=== PATIENT | male | born 1960 | race Caucasian/White ===

== ENCOUNTER 2022-05-26 01:09 | Outpatient (CLI) | payer OTHER, SELFPAY ==
--- OUTSIDE RECORDS SUMMARY | 2022-05-26 01:13 | XMS_ITS | Encounter Summary ---
:1960 Author Organization [facility] Address [address] [place] [address] Care Team Providers Name Role Phone Tyrese Juares Primary Care Provider Encounter Details Date Type Department Care Team Description 05/17/2022 Travel Social History Tobacco Use Types Packs/Day Years Used Date Never Smoker Smokeless Tobacco: Never Used Comments: LEONARDO pt not able to give histor y Sex Assigned at Date Recorded Not on file COVID-19 Exposure Response Date Recorded In the last 10 days, have you been in contact with No / Unsu re 05/17/2022 13:02 EDT someone who was confirmed or suspected to have Coronavirus/COVID-19? documented as of this encounter Functional Status Functional Status Response Date of Assessment Are you deaf or do you have serious difficulty hearing? No 05/17/2022 documented as of this encounter Plan of Treatment Not on filedocumented as of this encounter Visit Diagnoses Not on filedocumented in this encounter Care Teams Product Development Relationship Specialty Start Date End Date Tyrese Juares PA PCP - General 03/16/22 [address] [place] [facility] [place] [address] documented as of this encounter
--- OUTSIDE RECORDS SUMMARY | 2022-05-26 01:13 | XMS_ITS | Encounter Summary ---
:1960 Author Organization [facility] Address [address] [place] [address] Care Team Providers Name Role Phone Tyrese Juares Primary Care Provider Encounter Details Date Type Department Care Team Description 04/16/2022 Travel Social History Tobacco Use Types Packs/Day Years Used Date Unknown If Ever Smoked Comments: LEONARDO pt not able to give histor y Sex Assigned at Date Recorded Not on file COVID-19 Exposure Response Date Recorded In the last 10 days, have you been in contact with No / Unsu re 04/16/2022 8:10 EDT someone who was confirmed or suspected to have Coronavirus/COVID-19? documented as of this encounter Plan of Treatment Not on filedocumented as of this encounter Visit Diagnoses Not on filedocumented in this encounter Care Teams Chip Mucker Relationship Specialty Start Date End Date Tyrese Juares PA PCP - General 03/16/22 [address] [facility] [place] [address] documented as of this encounter
--- OUTSIDE RECORDS SUMMARY | 2022-05-26 01:13 | XMS_ITS | Encounter Summary ---
:1960 Author Organization [facility] Address [address] [place] [address] Care Team Providers Name Role Phone Tyrese Juares Primary Care Provider Reason for Visit Reason Comments Urinary Retention pt has had a mclean catheter for 2 weeks. pt is having issues with mclean leaking and would like the mclean removed. [facility] Auth/Cert Specialty Diagnoses / Procedures Referred By Contact Refer red To Contact Diagnoses Urinary retention Referral ID Status Reason Start Date Expiration Date Visits Requ ested Visits Authorized [id number] 1 1 Encounter Details Date Type Department Care Team Description 04/16/2022 Emergency [facility] - Mitchell Da Silva, Ur inary retention [facility] PA-C (Primary Dx) Department [address] [place] [address] [phone] (Wo rk) Social History Tobacco Use Types Packs/Day Years [...] have Coronavirus/COVID-19? documented as of this encounter Last Filed Vital Signs Vital Sign Reading Time Taken Comments Blood Pressure 177/96 04/16/2022 1029 EDT Pulse - - Temperature 36.5 ??C (97.7 ??F) 04/16/2022 0807 EDT Respiratory Rate 16 04/16/2022 1029 EDT Oxygen Saturation 96% 04/16/2022 1029 EDT Inhaled Oxygen Concentration - - Weight 65.2 kg (143 lb 11.2 oz) 04/16/2022 0807 EDT Height 175.3 cm (5' 9) 04/16/2022 0807 EDT Body Mass Index 21.22 04/16/2022 0807 EDT documented in this encounter Discharge Instructions Mitchell Espinal PA-C - 04/16/2022 You were seen in the emergency department with a Mclean catheter in place after your hospitalization. The catheter was removed and you were able to produce urine, if you develop abdominal pain or pressure or inability to produce urine return to the emergency department, take the tamsulosin as prescribed to prevent future episodes of urinary retention. While hospitalized he developed urinary retention which is why the catheter was placed. During your hospitalization you had a diverticulum in your colon which was bleeding, you lost a significant amount of blood which is why you required resuscitation and you were hospitalized, the bleeding stopped on its own and you did not have a colonoscopy. Follow-up with the DC for your colonoscopy as discussed, if you develop future episodes of rectal bleeding you should return to the emergency department, you should also discuss with your primary care provider. documented in this encounter Medications at Time of Discharge Medication Sig Dispensed Refills Start Date End Date folic acid (FOLVITE) 1 mg Take 1 Tablet by 60 Tablet 0 03/08 tablet mouth daily. folic acid (FOLVITE) 1 mg Take 1 Tablet by 30 Tablet 2 07/2022 tablet mouth daily. lisinopriL (PRINIVIL) 5 5 mg. 0 03/01/2022 mg tablet Multivitamins with Take 1 Tablet by 30 Tablet 0 04/01/2022 Minerals tablet tablet mouth daily. senna (SENOKOT) 8.6 mg Take 2 Tablets by 60 Tablet 0 2021 tablet mouth at bedtime as needed for Other (constipation). sertraline (ZOLOFT) 100 100 mg. 0 09/01/2021 mg tablet TAMSulosin (FLOMAX) 0.4 Take 2 Capsules by 60 capsule 0 05/2 04/2022 mg capsule mouth at bedtime. TAMSulosin (FLOMAX) 0.4 Take 2 Capsules by 60 Each 2 06/07/2022 mg capsule mouth daily. traZODone (DESYREL) 50 mg 50 mg. 0 09/01/2021 tablet TAMSulosin (FLOMAX) 0.4 Take 1 capsule by 14 capsule 0 04/1604/30/2022 mg capsule mouth daily for 14 days. documented as of this encounter Ordered Prescriptions Prescription Sig Dispensed Refills Start Date End Date TAMSulosin (FLOMAX) 0.4 Take 1 capsule by 14 capsule 0 04/1604/30/2022 mg capsule mouth daily for 14 days. documented in this encounter Discharge Disposition Disposition Code Departure Means Destination Home or Self Nursing Home documented in this encounter ED Notes Mitchell Da Silva PA-C - 04/16/2022 1043 EDT Emergency Department Visit Assessment and ED Course 61-year-old male who was recently admitted to [facility] for lower GI bleed with anemia presents to the emergency department with a Mclean catheter in place requesting removal. Mclean removed without incident, 1 hour after removal he was able to void 400 mL of urine, denies abdominal pain. Will continue tamsulosin for the next 14 days to prevent urinary retention, he has no history of urinary retention prior to hospitalization. He denies rectal bleeding. See discharge instructions for patient education/return precautions Final diagnoses: Urinary retention Disposition: Discharged Chief complaint: Mclean catheter removal HPI Juan is a 61-year-old male who was recently admitted to [facility] for lower GI bleed with anemia requiring transfusion who had a subsequent hypoxic brain injury and urinary retention, patient was discharged from the hospital with an indwelling Mclean catheter and encouraged to follow-up with urology. He presents to the emergency department today requesting removal of the catheter, states that he cannot get into [facility] for [facility], denies dysuria, denies abdominal pain, states that he is sick of it and wants it removed. History was provided by: Patient Patient's pertinent PMH, FH, SH were reviewed and edited as necessary. ROS A focused review of systems was performed. Pertinent positives and negatives as noted in HPI. Physical Exam BP (!) 177/96 Temp 36.5 ??C (97.7 ??F) Resp 16 Ht 175.3 cm (69) Wt 65.2 kg (143 lb 11.2 oz) SpO2 96% BMI 21.22 kg/m?? A medical screening exam was performed. Physical Exam Vitals and nursing note reviewed. Constitutional: General: He is not in acute distress. Appearance: He is well-developed and well-nourished. HENT: Nose: Nose normal. No nasal discharge. Mouth/Throat: Mouth: Mucous membranes are moist. Pharynx: Oropharynx is clear. Eyes: Extraocular Movements: EOM normal. Conjunctiva/sclera: Conjunctivae normal. Pupils: Pupils are equal, round, and reactive to light. Cardiovascular: Rate and Rhythm: Normal rate and regular rhythm. Heart sounds: Normal heart sounds. Pulmonary: Effort: Pulmonary effort is normal. No respiratory distress. Breath sounds: Normal breath sounds. Abdominal: General: Bowel sounds are normal. Palpations: Abdomen is soft. Tenderness: There is no abdominal tenderness. Musculoskeletal: General: Normal range of motion. Cervical back: Normal range of motion and neck supple. Skin: General: Skin is warm and dry. Neurological: Mental Status: He is alert and oriented to person, place, and time. Cranial Nerves: No cranial nerve deficit. Psychiatric: Mood and Affect: Mood and affect normal. Procedures Procedures Maru Kim RN - 04/16/2022 0903 EDT Mclean cath removed after balloon deflated without problem, and patient was elated. documented in this encounter Plan of Treatment Not on filedocumented as of this encounter Visit Diagnoses Diagnosis Urinary retention - Primary Retention of urine, unspecified documented in this encounter Care Teams System Programmer Relationship Specialty Start Date End Date Tyrese Juares PA PCP - General 03/16/[address] [place] [facility] [place] [address] documented as of this encounter
--- OUTSIDE RECORDS SUMMARY | 2022-05-26 01:13 | XMS_ITS | Encounter Summary ---
:[address] [facility] Address [address] [place] [address] Care Team Providers Name Role Phone Tyrese Juares Primary Care Provider Reason for Visit Reason Comments Toe Injury Pt states he hit his left mi ddle toe against the sink 2 two nights ago now having redness, swelling and pain that is not improving believes it may be broken. Auth/Cert Specialty Diagnoses / Procedures Referred By Contact Refer red To Contact Diagnoses Toe injury, left, initial encounter Referral ID Status Reason Start Date Expiration Date Visits Requ ested Visits Authorized [id number] 1 1 Encounter Details Date Type Department Care Team Description 05/17/2022 Emergency [facility] - Prakash Lockhart To e injury, left, [place] [facility] [place] Emergency MD initial encounter Department [address] (Primary Dx) [address] [place] [address] [phone] Social History Tobacco Use Types Packs/Day Years [...] Sign Reading Time Taken Comments Blood Pressure 128/90 05/17/2022 1400 EDT Pulse 70 05/17/2022 1400 EDT Temperature 36.5 ??C (97.7 ??F) 05/17/2022 1301 EDT Respiratory Rate 18 05/17/2022 1400 EDT Oxygen Saturation 97% 05/17/2022 1400 EDT Inhaled Oxygen Concentration - - Weight - - Height - - Body Mass Index - - documented in this encounter Functional Status Functional Status Response Date of Assessment Are you deaf or do you have serious difficulty hearing? No 05/17/2022 documented as of this encounter Discharge Instructions InstructionsPrakash Lockhart MD - 05/17/2022 [facility] Emergency Department Discharge Instructions Diagnosis: toe injury - as discussed, your toe is bruised and painful and may be broken but the treatment is using a stiff soled shoe and allowing the bones to heal on their own over the next several days. Your symptoms should improve over the next 1-2 weeks For pain you can take: Acetaminophen (known as Tylenol) 650mg every 6 h as needed for pain Follow up: with PCP as needed Return Precautions: If you have significant worsening of your symptoms especially worsening pain, fevers, worsening redness up the foot or other symptoms that are particularly concerning to you please return to the emergency room for reevaluation. documented in this encounter Medications at Time of Discharge Medication Sig Dispensed Refills Start Date End Date folic acid (FOLVITE) 1 mg Take 1 Tablet by 60 Tablet 0 05/2 04/2022 tablet mouth daily. folic acid (FOLVITE) 1 mg Take 1 Tablet by 30 Tablet 2 /07/2022 tablet mouth daily. lisinopriL (PRINIVIL) 5 mg 5 mg. 0 2 tablet Multivitamins with Take 1 Tablet by 30 Tablet 0 04/01/2022 Minerals tablet tablet mouth daily. senna (SENOKOT) 8.6 mg Take 2 Tablets by 60 Tablet 0 2021 tablet mouth at bedtime as needed for Other (constipation). sertraline (ZOLOFT) 100 mg 100 mg. 0 1 tablet TAMSulosin (FLOMAX) 0.4 mg Take 2 Capsules by 60 capsule 0 0 04/01/2022 capsule mouth at bedtime. TAMSulosin (FLOMAX) 0.4 mg Take 2 Capsules by 60 Each 2 0 04/15/2022 capsule mouth daily. traZODone (DESYREL) 50 mg 50 mg. 0 09/01/2021 tablet documented as of this encounter Discharge Disposition Disposition Code Departure Means Destination Home or Self Nursing Home documented in this encounter ED Notes Prakash Lockhart MD - 05/17/2022 1351 EDT Emergency Department Visit Assessment and ED Course 61-year-old male presents for evaluation of traumatic left third toe pain. It is red swollen and tender on exam. 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 No overlying laceration or abrasions. Postop shoe provided. It does not appear infected. Return precautions discussed. Final diagnoses: Toe injury, left, initial encounter Disposition: Discharged Chief complaint: toe injury HPI Antoine Saez is a 61 y.o. male presents for evaluation of toe pain. History was provided by: patient Stubbed his left 3rd toe at night 2 days ago Increased redness, pain since then. No other injuries. Patient's pertinent PMH, FH, SH were reviewed and edited as necessary. ROS A focused review of systems was performed. Pertinent positives and negatives as noted in HPI. Physical Exam BP 128/90 Pulse 70 Temp 36.5 ??C (97.7 ??F) (Tympanic) Resp 18 SpO2 97% A medical screening exam was performed. Physical Exam Constitutional: Appearance: He is well-developed and well-nourished. HENT: Nose: No nasal discharge. Cardiovascular: Rate and Rhythm: Normal rate. Pulmonary: Effort: No respiratory distress. Abdominal: General: There is no distension. Musculoskeletal: General: Normal range of motion. Cervical back: Normal range of motion. Comments: Redness of the dorsum of the left 3rd toe. No abrasion or laceration. Pain with range of motion but able to plantarflex and extend. 2+ dp pulse. Skin: General: Skin is warm and dry. Neurological: Mental Status: He is alert and oriented to person, place, and time. Psychiatric: Mood and Affect: Mood and affect normal. Procedures Procedures documented in this encounter Plan of Treatment Not on filedocumented as of this encounter Visit Diagnoses Diagnosis Toe injury, left, initial encounter - Pr imary documented in this encounter Administered Medications Inactive Administered Medications - up to 3 most recent administrations Medication Order MAR Action Action Date Dose Rate Site acetaminophen (TYLENOL) tablet 650 Given 05/17/2022 14:09 EDT 65 0 mg mg 650 mg, oral, NOW X1, 1 dose, On Tue05/17/22 at 1430, Routine documented in this encounter Active and Recently Administered Medications Times are shown in EDT. Scheduled Medication Order 05/15/2022 05/16/2022 05/17/2022 acetaminophen (TYLENOL) tablet 650 mg (COMPLETED) 1409 (Given - Provider: Kennedy Ortiz RN) 650 mg, oral, NOW X1, 1 dose, On Tue05/17/22 at 1430, Routine documented in this encounter Orders Medications Ordered That Might Not Have Count Last Ord ered Date First Ordered Date Been Administered acetaminophen (TYLENOL) tablet 650 mg 1 05/17/2022 documented in this encounter Care Teams Powder Coater Relationship Specialty Start Date End Date Tyrese Juares PA PCP - General 03/16/22 [address] [facility] [place] [place] [address] documented as of this encounter
--- OUTSIDE RECORDS SUMMARY | 2022-05-26 01:13 | XMS_ITS | Clinical Summary ---
:1960 Author Organization [facility] Address [address] [place] [address] Care Team Providers Name Role Phone Tyrese Juares Primary Care Provider Allergies Active Allergy Reactions Severity Noted Date Comments Aspirin Shortness Of Breath 03/20/2022 Bee Venom Protein (Honey Anaphylaxis High 03/20/2022 Bee) Shrimp Other (See Comments) 03/20/2022 Unknown reaction Medications Medication Sig Dispensed Refills Start Date End Date Status traZODone (DESYREL) 50 mg. 0 09/01/2021 Active 50 mg tablet sertraline (ZOLOFT) 100 mg. 0 09/01/2021 Active 100 mg tablet lisinopriL (PRINIVIL) 5 mg. 0 03/01/2022 Active 5 mg tablet folic acid (FOLVITE) Take 1 Tablet 60 Tablet 0 04/01/2022 Active 1 mg tablet by mouth daily. Multivitamins with Take 1 Tablet 30 Tablet 0 04/01/2022 Active Minerals tablet by mouth daily. tablet senna (SENOKOT) 8.6 Take 2 Tablets 60 Tablet 0 04/01/2022 Active mg tablet by mouth at bedtime as needed for Other (constipation). TAMSulosin (FLOMAX) Take 2 Capsules 60 capsule 0 04/01/2022 Active 0.4 mg capsule by mouth at bedtime. folic acid (FOLVITE) Take 1 Tablet 30 Tablet 2 04/15/2022 Active 1 mg tablet by mouth daily. TAMSulosin (FLOMAX) Take 2 Capsules 60 Each 2 04/15/2022 Active 0.4 mg capsule by mouth daily. TAMSulosin (FLOMAX) Take 1 capsule 14 capsule 0 04/16/2022 0.4 mg capsule by mouth daily for 14 days. Active Problems Problem Noted Date Hypoxic brain injury ([facility]) 04/01/2022 Urinary retention 04/01/2022 Bradycardia 04/01/2022 Lactic acidosis 04/01/2022 Cardiac arrest 03/16/2022 Resolved Problems Problem Noted Date Resolved Date Facial trauma 03/17/2022 04/01/2022 Syncope 03/17/2022 04/01/2022 Hemorrhagic shock ([facility]) 03/17/2022 04/01/2022 Hypocalcemia 03/17/2022 04/01/2022 GIB (gastrointestinal bleeding) 03/16/2022 04/01/20 22 Encounters Date Type Specialty Care Team Description 05/17/2022 Emergency Emergency Medicine Prakash Lockhart left, B, MD initial encount er (Primary Dx) 05/17/2022 Travel 04/16/2022 Emergency Emergency Medicine Mitchell Da Silva Urinary retention C., PA-C (Primary Dx) 04/16/2022 Travel 03/16/2022 - Hospital Allergy [facility], Acute urinary r etention (Primary Dx); 04/01/2022 Encounter Shanika Terry MD Cardiac arrest ([facility]); Dany Gastrointestina l hemorrhage, unspecified gastrointestinal hemorrhage type; MD Aylin Hemorrhagic shock ([facility]) ([facility]); Salo, Metabolic encep halopathy; Nolan Jorge MD Syncope, unspecified syncope type; Nancy, Lower GI bleed; Sean Santiago MD Facial injury, initial encounter Anita Castellon MD Kaminski, Peter A, MD 03/16/2022 Emergency Emergency Medicine [place], Urinary r etention (Primary Dx); Ruby B, Rectal bleeding ; PA-C Hemorrhagic shock ([facility]) ([facility]); Satinder Foote Syncope, unsp ecified syncope type MD Richy Dorsey Samuel B, MD 03/16/2022 Travel 03/16/2022 Orders Only Gastroenterology Jose Alejandro Griffith, Rectal blee marito ARREGAA (Primary Dx) from Last 3 Months Medical History Medical History Date Comments Urinary retention Encounter for removal of urinary catheter Hypoxic brain injury ([facility]) ([facility]) Lactic acidosis Cardiac arrest ([facility]) Bradycardia Social History Tobacco Use Types Packs/Day Years Used Date Never Smoker Smokeless Tobacco: Never Used Tobacco Cessation: Counseling Given: No Comments: LEONARDO pt not able to give histor y Sex Assigned at Date Recorded Not on file COVID-19 Exposure Response Date Recorded In the last 10 days, have you been in contact with No / Unsu re 05/17/2022 13:02 EDT someone who was confirmed or suspected to have Coronavirus/COVID-19? Last Filed Vital Signs Vital Sign Reading [...] Body Mass Index 21.22 04/16/2022 0807 EDT Plan of Treatment Health Maintenance Due Date Last Done Comments Hepatitis C Screen 1960 COVID-19 Vaccine (#1) 03/07/1961 Procedures Procedure Name Priority Date/Time Associated Comments Diagnosis ECG REPORT - SCANNED 04/06/2022 12:53 EDT ECG REPORT - SCANNED 04/06/2022 12:53 EDT COMPLETE BLOOD COUNT Routine 04/01/2022 8:04 Resu lts for this EDT procedure are i n the results section. MAGNESIUM Routine 03/30/2022 6:38 Results for this EDT procedure are i n the results section. BASIC METABOLIC PANEL Routine 03/30/2022 6:38 Res ults for this (BMP) EDT procedure are i n the results section. POCT GLUCOSE, INTERFACED Routine 03/29/2022 11:21 Results for this EDT procedure are i n the results section. COMPLETE BLOOD COUNT Routine 03/29/2022 9:57 Resu lts for this EDT procedure are i n the results section. PHOSPHORUS Routine 03/28/2022 8:57 Results for this EDT procedure are i n the results section. MAGNESIUM Routine 03/28/2022 8:57 Results for this EDT procedure are i n the results section. BASIC METABOLIC PANEL Routine 03/28/2022 8:57 Res ults for this (BMP) EDT procedure are i n the results section. PHOSPHORUS Routine 03/27/2022 5:46 Results for this EDT procedure are i n the results section. MAGNESIUM Routine 03/27/2022 5:46 Results for this EDT procedure are i n the results section. COMPLETE BLOOD COUNT Routine 03/27/2022 5:46 Resu lts for this EDT procedure are i n the results section. BASIC METABOLIC PANEL Routine 03/27/2022 5:46 Res ults for this (BMP) EDT procedure are i n the results section. PHOSPHORUS Routine 03/26/2022 6:28 Results for this EDT procedure are i n the results section. MAGNESIUM Routine 03/26/2022 6:28 Results for this EDT procedure are i n the results section. BASIC METABOLIC PANEL Routine 03/26/2022 6:28 Res ults for this (BMP) EDT procedure are i n the results section. POCT GLUCOSE, INTERFACED Routine 03/25/2022 13:32 Results for this EDT procedure are i n the results section. PHOSPHORUS Routine 03/25/2022 10:12 Results for this EDT procedure are i n the results section. MAGNESIUM Routine 03/25/2022 10:12 Results for this EDT procedure are i n the results section. BASIC METABOLIC PANEL Routine 03/25/2022 10:12 Re sults for this (BMP) EDT procedure are i n the results section. COMPLETE BLOOD COUNT Routine 03/25/2022 10:11 Res ults for this EDT procedure are i n the results section. POCT GLUCOSE, INTERFACED Routine 03/25/2022 6:32 Results for this EDT procedure are i n the results section. POCT GLUCOSE, INTERFACED Routine 03/24/2022 23:53 Results for this EDT procedure are i n the results section. POCT GLUCOSE, INTERFACED Routine 03/24/2022 20:11 Results for this EDT procedure are i n the results section. POCT GLUCOSE, INTERFACED Routine 03/24/2022 11:59 Results for this EDT procedure are i n the results section. PHOSPHORUS Routine 03/24/2022 9:16 Results for this EDT procedure are i n the results section. MAGNESIUM Routine 03/24/2022 9:16 Results for this EDT procedure are i n the results section. BASIC METABOLIC PANEL Routine 03/24/2022 9:16 Res ults for this (BMP) EDT procedure are i n the results section. POCT GLUCOSE, INTERFACED Routine 03/24/2022 6:04 Results for this EDT procedure are i n the results section. POCT GLUCOSE, INTERFACED Routine 03/23/2022 23:56 Results for this EDT procedure are i n the results section. POCT GLUCOSE, INTERFACED Routine 03/23/2022 18:04 Results for this EDT procedure are i n the results section. POCT GLUCOSE, INTERFACED Routine 03/23/2022 11:54 Results for this EDT procedure are i n the results section. POCT GLUCOSE, INTERFACED Routine 03/23/2022 7:48 Results for this EDT procedure are i n the results section. PHOSPHORUS Routine 03/23/2022 6:34 Results for this EDT procedure are i n the results section. MAGNESIUM Routine 03/23/2022 6:34 Results for this EDT procedure are i n the results section. COMPLETE BLOOD COUNT Routine 03/23/2022 6:34 Resu lts for this EDT procedure are i n the results section. BASIC METABOLIC PANEL Routine 03/23/2022 6:34 Res ults for this (BMP) EDT procedure are i n the results section. POCT GLUCOSE, INTERFACED Routine 03/22/2022 21:33 Results for this EDT procedure are i n the results section. MR HEAD W WO CONTRAST Routine 03/22/2022 19:03 Re sults for this EDT procedure are i n the results section. XR FEEDING TUBE Routine 03/22/2022 14:39 Results for this PLACEMENT EDT procedure are i n the results section. POCT GLUCOSE, INTERFACED Routine 03/22/2022 6:09 Results for this EDT procedure are i n the results section. POCT GLUCOSE, INTERFACED Routine 03/22/2022 0:24 Results for this EDT procedure are i n the results section. POCT GLUCOSE, INTERFACED Routine 03/21/2022 17:28 Results for this EDT procedure are i n the results section. COMPLETE BLOOD COUNT Routine 03/21/2022 8:55 Resu lts for this EDT procedure are i n the results section. POCT GLUCOSE, INTERFACED Routine 03/21/2022 6:27 Results for this EDT procedure are i n the results section. VITAMIN B12 Add-On 03/21/2022 6:17 Results for this EDT procedure are i n the results section. BASIC METABOLIC PANEL Routine 03/21/2022 6:17 Res ults for this (BMP) EDT procedure are i n the results section. POCT GLUCOSE, INTERFACED Routine 03/21/2022 0:06 Results for this EDT procedure are i n the results section. XR FOOT RIGHT 1-2 VIEWS Routine 03/20/2022 18:49 Results for this EDT procedure are i n the results section. XR FOOT LEFT 1-2 VIEWS Routine 03/20/2022 18:49 R esults for this EDT procedure are i n the results section. XR TIBIA FIBULA LEFT 2 Routine 03/20/2022 18:49 R esults for this VIEWS EDT procedure are i n the results section. XR TIBIA FIBULA RIGHT 2 Routine 03/20/2022 18:49 Results for this VIEWS EDT procedure are i n the results section. XR FEMUR RIGHT 2 OR MORE Routine 03/20/2022 18:49 Results for this VIEWS EDT procedure are i n the results section. XR FEMUR LEFT 2 OR MORE Routine 03/20/2022 18:49 Results for this VIEWS EDT procedure are i n the results section. XR HAND LEFT 1-2 VIEWS Routine 03/20/2022 18:49 R esults for this EDT procedure are i n the results section. XR HAND RIGHT 1-2 VIEWS Routine 03/20/2022 18:49 Results for this EDT procedure are i n the results section. XR FOREARM LEFT 2 VIEWS Routine 03/20/2022 18:49 Results for this EDT procedure are i n the results section. XR FOREARM RIGHT 2 VIEWS Routine 03/20/2022 18:49 Results for this EDT procedure are i n the results section. XR HUMERUS RIGHT Routine 03/20/2022 18:49 Results for this EDT procedure are i n the results section. XR HUMERUS LEFT Routine 03/20/2022 18:49 Results for this EDT procedure are i n the results section. POCT GLUCOSE, INTERFACED Routine 03/20/2022 17:51 Results for this EDT procedure are i n the results section. POCT GLUCOSE, INTERFACED Routine 03/20/2022 12:48 Results for this EDT procedure are i n the results section. COMPLETE BLOOD COUNT Routine 03/20/2022 6:32 Resu lts for this EDT procedure are i n the results section. MAGNESIUM Routine 03/20/2022 6:32 Results for this EDT procedure are i n the results section. BASIC METABOLIC PANEL Routine 03/20/2022 6:32 Res ults for this (BMP) EDT procedure are i n the results section. POCT GLUCOSE, INTERFACED Routine 03/20/2022 5:44 Results for this EDT procedure are i n the results section. POCT GLUCOSE, INTERFACED Routine 03/19/2022 13:23 Results for this EDT procedure are i n the results section. COMPLETE BLOOD COUNT Routine 03/19/2022 6:03 Resu lts for this EDT procedure are i n the results section. MAGNESIUM Routine 03/19/2022 6:03 Results for this EDT procedure are i n the results section. BASIC METABOLIC PANEL Routine 03/19/2022 6:03 Res ults for this (BMP) EDT procedure are i n the results section. POCT GLUCOSE, INTERFACED Routine 03/19/2022 5:35 Results for this EDT procedure are i n the results section. POCT GLUCOSE, INTERFACED Routine 03/18/2022 23:18 Results for this EDT procedure are i n the results section. POCT GLUCOSE, INTERFACED Routine 03/18/2022 17:24 Results for this EDT procedure are i n the results section. ELECTROLYTES Routine 03/18/2022 14:59 Results for this EDT procedure are i n the results section. COMPLETE BLOOD COUNT Routine 03/18/2022 12:28 Res ults for this EDT procedure are i n the results section. POCT GLUCOSE, INTERFACED Routine 03/18/2022 11:58 Results for this EDT procedure are i n the results section. TRANSTHORACIC ECHO (TTE) Routine 03/18/2022 11:48 Results for this COMPLETE EDT procedure are i n the results section. ECG REPORT - SCANNED 03/18/2022 6:29 EDT POCT GLUCOSE, INTERFACED Routine 03/18/2022 6:27 Results for this EDT procedure are i n the results section. PHOSPHORUS Add-On 03/18/2022 4:40 Results for this EDT procedure are i n the results section. MAGNESIUM Add-On 03/18/2022 4:40 Results for this EDT procedure are i n the results section. HEPATIC FUNCTION PANEL Add-On 03/18/2022 4:40 Re sults for this (ALB,ALK EDT procedure are i n PHOS,ALT,AST,DBIL,TOT the re sults ZACH,TOT PROT) section. PROCALCITONIN Routine 03/18/2022 4:40 Results for this EDT procedure are i n the results section. BASIC METABOLIC PANEL Routine 03/18/2022 4:40 Res ults for this (BMP) EDT procedure are i n the results section. COMPLETE BLOOD COUNT Routine 03/18/2022 4:40 Resu lts for this EDT procedure are i n the results section. COMPLETE BLOOD COUNT Routine 03/18/2022 0:41 Resu lts for this EDT procedure are i n the results section. POCT GLUCOSE, INTERFACED Routine 03/18/2022 0:06 Results for this EDT procedure are i n the results section. EEG WITH PROLONGED Routine 03/17/2022 23:58 Resul ts for this BEDSIDE VIDEO MONITORING EDT pro cedure are in the results section. PROTIME Routine 03/17/2022 20:32 Results for this EDT procedure are i n the results section. CALCIUM, IONIZED Routine 03/17/2022 18:58 Results for this EDT procedure are i n the results section. COMPLETE BLOOD COUNT Routine 03/17/2022 18:58 Res ults for this EDT procedure are i n the results section. OSMOLALITY, URINE Routine 03/17/2022 18:50 Result s for this EDT procedure are i n the results section. URINE CHEMICAL (DIP) & Routine 03/17/2022 18:50 R esults for this SEDIMENT (MICRO) WITH EDT proced ure are in REFLEX TO CULTURE the result s section. BACTERIAL CULTURE, URINE Today 03/17/2022 18:50 Results for this EDT procedure are i n the results section. EXTUBATION Routine 03/17/2022 18:21 EDT POCT GLUCOSE, INTERFACED Routine 03/17/2022 17:33 Results for this EDT procedure are i n the results section. PHOSPHORUS Routine 03/17/2022 17:32 Results for this EDT procedure are i n the results section. MAGNESIUM Routine 03/17/2022 17:32 Results for this EDT procedure are i n the results section. ELECTROLYTES Routine 03/17/2022 17:32 Results for this EDT procedure are i n the results section. CT CERVICAL SPINE WO STAT 03/17/2022 15:36 Res ults for this CONTRAST EDT procedure are i n the results section. SLIDE REQUEST Today 03/17/2022 12:58 Results fo r this EDT procedure are i n the results section. LACTIC ACID Routine 03/17/2022 12:58 Results for this EDT procedure are i n the results section. COMPLETE BLOOD COUNT Routine 03/17/2022 12:58 Res ults for this EDT procedure are i n the results section. TROPONIN I Routine 03/17/2022 12:58 Results for this EDT procedure are i n the results section. POCT GLUCOSE, INTERFACED Routine 03/17/2022 12:46 Results for this EDT procedure are i n the results section. UPPER ENDOSCOPY Routine 03/17/2022 12:27 Results for this PROCEDURE EDT procedure are i n the results section. ECG REPORT - SCANNED 03/17/2022 9:42 EDT POCT GLUCOSE, INTERFACED Routine 03/17/2022 8:38 Results for this EDT procedure are i n the results section. BACTERIAL CULTURE, BLOOD Routine 03/17/2022 5:46 Results for this EDT procedure are i n the results section. BACTERIAL CULTURE, BLOOD Routine 03/17/2022 5:45 Results for this EDT procedure are i n the results section. SLIDE REQUEST Today 03/17/2022 5:26 Results for this EDT procedure are i n the results section. FIBRINOGEN Routine 03/17/2022 5:26 Results for this EDT procedure are i n the results section. CALCIUM, IONIZED Routine 03/17/2022 5:26 Results for this EDT procedure are i n the results section. PROTIME Routine 03/17/2022 5:26 Results for this EDT procedure are i n the results section. COMPLETE BLOOD COUNT Routine 03/17/2022 5:26 Resu lts for this EDT procedure are i n the results section. CK Add-On 03/17/2022 5:25 Results for this EDT procedure are i n the results section. COMPREHENSIVE METABOLIC Routine 03/17/2022 5:25 R esults for this PANEL (CMP) EDT procedure are i n the results section. LACTIC ACID Routine 03/17/2022 5:25 Results for this EDT procedure are i n the results section. PHOSPHORUS Routine 03/17/2022 5:25 Results for this EDT procedure are i n the results section. TROPONIN I Routine 03/17/2022 5:25 Results for this EDT procedure are i n the results section. POCT GLUCOSE, INTERFACED Routine 03/17/2022 4:05 Results for this EDT procedure are i n the results section. EKG 12-LEAD STAT 03/17/2022 0:55 Results for this EDT procedure are i n the results section. TSH Add-On 03/17/2022 0:51 Results for this EDT procedure are i n the results section. URINE CHEMICAL (DIP) & Routine 03/17/2022 0:51 Re sults for this SEDIMENT (MICRO) WITH EDT proced ure are in REFLEX TO CULTURE the result s section. LACTIC ACID Routine 03/17/2022 0:51 Results for this EDT procedure are i n the results section. BACTERIAL CULTURE, URINE Today 03/17/2022 0:51 Results for this EDT procedure are i n the results section. MRSA PCR Routine 03/16/2022 23:08 Results for this EDT procedure are i n the results section. RESPIRATORY CARE Routine 03/16/2022 22:57 EVALUATION ONLY EDT COMPLETE BLOOD COUNT AND Routine 03/16/2022 22:47 Results for this DIFFERENTIAL EDT procedure are i n the results section. TRANSFUSE RED BLOOD Routine 03/16/2022 22:38 CELLS EDT PREPARE CRYOPRECIPITATE Routine 03/16/2022 22:00 Results for this EDT procedure are i n the results section. XR CHEST PORTABLE LINE STAT 03/16/2022 22:00 R esults for this PLACEMENT EDT procedure are i n the results section. POCT BLOOD GAS, EG6 Routine 03/16/2022 21:43 Resu lts for this I-STAT EDT procedure are i n the results section. PATIENT RE-TYPE STAT 03/16/2022 21:40 Results for this EDT procedure are i n the results section. TYPE AND SCREEN STAT 03/16/2022 21:32 Results for this EDT procedure are i n the results section. POCT GLUCOSE, INTERFACED Routine 03/16/2022 21:32 Results for this EDT procedure are i n the results section. RETICULOCYTE COUNT Routine 03/16/2022 21:30 Resul ts for this EDT procedure are i n the results section. PTT Routine 03/16/2022 21:30 Results for this EDT procedure are i n the results section. FIBRINOGEN Routine 03/16/2022 21:30 Results for this EDT procedure are i n the results section. LACTIC ACID Routine 03/16/2022 21:30 Results for this EDT procedure are i n the results section. PROTIME Routine 03/16/2022 21:30 Results for this EDT procedure are i n the results section. COMPREHENSIVE METABOLIC Routine 03/16/2022 21:30 Results for this PANEL (CMP) EDT procedure are i n the results section. PHOSPHORUS Routine 03/16/2022 21:30 Results for this EDT procedure are i n the results section. MAGNESIUM Routine 03/16/2022 21:30 Results for this EDT procedure are i n the results section. TROPONIN I Routine 03/16/2022 21:30 Results for this EDT procedure are i n the results section. NT PRO BNP Routine 03/16/2022 21:30 Results for this EDT procedure are i n the results section. PREPARE RED BLOOD CELLS Routine 03/16/2022 21:18 Results for this EDT procedure are i n the results section. PREPARE RED BLOOD CELLS Routine 03/16/2022 21:18 Results for this EDT procedure are i n the results section. PREPARE RED BLOOD CELLS Routine 03/16/2022 21:18 Results for this EDT procedure are i n the results section. PREPARE RED BLOOD CELLS Routine 03/16/2022 21:18 Results for this EDT procedure are i n the results section. ED INSERT CENTRAL LINE Routine 03/16/2022 20:59 R esults for this EDT procedure are i n the results section. ED INSERT CENTRAL LINE Routine 03/16/2022 20:59 R esults for this EDT procedure are i n the results section. ED INTUBATION Routine 03/16/2022 20:54 Results fo r this EDT procedure are i n the results section. CT ANGIO ABDOMEN PELVIS STAT 03/16/2022 20:12 Results for this EDT procedure are i n the results section. CT CERVICAL SPINE WO STAT 03/16/2022 20:09 Res ults for this CONTRAST EDT procedure are i n the results section. CT FACIAL BONES WO STAT 03/16/2022 20:09 Resul ts for this CONTRAST EDT procedure are i n the results section. CT HEAD WO CONTRAST STAT 03/16/2022 20:09 Resu lts for this EDT procedure are i n the results section. PREPARE PLASMA Routine 03/16/2022 19:12 Results f or this EDT procedure are i n the results section. PREPARE PLASMA Routine 03/16/2022 19:12 Results f or this EDT procedure are i n the results section. PREPARE PLASMA Routine 03/16/2022 19:12 Results f or this EDT procedure are i n the results section. PREPARE PLASMA Routine 03/16/2022 19:12 Results f or this EDT procedure are i n the results section. TYPE AND SCREEN STAT 03/16/2022 19:10 Results for this EDT procedure are i n the results section. COMPLETE BLOOD COUNT AND STAT 03/16/2022 19:10 Results for this DIFFERENTIAL EDT procedure are i n the results section. PTT STAT 03/16/2022 19:10 Results for this EDT procedure are i n the results section. PROTIME STAT 03/16/2022 19:10 Results for this EDT procedure are i n the results section. PREPARE RED BLOOD CELLS Routine 03/16/2022 19:05 Results for this EDT procedure are i n the results section. PREPARE RED BLOOD CELLS Routine 03/16/2022 19:05 Results for this EDT procedure are i n the results section. PREPARE RED BLOOD CELLS Routine 03/16/2022 19:05 Results for this EDT procedure are i n the results section. PREPARE RED BLOOD CELLS Routine 03/16/2022 19:05 Results for this EDT procedure are i n the results section. XR CHEST PORTABLE 1 VIEW STAT 03/16/2022 18:45 Results for this EDT procedure are i n the results section. ED INTUBATION Routine 03/16/2022 18:39 Results fo r this EDT procedure are i n the results section. EKG 12-LEAD STAT 03/16/2022 18:38 Results for this EDT procedure are i n the results section. PREPARE RED BLOOD CELLS Routine 03/16/2022 18:28 Results for this EDT procedure are i n the results section. PREPARE RED BLOOD CELLS Routine 03/16/2022 18:28 Results for this EDT procedure are i n the results section. COVID-19 [facility] (TESTING STAT 03/16/2022 18:04 ONLY) EDT COVID-19 TESTING STAT 03/16/2022 18:04 Results for this EDT procedure are i n the results section. COMPLETE BLOOD COUNT AND Routine 03/16/2022 16:37 Results for this DIFFERENTIAL EDT procedure are i n the results section. CT ABDOMEN PELVIS W STAT 03/16/2022 15:50 Resu lts for this CONTRAST EDT procedure are i n the results section. POCT URINE DIPSTICK, STAT 03/16/2022 15:31 Res ults for this VISUAL READ EDT procedure are i n the results section. PATIENT RE-TYPE Routine 03/16/2022 14:53 Results for this EDT procedure are i n the results section. T4 FREE Add-On 03/16/2022 14:53 Results for this EDT procedure are i n the results section. BASIC METABOLIC PANEL STAT 03/16/2022 14:53 Re sults for this (BMP) EDT procedure are i n the results section. COMPLETE BLOOD COUNT AND STAT 03/16/2022 14:53 Results for this DIFFERENTIAL EDT procedure are i n the results section. ED CRITICAL CARE Routine 03/16/2022 14:45 Results for this EDT procedure are i n the results section. ED CRITICAL CARE Routine 03/16/2022 14:45 Results for this EDT procedure are i n the results section. ED CRITICAL CARE Routine 03/16/2022 14:45 Results for this EDT procedure are i n the results section. ED CRITICAL CARE Routine 03/16/2022 14:45 Results for this EDT procedure are i n the results section. ED CRITICAL CARE Routine 03/16/2022 14:45 Results for this EDT procedure are i n the results section. ED CRITICAL CARE Routine 03/16/2022 14:45 Results for this EDT procedure are i n the results section. from Last 3 Months Results ECG REPORT - SCANNED (04/06/2022 12:53 EDT) Specimen Narrative This result has an attachment that is no t available. ECG REPORT - SCANNED (04/06/2022 12:53 EDT) Specimen Narrative This result has an attachment that is no t available. (ABNORMAL) COMPLETE BLOOD COUNT (04/01/2022 8:04 EDT)Only the most recent of14 resultswithin the time period is included. Pathologist Sig nature WBC 7.86 4.00 - 10.40 K/cmm [facility] RBC 4.73 4.36 - 5.78 M/cmm [facility] Hemoglobin 14.2 13.8 - 17.3 gm/dL [facility] HCT 43.2 39.5 - 50.2 % [facility] MCV 91 81 - 95 fl [facility] MCH 30.0 27.6 - 33.0 pg [facility] MCHC 32.9 32.8 - 36.4 gm/dL [facility] RDW-CV 13.9 <14.2 % [facility] RDW-SD 46.6 (H) <46.0 fl [facility] PLT 397 (H) 141 - 377 K/cmm [facility] MPV 8.8 (L) 9.5 - 12.7 fl [facility] Specimen Blood - Venous blood (substance) Performing Organization Address City/State/ZIP Code Phon e Number [facility] [address] [place] [address] SERVICES MAGNESIUM (03/30/2022 6:38 EDT)Only the most recent of12 resultswithin the time period is included. Pathologist Sig nature Magnesium 2.2 1.7 - 2.8 mg/dL [facility] Specimen Blood - Venous blood (substance) Performing Organization Address City/State/ZIP Code Phon e Number [facility] [address] [place] [address] SERVICES (ABNORMAL) BASIC METABOLIC PANEL (BMP) (03/30/2022 6:38 EDT)Only the most recent of12 resultswithin the time period is included. Pathologist Sig nature Sodium 138 136 - 145 mmol/L [facility] Potassium 4.5 3.5 - 5.0 mmol/L [facility] Chloride 101 96 - 110 mmol/L [facility] CO2 Total 30 22 - 32 mmol/L [facility] Anion Gap 7 5 - 14 [facility] Glucose 87 70 - 100 mg/dL [facility] Calcium 9.2 8.5 - 10.5 mg/dL [facility] BUN 18 10 - 26 mg/dL [facility] Creatinine 0.63 (L) 0.66 - 1.25 mg/dL [facility] eGFR 108 >60 mL/min/1.73m2 [facility] Specimen Blood - Venous blood (substance) Performing Organization Address City/[facility]/ZIP Code Phon e Number [facility] [address] [place] [address] SERVICES (ABNORMAL) POCT GLUCOSE, INTERFACED (03/29/2022 11:21 EDT)Only the most recent of32 resultswithin the time period is included. Glucose, POC 113 (H) 70 - 100 [facility] mg/dL LABORATORY SERVICES HN LAB POC COMMENT Test Per[facility] by [facility] (GLUCOSE) Nursing Services LABORATORY SERVICES Specimen Blood - Capillary blood (substance) Performing Organization Address City/[facility]/ZIP Code Phon e Number [facility] [address] [place] [address] SERVICES PHOSPHORUS (03/28/2022 8:57 EDT)Only the most recent of10 resultswithin the time period is included. Pathologist Sig nature Phosphorus 2.9 2.5 - 4.5 mg/dL [facility] Specimen Blood - Venous blood (substance) Performing Organization Address City/[facility]/ZIP Code Phon e Number [facility] [address] [place] [address] SERVICES MR HEAD W WO CONTRAST (03/22/2022 19:03 EDT) Anatomical Region Laterality Modality Head Magnetic Resonance Specimen Impressions [facility] - 03/23/2022 8:44 EDT Scattered areas of cortical restricted diffusion and T2-FLAIR hyperintensity with similar faint signa l abnormality in the basal ganglia, find ings compatible with evolving hypoxic- ischemic injury in the context of recent cardiac arrest. Narrative [facility] - 03/23/2022 8:44 EDT EXAM: MRI HEAD WO/W CONTRAST HISTORY: Mental status change, unknown c ause TECHNIQUE: MRI head without and with int ravenous gadolinium contrast. Structured report code: [id number] COMPARISON: CT head 03/16/2022. FINDINGS: PARENCHYMA: There are scattered areas of faint corti dominga restricted diffusion and T2-FLAIR hyperintensity involving both cerebral hemispheres with additional DWI hyperintensity and T2-FLAIR hyperintensity in the bas al ganglia, most apparent in the left ca udate nucleus (series 305, image 128). No significant cerebral edema. No evidence of infarction. No parenchyma l hemorrhage. No mass or midline shift. EXTRA-AXIAL SPACES: No evidence of extra-axial hemorrhage. N o extra-axial collection. No extra-axial mass. VENTRICLES: No obstructive hydrocephalus. No evidenc e of intraventricular hemorrhage. VESSELS: The flow voids of the major intracranial vasculature are present. Incidentally noted persistent occipital sinus which drains to the right. 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 BONES: Unremarkable. ORBITS: No significant abnormality. PARANASAL SINUSES/MASTOID AIR CELLS: Redemonstrated described densities in th e nasal cavities, likely large polyps and amenable to direct inspection. Scattered mural thickening noted in the paranasal sinuses. The maxillary sinuses are atelectatic, completely opacified on the right. EXTRACRANIAL SOFT TISSUES: Unremarkable. Procedure Note Issac Vega MD - 03/23/2022 EXAM: MRI HEAD WO/W CONTRAST HISTORY: Mental status change, unknown c ause TECHNIQUE: MRI head without and with int ravenous gadolinium contrast. Structured report code: [id number] COMPARISON: CT head 03/16/2022. FINDINGS: PARENCHYMA: There are scattered areas of faint corti dominga restricted diffusion and T2-FLAIR hyperintensity involving both cerebral hemispheres with additional DWI hyperintensity and T2-FLAIR hyperintensity in the basal ganglia, most apparent in the left cauda te nucleus (series 305, image 128). No significant cerebral edema. No evidence of infarction. No parenchyma l hemorrhage. No mass or midline shift. EXTRA-AXIAL SPACES: No evidence of extra-axial hemorrhage. N o extra-axial collection. No extra-axial mass. VENTRICLES: No obstructive hydrocephalus. No evidenc e of intraventricular hemorrhage. VESSELS: The flow voids of the major intracranial vasculature are present. Incidentally noted persistent occipital sinus which drains to the right. 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 BONES: Unremarkable. ORBITS: No significant abnormality. PARANASAL SINUSES/MASTOID AIR CELLS: Redemonstrated described densities in th e nasal cavities, likely large polyps and amenable to direct inspection. Scattered mural thickening noted in the paranasal sinuses. The maxillary sinuses are atelectatic, completely opacified on the right. EXTRACRANIAL SOFT TISSUES: Unremarkable. IMPRESSION Scattered areas of cortical restricted d iffusion and T2-FLAIR hyperintensity with similar faint signal abnormality in the basal ganglia, findings compatible with evolving hypoxic-ischemic injury in the context of recent cardiac arrest. Performing Organization Address City/State/ZIP Code Phon e Number [facility] XR FEEDING TUBE PLACEMENT (03/22/2022 14:39 EDT) Anatomical Region Laterality Modality Abdomen Computed Radiography Specimen Narrative [facility] - 03/22/2022 15:06 EDT XR FEEDING TUBE PLACEMENT03/22/2022 1:55 PM SIGNS & SYMPTOMS / COMMENTS: NGT placeme nt verification COMPARISON: CT abdomen pelvis 03/16/2022 FINDINGS: Portable AP view centered over the lower chest upper abdomen demonstrates that the feeding tube ??tip projects at the level of the gastric antrum/first portion of the duodenum. There is redund ant tube coiled within the body of the s tomach. Nonobstructive bowel gas pattern. This is neither a complete view of the c hest nor of the abdomen. ??If either view is needed, formal films are recommended. I have personally reviewed the images an d the above interpretation and agree with the findings. Procedure Note Priyank Paige MD - 03/22/2022 XR FEEDING TUBE PLACEMENT03/22/2022 1:55 PM SIGNS & SYMPTOMS / COMMENTS: NGT placeme nt verification COMPARISON: CT abdomen pelvis 03/16/2022 FINDINGS: Portable AP view centered over the lower chest upper abdomen demonstrates that the feeding tube tip projects at the level of the gastric antrum/first portion of the duodenum. There is redundant tube coiled within the body of the stomach. N onobstructive bowel gas pattern. This is neither a complete view of the c hest nor of the abdomen. If either view is needed, formal films are recommended. I have personally reviewed the images an d the above interpretation and agree with the findings. Performing Organization Address City/State/ZIP Code Phon e Number [facility] [place] VITAMIN B12 (03/21/2022 6:17 EDT) Pathologist Yoel ojeda Vitamin B12 356 211 - 911 pg/mL [facility] Specimen Blood - Venous blood (substance) Performing Organization Address City/State/ZIP Code Phon e Number [facility] [address] [place] [address] SERVICES XR TIBIA FIBULA RIGHT 2 VIEWS (03/20/2022 18:49 EDT) Anatomical Region Laterality Modality Lower Extremities Computed Radiography Specimen Impressions [facility] - 03/21/2022 10:58 EDT No evidence of metallic foreign body over the right lower extremity. I have personally reviewed the images an d the above interpretation and agree with the findings. Narrative [facility] - 03/21/2022 10:58 EDT XR FEMUR RIGHT 2 OR MORE VIEWS, XR TIBIA FIBULA RIGHT 2 VIEWS, XR FOOT RIGHT 1-2 VIEWS ??03/20/2022 5:50 PM Signs and Symptoms/Comments: ??Only AP p er ordering Dr. ; MRI metal screening Comparison: None. Technique: 1 view of the right femur, on e view of the right tibia and fibula , and one view of the right foot were obtained. Findings: There is no metallic foreign body projec ting right upper extremity. Degenerative changes are present throughout the lower extremity. There is vascular calcification within the soft tissues. The bones are diffusely demineralized. Procedure Note Yuval Varner MD - 03/21/2022 XR FEMUR RIGHT 2 OR MORE VIEWS, XR TIBIA FIBULA RIGHT 2 VIEWS, XR FOOT RIGHT 1-2 VIEWS 03/20/2022 5:50 PM Signs and Symptoms/Comments: Only AP per ordering DrArchie ; MRI metal screening Comparison: None. Technique: 1 view of the right femur, on e view of the right tibia and fibula , and one view of the right foot were obtained. Findings: There is no metallic foreign body projec ting right upper extremity. Degenerative changes are present throughout the lower extremity. There is vascular calcification within the soft tissues. The bones are diffusely demineralized. IMPRESSION No evidence of metallic foreign body ove r the right lower extremity. I have personally reviewed the images an d the above interpretation and agree with the findings. Performing Organization Address City/State/ZIP Code Phon e Number [facility] XR TIBIA FIBULA LEFT 2 VIEWS (03/20/2022 18:49 EDT) Anatomical Region Laterality Modality Lower Extremities Computed Radiography Specimen Impressions [facility] - 03/21/2022 10:57 EDT Metallic focus measuring 2 mm projects over the lateral aspect of the second metatarsal head. No additional metallic foci are identified in the left lower extremity. I have personally reviewed the images an d the above interpretation and agree with the findings. Narrative [facility] - 03/21/2022 10:57 EDT XR FEMUR LEFT 2 OR MORE VIEWS, XR TIBIA FIBULA LEFT 2 VIEWS, XR FOOT LEFT 1-2 VIEWS ??03/20/2022 5:50 PM Signs and Symptoms/Comments: ??Only Ap p er ordering Dr. ; MRI metal screening Comparison: None. Technique: 1 view of the left femur, one view of the left tibia and fibula, and one view of the left foot were obtained. Findings: There is a 2 mm metallic focus projectin g over the lateral aspect of the second metatarsal head. No additional metallic foci are identified. The bones appear demineralized. Calcific density underlying t he third digit is likely dystrophic. The re is no metallic foreign body projecting over the left femur or left tibia/fibula. Scattered mild degenerative changes are present throughout the lower extremity . There is vascular calcification within the soft tissues. Gonzalez catheter is incompletely imaged. Procedure Note Yuval Varner MD - 03/21/2022 XR FEMUR LEFT 2 OR MORE VIEWS, XR TIBIA FIBULA LEFT 2 VIEWS, XR FOOT LEFT 1-2 VIEWS 03/20/2022 5:50 PM Signs and Symptoms/Comments: Only Ap per ordering DrArchie ; MRI metal screening Comparison: None. Technique: 1 view of the left femur, one view of the left tibia and fibula, and one view of the left foot were obtained. Findings: There is a 2 mm metallic focus projectin g over the lateral aspect of the second metatarsal head. No additional metallic foci are identified. The bones appear demineralized. Calcific density underlying the third digit is likely dystrophic. There is no metallic foreign body projecting over the left femur or left tibia/fibula. Scattered mild degenerative changes are present throughout the lower extremity. There is vascular calcification within the soft tissues. Gonzalez catheter is incompletely imaged. IMPRESSION Metallic focus measuring 2 mm projects o luis the lateral aspect of the second metatarsal head. No additional metallic foci are identified in the left lower extremity. I have personally reviewed the images an d the above interpretation and agree with the findings. Performing Organization Address City/State/ZIP Code Phon e Number [facility] XR HUMERUS RIGHT (03/20/2022 18:49 EDT) Anatomical Region Laterality Modality Right Computed Radiography Specimen Impressions [facility] - 03/21/2022 10:59 EDT No evidence of metallic foreign body over the right upper extremity. I have personally reviewed the images an d the above interpretation and agree with the findings. Narrative [facility] - 03/21/2022 10:59 EDT XR HAND RIGHT 1-2 VIEWS, XR HUMERUS RIGHT, XR FOREARM RIGHT 1 VIEW ??03/20/2022 5:50 PM Signs and Symptoms/Comments: ?? Only PA per ordering DrArchie; MRI metal scre ening Comparison: None. Technique: One view of the right humerus, one view of the right forearm, and one view of the right hand were obtained. Findings: There is no metallic foreign body projec ting right upper extremity. Degenerative changes are present throughout the right upper extremities, particularly the first metacarpal joint. Hydroxyapatite depos ition is noted in the rotator cuff tendo ns. The bones are diffusely demineralized. Soft tissues grossly unremarkable. Chronic appearing ossific fragment along the anterior margin of the carpal bones. Th ere is cortical thickening involving the mid right humeral diaphysis, likely sequela of remote healed fracture.. Procedure Note Yuval Varner MD - 03/21/2022 XR HAND RIGHT 1-2 VIEWS, XR HUMERUS RIGH T, XR FOREARM RIGHT 1 VIEW 03/20/2022 5:50 PM Signs and Symptoms/Comments: Only PA per ordering DrArchie; MRI metal scre ening Comparison: None. Technique: One view of the right humerus, one view of the right forearm, and one view of the right hand were obtained. Findings: There is no metallic foreign body projec ting right upper extremity. Degenerative changes are present throughout the right upper extremities, particularly the first metacarpal joint. Hydroxyapatite deposition is noted in the rotator cuff tendons. The b ones are diffusely demineralized. Soft tissues grossly unremarkable. Chronic appearing ossific fragment along the anterior margin of the carpal bones. There is cortical thickening involving the mid right humer al diaphysis, likely sequela of remote healed fracture.. IMPRESSION No evidence of metallic foreign body ove r the right upper extremity. I have personally reviewed the images an d the above interpretation and agree with the findings. Performing Organization Address City/State/ZIP Code Phon e Number [facility] XR HUMERUS LEFT (03/20/2022 18:49 EDT) Anatomical Region Laterality Modality Upper Extremities Left Computed Radiography Specimen Impressions [facility] - 03/21/2022 10:53 EDT No evidence of metallic foreign body over the left upper extremity. I have personally reviewed the images an d the above interpretation and agree with the findings. Narrative [facility] - 03/21/2022 10:53 EDT XR HAND LEFT 1-2 VIEWS, XR HUMERUS LEFT, XR FOREARM LEFT 2 VIEWS ??03/20/2022 5:50 PM Signs and Symptoms/Comments: ??Only NORMA p er ordering DrArchie; MRI metal screening Comparison: None. Technique: One view of the left humerus, one view of the left forearm, and one view of the left hand were obtained. Findings: There is no metallic foreign body projec ting left upper extremity. Degenerative changes are present throughout the left upper extremity, particularly the first metacarpal joint. The bones appear diffuse ly demineralized. Included soft tissues are grossly unremarkable. Peripheral intravenous catheter projects over the antecubital fossa. Procedure Note Yuval Varner MD - 03/21/2022 XR HAND LEFT 1-2 VIEWS, XR HUMERUS LEFT, XR FOREARM LEFT 2 VIEWS 03/20/2022 5:50 PM Signs and Symptoms/Comments: Only PA per ordering DrArchie; MRI metal screening Comparison: None. Technique: One view of the left humerus, one view of the left forearm, and one view of the left hand were obtained. Findings: There is no metallic foreign body projec ting left upper extremity. Degenerative changes are present throughout the left upper extremity, particularly the first metacarpal joint. The bones appear diffusely demineralized. Included soft tissues are grossly unremarkable. Peripheral intravenous catheter projects over the antecubital fossa. IMPRESSION No evidence of metallic foreign body ove r the left upper extremity. I have personally reviewed the images an d the above interpretation and agree with the findings. Performing Organization Address City/State/ZIP Code Phon e Number [facility] XR HAND RIGHT 1-2 VIEWS (03/20/2022 18:49 EDT) Anatomical Region Laterality Modality Upper Extremities Right Computed Radiography Specimen Impressions [facility] - 03/21/2022 10:59 EDT No evidence of metallic foreign body over the right upper extremity. I have personally reviewed the images an d the above interpretation and agree with the findings. Narrative [facility] - 03/21/2022 10:59 EDT XR HAND RIGHT 1-2 VIEWS, XR HUMERUS RIGHT, XR FOREARM RIGHT 1 VIEW ??03/20/2022 5:50 PM Signs and Symptoms/Comments: ?? Only PA per ordering Dr.; MRI metal scre ening Comparison: None. Technique: One view of the right humerus, one view of the right forearm, and one view of the right hand were obtained. Findings: There is no metallic foreign body projec ting right upper extremity. Degenerative changes are present throughout the right upper extremities, particularly the first metacarpal joint. Hydroxyapatite depos ition is noted in the rotator cuff tendo ns. The bones are diffusely demineralized. Soft tissues grossly unremarkable. Chronic appearing ossific fragment along the anterior margin of the carpal bones. Th ere is cortical thickening involving the mid right humeral diaphysis, likely sequela of remote healed fracture.. Procedure Note Yuval Varner MD - 03/21/2022 XR HAND RIGHT 1-2 VIEWS, XR HUMERUS RIGH T, XR FOREARM RIGHT 1 VIEW 03/20/2022 5:50 PM Signs and Symptoms/Comments: Only PA per ordering DrArchie; MRI metal scre ening Comparison: None. Technique: One view of the right humerus, one view of the right forearm, and one view of the right hand were obtained. Findings: There is no metallic foreign body projec ting right upper extremity. Degenerative changes are present throughout the right upper extremities, particularly the first metacarpal joint. Hydroxyapatite deposition is noted in the rotator cuff tendons. The b ones are diffusely demineralized. Soft tissues grossly unremarkable. Chronic appearing ossific fragment along the anterior margin of the carpal bones. There is cortical thickening involving the mid right humer al diaphysis, likely sequela of remote healed fracture.. IMPRESSION No evidence of metallic foreign body ove r the right upper extremity. I have personally reviewed the images an d the above interpretation and agree with the findings. Performing Organization Address City/State/ZIP Code Phon e Number [facility] XR HAND LEFT 1-2 VIEWS (03/20/2022 18:49 EDT) Anatomical Region Laterality Modality Upper Extremities Left Computed Radiography Specimen Impressions [facility] - 03/21/2022 10:53 EDT No evidence of metallic foreign body over the left upper extremity. I have personally reviewed the images an d the above interpretation and agree with the findings. Narrative [facility] - 03/21/2022 10:53 EDT XR HAND LEFT 1-2 VIEWS, XR HUMERUS LEFT, XR FOREARM LEFT 2 VIEWS ??03/20/2022 5:50 PM Signs and Symptoms/Comments: ??Only PA p er ordering Dr.; MRI metal screening Comparison: None. Technique: One view of the left humerus, one view of the left forearm, and one view of the left hand were obtained. Findings: There is no metallic foreign body projec ting left upper extremity. Degenerative changes are present throughout the left upper extremity, particularly the first metacarpal joint. The bones appear diffuse ly demineralized. Included soft tissues are grossly unremarkable. Peripheral intravenous catheter projects over the antecubital fossa. Procedure Note Yuval Varner MD - 03/21/2022 XR HAND LEFT 1-2 VIEWS, XR HUMERUS LEFT, XR FOREARM LEFT 2 VIEWS 03/20/2022 5:50 PM Signs and Symptoms/Comments: Only PA per ordering DrArchie; MRI metal screening Comparison: None. Technique: One view of the left humerus, one view of the left forearm, and one view of the left hand were obtained. Findings: There is no metallic foreign body projec ting left upper extremity. Degenerative changes are present throughout the left upper extremity, particularly the first metacarpal joint. The bones appear diffusely demineralized. Included soft tissues are grossly unremarkable. Peripheral intravenous catheter projects over the antecubital fossa. IMPRESSION No evidence of metallic foreign body ove r the left upper extremity. I have personally reviewed the images an d the above interpretation and agree with the findings. Performing Organization Address City/State/ZIP Code Phon e Number [facility] XR FOREARM RIGHT 2 VIEWS (03/20/2022 18:49 EDT) Anatomical Region Laterality Modality Upper Extremities Right Computed Radiography Specimen Impressions [facility] - 03/21/2022 10:59 EDT No evidence of metallic foreign body over the right upper extremity. I have personally reviewed the images an d the above interpretation and agree with the findings. Narrative [facility] - 03/21/2022 10:59 EDT XR HAND RIGHT 1-2 VIEWS, XR HUMERUS RIGHT, XR FOREARM RIGHT 1 VIEW ??03/20/2022 5:50 PM Signs and Symptoms/Comments: ?? Only PA per ordering DrArchie; MRI metal scre ening Comparison: None. Technique: One view of the right humerus, one view of the right forearm, and one view of the right hand were obtained. Findings: There is no metallic foreign body projec ting right upper extremity. Degenerative changes are present throughout the right upper extremities, particularly the first metacarpal joint. Hydroxyapatite depos ition is noted in the rotator cuff tendo ns. The bones are diffusely demineralized. Soft tissues grossly unremarkable. Chronic appearing ossific fragment along the anterior margin of the carpal bones. Th ere is cortical thickening involving the mid right humeral diaphysis, likely sequela of remote healed fracture.. Procedure Note Yuval Varner MD - 03/21/2022 XR HAND RIGHT 1-2 VIEWS, XR HUMERUS RIGH T, XR FOREARM RIGHT 1 VIEW 03/20/2022 5:50 PM Signs and Symptoms/Comments: Only PA per ordering DrArchie; MRI metal scre ening Comparison: None. Technique: One view of the right humerus, one view of the right forearm, and one view of the right hand were obtained. Findings: There is no metallic foreign body projec ting right upper extremity. Degenerative changes are present throughout the right upper extremities, particularly the first metacarpal joint. Hydroxyapatite deposition is noted in the rotator cuff tendons. The b ones are diffusely demineralized. Soft tissues grossly unremarkable. Chronic appearing ossific fragment along the anterior margin of the carpal bones. There is cortical thickening involving the mid right humer al diaphysis, likely sequela of remote healed fracture.. IMPRESSION No evidence of metallic foreign body ove r the right upper extremity. I have personally reviewed the images an d the above interpretation and agree with the findings. Performing Organization Address City/State/ZIP Code Phon e Number [facility] XR FOREARM LEFT 2 VIEWS (03/20/2022 18:49 EDT) Anatomical Region Laterality Modality Upper Extremities Left Computed Radiography Specimen Impressions [facility] - 03/21/2022 10:53 EDT No evidence of metallic foreign body over the left upper extremity. I have personally reviewed the images an d the above interpretation and agree with the findings. Narrative [facility] - 03/21/2022 10:53 EDT XR HAND LEFT 1-2 VIEWS, XR HUMERUS LEFT, XR FOREARM LEFT 2 VIEWS ??03/20/2022 5:50 PM Signs and Symptoms/Comments: ??Only PA p er ordering Dr.; MRI metal screening Comparison: None. Technique: One view of the left humerus, one view of the left forearm, and one view of the left hand were obtained. Findings: There is no metallic foreign body projec ting left upper extremity. Degenerative changes are present throughout the left upper extremity, particularly the first metacarpal joint. The bones appear diffuse ly demineralized. Included soft tissues are grossly unremarkable. Peripheral intravenous catheter projects over the antecubital fossa. Procedure Note Yuval Varner MD - 03/21/2022 XR HAND LEFT 1-2 VIEWS, XR HUMERUS LEFT, XR FOREARM LEFT 2 VIEWS 03/20/2022 5:50 PM Signs and Symptoms/Comments: Only PA per ordering DrArchie; MRI metal screening Comparison: None. Technique: One view of the left humerus, one view of the left forearm, and one view of the left hand were obtained. Findings: There is no metallic foreign body projec ting left upper extremity. Degenerative changes are present throughout the left upper extremity, particularly the first metacarpal joint. The bones appear diffusely demineralized. Included soft tissues are grossly unremarkable. Peripheral intravenous catheter projects over the antecubital fossa. IMPRESSION No evidence of metallic foreign body ove r the left upper extremity. I have personally reviewed the images an d the above interpretation and agree with the findings. Performing Organization Address City/State/ZIP Code Phon e Number [facility] XR FOOT RIGHT 1-2 VIEWS (03/20/2022 18:49 EDT) Anatomical Region Laterality Modality Lower Extremities Right Computed Radiography Specimen Impressions [facility] - 03/21/2022 10:58 EDT No evidence of metallic foreign body over the right lower extremity. I have personally reviewed the images an d the above interpretation and agree with the findings. Narrative [facility] - 03/21/2022 10:58 EDT XR FEMUR RIGHT 2 OR MORE VIEWS, XR TIBIA FIBULA RIGHT 2 VIEWS, XR FOOT RIGHT 1-2 VIEWS ??03/20/2022 5:50 PM Signs and Symptoms/Comments: ??Only AP p er ordering Dr. ; MRI metal screening Comparison: None. Technique: 1 view of the right femur, on e view of the right tibia and fibula , and one view of the right foot were obtained. Findings: There is no metallic foreign body projec ting right upper extremity. Degenerative changes are present throughout the lower extremity. There is vascular calcification within the soft tissues. The bones are diffusely demineralized. Procedure Note Yuval Varner MD - 03/21/2022 XR FEMUR RIGHT 2 OR MORE VIEWS, XR TIBIA FIBULA RIGHT 2 VIEWS, XR FOOT RIGHT 1-2 VIEWS 03/20/2022 5:50 PM Signs and Symptoms/Comments: Only AP per ordering DrArchie ; MRI metal screening Comparison: None. Technique: 1 view of the right femur, on e view of the right tibia and fibula , and one view of the right foot were obtained. Findings: There is no metallic foreign body projec ting right upper extremity. Degenerative changes are present throughout the lower extremity. There is vascular calcification within the soft tissues. The bones are diffusely demineralized. IMPRESSION No evidence of metallic foreign body ove r the right lower extremity. I have personally reviewed the images an d the above interpretation and agree with the findings. Performing Organization Address City/State/ZIP Code Phon e Number [facility] XR FOOT LEFT 1-2 VIEWS (03/20/2022 18:49 EDT) Anatomical Region Laterality Modality Lower Extremities Left Computed Radiography Specimen Impressions [facility] - 03/21/2022 10:57 EDT Metallic focus measuring 2 mm projects over the lateral aspect of the second metatarsal head. No additional metallic foci are identified in the left lower extremity. I have personally reviewed the images an d the above interpretation and agree with the findings. Narrative [facility] - 03/21/2022 10:57 EDT XR FEMUR LEFT 2 OR MORE VIEWS, XR TIBIA FIBULA LEFT 2 VIEWS, XR FOOT LEFT 1-2 VIEWS ??03/20/2022 5:50 PM Signs and Symptoms/Comments: ??Only Ap p er ordering DrArchie ; MRI metal screening Comparison: None. Technique: 1 view of the left femur, one view of the left tibia and fibula, and one view of the left foot were obtained. Findings: There is a 2 mm metallic focus projectin g over the lateral aspect of the second metatarsal head. No additional metallic foci are identified. The bones appear demineralized. Calcific density underlying t he third digit is likely dystrophic. The re is no metallic foreign body projecting over the left femur or left tibia/fibula. Scattered mild degenerative changes are present throughout the lower extremity . There is vascular calcification within the soft tissues. Gonzalez catheter is incompletely imaged. Procedure Note Yuval Varner MD - 03/21/2022 XR FEMUR LEFT 2 OR MORE VIEWS, XR TIBIA FIBULA LEFT 2 VIEWS, XR FOOT LEFT 1-2 VIEWS 03/20/2022 5:50 PM Signs and Symptoms/Comments: Only Ap per ordering DrArchie ; MRI metal screening Comparison: None. Technique: 1 view of the left femur, one view of the left tibia and fibula, and one view of the left foot were obtained. Findings: There is a 2 mm metallic focus projectin g over the lateral aspect of the second metatarsal head. No additional metallic foci are identified. The bones appear demineralized. Calcific density underlying the third digit is likely dystrophic. There is no metallic foreign body projecting over the left femur or left tibia/fibula. Scattered mild degenerative changes are present throughout the lower extremity. There is vascular calcification within the soft tissues. Gonzalez catheter is incompletely imaged. IMPRESSION Metallic focus measuring 2 mm projects o luis the lateral aspect of the second metatarsal head. No additional metallic foci are identified in the left lower extremity. I have personally reviewed the images an d the above interpretation and agree with the findings. Performing Organization Address City/State/ZIP Code Phon e Number [facility] XR FEMUR RIGHT 2 OR MORE VIEWS (03/20/2022 18:49 EDT) Anatomical Region Laterality Modality Lower Extremities Right Computed Radiography Specimen Impressions [facility] - 03/21/2022 10:58 EDT No evidence of metallic foreign body over the right lower extremity. I have personally reviewed the images an d the above interpretation and agree with the findings. Narrative [facility] - 03/21/2022 10:58 EDT XR FEMUR RIGHT 2 OR MORE VIEWS, XR TIBIA FIBULA RIGHT 2 VIEWS, XR FOOT RIGHT 1-2 VIEWS ??03/20/2022 5:50 PM Signs and Symptoms/Comments: ??Only AP p er ordering Dr. ; MRI metal screening Comparison: None. Technique: 1 view of the right femur, on e view of the right tibia and fibula , and one view of the right foot were obtained. Findings: There is no metallic foreign body projec ting right upper extremity. Degenerative changes are present throughout the lower extremity. There is vascular calcification within the soft tissues. The bones are diffusely demineralized. Procedure Note Yuval Varner MD - 03/21/2022 XR FEMUR RIGHT 2 OR MORE VIEWS, XR TIBIA FIBULA RIGHT 2 VIEWS, XR FOOT RIGHT 1-2 VIEWS 03/20/2022 5:50 PM Signs and Symptoms/Comments: Only AP per ordering DrArchie ; MRI metal screening Comparison: None. Technique: 1 view of the right femur, on e view of the right tibia and fibula , and one view of the right foot were obtained. Findings: There is no metallic foreign body projec ting right upper extremity. Degenerative changes are present throughout the lower extremity. There is vascular calcification within the soft tissues. The bones are diffusely demineralized. IMPRESSION No evidence of metallic foreign body ove r the right lower extremity. I have personally reviewed the images an d the above interpretation and agree with the findings. Performing Organization Address City/State/ZIP Code Phon e Number [facility] XR FEMUR LEFT 2 OR MORE VIEWS (03/20/2022 18:49 EDT) Anatomical Region Laterality Modality Lower Extremities Left Computed Radiography Specimen Impressions [facility] - 03/21/2022 10:57 EDT Metallic focus measuring 2 mm projects over the lateral aspect of the second metatarsal head. No additional metallic foci are identified in the left lower extremity. I have personally reviewed the images an d the above interpretation and agree with the findings. Narrative [facility] - 03/21/2022 10:57 EDT XR FEMUR LEFT 2 OR MORE VIEWS, XR TIBIA FIBULA LEFT 2 VIEWS, XR FOOT LEFT 1-2 VIEWS ??03/20/2022 5:50 PM Signs and Symptoms/Comments: ??Only Ap p er ordering DrArchie ; MRI metal screening Comparison: None. Technique: 1 view of the left femur, one view of the left tibia and fibula, and one view of the left foot were obtained. Findings: There is a 2 mm metallic focus projectin g over the lateral aspect of the second metatarsal head. No additional metallic foci are identified. The bones appear demineralized. Calcific density underlying t he third digit is likely dystrophic. The re is no metallic foreign body projecting over the left femur or left tibia/fibula. Scattered mild degenerative changes are present throughout the lower extremity . There is vascular calcification within the soft tissues. Gonzalez catheter is incompletely imaged. Procedure Note Yuval Varner MD - 03/21/2022 XR FEMUR LEFT 2 OR MORE VIEWS, XR TIBIA FIBULA LEFT 2 VIEWS, XR FOOT LEFT 1-2 VIEWS 03/20/2022 5:50 PM Signs and Symptoms/Comments: Only Ap per ordering DrArchie ; MRI metal screening Comparison: None. Technique: 1 view of the left femur, one view of the left tibia and fibula, and one view of the left foot were obtained. Findings: There is a 2 mm metallic focus projectin g over the lateral aspect of the second metatarsal head. No additional metallic foci are identified. The bones appear demineralized. Calcific density underlying the third digit is likely dystrophic. There is no metallic foreign body projecting over the left femur or left tibia/fibula. Scattered mild degenerative changes are present throughout the lower extremity. There is vascular calcification within the soft tissues. Gonzalez catheter is incompletely imaged. IMPRESSION Metallic focus measuring 2 mm projects o luis the lateral aspect of the second metatarsal head. No additional metallic foci are identified in the left lower extremity. I have personally reviewed the images an d the above interpretation and agree with the findings. Performing Organization Address City/State/ZIP Code Phon e Number [facility] (ABNORMAL) ELECTROLYTES (03/18/2022 14:59 EDT)Only the most recent of2 results within the time period is included. Pathologist Sig [facility] Sodium 141 136 - 145 [facility] mmol/L LABORATORY SERVICES Potassium 4.0Comment: Slight 3.5 - 5.0 [facility] hemolysis mmol/L LAB[facility]ATORY SERVICES identified, interpret with caution as hemolysis will elevate potassium result. Chloride 115 (H) 96 - 110 mmol/L [facility] CO2 Total 19 (L) 22 - 32 mmol/L [facility] Anion Gap 7 5 - 14 [facility] Specimen Blood - Venous blood (substance) Performing Organization Address City/State/ZIP Code Phon e Number [facility] [address] [place] [address] SERVICES TRANSTHORACIC ECHO (TTE) COMPLETE W/DOPPLER W/CF NO CONTRAST (03/18/2022 11:48 EDT) Pathologist Sig nature LA Atrial Length A2C 5.7 cm [facility] LA Atrial Area A4C 23.6 cm2 [facility] Mitral valve area, PHT, DP 3.1 cm2 [facility] LV ID, ED, PLAX 4.7 3.5 - 6.0 cm [facility] LVIDD BY MMODE 4.7 cm [facility] LV ID, ES, PLAX 3.3 2.1 - 4.0 cm [facility] LV PW thickness, ED, PLAX 1.0 0.6 - 1.1 cm [facility] Aortic root ID 3.3 cm [facility] RA Atrial Length A4C 5.2 cm [facility] Aortic valve mean 0.9 m/s [facility] velocity, S RA Atrial Area A4C 18.7 cm2 [facility] LV ejection fraction, 1-p 60 % [facility] A4C LVOT mean gradient, S 2 mmHg [facility] Aortic valve area, peak 2.2 cm2 [facility] velocity RA Atrial Volume A4C 55.0 ml [facility] RA ESV Index A4C 31.0 ml/m2 [facility] Aortic mean gradient, S 4 mmHg [facility] AV LVOT peak gradient 4 mmHg [facility] LV e', lateral 0.11 m/s [facility] Mitral deceleration time 244 ms [facility] LV IVRT, DP 107 msec [facility] LVOT area 3.1 cm2 [facility] LVOT peak velocity, S 0.9 m/s [facility] LVOT VTI, S 23.4 cm [facility] Aortic valve peak 1.3 m/s [facility] velocity, S Aortic valve VTI, S 30.9 cm [facility] Stroke volume (SV), LVOT 73 ml [facility] DP Aortic peak gradient, S 7 mmHg [facility] RE Mitral peak gradient, D 3 mmHg [facility] RE LVOT mean velocity, S 0.7 m/s [facility] Mitral E-wave peak 0.9 m/s [facility] velocity Mitral pressure half-time 71 ms [facility] Mitral A-wave peak 0.6 m/s [facility] velocity LV Systolic Volume Index 22.0 mL/m2 [facility] LV Diastolic Volume Index 60.0 mL/m2 [facility] AV DOI 0.71 [facility] LA Atrial Length A4C 6.7 cm [facility] LVOT ID, S 2.0 cm [facility] Mitral deceleration slope 356 cm/s2 [facility] EF 64 % [facility] LA volume, ES, BP 90.0 ml [facility] LA volume/bsa, ES, A4C 37.0 ml/m2 [facility] LA volumes, ES, A4C 66.0 ml [facility] LA volume/bsa, ES, BP 51.0 ml/m2 [facility] LV Systolic Volume 39 mL [facility] LV Diastolic Volume 107 mL [facility] Stroke index (SV/bsa) LVOT 41.0 ml/m2 [facility] DP Aortic valve area VTI 2.4 cm2 [facility] Interventricular Septum to 1.1 [facility] Posterior Wall Thickness Ratio IVS thickness, ED, PLAX 1.1 cm [facility] LV e', medial 0.10 m/s [facility] AV dimensionless index 1.3 [facility] (DI) LV e', average 0.10 m/s [facility] Velocity ratio, mean, 0.75 [facility] LVOT/AV Aortic valve area 2.4 cm2 [facility] AVAI [address] José Luis 1.3 cm2/m2 [facility] Pulmonic valve mean 1 cm/s [facility] velocity, S LA Atrial Area A2C 23.6 cm2 [facility] LV end diastolic volume 112 ml [facility] RE 1-p A2C LV ejection fraction, 1-p 67 % [facility] A2C LV E/e', lateral 8.0 [facility] LV E/e', medial 0.1 [facility] LV E/e', average 4 [facility] LV end-diastolic volume, 100 ml [facility] 1-p A4C Specimen Narrative [facility] - 03/18/2022 11:57 E DT ?Left??Ventricle: Left ventricular systolic function was normal with an ejection fraction of 60-65%. The estimat ed left ventricular ejection fraction by biplane Carlson's method was 64 %. Performing Organization Address City/State/ZIP Code Phon e Number [facility] ECG REPORT - SCANNED (03/18/2022 6:29 EDT) Specimen Narrative This result has an attachment that is no t available. (ABNORMAL) PROCALCITONIN (03/18/2022 4:40 EDT) Procalcitonin 7.78 (H) See Note ng/mL [facility] Comment: LABORATORY SERVICES NOTE: Reference Range: <0.5 ng/mL - Low risk of severe sepsis >2.0 ng/mL - High risk of severe sepsis Specimen Blood - Venous blood (substance) Performing Organization Address [facility] Phon e Number [facility] [address] [place] [address] SERVICES (ABNORMAL) HEPATIC FUNCTION PANEL (ALB,ALK PHOS,ALT,AST,DBIL,TOT ZACH,TOT PROT) (03/18/2022 4:40 EDT) Total Protein 4.6 (L) 6.3 - 8.2 g/dL [facility] Albumin 2.7 (L) 3.4 - 4.9 g/dL [facility] Bilirubin, Total 0.8 <1.4 mg/dL [facility] Conjugated Bilirubin 0.0 <=0.3 mg/dL [facility] Unconjugated Bilirubin 0.8 <=1.1 mg/dL [facility] Alkaline Phosphatase 43 38 - 126 U/L [facility] ALT 14 <50 U/L [facility] AST 47 (H) 15 - 46 U/L [facility] Calculated Total 0.8 <1.4 mg/dL [facility] Bilirubin LABORATORY SERVICES Specimen Blood - Venous blood (substance) Performing Organization Address [facility] Phon e Number [facility] [address] [place] [address] SERVICES EEG WITH PROLONGED BEDSIDE VIDEO MONITORING (03/17/2022 23:58 EDT) Narrative [facility] - 03/17/2022 23:58 E Mayco Herron MD ? 03/19/2022 ??9:18 [facility] ??Name: Laith Chambers Clinical Neurophysiology Laboratory ??MR N: [id number] [address] [facility] ? : [address] [place], [place] ?Date: 022 Video-Electroencephalographic Monitoring Report Referring Physician: Ruby Irby P* Clinical Indication: A 61 y.o. man refer red for evaluation of acute encephalopathy. Medications: Propofol infusion through a fternoon on 17 MARCH, dexmedetomidine, buspirone, fentanyl, conway loperidol and others reviewed and as documented in the electr onic record Technical Description: Continuous digital video-digital electro encephalographic monitoring is performed in the ICU. Silv er/silver chloride EEG electrodes are placed according to the I nternational 10-20 system as well as anterior temporal electrodes, a CPz recording reference and FCz ground contract. An EC G channel is also monitored. Caregivers are encouraged to maintain an event diary and to press and Event Button in the chris nt of a seizure-like spell (Target Event). The entire EEG rock aset is reviewed by the attending physician. No pain assessment for this procedure is necessary. Vitals: 03/17/22 1100 03/17/22 1152 03/17/22 12 00 03/17/22 1300 BP: 122/78 ??135/74 ?? Resp: 20 24 ?? Temp: 36.9 ??C (98.4 ??F) ??37 ??C (98.6 ??F) 37 ??C (98.6 ??F) TempSrc: Esophageal ??Esophageal ?? SpO2: 100% 99% 99% ?? Weight: ? Height: ? Findings: The monitoring period begins on MARCH 08 at 08:40 and this report summarizes findings until 18 MARCH at 12:30. Resting cerebral background activity thr oughout the day on 17 MARCH is remarkable for diffuse low amplitude delta and theta activity with attenuation of nearly all faster fr equencies aside from diffuse frontally maximal 10-12 Hz low a mplitude fast activity (this faster activity often attributed t o a propofol effect). ?? There are occasional 2-10 s runs of fron tally maximal moderate amplitude rhythmic delta activity. ??Wit h stimulation there is the appearance of diffuse muscle artifact an d a reduction in faster frequencies. The propofol infusion is discontinued an d the patient is extubated by 18:15. ??During this time a ctivity during wake-drowsiness is remarkable for 6-9 Hz rhythmic activity over the posterior head regions, an increase in low amplitude faster frequencies, frequent low-moderate ampli tude frontally maximal delta and theta waves as well as more di ffuse admixed theta activity. During drowsiness there are fr equent runs of symmetric FIRDA. During light sleep there are occasional low amplitude sleep spindles. ??REM sleep is not present. ?? Impression: No seizures recorded. ??EEG findings are most consistent with initial moderately sever e diffuse dysfunction that improves over the course of the rec ording with a remaining mild-moderate diffuse encephalopathy. Clinical Correlation: A medication effec t likely contributes to the severity of these initial findings. ??A diffuse encephalopathy remains present with no etiologically sp ecific features. ??No interictal epileptiform discharges or se izures are recorded. Mayco Solomon MD ABPN Certified, Neurology and Clinical N europhysiology 12:58 ??03/17/2022 Performing Organization Address [facility] Phon e Number [facility] (ABNORMAL) PROTIME (03/17/2022 20:32 EDT)Only the most recent of4 resultswithin the time period is included. Pathologist Sig nature I.N.R. 1.2 (H) 0.9 - 1.1 Ratio [facility] Pro Time 13.7 (H) 10.4 - 12.6 secs [facility] Specimen Blood - Venous blood (substance) Narrative [facility] - 03/17/2022 21:18 EDT Moderate Intensity Coumadin INR = 2.0-3.0 Adjustments in anticoagulant therapy dos e should be based on the INR and NOT on the Protime. Performing Organization Address [facility] Phon e Number [facility] [address] [place] [address] SERVICES (ABNORMAL) CALCIUM, IONIZED (03/17/2022 18:58 EDT)Only the most recent of2 resultswithin the time period is included. Calcium, Ionized 1.11 (L)Comment: 1.14 - 1.35 [facility] Tube not filled to mmol/L LABORATORY capacity. Ionized SERVICES calcium results may be falsely decreased. Interpret results with caution. Specimen Blood - Venous blood (substance) Performing Organization Address [facility] Phon e Number [facility] [address] [place] [address] SERVICES (ABNORMAL) URINE CHEMICAL (DIP) & SEDIMENT (MICRO) WITH REFLEX TO CULTURE (03/17/2022 18:50 EDT)Only the most recent of2 resultswithin the time period is included. Color UA Red (A) Colorless, [facility] Yellow LABORATORY SERVICES Clarity UA Clear Clear [facility] Glucose UA Negative Negative [facility] Bilirubin UA Negative Negative [facility] Ketones UA Negative Negative [facility] Specific [place], 1.006 1.001 - 1.035 [facility] Urine LABORATORY SERVICES Blood UA 3+ (A) Negative [facility] Urobilinogen UA Normal Normal mg/dL [facility] Nitrite UA Negative Negative [facility] Leukocyte Esterase UA Trace (A) Negative [facility] Protein UA 1+ (A) Negative [facility] pH, UA 7.5 4.6 - 8.0 [facility] Urine RBC Count, Auto >50 (A) 0 - 2 Cells/HPF [facility] Urine WBC Count, Auto 4 - 10 (A) 0 - 3 Cells/HPF [facility] Urine Squamous Count, None Seen None Seen [facility] Auto Cells/HPF LAB[facility]ATORY SERVICES Urine Hyaline Cast <=10 <=10 Casts/LPF [facility] Count, Auto LABORATORY SERVICES Urine Bacteria Count, None Seen None Seen [facility] Auto Bacteria/HPF LABORATORY SERVICES Specimen Urine - Urine specimen collection, clean catch (procedure) Narrative [facility] - 03/17/2022 19:19 EDT A Urine Culture test has been reflexively ordered based on result criteria from the Urine Sediment Analysis. Urine Sediment Analysis results are unre liable on urines that are unrefrigerated for >2 hrs or refrigerated >8 hrs. Performing Organization Address City/State/ZIP Code Phon e Number [facility] [address] [place] [address] SERVICES BACTERIAL CULTURE, URINE (03/17/2022 18:50 EDT)Only the most recent of2 results within the time period is included. Pathologist Sig nature Organism ID No Growth [facility] Specimen Urine - Urine specimen collection, clean catch (procedure) Performing Organization Address City/State/ZIP Code Phon e Number [facility] [address] [place] [address] SERVICES OSMOLALITY, URINE (03/17/2022 18:50 EDT) Pathologist Sig nature Osmolality, Urine 159 150-1,150 mOsm/kg [facility] Specimen Urine - Urine specimen collection, clean catch (procedure) Performing Organization Address City/State/ZIP Code Phon e Number [facility] [address] [place] [address] CERVICAL SPINE WO CONTRAST (03/17/2022 15:36 EDT) Anatomical Region Laterality Modality Computed Tomography Specimen Impressions [facility] - 03/17/2022 16:37 EDT 1. No acute fracture of the cervical spine. 2. Multilevel degenerative changes with neural foraminal stenosis of varying degrees, most severely on the right at C5-C6. 3. Polypoid soft tissue in the nasal cav ities likely represents sinonasal polyposis. I have personally reviewed the images an d the above interpretation and agree with the findings. Narrative [facility] - 03/17/2022 16:37 EDT EXAM: CT CERVICAL SPINE WO CONTRAST HISTORY: Trauma from OSH. Intubated. Rep eat CT C-spine to clear cervical spine prior to extubation.; Neck trauma, intoxicated or obtunded (Age >= 16y) TECHNIQUE: CT cervical spine without con trast. Structured report code: NR.CT37 COMPARISON: None. FINDINGS: SURGICAL CHANGES: None. FRACTURES: None. ALIGNMENT: Normal. BONES: No significant vertebral body height los s. No concerning lesions. Foci of sclerosis in the right C2 lamina and C7 right transverse process are favored to represent bone islands. Degenerative endplate changes are present, most prominently at C4-C6. INTERVERTEBRAL DISCS: Disc space height loss at C4-C5. JOINTS: No significant facet arthropathy. Anteri or atlanto-axial, lateral atlanto-axial, and atlanto-occipital joints are normal. No joint space widening to suggest ligamentous injury. SPINAL CANAL: No significant stenosis. NEURAL FORAMINA: Multilevel neural foraminal stenosis mos t severely at C5-C6, right greater than left. LUNG APICES: Clear. EXTRASPINAL SOFT TISSUES: Endotracheal and transesophageal tube ar e in place. Calcification of the common carotid arteries. Polypoid soft tissue in the nasal cavities likely represents sinonasal polyposis. VISIBLE INTRACRANIAL CONTENTS: Unremarkable. Procedure Note Bazylewicz, Sean P, MD - 03/17/2022 EXAM: CT CERVICAL SPINE WO CONTRAST HISTORY: Trauma from OSH. Intubated. Rep eat CT C-spine to clear cervical spine prior to extubation.; Neck trauma, intoxicated or obtunded (Age >= 16y) TECHNIQUE: CT cervical spine without con trast. Structured report code: NR.CT37 COMPARISON: None. FINDINGS: SURGICAL CHANGES: None. FRACTURES: None. ALIGNMENT: Normal. BONES: No significant vertebral body height los s. No concerning lesions. Foci of sclerosis in the right C2 lamina and C7 right transverse process are favored to represent bone islands. Degenerative endplate changes are present, most prominently at C4-C6. INTERVERTEBRAL DISCS: Disc space height loss at C4-C5. JOINTS: No significant facet arthropathy. Anteri or atlanto-axial, lateral atlanto-axial, and atlanto-occipital joints are normal. No joint space widening to suggest ligamentous injury. SPINAL CANAL: No significant stenosis. NEURAL FORAMINA: Multilevel neural foraminal stenosis mos t severely at C5-C6, right greater than left. LUNG APICES: Clear. EXTRASPINAL SOFT TISSUES: Endotracheal and transesophageal tube ar e in place. Calcification of the common carotid arteries. Polypoid soft tissue in the nasal cavities likely represents sinonasal polyposis. VISIBLE INTRACRANIAL CONTENTS: Unremarkable. IMPRESSION 1. No acute fracture of the cervical spi ne. 2. Multilevel degenerative changes with neural foraminal stenosis of varying degrees, most severely on the right at C5-C6. 3. Polypoid soft tissue in the nasal cav ities likely represents sinonasal polyposis. I have personally reviewed the images an d the above interpretation and agree with the findings. Performing Organization Address City/State/ZIP Code Phon e Number [facility] SLIDE REQUEST (03/17/2022 12:58 EDT)Only the most recent of2 resultswithin the time period is included. Pathologist Sig nature Note A smear is filed in [facility] the Hematology lab. LABORATORY SERVICES Specimen Blood - Venous blood (substance) Performing Organization Address City/State/ZIP Code Phon e Number [facility] [address] [place] [address] SERVICES (ABNORMAL) TROPONIN I (03/17/2022 12:58 EDT)Only the most recent of3 results within the time period is included. Pathologist Sig nature Troponin I (ng/mL) 0.122 (H) <0.034 ng/mL [facility] Specimen Blood - Venous blood (substance) Narrative [facility] - 03/17/2022 13:38 EDT The results of this assay can be falsely lowered due to the consumption of Biotin. Performing Organization Address City/[facility] Phon e Number [facility] [address] [place] [address] SERVICES (ABNORMAL) LACTIC ACID (03/17/2022 12:58 EDT)Only the most recent of4 results within the time period is included. Pathologist Sig nature Lactic Acid 2.1 (HH) <=2.0 mmol/L [facility] Specimen Blood - Venous blood (substance) Performing Organization Address [facility] Phon e Number [facility] [address] [place] [address] SERVICES UPPER ENDOSCOPY PROCEDURE (03/17/2022 12:27 EDT) Specimen Narrative [facility] ENDOS[facility] - 12:27 EDT Procedure Performed EGD Indications for Exam Rectal bleeding. Procedure Technique A physical exam was performed. Informed consent was obtained from the patient after explaining all the risks (perforation, bleeding, in fection and adverse effects to the medicine), benefits and alternatives to the procedure which the patient appeared to understand and so stated. ??The patient was connected to the monitoring devices and placed in the left lateral position. Continuous oxygen was provided with a na he cannula and IV medicine administered through a indwelling cannula. After adequate sedat ion was achieved the gastroscope was inserted under direct vision into the esophagus and the n carefully advanced to the Second part of duodenum. The Second part of duodenum was identifi ed by visual landmarks. The scope was subsequently removed slowly while carefully examining the color, texture, anatomy, and integrity of the mucosa on withdrawal. The patient was cortés bsequently transferred to the recovery area in satisfactory condition. Estimated Blood Loss: None Complications None Medications Patient previously sedated Patient previously sedated Findings Esophagus: Mild superfical erosion just above GE junction, likely due to og tube trauma Stomach: Congested and erythematous muco sa throughout, likely post-ischemic injury from patient's recent cardiac arrest. No etio logy identified to explain reportedly severe hematochezia. Duodenum: Normal. Diagnosis Esophagus: Mild superfical erosion just above GE junction, likely due to og tube trauma Stomach: Congested and erythematous muco sa throughout, likely post-ischemic injury from patient's recent cardiac arrest. No etio logy identified to explain reportedly severe hematochezia. Duodenum: Normal. Recommendations UGI tract unlikely to account for recent reportedly severe hematochezia. Recommend STAT CT angiogram in parallel with IR consultation if there is recurrent hematochezia. Alcohol cessation and avoidance of NSAID s. Further management per primary team. The??procedure??was??performed??by??Dr. Hanane Armijo MD in the presence of Dr. Jem Nation. The attending physician was in the room for the entire procedure. This electronic signature authenticates all electronic and/or handwritten documentation, including orders, generated by the nicko r during the episode of care contained in this record. 03/17/2022 12:27:25 PM By Jem Magallanes Performing Organization Address City/[facility]/ZIP Code Phon e Number [facility] ENDOSCOPY ECG REPORT - SCANNED (03/17/2022 9:42 EDT) Specimen Narrative This result has an attachment that is no t available. BACTERIAL CULTURE, BLOOD (03/17/2022 5:46 EDT)Only the most recent of2 results within the time period is included. Pathologist Sig nature Organism ID No Growth at 5 days [facility] Specimen Blood - Venous blood (substance) Performing Organization Address [facility]/ZIP [facility] Phon e Number [facility] [address] [place] [address] SERVICES FIBRINOGEN (03/17/2022 5:26 EDT)Only the most recent of2 resultswithin the time period is included. Pathologist Sig nature Fibrinogen 196 171 - 384 mg/dL [facility] Specimen Blood - Venous blood (substance) Performing Organization Address [facility]/ZIP [facility] Phon e Number [facility] [address] [place] [address] SERVICES CK (03/17/2022 5:25 EDT) Pathologist Sig nature CK 242 <=250 U/L [facility] Specimen Blood - Venous blood (substance) Performing Organization Address [facility] Phon e Number [facility] [address] [place] [address] SERVICES (ABNORMAL) COMPREHENSIVE METABOLIC PANEL (CMP) (03/17/2022 5:25 EDT)Only the most recent of2 resultswithin the time period is included. Pathologist Sig nature Sodium 134 (L) 136 - 145 [facility] mmol/L LABORATORY SERVICES Potassium 4.2 3.5 - 5.0 [facility] mmol/L LAB[facility]ORY SERVICES Chloride 105 96 - 110 mmol/L [facility] CO2 Total 21 (L) 22 - 32 mmol/L [facility] Glucose 200 (H) 70 - 100 mg/dL [facility] BUN 17 10 - 26 mg/dL [facility] Creatinine 0.90 0.66 - 1.25 [facility] mg/dL LABORATORY SERVICES eGFR 97 >60 [facility] mL/min/1.73m2 LABORATORY SERVICES Total Protein 4.9 (L) 6.3 - 8.2 g/dL [facility] Albumin 2.8 (L) 3.4 - 4.9 g/dL [facility] Alkaline Phosphatase 46 38 - 126 U/L [facility] AST 33 15 - 46 U/L [facility] ALT 14 <50 U/L [facility] Bilirubin, Total 1.4 (H) <1.4 mg/dL [facility] Calcium 7.8 (L) 8.5 - 10.5 [facility] mg/dL LABORATORY SERVICES Albumin/Globulin 1.3 1.0 - 2.5 [facility] Ratio LABORATORY SERVICES Anion Gap 8 5 - 14 [facility] Specimen Blood - Venous blood (substance) Performing Organization Address [facility] Phon e Number [facility] [address] [place] [address] SERVICES EKG 12-LEAD (03/17/2022 0:55 EDT) Specimen Narrative [facility] EKG - 03/17/2022 16:4 9 EDT ? [facility] ? Test Date: ?2022-03-17 Pat Name: ? LAITH REYES ? Department: ?? Antoine 4 ? Room: ? M415 Gender: ? Male ? [employer]: ?? : ?1960 ? Requested By: JANDAL ALI Order Number: [id number] ? Reading MD: ?? CARLOS ROSENBERG MD PhD ? Measurements Intervals ?Lynn ? Rate: ? 91 ? P: ?72 NV: ? 139 ?QRS: ?-44 QRSD: ? 92 ? T: ?68 QT: ? 380 ? QTc: ?468 ? Interpretive Statements SINUS RHYTHM LEFT AXIS DEVIATION Compared to ECG 03/16/2022 18:38:08 Left-axis deviation now present Prolonged QT interval no longer present I reviewed the tracing and have either a greed or edited the findings in this report. Electronically Signed On 03-17-20 16:49:50 EDT by CARLOS ROSENBERG MD PhD. Procedure Note Carlos Rosenberg MD - 2021 [facility] r Test Date: 2022-03-17 Pat Name: LAITH CHAMBERS Department: [place] [address] Room: [facility] Gender: Male [employer]: : 1960 Requested By: PAMELA VARNER Order Number: [id number] Reading MD: Sona ROSENBERG MD PhD Measurements Intervals Lynn Rate: 91 P: 72 NV: 139 QRS: -44 QRSD: 92 T: 68 QT: 380 QTc: 468 Interpretive Statements SINUS RHYTHM LEFT AXIS DEVIATION Compared to ECG 03/16/2022 18:38:08 Left-axis deviation now present Prolonged QT interval no longer present I reviewed the tracing and have either a greed or edited the findings in this report. Electronically Signed On 03-17-20 16:49:50 EDT by CARLOS ROSENBERG MD PhD. Performing Organization Address City/State/ZIP Code Phon e Number [facility] EKG TSH (03/17/2022 0:51 EDT) Pathologist Sig nature TSH 2.98 0.47 - 4.68 mIU/L [facility] Specimen Blood - Venous blood (substance) Narrative [facility] - 03/17/2022 2:45 EDT The results of this assay can be falsely lowered due to the consumption of Biotin. Performing Organization Address City/[facility]/ZIP Code Phon e Number [facility] [address] [place] [address] SERVICES TRANSFUSE RED BLOOD CELLS (03/17/2022 0:26 EDT) Specimen Blood MRSA PCR (03/16/2022 23:08 EDT) MRSA Result No Staphylococcus aureus [facility] detected by PCR LABORATORY SERVICES Specimen Swab - Entire naris (body structure) Performing Organization Address City/[facility] Code Phon e Number [facility] [address] [place] [address] SERVICES (ABNORMAL) COMPLETE BLOOD COUNT AND DIFFERENTIAL (03/16/2022 22:47 EDT)Only the most recent of4 resultswithin the time period is included. WBC 16.41 (H) 4.00 - 10.40 [facility] LABORATORY SERVICES RBC 5.43 4.36 - 5.78 [facility] LABORATORY SERVICES Hemoglobin 16.6 13.8 - 17.3 [facility] gm/dL LABORATORY SERVICES HCT 49.9 39.5 - 50.2 % [facility] MCV 92 81 - 95 fl [facility] MCH 30.6 27.6 - 33.0 pg [facility] MCHC 33.3 32.8 - 36.4 [facility] gm/dL LABORATORY SERVICES RDW-CV 15.3 (H) <14.2 % [facility] RDW-SD 51.2 (H) <46.0 fl [facility] SERVICES PLT 235 141 - 377 K/[facility] LABORATORY SERVICES MPV 8.8 (L) 9.5 - 12.7 fl [facility] Neutrophils 84.0 % [facility] Lymphocytes 13.0 % [facility] Monocytes 1.7 % [facility] Eosinophils 0.5 % [facility] Basophils 0.2 % [facility] Immature Grans 0.6 % [facility] Absolute Neutrophils 13.77 (H) 2.20 - 8.85 [facility] LABORATORY SERVICES Absolute Lymphocytes 2.13 1.09 - 3.30 [facility] LABORATORY SERVICES Absolute Monocytes 0.28 0.10 - 0.80 [facility] K/cm LABORATORY SERVICES Absolute Eosinophils 0.09 0.03 - 0.61 [facility] K/[facility] LABORATORY SERVICES Absolute Basophils 0.04 0.01 - 0.11 [facility] K/[facility] LABORATORY SERVICES Absolute Immature 0.10 (H) 0.00 - 0.06 [facility] Grans K/[facility] LABORATORY SERVICES Type of Differential: Auto [facility] Specimen Blood - Blood sample taken from central line (situation) Performing Organization Address City/State/ZIP Code Phon e Number [facility] [address] [place] [address] SERVICES XR CHEST PORTABLE LINE PLACEMENT (03/16/2022 22:00 EDT) Anatomical Region Laterality Modality Chest Computed Radiography Specimen Impressions [facility] - 03/17/2022 9:32 EDT No acute radiographic abnormality. I have personally reviewed the images an d the above interpretation and agree with the findings. Narrative [facility] - 03/17/2022 9:32 EDT XR CHEST PORTABLE LINE PLACEMENT ??03/16/2022 9:50 PM CLINICAL HISTORY/COMMENTS: Cardiac arrest COMPARISON: None. TECHNIQUE: Chest radiograph 03/16/2022 at 18:41 FINDINGS: Lines/tubes: ??The endotracheal tube tip terminates in the mid trachea. Nasogastric tube tip is not included on the exam, but it at least enters the gastric fundus Soft tissues, bones and extrathoracic fi ndings: Degenerative changes are present in the acromioclavicular joints. No additional significant abnormality. Cardiac and mediastinal contours: Normal . Lungs: The lungs are clear and the pulmo nary vasculature is normal. Pleura: No visible effusion or pneumotho rax, however neither can be excluded on this semiupright film. Procedure Note Luli Cade MD - 03/17/2022 XR CHEST PORTABLE LINE PLACEMENT 03/16/20 9:50 PM CLINICAL HISTORY/COMMENTS: Cardiac arrest COMPARISON: None. TECHNIQUE: Chest radiograph 03/16/2022 at 18:41 FINDINGS: Lines/tubes: The endotracheal tube tip t erminates in the mid trachea. Nasogastric tube tip is not included on the exam, but it at least enters the gastric fundus Soft tissues, bones and extrathoracic fi ndings: Degenerative changes are present in the acromioclavicular joints. No additional significant abnormality. Cardiac and mediastinal contours: Normal . Lungs: The lungs are clear and the pulmo nary vasculature is normal. Pleura: No visible effusion or pneumotho rax, however neither can be excluded on this semiupright film. IMPRESSION No acute radiographic abnormality. I have personally reviewed the images an d the above interpretation and agree with the findings. Performing Organization Address City/State/ZIP Code Phon e Number [facility] PREPARE CRYOPRECIPITATE (03/16/2022 22:00 EDT) Product Code [id number] [facility] Donor Number [id number] [facility] Unit ABO O [facility] Unit Rh NEG [facility] Unit Status RE^Released From [facility] BLOOD BANK Product Expiration [id number] [facility] BLOOD BANK Unit Blood Type 9500 [facility] BLOOD BANK Volume 99 [facility] Coding System [id number] [facility] Specimen Blood - Venous blood (substance) Performing Organization Address City/[facility]/ZIP Code Phon e Number [facility] [address] [facility] [place] [address] (ABNORMAL) POCT BLOOD GAS, EG6 I-STAT (03/16/2022 21:43 EDT) Pathologist Sig nature pH, Venous, i-STAT 7.23 (L) 7.31 - 7.41 [facility] pCO2, Venous, i-STAT 45 41 - 51 mmHg [facility] pO2, Venous, i-STAT 54 (H) 30 - 50 mmHg [facility] TCO2, Venous, i-STAT 20 (L) 22 - 28 mmol/L [facility] O2 Saturation, 83 60 - 85 % [facility] Venous, i-STAT LABORATORY SERVICES Base Excess(+) / -9 (L) -2 - 3 mmol/L [facility] Deficit(-), Venous, LABORATORY SERVICES i-STAT Temperature, Venous, 97.4 ??C [facility] i-STAT LABORATORY SERVICES Specimen Blood - Venous blood (substance) Narrative [facility] - 03/16/2022 21:46 EDT Test Performed by Respiratory Performing Organization Address City/[facility]/ZIP Code Phon e Number [facility] [address] [place] [address] SERVICES PATIENT RE-TYPE (03/16/2022 21:40 EDT)Only the most recent of2 resultswithin the time period is included. Pathologist Sig nature ABO O [facility] K Rh Factor Positive [facility] K Specimen Blood - Venous blood (substance) Performing Organization Address [facility] Phon e Number [facility] [address] [place] [address] TYPE AND SCREEN (03/16/2022 21:32 EDT)Only the most recent of2 resultswithin the time period is included. ABO O [facility] Rh Factor Positive [facility] Antibody Screen Negative [facility] Specimen Expires: 03/19/2022 @ 23:59 [facility] BLOOD [facility] Specimen Blood - Venous blood (substance) Performing Organization Address [facility] Phon e [facility] BLOOD BANK [address] [place] [address] (ABNORMAL) PTT (03/16/2022 21:30 EDT)Only the most recent of2 resultswithin the time period is included. Pathologist Sig nature PTT 25 (L) 26 - 37 secs [facility] Specimen Blood - Venous blood (substance) Performing Organization Address [facility]/ZIP [facility] Phon e Number [facility] [address] [place] [address] SERVICES RETICULOCYTE COUNT (03/16/2022 21:30 EDT) Pathologist Sig nature Retic Ct (Uncorrected) 1.2 0.5 - 2.5 % [facility] SERVICES Specimen Blood - Venous blood (substance) Performing Organization Address [facility] Phon e Number [facility] [address] [place] [address] SERVICES NT PRO BNP (03/16/2022 21:30 EDT) Pathologist Sig nature NT-pro BNP 75Comment: The results <125 pg/mL [facility] of this assay can be LABORATORY SERVICES falsely lowered due to consumption of Biotin. Specimen Blood - Venous blood (substance) Performing Organization Address City/[facility]/ZIP Code Phon e Number [facility] [address] [place] [address] SERVICES PREPARE RED BLOOD CELLS (03/16/2022 21:18 EDT)Only the most recent of10 results within the time period is included. Product Code [id number] [facility] Donor Number [id number] [facility] Unit ABO O [facility] Unit Rh POS [facility] Unit Status TR^Transfuse [facility] Product Expiration [id number] [facility] Date BLOOD BANK Unit Blood Type Code 5100 [facility] Volume 276 [facility] Coding System [id number] [facility] Specimen Performing Organization Address City/[facility]/ZIP Code Phon e Number [facility] [address] [facility] [place] [address] [place] INSERT NON-TUNNEL CV CATH, HC - INSJ NON-TUNNELED CENTRAL VENOUS CATH AGE 4 YR/> (03/16/2022 20:59 EDT) Narrative [facility] EKG - 03/16/2022 20:5 9 EDT Sean Carrillo MD ? 03/16/2022 21:02 Insert Central Line Date/Time: 03/16/2022 20:59 Performed by: Sean Carrillo MD Authorized by: Prakash Lockhart MD Consent: ??Consent obtained: ??Emergent situatio n Pre-procedure details: ??Hand hygiene: Hand hygiene performed prior to insertion ?Sterile barrier technique: All elemen ts of maximal sterile technique followed ?Skin preparation: ??2% chlorhexidine ??Skin preparation agent: Skin preparat ion agent completely dried prior to procedure ?? Sedation: ??Sedation type: ??Moderate (conscious) sedation (Intubated and sedated) Anesthesia (see MAR for exact dosages): ??Anesthesia method: ??Local infiltrati on ??Local anesthetic: ??Lidocaine 1% w/o epi Procedure details: ??Location: ??R femoral ??Patient position: ??Flat ??Procedural supplies: ??Cordis ??Catheter size: ??8.5 Fr ??Landmarks identified: yes ?Ultrasound guidance: yes ?Sterile ultrasound techniques: Steril e gel and sterile probe covers were used ?Number of attempts: ??1 ??Successful placement: yes ?? Post-procedure details: ??Post-procedure: ??Dressing applied an d line sutured ??Assessment: ??Blood return through al l ports and free fluid flow ??Patient tolerance of procedure: ??Aury erated well, no immediate complications Performing Organization Address [facility] Code Phon e Number [facility] EKG ED INTUBATION (03/16/2022 20:54 EDT) Narrative [facility] EKG - 03/16/2022 20:5 4 EDT Prakash Lockhart MD ? 03/16/2022 20:55 Intubation Date/Time: 03/16/2022 20:54 Performed by: Sean Carrillo MD Authorized by: Prakash Lockhart MD Consent: ??Consent obtained: ??Emergent situatio n Pre-procedure details: ??Patient status: ??Altered mental stat us ??Pretreatment meds: ketamine. ??Paralytics: ??Succinylcholine Procedure details: ??Preoxygenation: ??Nonrebreather mask ??CPR in progress: no ?Laryngoscope blade: ??Mac 4 ??Tube size (mm): ??8.0 ??Tube type: ??Cuffed ??Number of attempts: ??1 Placement assessment: ??ETT to teeth: ??23 ??Breath sounds: ??Equal ??Placement verification: chest rise, c ondensation, CXR verification, direct visualization, equal breath sound s, ETCO2 detector and tube exhalation ?CXR findings: ??ETT in proper place Post-procedure details: ??Patient tolerance of procedure: ??Aury erated well, no immediate complications Performing Organization Address [facility] Code Phon e Number [facility] EKG CT ANGIO ABDOMEN PELVIS (03/16/2022 20:12 EDT) Anatomical Region Laterality Modality Body, Abdomen, Pelvis, Abdomen and Pelvis Computed Tomography Specimen Impressions [facility] - 03/16/2022 20:47 EDT 1. Coronary artery calcifications. Arteriosclerotic changes of the aorta. 2. Suspect metallic foreign body within the stomach. NG tube within the stomach. 3. Small gallstones within the gallbladd er are not excluded. 4. Bilateral bilateral adrenal adenoma. 5. Gonzalez catheter within a collapsed uri nary bladder. The bladder wall appears thickened. This cou ld be due to the collapsed nature of the urinary bladder. THIS DOCUMENT HAS BEEN ELECTRONICALLY SI GNED BY AMAN DEVI MD FOR ANY QUESTIONS OR CONCERNS REGARDING THIS REPORT PLEASE CALL [facility] AT [phone] [facility] - 03/16/2022 20:47 EDT PROCEDURE INFORMATION: Exam: CT Angiography Abdomen and Pelvis Without And With Contrast, GI Bleeding Exam date and time: 03/16/2022 7:57 PM Age: 61 years old Clinical indication: Other: Gi bleeding; Additional info: Massive gi hemorrhage TECHNIQUE: Imaging protocol: Computed tomographic a ngiography of the abdomen and pelvis without and with cont rast. 3D rendering (Not supervised by radiolog ist): MIP and/or 3D reconstructed images were created by the technologist. Radiation optimization: All CT scans at this facility use at least one of these dose optimization mark hniques: automated exposure control; mA and/or kV adjustmen t per patient size (includes targeted exams where dose is m atched to clinical indication); or iterative reconstruction . Contrast material: OMNI 350; Contrast vo lume: 100 ml; Contrast route: INTRAVENOUS (IV); ?? COMPARISON: CT ABDOMEN PELVIS W CONTRAST 03/16/2022 3 :40 PM FINDINGS: Lungs: There are slight dependent atelec tatic changes at the lung bases. Heart: There are coronary artery calcifi cations. Aorta: There are arteriosclerotic change s of the aorta. Celiac trunk and mesenteric arteries: No occlusion or significant stenosis. Renal arteries: No occlusion or signific ant stenosis. Right iliac arteries: No occlusion or si gnificant stenosis. Left iliac arteries: No occlusion or sig nificant stenosis. Liver: The liver is within normal limits . Gallbladder and bile ducts: Small gallst ones within the gallbladder are not excluded. Pancreas: ??The pancreas is within ruben l limits. Spleen: ??The spleen is unremarkable. Adrenal glands: There is a small right a drenal adenoma measuring approximately 1.5 cm. There is a left ad renal adenoma measuring approximately the 2.1 cm. Kidneys and ureters: The kidneys are wit hin normal limits. Stomach and bowel: A small metallic fore ign body within the stomach is suspected. This measures appr oximately 4 mm. Clinical correlation is recommended. ??There is c ontrast within the bowel. Appendix: ??The appendix is visualized a nd is within normal limits. Intraperitoneal space: Unremarkable. No free air. No significant fluid collection. Lymph nodes: ??No enlarged lymph nodes. Urinary bladder: There is a Gonzalez cathet er within a collapsed urinary bladder. The urinary bladder wal l is thickened, however, this could be due to collapsed nature of the urinary bladder. Reproductive: The prostate and seminal v esicles are within normal limits. Bones/joints: There are degenerative aidan nges of the thoracic and lumbar spines. ??There is degenerative d isc disease at L4-L5. Soft tissues: Unremarkable. Procedure Note Aman Devi MD - 03/16/2022 PROCEDURE INFORMATION: Exam: CT Angiography Abdomen and Pelvis Without And With Contrast, GI Bleeding Exam date and time: 03/16/2022 7:57 PM Age: 61 years old Clinical indication: Other: Gi bleeding; Additional info: Massive gi hemorrhage TECHNIQUE: Imaging protocol: Computed tomographic a ngiography of the abdomen and pelvis without and with cont rast. 3D rendering (Not supervised by radiolog ist): MIP and/or 3D reconstructed images were created by the technologist. Radiation optimization: All CT scans at this facility use at least one of these dose optimization mark hniques: automated exposure control; mA and/or kV adjustmen t per patient size (includes targeted exams where dose is m atched to clinical indication); or iterative reconstruction . Contrast material: OMNI 350; Contrast vo lume: 100 ml; Contrast route: INTRAVENOUS (IV); COMPARISON: CT ABDOMEN PELVIS W CONTRAST 03/16/2022 3 :40 PM FINDINGS: Lungs: There are slight dependent atelec tatic changes at the lung bases. Heart: There are coronary artery calcifi cations. Aorta: There are arteriosclerotic change s of the aorta. Celiac trunk and mesenteric arteries: No occlusion or significant stenosis. Renal arteries: No occlusion or signific ant stenosis. Right iliac arteries: No occlusion or si gnificant stenosis. Left iliac arteries: No occlusion or sig nificant stenosis. Liver: The liver is within normal limits . Gallbladder and bile ducts: Small gallst ones within the gallbladder are not excluded. Pancreas: The pancreas is within normal limits. Spleen: The spleen is unremarkable. Adrenal glands: There is a small right a drenal adenoma measuring approximately 1.5 cm. There is a left ad renal adenoma measuring approximately the 2.1 cm. Kidneys and ureters: The kidneys are wit hin normal limits. Stomach and bowel: A small metallic fore ign body within the stomach is suspected. This measures appr oximately 4 mm. Clinical correlation is recommended. There is con trast within the bowel. Appendix: The appendix is visualized and is within normal limits. Intraperitoneal space: Unremarkable. No free air. No significant fluid collection. Lymph nodes: No enlarged lymph nodes. Urinary bladder: There is a Gonzalez cathet er within a collapsed urinary bladder. The urinary bladder wal l is thickened, however, this could be due to collapsed nature of the urinary bladder. Reproductive: The prostate and seminal v esicles are within normal limits. Bones/joints: There are degenerative aidan nges of the thoracic and lumbar spines. There is degenerative dis c disease at L4-L5. Soft tissues: Unremarkable. IMPRESSION 1. Coronary artery calcifications. Arter iosclerotic changes of the aorta. 2. Suspect metallic foreign body within the stomach. NG tube within the stomach. 3. Small gallstones within the gallbladd er are not excluded. 4. Bilateral bilateral adrenal adenoma. 5. Gonzalez catheter within a collapsed uri nary bladder. The bladder wall appears thickened. This cou ld be due to the collapsed nature of the urinary bladder. THIS DOCUMENT HAS BEEN ELECTRONICALLY SI GNED BY AMAN DEVI MD FOR ANY QUESTIONS OR CONCERNS REGARDING THIS REPORT PLEASE CALL [facility] AT [phone] Performing Organization Address City/State/ZIP Code Phon e Number [facility] CT HEAD WO CONTRAST (03/16/2022 20:09 EDT) Anatomical Region Laterality Modality Head Computed Tomography Specimen Impressions [facility] - 03/16/2022 20:33 EDT No acute intracranial abnormality. PROCEDURE INFORMATION: Exam: CT Maxillofacial Without Contrast Exam date and time: 03/16/2022 7:49 PM Age: 61 years old Clinical indication: Injury or trauma; F all; Blunt trauma (contusions or hematomas); Other: Unknow n; Concussion/head injury; Additional info: Syncope, massiv e gi bleed. Post rosc TECHNIQUE: Imaging protocol: Computed tomography im ages of the face without contrast. Radiation optimization: All CT scans at this facility use at least one of these dose optimization mark hniques: automated exposure control; mA and/or kV adjustmen t per patient size (includes targeted exams where dose is m atched to clinical indication); or iterative reconstruction . COMPARISON: CR Chest 03/16/2022 6:41 PM FINDINGS: Tubes, catheters and devices: Endotrache al and nasogastric tube partially seen. Orbital cavities: Orbits are normal. Sachi bes are unremarkable. Bones/joints: Acute fracture of bilatera l nasal bones. Paranasal sinuses: Hypoplastic bilateral maxillary sinuses, right greater than left. There is comple te opacification of the hypoplastic right maxillary sinus. S sha ped deviation of the bony nasal septum. Polyposis of bilatera l nasal cavities. Hypoplastic bilateral frontal sinuses wi th the mucosal thickening. Complete opacification of bi lateral ethmoid sinuses. Soft tissues: Unremarkable. IMPRESSION: 1. Acute fracture of bilateral nasal bon es. 2. 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 Extensive mucosal thickening of bilateral ethmoid and fron william sinuses. 3. Polyposis of bilateral nasal cavities . PROCEDURE INFORMATION: Exam: CT Cervical Spine Without Contrast Exam date and time: 03/16/2022 7:49 PM Age: 61 years old Clinical indication: Injury or trauma; F all; Blunt trauma (contusions or hematomas); Other: Unknow n; Concussion/head injury; Additional info: Syncope, massiv e gi bleed. Post rosc TECHNIQUE: Imaging protocol: Computed tomography im ages of the cervical spine without contrast. Radiation optimization: All CT scans at this facility use at least one of these dose optimization mark hniques: automated exposure control; mA and/or kV adjustmen t per patient size (includes targeted exams where dose is m atched to clinical indication); or iterative reconstruction . COMPARISON: CR Chest 03/16/2022 6:41 PM FINDINGS: Bones/joints: No acute fracture. Normal alignment. Discs/Spinal canal/Neural foramina: Mult ilevel degenerative disc disease. There is multilevel uncovertebr al and facet hypertrophy with neural foramina narrowing. Lungs: Lung apices are normal. Soft tissues: Unremarkable. IMPRESSION: No acute abnormality. THIS DOCUMENT HAS BEEN ELECTRONICALLY SI GNED BY GARY BAKER DO FOR ANY QUESTIONS OR CONCERNS REGARDING THIS REPORT PLEASE CALL [facility] AT [phone] [facility] - 03/16/2022 20:33 EDT PROCEDURE INFORMATION: Exam: CT Head Without Contrast Exam date and time: 03/16/2022 7:49 PM Age: 61 years old Clinical indication: Injury or trauma; F all; Blunt trauma (contusions or hematomas); Other: Unknow n; Concussion/head injury; Additional info: Syncope, massiv e gi bleed. Post rosc TECHNIQUE: Imaging protocol: Computed tomography of the head without contrast. Radiation optimization: All CT scans at this facility use at least one of these dose optimization mark hniques: automated exposure control; mA and/or kV adjustmen t per patient size (includes targeted exams where dose is m atched to clinical indication); or iterative reconstruction . COMPARISON: CR Chest 03/16/2022 6:41 PM FINDINGS: Brain: Normal. No hemorrhage. Unremarkab le white matter. No mass effect. Cerebral ventricles: No ventriculomegaly . Paranasal sinuses: Visualized sinuses ar e unremarkable. No fluid levels. Mastoid air cells: Visualized mastoid ai r cells are well aerated. Bones/joints: Unremarkable. No acute fra cture. Soft tissues: Unremarkable. Procedure Note Gary Baker DO - 03/16/2022 PROCEDURE INFORMATION: Exam: CT Head Without Contrast Exam date and time: 03/16/2022 7:49 PM Age: 61 years old Clinical indication: Injury or trauma; F all; Blunt trauma (contusions or hematomas); Other: Unknow n; Concussion/head injury; Additional info: Syncope, massiv e gi bleed. Post rosc TECHNIQUE: Imaging protocol: Computed tomography of the head without contrast. Radiation optimization: All CT scans at this facility use at least one of these dose optimization mark hniques: automated exposure control; mA and/or kV adjustmen t per patient size (includes targeted exams where dose is m atched to clinical indication); or iterative reconstruction . COMPARISON: CR Chest 03/16/2022 6:41 PM FINDINGS: Brain: Normal. No hemorrhage. Unremarkab le white matter. No mass effect. Cerebral ventricles: No ventriculomegaly . Paranasal sinuses: Visualized sinuses ar e unremarkable. No fluid levels. Mastoid air cells: Visualized mastoid ai r cells are well aerated. Bones/joints: Unremarkable. No acute fra cture. Soft tissues: Unremarkable. IMPRESSION No acute intracranial abnormality. PROCEDURE INFORMATION: Exam: CT Maxillofacial Without Contrast Exam date and time: 03/16/2022 7:49 PM Age: 61 years old Clinical indication: Injury or trauma; F all; Blunt trauma (contusions or hematomas); Other: Unknow n; Concussion/head injury; Additional info: Syncope, massiv e gi bleed. Post rosc TECHNIQUE: Imaging protocol: Computed tomography im ages of the face without contrast. Radiation optimization: All CT scans at this facility use at least one of these dose optimization mark hniques: automated exposure control; mA and/or kV adjustmen t per patient size (includes targeted exams where dose is m atched to clinical indication); or iterative reconstruction . COMPARISON: CR Chest 03/16/2022 6:41 PM FINDINGS: Tubes, catheters and devices: Endotrache al and nasogastric tube partially seen. Orbital cavities: Orbits are normal. Sachi bes are unremarkable. Bones/joints: Acute fracture of bilatera l nasal bones. Paranasal sinuses: Hypoplastic bilateral maxillary sinuses, right greater than left. There is comple te opacification of the hypoplastic right maxillary sinus. S sha ped deviation of the bony nasal septum. Polyposis of bilatera l nasal cavities. Hypoplastic bilateral frontal sinuses wi th the mucosal thickening. Complete opacification of bi lateral ethmoid sinuses. Soft tissues: Unremarkable. IMPRESSION: 1. Acute fracture of bilateral nasal bon es. 2. 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 Extensive mucosal thickening of bilateral ethmoid and fron william sinuses. 3. Polyposis of bilateral nasal cavities . PROCEDURE INFORMATION: Exam: CT Cervical Spine Without Contrast Exam date and time: 03/16/2022 7:49 PM Age: 61 years old Clinical indication: Injury or trauma; F all; Blunt trauma (contusions or hematomas); Other: Unknow n; Concussion/head injury; Additional info: Syncope, massiv e gi bleed. Post rosc TECHNIQUE: Imaging protocol: Computed tomography im ages of the cervical spine without contrast. Radiation optimization: All CT scans at this facility use at least one of these dose optimization mark hniques: automated exposure control; mA and/or kV adjustmen t per patient size (includes targeted exams where dose is m atched to clinical indication); or iterative reconstruction . COMPARISON: CR Chest 03/16/2022 6:41 PM FINDINGS: Bones/joints: No acute fracture. Normal alignment. Discs/Spinal canal/Neural foramina: Mult ilevel degenerative disc disease. There is multilevel uncovertebr al and facet hypertrophy with neural foramina narrowing. Lungs: Lung apices are normal. Soft tissues: Unremarkable. IMPRESSION: No acute abnormality. THIS DOCUMENT HAS BEEN ELECTRONICALLY SI GNED BY GARY BAKER DO FOR ANY QUESTIONS OR CONCERNS REGARDING THIS REPORT PLEASE CALL [facility] AT [phone] Performing Organization Address City/State/ZIP Code Phon e Number [facility] CT FACIAL BONES WO CONTRAST (03/16/2022 20:09 EDT) Anatomical Region Laterality Modality Head Computed Tomography Specimen Impressions [facility] - 03/16/2022 20:33 EDT No acute intracranial abnormality. PROCEDURE INFORMATION: Exam: CT Maxillofacial Without Contrast Exam date and time: 03/16/2022 7:49 PM Age: 61 years old Clinical indication: Injury or trauma; F all; Blunt trauma (contusions or hematomas); Other: Unknow n; Concussion/head injury; Additional info: Syncope, massiv e gi bleed. Post rosc TECHNIQUE: Imaging protocol: Computed tomography im ages of the face without contrast. Radiation optimization: All CT scans at this facility use at least one of these dose optimization mark hniques: automated exposure control; mA and/or kV adjustmen t per patient size (includes targeted exams where dose is m atched to clinical indication); or iterative reconstruction . COMPARISON: CR Chest 03/16/2022 6:41 PM FINDINGS: Tubes, catheters and devices: Endotrache al and nasogastric tube partially seen. Orbital cavities: Orbits are normal. Sachi bes are unremarkable. Bones/joints: Acute fracture of bilatera l nasal bones. Paranasal sinuses: Hypoplastic bilateral maxillary sinuses, right greater than left. There is comple te opacification of the hypoplastic right maxillary sinus. S sha ped deviation of the bony nasal septum. Polyposis of bilatera l nasal cavities. Hypoplastic bilateral frontal sinuses wi th the mucosal thickening. Complete opacification of bi lateral ethmoid sinuses. Soft tissues: Unremarkable. IMPRESSION: 1. Acute fracture of bilateral nasal bon es. 2. 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 Extensive mucosal thickening of bilateral ethmoid and fron william sinuses. 3. Polyposis of bilateral nasal cavities . PROCEDURE INFORMATION: Exam: CT Cervical Spine Without Contrast Exam date and time: 03/16/2022 7:49 PM Age: 61 years old Clinical indication: Injury or trauma; F all; Blunt trauma (contusions or hematomas); Other: Unknow n; Concussion/head injury; Additional info: Syncope, massiv e gi bleed. Post rosc TECHNIQUE: Imaging protocol: Computed tomography im ages of the cervical spine without contrast. Radiation optimization: All CT scans at this facility use at least one of these dose optimization mark hniques: automated exposure control; mA and/or kV adjustmen t per patient size (includes targeted exams where dose is m atched to clinical indication); or iterative reconstruction . COMPARISON: CR Chest 03/16/2022 6:41 PM FINDINGS: Bones/joints: No acute fracture. Normal alignment. Discs/Spinal canal/Neural foramina: Mult ilevel degenerative disc disease. There is multilevel uncovertebr al and facet hypertrophy with neural foramina narrowing. Lungs: Lung apices are normal. Soft tissues: Unremarkable. IMPRESSION: No acute abnormality. THIS DOCUMENT HAS BEEN ELECTRONICALLY SI GNED BY GARY BAKER DO FOR ANY QUESTIONS OR CONCERNS REGARDING THIS REPORT PLEASE CALL [facility] AT [phone] [facility] - 03/16/2022 20:33 EDT PROCEDURE INFORMATION: Exam: CT Head Without Contrast Exam date and time: 03/16/2022 7:49 PM Age: 61 years old Clinical indication: Injury or trauma; F all; Blunt trauma (contusions or hematomas); Other: Unknow n; Concussion/head injury; Additional info: Syncope, massiv e gi bleed. Post rosc TECHNIQUE: Imaging protocol: Computed tomography of the head without contrast. Radiation optimization: All CT scans at this facility use at least one of these dose optimization mark hniques: automated exposure control; mA and/or kV adjustmen t per patient size (includes targeted exams where dose is m atched to clinical indication); or iterative reconstruction . COMPARISON: CR Chest 03/16/2022 6:41 PM FINDINGS: Brain: Normal. No hemorrhage. Unremarkab le white matter. No mass effect. Cerebral ventricles: No ventriculomegaly . Paranasal sinuses: Visualized sinuses ar e unremarkable. No fluid levels. Mastoid air cells: Visualized mastoid ai r cells are well aerated. Bones/joints: Unremarkable. No acute fra cture. Soft tissues: Unremarkable. Procedure Note Gayr Baker DO - 03/16/2022 PROCEDURE INFORMATION: Exam: CT Head Without Contrast Exam date and time: 03/16/2022 7:49 PM Age: 61 years old Clinical indication: Injury or trauma; F all; Blunt trauma (contusions or hematomas); Other: Unknow n; Concussion/head injury; Additional info: Syncope, massiv e gi bleed. Post rosc TECHNIQUE: Imaging protocol: Computed tomography of the head without contrast. Radiation optimization: All CT scans at this facility use at least one of these dose optimization mark hniques: automated exposure control; mA and/or kV adjustmen t per patient size (includes targeted exams where dose is m atched to clinical indication); or iterative reconstruction . COMPARISON: CR Chest 03/16/2022 6:41 PM FINDINGS: Brain: Normal. No hemorrhage. Unremarkab le white matter. No mass effect. Cerebral ventricles: No ventriculomegaly . Paranasal sinuses: Visualized sinuses ar e unremarkable. No fluid levels. Mastoid air cells: Visualized mastoid ai r cells are well aerated. Bones/joints: Unremarkable. No acute fra cture. Soft tissues: Unremarkable. IMPRESSION No acute intracranial abnormality. PROCEDURE INFORMATION: Exam: CT Maxillofacial Without Contrast Exam date and time: 03/16/2022 7:49 PM Age: 61 years old Clinical indication: Injury or trauma; F all; Blunt trauma (contusions or hematomas); Other: Unknow n; Concussion/head injury; Additional info: Syncope, massiv e gi bleed. Post rosc TECHNIQUE: Imaging protocol: Computed tomography im ages of the face without contrast. Radiation optimization: All CT scans at this facility use at least one of these dose optimization mark hniques: automated exposure control; mA and/or kV adjustmen t per patient size (includes targeted exams where dose is m atched to clinical indication); or iterative reconstruction . COMPARISON: CR Chest 03/16/2022 6:41 PM FINDINGS: Tubes, catheters and devices: Endotrache al and nasogastric tube partially seen. Orbital cavities: Orbits are normal. Sachi bes are unremarkable. Bones/joints: Acute fracture of bilatera l nasal bones. Paranasal sinuses: Hypoplastic bilateral maxillary sinuses, right greater than left. There is comple te opacification of the hypoplastic right maxillary sinus. S sha ped deviation of the bony nasal septum. Polyposis of bilatera l nasal cavities. Hypoplastic bilateral frontal sinuses wi th the mucosal thickening. Complete opacification of bi lateral ethmoid sinuses. Soft tissues: Unremarkable. IMPRESSION: 1. Acute fracture of bilateral nasal bon es. 2. 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 Extensive mucosal thickening of bilateral ethmoid and fron william sinuses. 3. Polyposis of bilateral nasal cavities . PROCEDURE INFORMATION: Exam: CT Cervical Spine Without Contrast Exam date and time: 03/16/2022 7:49 PM Age: 61 years old Clinical indication: Injury or trauma; F all; Blunt trauma (contusions or hematomas); Other: Unknow n; Concussion/head injury; Additional info: Syncope, massiv e gi bleed. Post rosc TECHNIQUE: Imaging protocol: Computed tomography im ages of the cervical spine without contrast. Radiation optimization: All CT scans at this facility use at least one of these dose optimization mark hniques: automated exposure control; mA and/or kV adjustmen t per patient size (includes targeted exams where dose is m atched to clinical indication); or iterative reconstruction . COMPARISON: CR Chest 03/16/2022 6:41 PM FINDINGS: Bones/joints: No acute fracture. Normal alignment. Discs/Spinal canal/Neural foramina: Mult ilevel degenerative disc disease. There is multilevel uncovertebr al and facet hypertrophy with neural foramina narrowing. Lungs: Lung apices are normal. Soft tissues: Unremarkable. IMPRESSION: No acute abnormality. THIS DOCUMENT HAS BEEN ELECTRONICALLY SI GNED BY GARY BAKER DO FOR ANY QUESTIONS OR CONCERNS REGARDING THIS REPORT PLEASE CALL [facility] AT [phone] Performing Organization Address City/State/ZIP Code Phon e Number [facility] CT CERVICAL SPINE WO CONTRAST (03/16/2022 20:09 EDT) Anatomical Region Laterality Modality Computed Tomography Specimen Impressions [facility] - 03/16/2022 20:33 EDT No acute intracranial abnormality. PROCEDURE INFORMATION: Exam: CT Maxillofacial Without Contrast Exam date and time: 03/16/2022 7:49 PM Age: 61 years old Clinical indication: Injury or trauma; F all; Blunt trauma (contusions or hematomas); Other: Unknow n; Concussion/head injury; Additional info: Syncope, massiv e gi bleed. Post rosc TECHNIQUE: Imaging protocol: Computed tomography im ages of the face without contrast. Radiation optimization: All CT scans at this facility use at least one of these dose optimization mark hniques: automated exposure control; mA and/or kV adjustmen t per patient size (includes targeted exams where dose is m atched to clinical indication); or iterative reconstruction . COMPARISON: CR Chest 03/16/2022 6:41 PM FINDINGS: Tubes, catheters and devices: Endotrache al and nasogastric tube partially seen. Orbital cavities: Orbits are normal. Sachi bes are unremarkable. Bones/joints: Acute fracture of bilatera l nasal bones. Paranasal sinuses: Hypoplastic bilateral maxillary sinuses, right greater than left. There is comple te opacification of the hypoplastic right maxillary sinus. S sha ped deviation of the bony nasal septum. Polyposis of bilatera l nasal cavities. Hypoplastic bilateral frontal sinuses wi th the mucosal thickening. Complete opacification of bi lateral ethmoid sinuses. Soft tissues: Unremarkable. IMPRESSION: 1. Acute fracture of bilateral nasal bon es. 2. 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 Extensive mucosal thickening of bilateral ethmoid and fron william sinuses. 3. Polyposis of bilateral nasal cavities . PROCEDURE INFORMATION: Exam: CT Cervical Spine Without Contrast Exam date and time: 03/16/2022 7:49 PM Age: 61 years old Clinical indication: Injury or trauma; F all; Blunt trauma (contusions or hematomas); Other: Unknow n; Concussion/head injury; Additional info: Syncope, massiv e gi bleed. Post rosc TECHNIQUE: Imaging protocol: Computed tomography im ages of the cervical spine without contrast. Radiation optimization: All CT scans at this facility use at least one of these dose optimization mark hniques: automated exposure control; mA and/or kV adjustmen t per patient size (includes targeted exams where dose is m atched to clinical indication); or iterative reconstruction . COMPARISON: CR Chest 03/16/2022 6:41 PM FINDINGS: Bones/joints: No acute fracture. Normal alignment. Discs/Spinal canal/Neural foramina: Mult ilevel degenerative disc disease. There is multilevel uncovertebr al and facet hypertrophy with neural foramina narrowing. Lungs: Lung apices are normal. Soft tissues: Unremarkable. IMPRESSION: No acute abnormality. THIS DOCUMENT HAS BEEN ELECTRONICALLY SI GNED BY GARY BAKER DO FOR ANY QUESTIONS OR CONCERNS REGARDING THIS REPORT PLEASE CALL [facility] AT [phone] [facility] - 03/16/2022 20:33 EDT PROCEDURE INFORMATION: Exam: CT Head Without Contrast Exam date and time: 03/16/2022 7:49 PM Age: 61 years old Clinical indication: Injury or trauma; F all; Blunt trauma (contusions or hematomas); Other: Unknow n; Concussion/head injury; Additional info: Syncope, massiv e gi bleed. Post rosc TECHNIQUE: Imaging protocol: Computed tomography of the head without contrast. Radiation optimization: All CT scans at this facility use at least one of these dose optimization mark hniques: automated exposure control; mA and/or kV adjustmen t per patient size (includes targeted exams where dose is m atched to clinical indication); or iterative reconstruction . COMPARISON: CR Chest 03/16/2022 6:41 PM FINDINGS: Brain: Normal. No hemorrhage. Unremarkab le white matter. No mass effect. Cerebral ventricles: No ventriculomegaly . Paranasal sinuses: Visualized sinuses ar e unremarkable. No fluid levels. Mastoid air cells: Visualized mastoid ai r cells are well aerated. Bones/joints: Unremarkable. No acute fra cture. Soft tissues: Unremarkable. Procedure Note BakerGayr, DO - 03/16/2022 PROCEDURE INFORMATION: Exam: CT Head Without Contrast Exam date and time: 03/16/2022 7:49 PM Age: 61 years old Clinical indication: Injury or trauma; F all; Blunt trauma (contusions or hematomas); Other: Unknow n; Concussion/head injury; Additional info: Syncope, massiv e gi bleed. Post rosc TECHNIQUE: Imaging protocol: Computed tomography of the head without contrast. Radiation optimization: All CT scans at this facility use at least one of these dose optimization mark hniques: automated exposure control; mA and/or kV adjustmen t per patient size (includes targeted exams where dose is m atched to clinical indication); or iterative reconstruction . COMPARISON: CR Chest 03/16/2022 6:41 PM FINDINGS: Brain: Normal. No hemorrhage. Unremarkab le white matter. No mass effect. Cerebral ventricles: No ventriculomegaly . Paranasal sinuses: Visualized sinuses ar e unremarkable. No fluid levels. Mastoid air cells: Visualized mastoid ai r cells are well aerated. Bones/joints: Unremarkable. No acute fra cture. Soft tissues: Unremarkable. IMPRESSION No acute intracranial abnormality. PROCEDURE INFORMATION: Exam: CT Maxillofacial Without Contrast Exam date and time: 03/16/2022 7:49 PM Age: 61 years old Clinical indication: Injury or trauma; F all; Blunt trauma (contusions or hematomas); Other: Unknow n; Concussion/head injury; Additional info: Syncope, massiv e gi bleed. Post rosc TECHNIQUE: Imaging protocol: Computed tomography im ages of the face without contrast. Radiation optimization: All CT scans at this facility use at least one of these dose optimization mark hniques: automated exposure control; mA and/or kV adjustmen t per patient size (includes targeted exams where dose is m atched to clinical indication); or iterative reconstruction . COMPARISON: CR Chest 03/16/2022 6:41 PM FINDINGS: Tubes, catheters and devices: Endotrache al and nasogastric tube partially seen. Orbital cavities: Orbits are normal. Sachi bes are unremarkable. Bones/joints: Acute fracture of bilatera l nasal bones. Paranasal sinuses: Hypoplastic bilateral maxillary sinuses, right greater than left. There is comple te opacification of the hypoplastic right maxillary sinus. S sha ped deviation of the bony nasal septum. Polyposis of bilatera l nasal cavities. Hypoplastic bilateral frontal sinuses wi th the mucosal thickening. Complete opacification of bi lateral ethmoid sinuses. Soft tissues: Unremarkable. IMPRESSION: 1. Acute fracture of bilateral nasal bon es. 2. 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 Extensive mucosal thickening of bilateral ethmoid and fron william sinuses. 3. Polyposis of bilateral nasal cavities . PROCEDURE INFORMATION: Exam: CT Cervical Spine Without Contrast Exam date and time: 03/16/2022 7:49 PM Age: 61 years old Clinical indication: Injury or trauma; F all; Blunt trauma (contusions or hematomas); Other: Unknow n; Concussion/head injury; Additional info: Syncope, massiv e gi bleed. Post rosc TECHNIQUE: Imaging protocol: Computed tomography im ages of the cervical spine without contrast. Radiation optimization: All CT scans at this facility use at least one of these dose optimization mark hniques: automated exposure control; mA and/or kV adjustmen t per patient size (includes targeted exams where dose is m atched to clinical indication); or iterative reconstruction . COMPARISON: CR Chest 03/16/2022 6:41 PM FINDINGS: Bones/joints: No acute fracture. Normal alignment. Discs/Spinal canal/Neural foramina: Mult ilevel degenerative disc disease. There is multilevel uncovertebr al and facet hypertrophy with neural foramina narrowing. Lungs: Lung apices are normal. Soft tissues: Unremarkable. IMPRESSION: No acute abnormality. THIS DOCUMENT HAS BEEN ELECTRONICALLY SI GNED BY GARY BAKER DO FOR ANY QUESTIONS OR CONCERNS REGARDING THIS REPORT PLEASE CALL [facility] AT [phone] Performing Organization Address City/State/ZIP Code Phon e Number [facility] [place] PREPARE PLASMA (03/16/2022 19:12 EDT)Only the most recent of4 resultswithin the time period is included. Product Code [id number] [facility] Donor Number [id number] [facility] Unit ABO AB [facility] Unit Rh POS [facility] Unit Status PT^Presumed [facility] Transfuse BLOOD BANK Product Expiration [id number] [facility] Date BLOOD BANK Unit Blood Type 8400 [facility] Code BLOOD BANK Volume 221 [facility] Coding System [id number] [facility] Specimen Performing Organization Address City/[facility]/ZIP Code Phon e Number [facility] [address] [place] [address] XR CHEST PORTABLE 1 VIEW (03/16/2022 18:45 EDT) Anatomical Region Laterality Modality Computed Radiography Specimen Impressions [facility] [place] - 03/16/2022 18:56 EDT ET tube tip approximately 4.7 cm above the blake. NG tube tip below the diaphragm. THIS DOCUMENT HAS BEEN ELECTRONICALLY SI GNED BY AMAN DEVI MD FOR ANY QUESTIONS OR CONCERNS REGARDING THIS REPORT PLEASE CALL [facility] AT [phone] Narrative [facility] - 03/16/2022 18:56 EDT PROCEDURE INFORMATION: Exam: XR Chest Exam date and time: 03/16/2022 6:41 PM Age: 61 years old Clinical indication: Device placement; E tt placement (vent status); Additional info: Tube placement TECHNIQUE: Imaging protocol: XR of the chest. Views: 1 view. COMPARISON: CT ABDOMEN PELVIS W CONTRAST 03/16/2022 3 :40 PM FINDINGS: Tubes, catheters and devices: There is a n NG tube with its tip below the diaphragm. The patient is intu bated. The endotracheal tube tip is approximately 4.7 cm above t he blake. There are cardiac leads and cardiac pads overlying the chest. Lungs: There is no evidence an infiltrat e or a pleural effusion. Pleural spaces: See Lungs finding. Heart/Mediastinum: The cardiac, mediasti nal and hilar silhouettes are within normal limits. Vasculature: There are arteriosclerotic changes of the aorta. Bones/joints: There are degenerative aidan nges of the thoracic spine. Procedure Note Aman Devi MD - 03/16/2022 PROCEDURE INFORMATION: Exam: XR Chest Exam date and time: 03/16/2022 6:41 PM Age: 61 years old Clinical indication: Device placement; E tt placement (vent status); Additional info: Tube placement TECHNIQUE: Imaging protocol: XR of the chest. Views: 1 view. COMPARISON: CT ABDOMEN PELVIS W CONTRAST 03/16/2022 3 :40 PM FINDINGS: Tubes, catheters and devices: There is a n NG tube with its tip below the diaphragm. The patient is intu bated. The endotracheal tube tip is approximately 4.7 cm above t he blake. There are cardiac leads and cardiac pads overlying the chest. Lungs: There is no evidence an infiltrat e or a pleural effusion. Pleural spaces: See Lungs finding. Heart/Mediastinum: The cardiac, mediasti nal and hilar silhouettes are within normal limits. Vasculature: There are arteriosclerotic changes of the aorta. Bones/joints: There are degenerative aidan nges of the thoracic spine. IMPRESSION ET tube tip approximately 4.7 cm above t he blake. NG tube tip below the diaphragm. THIS DOCUMENT HAS BEEN ELECTRONICALLY SI GNED BY AMAN DEVI MD FOR ANY QUESTIONS OR CONCERNS REGARDING THIS REPORT PLEASE CALL [facility] AT [phone] Performing Organization Address City/State/ZIP Code Phon e Number [facility] ED INTUBATION (03/16/2022 18:39 EDT) Narrative [facility] - 03/16/2022 18:3 9 EDT Sean Carrillo MD ? 03/16/2022 21:02 Intubation Date/Time: 03/16/2022 18:39 Performed by: Sean Carrillo MD Authorized by: Prakash Lockhart MD Consent: ??Consent obtained: ??Emergent situatio n Pre-procedure details: ??Patient status: ??Altered mental stat us ??Mallampati score: ??II ??Pretreatment meds: Ketamine. ??Paralytics: ??Succinylcholine Procedure details: ??Preoxygenation: ??Nonrebreather mask ??CPR in progress: no ?Intubation method: ??Oral ??Oral intubation technique: ??Video-as sisted ??Laryngoscope blade: ??Mac 4 ??Tube size (mm): ??8.0 ??Tube type: ??Cuffed ??Number of attempts: ??1 ??Ventilation between attempts: no ?Cricoid pressure: no ?Tube visualized through cords: yes ?? Placement assessment: ??ETT to teeth: ??23 ??Tube secured with: ??ETT wooten ??Breath sounds: ??Equal ??Placement verification: chest rise, C XR verification, direct visualization, equal breath sounds and E TCO2 detector ?CXR findings: ??ETT in proper place Post-procedure details: ??Patient tolerance of procedure: ??Aury erated well, no immediate complications Performing Organization Address City/State/ZIP Code Phon e Number [facility] EKG 12-LEAD (03/16/2022 18:38 EDT) Specimen Narrative [facility] - 03/17/2022 8:09 EDT ? CV ? Test Date: ?2022-03-16 Pat Name: ? LAITH CHAMBERS ? Department: ? Room: ? M415 Gender: ? Male ? [employer]: ?? CH : ?1960 ? Requested By: PAMELA Melgoza Number: [id number] ? Reading : ?? RUPERT MELENDEZ MD ? Measurements Intervals ?Lynn ? Rate: ? 96 ? P: ?73 NV: ? 130 ?QRS: ?-9 QRSD: ? 94 ? T: ?68 QT: ? 383 ? QTc: ?484 ? Interpretive Statements Normal sinus rhythm Prolonged QT No previous ECG available for comparison I reviewed the tracing and have either a greed or edited the findings in this report. Electronically Signed On 03-17-20 8:09:48 EDT by RUPERT MELENDEZ MD. Procedure Note Rupert Melendez MD - 03/17/2022 [facility] Test Date: 2022-03-16 Pat Name: LAITH CHAMBERS Department: Room: M415 Gender: Male [employer]: MARK : 1960 Requested By: PAMELA VARNER Order Number: [id number] Reading MD: Sapphire MELENDEZ MD Measurements Intervals Lynn Rate: 96 P: 73 NV: 130 QRS: -9 QRSD: 94 T: 68 QT: 383 QTc: 484 Interpretive Statements Normal sinus rhythm Prolonged QT No previous ECG available for comparison I reviewed the tracing and have either a greed or edited the findings in this report. Electronically Signed On 03-17-20 8:09:48 EDT by RUPERT MELENDEZ MD. Performing Organization Address [facility] Phon e Number [facility] COVID-19 [facility] (TESTING ONLY) (03/16/2022 18:04 EDT) Specimen Swab - Anterior nares Performing Organization Address [facility] Phon e Number [facility] [address] [place] [address] COVID-19 TESTING (03/16/2022 18:04 EDT) COVID-19 rt-PCR Negative Negative [facility] Result Comment: [facility] This test has not been FDA c leared or approved. This test has been authorized by FDA under an EUA for use by authorized laboratories. This test has been authorized only for detection of nucleic acid fro m 2019-nCoV, not for any oth er viruses or pathogens. This test is only authorized for the duration of the declaration that circumstances exist justifying the authorization of emergency use of in vitro d iagnostic tests for detectio n and/or diagnosis of 2019-nCoV under section 564(b)(1) of Act, 21 U.S.C ?? 360bbb-3(b) (1), unless the authorization is terminated or revoked sooner. Performed on the [employer] GeneXpert Instrument The 2019 novel coronavirus (SARS-CoV-2) target nucleic acids are not detected. Performing Lab [employer] Gene[facility]pert [facility] Specimen Swab - Anterior nares Performing Organization Address [facility] Phon e Number [facility] [address] [place] [address] CT ABDOMEN PELVIS W CONTRAST (03/16/2022 15:50 EDT) Anatomical Region Laterality Modality Body, Abdomen, Pelvis, Abdomen and Pelvis Computed Tomography Specimen Impressions [facility] - 03/16/2022 16:04 EDT 1. Marked distention of the urinary blad elver. The urinary bladder wall is mildly thickened given degree of distention. The prostate is mildly enlarged and indents the base of the bladder. A 2.6 cm diverticulum is noted near the right UVJ. 2. Colonic diverticulosis without eviden ce of acute diverticulitis. 3. Moderate gaseous distention of the re ctum, nonspecific. Narrative [facility] - 03/16/2022 16:[address] ABDOMEN PELVIS W CONTRAST ??03/16/2022 3:40 PM Signs and Symptoms/Comments: ?? llq tenderness, recetal bleeding/ r/o di verticulitis; LLQ abdominal pain, diverticulitis suspected Technique: CT of the abdomen and pelvis was performed following the administration intravenous contrast; coronal and sagittal multiplanar reconstructions generated. Comparison: None. FINDINGS: Lower chest: Lung bases clear. Hepatobiliary: No focal hepatic lesion. Gallbladder normal in appearance. No biliary ductal dilatation. Spleen, pancreas, adrenal glands: Bilate ral indeterminate density adrenal lesions measuring 1.8 cm on the left and 2.7 cm on the right. Spleen and pancreas normal. Kidneys, ureters, bladder: Marked disten tion of the urinary bladder with mild wall thickening given degree of distention. Mildly enlarged prostate indents the base of the urinary bladder. 3.6 cm diverti culum in the right UVJ. Kidneys normal i n appearance. No hydronephrosis. Bowel: No bowel obstruction or focal bow el wall thickening. Colonic diverticulosis without evidence of acute diverticulitis. Moderate gas distention of the rectum measuring 8 cm, nonspecific. Peritoneal cavity / Subperitoneal space: No free fluid or free intraperitoneal air. Lymphovascular: Atherosclerosis. No aneu rysm. No lymphadenopathy. Abdominal wall: Intact. Musculoskeletal: Degenerative spondylosi s at L4-5. Procedure Note Harvey Robbins MD - 03/16/2022 CT ABDOMEN PELVIS W CONTRAST 03/16/2022 3 :40 PM Signs and Symptoms/Comments: llq tenderness, recetal bleeding/ r/o di verticulitis; LLQ abdominal pain, diverticulitis suspected Technique: CT of the abdomen and pelvis was performed following the administration intravenous contrast; coronal and sagittal multiplanar reconstructions generated. Comparison: None. FINDINGS: Lower chest: Lung bases clear. Hepatobiliary: No focal hepatic lesion. Gallbladder normal in appearance. No biliary ductal dilatation. Spleen, pancreas, adrenal glands: Bilate ral indeterminate density adrenal lesions measuring 1.8 cm on the left and 2.7 cm on the right. Spleen and pancreas normal. Kidneys, ureters, bladder: Marked disten tion of the urinary bladder with mild wall thickening given degree of distention. Mildly enlarged prostate indents the base of the urinary bladder. 3.6 cm diverticulum in the right UVJ. Kidneys normal in appearance. No hy dronephrosis. Bowel: No bowel obstruction or focal bow el wall thickening. Colonic diverticulosis without evidence of acute diverticulitis. Moderate gas distention of the rectum measuring 8 cm, nonspecific. Peritoneal cavity / Subperitoneal space: No free fluid or free intraperitoneal air. Lymphovascular: Atherosclerosis. No aneu rysm. No lymphadenopathy. Abdominal wall: Intact. Musculoskeletal: Degenerative spondylosi s at L4-5. IMPRESSION 1. Marked distention of the urinary blad elver. The urinary bladder wall is mildly thickened given degree of distention. The prostate is mildly enlarged and indents the base of the bladder. A 2.6 cm diverticulum is noted near the right UVJ. 2. Colonic diverticulosis without eviden ce of acute diverticulitis. 3. Moderate gaseous distention of the re ctum, nonspecific. Performing Organization Address City/State/ZIP Code Phon e Number [facility] POCT URINE DIPSTICK, VISUAL READ (03/16/2022 15:31 EDT) Pathologist Sig nature Color, UA Light Yellow Clarity, UA Clear Glucose, UA Negative . mg/dL Bilirubin, UA Negative Negative Ketones, UA Negative . mg/dL Spec Grav, UA 1.010 1.005 - 1.030 Blood, UA Negative Negative pH, UA 5.5 4.6 - 8.0 Protein, UA Negative . mg/dL Urobilinogen, UA 0.2 0.2 - 1.0 E.U./dL Nitrite, UA Negative . Leuk Esterase Negative Negative Comment Specimen Urine - Urine specimen collection, clean catch (procedure) T4 FREE (03/16/2022 14:53 EDT) Pathologist Sig nature T4, Free 1.3 0.8 - 2.2 ng/dL [facility] Specimen Blood - Venous blood (substance) Performing Organization Address City/State/ZIP Code Phon e Number [facility] [address] [place] [address] [place] CRITICAL CARE, E/M 30-74 MINUTES, [place] CRITICAL CARE, ADDL 30 MIN, [place] CRITICAL CARE, ADDL 30 MIN, HC - CRITICAL CARE ILL/INJURED PATIENT INIT 30-74 MIN, HC - CRITICAL CARE ILL/INJURED PATIENT ADDL 30 MIN, HC - CRITICAL CARE ILL/INJURED PATIENT ADDL 30 MIN (03/16/2022 14:45 EDT) Narrative [facility] - 03/16/2022 14:4 5 EDT Prakash Lockhart MD ? 03/16/2022 20:55 Critical Care Performed by: Ruby Irby PA-C Authorized by: Ruby Irby PA- C Critical care provider statement: ??Critical care time (minutes): ??120 ??Critical care time was exclusive of: ??Separately billable procedures and treating other patients and teaching parker torres ??Critical care was necessary to treat or prevent imminent or life-threatening deterioration of the fo llowing conditions: ??Circulatory failure ??Critical care was time spent personal ly by me on the following activities: ??Ordering and performing tr eatments and interventions, development of treatment plan with patie nt or surrogate, ordering and review of laboratory studies, ordering a nd review of radiographic studies, discussions with consultants, pulse oxim etry, re-evaluation of patient's condition, evaluation of patient's respo nse to treatment, examination of patient and obtaining history from patie nt or surrogate ??I assumed direction of critical care for this patient from another provider in my specialty: no ?? Performing Organization Address City/State/ZIP Code Phon e Number [facility] from Last 3 Months Insurance Payer Benefit Plan / Subscriber ID Effective Dates Phone Addre ss Type Group [place] [employer] [employer] [id number] 2019-Present [address] [id number] [id number] Laith Chambers Personal/Family Self 1960 [address] [place] [address] Laith Chambers Personal/Family Self 1960 [address] [address] [place] [address] Advance Directives For more information, please contact: [phone] Latest Code Status on File Code Status Date Activated Date Inactivated Comments Full Code 03/16/2022 21:53 04/01/2022 18:31 When the patient has NO PULSE: Full Code / CPR Who Made the Decision? Patient Care Teams Program Aide Relationship Specialty Start Date End Date Tyrese Juares PA PCP - General 03/16/[address] [place] [address]
--- OUTSIDE RECORDS SUMMARY | 2022-05-26 01:14 | XMS_ITS | Encounter Summary ---
:[address] [facility] Address [address] [place] [address] Care Team Providers Name Role Phone Tyrese Juares Primary Care Provider Encounter Details Date Type Department Care Team Description 03/16/2022 Travel Social History Tobacco Use Types Packs/Day Years Used Date Never Assessed Sex Assigned at Date Recorded Not on file COVID-19 Exposure Response Date Recorded In the last 10 days, have you been in contact with No / Unsu re 03/16/2022 18:36 EDT someone who was confirmed or suspected to have Coronavirus/COVID-19? documented as of this encounter Plan of Treatment Not on filedocumented as of this encounter Visit Diagnoses Not on filedocumented in this encounter Care Teams Control Clerk Auditing Relationship Specialty Start Date End Date Tyrese Juares PA PCP - General 03/16/22 [address] [facility] [place] [address] documented as of this encounter
--- OUTSIDE RECORDS SUMMARY | 2022-05-26 01:14 | XMS_ITS | Encounter Summary ---
:1960 Author Organization [facility] Address [address] [place] [address] Care Team Providers Name Role Phone Tyrese Juares Primary Care Provider Reason for Referral Referral (Routine/Next Available) - Receiving Office to Obtain Authorization Specialty Diagnoses / Referred By Contact Referred To Procedures Contact Gastroenterology and Diagnoses Rectal bleeding Jose Alejandro Griffith MD [facility] Hepatology Procedures COLONOSCOPY [address] [place] [phone] Phone: Fax: Referral ID Status Reason Start Expiration Visits Visits Date Date Requested Authorized [id number] Receiving Office 03/16/2022 1 1 to Obtain Authorization Encounter Details Date Type Department Care Team Description 03/16/2022 Orders Only [facility] - Jose Alejandro Griffith MD Rectal bleeding [facility] Endoscopy [address] (Primary Dx) [address] [place] [address] [place], [place] [phone] (Wo rk) Social History Tobacco Use Types Packs/Day Years Used Date Never Assessed Sex Assigned at Date Recorded Not on file documented as of this encounter Plan of Treatment Scheduled Orders Name Type Priority Associated Diagnoses Order S chedule COLONOSCOPY GI Routine Rectal bleeding Expected: (Approximate), Expires: 2022 documented as of this encounter Visit Diagnoses Diagnosis Rectal bleeding - Primary Hemorrhage of rectum and anus documented in this encounter Care Teams Risk Management Intern Relationship Specialty Start Date End Date Tyrese Juares PA PCP - General 03/16/22 [address] [place] [place] [address] documented as of this encounter
--- OUTSIDE RECORDS SUMMARY | 2022-05-26 01:14 | XMS_ITS | Encounter Summary ---
:1960 Author Organization [facility] Address [address] [place] [address] Care Team Providers Name Role Phone Tyrese Juares Primary Care Provider Reason for Referral Follow Up (See Order Priority) - New Request Specialty Diagnoses / Procedures Referred By Contact Refer red To Contact Diagnoses Acute urinary retention Syncope, unspecified syncope type Metabolic encephalopathy Hemorrhagic shock (HCC-CMS) (HCC) Gastrointestinal hemorrhage, unspecified gastrointestinal hemorrhage type Cardiac arrest (HCC) Lower GI bleed Chato Forde MD Ly[place], [place], PA [address] [place] [phone] Fax: Referral ID Status Reason Start Expiration Visits Visits Date Date Requested Authorized [id number] New Request Continuity of 04/01/2022 1 1 Care Question Answer Reason for Request: post d/c from hospital; acut e urinary retention onsult (See Order Priority) - New Request Specialty Diagnoses / Procedures Referred By Contact Refer red To Contact Urology Diagnoses Acute urinary retention Chato Forde MD [place], [facility] [address] [facility] [address] [place] [address] [place] [address] Phone: Fax: Referral ID Status Reason Start Expiration Visits Visits Date Date Requested Authorized [id number] New Request Specialty 04/01/2022 1 1 Services Required Question Answer Reason for Request: urinary retention onsult (See Order Priority) - New Request Specialty Diagnoses / Procedures Referred By Contact Refer red To Contact Diagnoses Metabolic encephalopathy Syncope, unspecified syncope type Chato Forde MD [address] [phone] [address] [facility] [place] [address] Phone: Fax: Referral ID Status Reason Start Expiration Visits Visits Date Date Requested Authorized [id number] New Request Specialty 04/01/2022 1 1 Services Required Question Answer I certify that this patient is under my care 04/01/2022 and that I, or another Medicare allowed practitioner (DO GIBSON, SARY) working with me, had a [id number] encounter with this patient on this date: The discharge summary or progress note will Yes provide further details that support the need for the home health services and the plan of care. Enter the allowed practitioner (DO GIBSON, SARY) Tyrese rowan who will provide oversight of this patient's home heatlh care needs and plan of care The patient? hypooxic ischemic injury s homebound status is related to the following diagnoses, illness or condition (describe): Patient needs one or more of the following The assista nce or supervision of another to leave home: person Leaving the home is medically Not medically contraindi cated, but needs contraindicated due to: assistance as indicated abov e. The following conditions illustrate the Deteriorating and/or altered mental patient? status requires the s normal inability to leave home AND that supervision/ assistance of another person leaving home requires a considerable and taxing effort: Skilled Care Requested Physical Therapy, RAILROAD SIGNAL TECHNICIAN, Nursi ng treatment, Nursing asessment, Occupatio nal therapy, Social work, INTAKE COORDINATOR for persona l care senior care assessment needed related to Status this encounter: Skilling Nursing Referral - Treatment: Catheter Care Physical therapy is needed for: Evaluation, Safety, Ga it/Mobility Assessment and Training, Str ength Training/Exercise Program RAILROAD SIGNAL TECHNICIAN for: Communication Occupational Therapy for: ADL Training Social Work Referral: Assess Retail Banking Manager Planning Ne eds, Assess Need for Choices of Care, Ev al Psychosocial Factors Impedin g Progress Towards Medical Plan of Care , Develop Interventions Toward Resolut ions of Psychosocial Problems INTAKE COORDINATOR for Personal Care (SN/PT referral Yes req'd): Reason for Visit Auth/Cert Specialty Diagnoses / Procedures Referred By Contact Refer red To Contact Diagnoses Cardiac arrest (HCC) GIB Referral ID Status Reason Start Date Expiration Date Visits Requ ested Visits Authorized [id number] 1 1 Encounter Details Date Type Department Care Team Description 03/16/2022 - [facility] [address] [place] [phone] Acute urinary retention (Primary Dx); 04/01/2022 Encounter Center Aylin Hernandez MD [address] [place] [phone] Cardiac arrest (HCC); Medicine Unit Nolan Leong MD [address] [place] [phone] Gastrointestinal hemorrhage, unspecified gastrointestinal hemorrhage type; [address] [place], [place] [address]Sean robles MD [address] [place] [phone] Hemorrhagic shock (HCC-CMS) (HCC); Anita Romo MD [address] [place] [phone] Metabolic encephalopathy; [place], [place] Manolo Fagan MD [address] [place] [address] [phone] Syncope, unspecified syncope type; [address] Lower GI bleed; [phone] Facial injury, initial encounter Social History Tobacco Use Types Packs/Day Years Used Date Unknown If Ever Smoked Tobacco Cessation: Counseling Given: No Comments: LEONARDO [...] Sign Reading Time Taken Comments Blood Pressure 139/88 04/01/2022 1407 EDT Pulse 59 04/01/2022 0532 EDT Temperature 36.4 ??C (97.6 ??F) 04/01/2022 1407 EDT Respiratory Rate 16 04/01/2022 1407 EDT Oxygen Saturation 97% 04/01/2022 1407 EDT Inhaled Oxygen Concentration - - Weight 62.9 kg (138 lb 9.6 oz) 03/31/2022 0528 EDT Height 167 cm (5' 5.75) 03/18/2022 1000 EDT Body Mass Index 22.54 03/18/2022 1000 EDT documented in this encounter Discharge Summaries Anita Castellon MD - 04/01/2022 1300 EDT HOSPITAL MEDICINE DISCHARGE SUMMARY Primary Care Provider: Christiana Devries [facility] Attending Physician: Anita Castellon MD Admit Date: 03/16/22 Discharge Date: 04/01/22 Disposition (location): Home with HHS Condition at Discharge: Stable Reason for Admission (chief complaint): hematochezia Principal/Final Diagnosis: Hemorrhagic shock (HCC-CMS) ([facility]) Additional Problems Managed in the Hospital: Active Hospital Problems Diagnosis Date Noted ??? Hypoxic brain injury (HCC-CMS) ([facility]) 04/01/2022 ??? Urinary retention 04/01/2022 Resolved Hospital Problems Diagnosis Date Noted Date Resolved ??? *Hemorrhagic shock (HCC-CMS) ([facility]) 03/17/2022 04/01/2022 ??? Facial trauma 03/17/2022 04/01/2022 ??? Syncope 03/17/2022 04/01/2022 ??? Hypocalcemia 03/17/2022 04/01/2022 ??? Cardiac arrest (HCC) 03/16/2022 04/01/2022 ??? Lower GI bleed 03/16/2022 04/01/2022 Transition of care: [facility] Transition of Care report automatically routed to PCP office on discharge. Additional handoff communication performed via: Spoke to RN Jes Thakkar as Tyrese GREEN (his PCP) is away until Tuesday. Clinical Issues Needing Follow-up 1. Pertinent medication changes: Stop LENS BLOCKER Prazosin 5 mg Start Tamsulosin 0.8 mg daily Start Pantoprazole 40 mg for two weeks Thiamine /folate given EtOH hx Senna/miralax for constipation 2. Recommended follow-up tests/procedures needed: Voiding trial with urology in 2-3 weeks 3. Anticoagulation on discharge: No 4. Changes to goals care at time of discharge (if applicable): N/A Hospital Course: Antoine Saez is a 61 y.o. 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 He wasstabilized following MTP with 7 units pRBC and 4 units FFP as well as fluid resuscitation and vasopressors. Patient was intubated and sedated for airway protection. Most likely 2/2 lower GI bleed from presumed diverticulosis as seen on CT though no signs of active extravasation on CTA. GI performed EGD that was able to rule out any upper GI bleed. Patient was able to be quickly weaned off of pressors as blood pressures were stabilized. He was cleared by ACS and trauma surgery for extubation and he was extubated successfully later in the day. Antoine remained hemodynamically stable without further signs of GI bleeding and was transferred to the medicine floor. Was also noted to have facial trauma due to unwitnessed fall, with acute bilateral nasal bone fractures seen on CT. ENT consulted, felt there was no indication for closed reduction and noted he can follow-up with ENT outpatient. Hospitalization was complicated by prolonged encephalopathy with intermittent agitation. Ultimately found to have hypoxic brain injury on MR head. Temporarily required NG tube and tube feeding to support nutrition. Slowly improved during hospitalization. Seen by PT/OT, recommend NUNO vs home 30/05 supervision, pt/family elected to go home 30/05 supervision. Hospitalization complicated by urinary retention. Started on tamsulosin and uptitrated to 0.8mg daily. Gonzalez catheter placed 03/31 with urology involvement. Discharged with gonzalez, family educated on maintenance and urology follow up for void trial. Relevant Imaging/Procedures Performed: CT ABDOMEN PELVIS W CONTRAST Result Date: 03/16/2022 1. Marked distention of the urinary bladder. The urinary bladder wall is mildly thickened given degree of distention. The prostate is mildly enlarged and indents the base of the bladder. A 2.6 cm diverticulum is noted near the right UVJ. 2. Colonic diverticulosis without evidence of acute diverticulitis. 3. Moderate gaseous distention of the rectum, nonspecific. CT ANGIO ABDOMEN PELVIS Result Date: 03/16/2022 1. Coronary artery calcifications. Arteriosclerotic changes of the aorta. 2. Suspect metallic foreign body within the stomach. NG tube within the stomach. 3. Small gallstones within the gallbladder arenot excluded. 4. Bilateral bilateral adrenal adenoma. 5. Gonzalez catheter within a collapsed urinary bladder. The bladder wall appears thickened. This could be due to the collapsed nature of the urinary bladder. THIS DOCUMENT HAS BEEN ELECTRONICALLY SIGNED BY AMAN DEVI MD FOR ANY QUESTIONS OR CONCERNS REGARDING THIS REPORT PLEASE CALL [facility] AT [phone] CT CERVICAL SPINE WO CONTRAST Result Date: 03/17/2022 1. No acute fracture of the cervical spine. 2. Multilevel degenerative changes with neural foraminalstenosis of varying degrees, most severely on the right at C5-C6. 3. Polypoid soft tissue in the nasal cavities likely represents sinonasal polyposis. I have personally reviewed the images and the above interpretation and agree with the findings. CT CERVICAL SPINE WO CONTRAST Result Date: 03/16/2022 No acute intracranial abnormality. CT Maxillofacial Without Contrast 03/16/2022 IMPRESSION: 1. Acute fracture of bilateral nasal bones. 2. Hypoplastic bilateral maxillary sinuses with complete opacification of the right maxillary sinus. Extensive mucosal thickening of bilateral ethmoid and frontal sinuses. 3. Polyposis of bilateral nasal cavities. CT HEAD WO CONTRAST Result Date: 03/16/2022 No acute intracranial abnormality. MR HEAD W WO CONTRAST Result Date: 03/23/2022 Scattered areas of cortical restricted diffusion and T2-FLAIR hyperintensity with similar faint signal abnormality in the basal ganglia, findings compatible with evolving hypoxic-ischemic injury in thecontext of recent cardiac arrest. XR FEMUR LEFT 2 OR MORE VIEWS Result Date: 03/21/2022 Metallic focus measuring 2 mm projects over the lateral aspect of the second metatarsal head. No additional metallic foci are identified in the left lower extremity. I have personally reviewed the images and the above interpretation and agree with the findings. XR FOOT LEFT 1-2 VIEWS Result Date: 03/21/2022 Metallic focus measuring 2 mm projects over the lateral aspect of the second metatarsal head. No additional metallic foci are identified in the left lower extremity. I have personally reviewed the images and the above interpretation and agree with the findings. XR TIBIA FIBULA LEFT 2 VIEWS Result Date: 03/21/2022 Metallic focus measuring 2 mm projects over the lateral aspect of the second metatarsal head. No additional metallic foci are identified in the left lower extremity. I have personally reviewed the images and the above interpretation and agree with the findings. es and the above interpretation and agree with the findings. Results Pending at Discharge: Test results still pending from this admission None Follow-up appointments and procedures [place] [facility], [place]lene I certify that this patient is under my care and that I, or another Medicare allowed practitioner (DO GIBSON, SARY) working with me, had a [id number] encounter with this patient on this date: 04/01/2022 The discharge summary or progress note will provide further details that support the need for the home health services and the plan of care.: Yes Enter the allowed practitioner (DO GIBSON, SARY) who will provide oversight of this patient's home heatlh care needs and plan of care: Tyrese Juares The patient???s homebound status is related to the following diagnoses, illness or condition (describe): hypooxic ischemic injury Patient needs one or more of the following to leave home: The assistance or supervision of another person Leaving the home is medically contraindicated due to: Not medically contraindicated, but needs assistance as indicated above. The following conditions illustrate the patient???s normal inability to leave home AND that leavinghome requires a considerable and taxing effort: Deteriorating and/or altered mental status requires the supervision/assistance of another person Skilled Care Requested: Physical Therapy RAILROAD SIGNAL TECHNICIAN Nursing treatment Nursing asessment Occupational therapy Social work INTAKE COORDINATOR for personal care senior care assessment needed related to this encounter: Status Skilling Nursing Referral - Treatment: Catheter Care Physical therapy is needed for: Evaluation Safety Gait/Mobility Assessment and Training Strength Training/Exercise Program RAILROAD SIGNAL TECHNICIAN for: Communication Occupational Therapy for: ADL Training Social Work Referral: Assess Retail Banking Manager Planning Needs Assess Need for Choices of Care Eval Psychosocial Factors Impeding Progress Towards Medical Plan of Care Develop Interventions Toward Resolutions of Psychosocial Problems INTAKE COORDINATOR for Personal Care (SN/PT referral req'd): Yes Authorizing Provider: Chato Forde MD Amb Consult/Follow Up Primary Care Physician - [facility] Reason for Request: post d/c from hospital; acute urinary retention Authorizing Provider: Chato Forde MD Amb Consult/Follow Up Urology Reason for Request: urinary retention Authorizing Provider: Chato Forde MD Chastidy Roldan, MD PGY-1 Internal Medicine Cortext preferred, #[id number] (via PAS) 04/01/22 10:40 Chato Forde MD Internal Medicine, PGY-2 04/02/22 14:50 I spent 15 minutes counseling the patient at bedside regarding their plan of care and a total of 30 minutes total including coordinating care, reviewing chart, discussing with consultants and the team. Anita Castellon MD documented in this encounter Discharge Instructions Discharge Instr - AVS First PageChato Forde MD - 04/01/2022 14:57 EDT You were seen in the hospital for cardiac arrest. You were also found to have urinary retention, please keep the gonzalez in until you follow up with Urology. You have also been referred for home health services. Please STOP taking: Prazosin (Minipress) Please START taking: - folic acid 1mg every day - multivitamin every day - pantoprazole 40mg every day - senna at bedtime as needed - tamsulosin 0.8mg at bedtime Please follow-up with your PCP within the next week or so. documented in this encounter Medications at Time of Discharge Medication Sig Dispensed Refills Start Date End Date folic acid (FOLVITE) 1 mg Take 1 Tablet by 60 Tablet 0 05/2 04/2022 tablet mouth daily. folic acid (FOLVITE) 1 mg Take 1 Tablet by 30 Tablet 2 06/0 07/2022 tablet mouth daily. lisinopriL (PRINIVIL) 5 [...] Take 2 Capsules by 60 capsule 0 05/04/2022 mg capsule mouth at bedtime. TAMSulosin (FLOMAX) 0.4 Take 2 Capsules by 60 Each 2 06/0 07/2022 mg capsule mouth daily. traZODone (DESYREL) 50 mg 50 mg. 0 09/01/2021 tablet pantoprazole (PROTONIX) Take 1 Tablet by 14 Tablet 0 202104/15/2022 40 mg tablet mouth daily for 14 days. documented as of this encounter Ordered Prescriptions Prescription Sig Dispensed Refills Start Date End Date TAMSulosin (FLOMAX) 0.4 Take 2 Capsules by 60 Each 2 06/0 07/2022 mg capsule mouth daily. folic acid (FOLVITE) 1 mg Take 1 Tablet by 30 Tablet 2 06/0 07/2022 tablet mouth daily. TAMSulosin (FLOMAX) 0.4 Take 2 Capsules by 60 capsule 0 05/2 04/2022 mg capsule mouth at bedtime. senna (SENOKOT) 8.6 mg Take 2 Tablets by 60 Tablet 0 2021 tablet mouth at bedtime as needed for Other (constipation). Multivitamins with Take 1 Tablet by 30 Tablet 0 04/01/2022 Minerals tablet tablet mouth daily. folic acid (FOLVITE) 1 mg Take 1 Tablet by 60 Tablet 0 05/2 04/2022 tablet mouth daily. pantoprazole (PROTONIX) Take 1 Tablet by 14 Tablet 0 202104/15/2022 40 mg tablet mouth daily for 14 days. documented in this encounter Discharge Disposition Disposition Code Departure Means Destination Home-Health Care [facility] documented in this encounter Progress Notes Danuta Toure - 04/01/2022 0815 EDT CM Discharge Note CASE MANAGEMENT DISCHARGE NOTE DISCHARGE DATE/TIME: , April 01, 2022 DESTINATION: Home (If discharging to [facility]) COVID swab ordered and completed: n/a TRANSPORTATION: Family ACCEPTING MD AND NUMBER: n/a RN REPORT/UNIT: Please call [facility] at [phone] for patient to receive PT, OT, RAILROAD SIGNAL TECHNICIAN, RN and Social Work PAYROLL ACCOUNTANT/CHARGE/MD NOTIFIED (Y/N): Y FORMS: (Acute to acute, COLST, MOLST, STACEY, Screen, PASRR, Ambulance): N/A IM SIGNED (Y/NA): N/A HOME HEALTH: [facility] at [phone] for patient to receive PT, OT, RAILROAD SIGNAL TECHNICIAN, RN and Social Work DME: N/A PHARMACY/PRESCRIPTIONS: ACC Phamacy MEDS TO BEDS UTILIZED : YES/NO YES Patient and/or family who participated in discharge plan: Patient , son and daughter participated inthe discharge plan. OTHER: If patient is discharged with a gonzalez catheter please provide additional catheters, catheter size, balloon size, irrigation set and normal saline and teaching for maintaining gonzalez catheter and orders for irrigation. Danuta Toure v groove cutter ll Case Management and Social Work [address] [phone] Pager # [phone] Anita Masterson MD - 03/31/20222 EDT Medicine Progress Note Service Date: 03/31/2022 Admit Date: 03/16/2022 21:11 Reason for Admission: 61 y.o. male admitted with a chief complaint of shock and now with a principaldiagnosis of LGIB 24 Hour Events: - NAEO Subjective/Objective Subjective Antoine states he feels ok today. Straight cathing has been well tolerated. D/w pt recommendation for gonzalez prior to d/c home, pt amenable to this. He expresses desire to d/c home today if possible. Hedenies f/c/n/v/d, chest pain, SOB. Review of Systems A ten point review of systems was performed and was negative except for pertinent positives noted inthe HPI Objective Vital Signs Temp: [36.7 ??C (98.1 ??F)-37.1 ??C (98.7 ??F)] , Heart Rate: [52 BPM-68 BPM] , Resp: [16] , BP: (113-144)/(66-81) , SpO2: [98 %] Physical Exam General: laying in bed, awake and alert, conversive HEENT: Healing cut on nose, bruising under eyes, cuts on lip, no gross facial deformities, sclera anicteric, conjunctiva clear, broken teeth. Poor dentition. Lungs: No accessory muscle use, equal chest rise. Heart: regular rate and rhythm, normal S1 S2, no murmurs/rubs/gallops Abdomen: soft, non-distended, lower abdominal pain on palpitation Extremities: atraumatic, no lower extremity edema Skin: normal skin texture and turgor without rashes or lesions, no diaphoresis Neuro: able to respond appropriately to questions, speech clear and improved from days prior, no obvious asymmetries Is PICC or central line present? No, PICC/Central line not present. Medications: reviewed Labs CBC: Recent Labs 03/29/22 0957 WBC 8.00 RBC 5.22 HGB 16.1 HCT 47.3 MCV 91 MCH 30.8 MCHC 34.0 PLT 368 BMP: Recent Labs 03/30/22 0638 NA 138 K 4.5 CL 101 CO2 30 BUN 18 CREATININE 0.63* CALCIUM 9.2 MG 2.2 Imaging Reviewed, no new imaging Assessment/Plan Assessment Antoine Saez is a 61 y.o. 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 S/P cardiac arrest with ROSC after 2 rounds CPR, MTP, and MICU stay with uncomplicated extubation. GI bleed resolved. Improving encephalopathy, MR 5/16 showing hypoxic-ischemic injury. Tolerating regular diet with no supervision. He is medically ready for discharge, OT recommends d/c to home with 24/ supervision until cognition clears, daughter states family will be able to provide that. Anticipated d/c home however initial difficulties placing gonzalez w/ some clot/hematuria/poor draining, now s/p Urology eval w/ advancement of gonzalez and appropriate drainage. Will monitor overnight, plan to teach pt/family re: gonzalez use and d/c tomorrow. Plan Acute Encephalopathy secondary to hypoxic brain injury, improving Per family, lives independently, fully functional with all ADLs prior to this admission. Reportedly normal mental status on arrival to [facility] [place]. No findings of seizure on EEG, no acute findings on head CT. Less likely tox given clinical timeline. Improving, remains far from baseline. MR Head W/O Contrast shows hypoxic brain injury suspect 2/2 hypotension form hemorrhagic shock and cardiac arrest. Mental status now much improved though still requires assistance w/ ADLs. - Delirium precautions - thiamine, folate, mvm given hx alcohol use d/o - Ramelteon QHS - Limit sedating meds - PT, OT, RAILROAD SIGNAL TECHNICIAN - d/c w/ HH PT/OT/RAILROAD SIGNAL TECHNICIAN/RN/SW Urinary Retention Most likely d/t BPH. - tamsulosin to 0.8mg daily - Gonzalez catheter placed 03/29, removed 03/30 per patients request in deference to straight cath - now s/p gonzalez placement again 03/31 PM, initially pain and not draining d/t gonzalez not properly placed, seen by Urology and resolved - monitor hematuria overnight, CBC in AM - teach pt, family re: gonzalez care in AM Acute LGIB (resolved) Acute blood loss anemia (resolved) s/p 7u pRBC though Hgb never < 11, CTA A&P without active extravasation, s/p EGD on 03/17 w/o UGI source. Most likely LGIB, suspect diverticular bleed. Hgb stable - PPI daily for 4 week course - CTA A&P if additional large-volume hematochezia - Restarted DVT ppx 03/28 HTN - LENS BLOCKER Lisinopril 5 mg daily Nasal fracture Cleared by trauma surgery. - ENT re-evaluated 03/26, no indication for closed reduction. 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 Constipation -senna, miralax daily -1x lactulose Resolved or inactive hospital problems Cardiac arrest, resolved - s/p CPR x2 rounds w/ ROSC prior to admission at [facility]. TTE wnl. May have been hypotension in the setting of acute GI bleed. Lactic acidosis - likely 2/2 shock, LGIB. Down-trended. Troponinemia - likely 2/2 shock vs CPR. Down-trended. Bradycardia, resolved - likely 2/2 Precedex. Improved after discontinuation of Precedex. Hypocalcemia - s/p calcium gluconate Leukocytosis - resolved VTE Prophylaxis Pharmacologic Prophylaxis: Enoxaparin (Lovenox) 40 mg SQ daily Discharge Plan: medically ready for discharge - At home with 24/ supervision till cognition clears per OT Consults GI, ENT (signed off), RAILROAD SIGNAL TECHNICIAN Chato Forde MD Internal Medicine, PGY-2 03/31/22 21:25 I have personally seen and examined the patient on 03/31/22. I reviewed the laboratory and radiographic results. The case was discussed with the medicine house staff and I agree with the findings above and plan of care documented. Please see my additional comments in blue. Anita Castellon MD Danuta Covarrubias - 03/31/2022 1623 EDT Case Management Note: If patient is discharged on Tuesday, 03/31. Rn please call [facility] with report at [phone]. We have requested, PT, OT, RAILROAD SIGNAL TECHNICIAN, RN and Social Work. Danuta Toure RN Case Manager ll Case Management and Social Work [address] [phone] Pager # [phone] Sole Tripp, RAILROAD SIGNAL TECHNICIAN - 03/31/2022 1303 EDT Speech-Language Pathology Contact Note Per RN, pt tolerating current diet (regular solids with thin liquids) without difficulty. Per case management 03/30: Sarah reports that she and her aunts would be able to provide a safe environment with 24/7 care for patient. Family is very supportive. Also, she stated that her brother who was currently living in [place] would be moving back to [place] to help with his Father's care. Brother is currently in [place] for another 7-10 days and per Sarah, they are cleaning patient's home and preparing things for when he is discharged. ?? Family are able to provide transportation and would anticipate [facility] Recommendations: 1. Continue regular diet with thin liquids 2. Pt will benefit from home health/outpatient RAILROAD SIGNAL TECHNICIAN services for further cognitive communicative intervention Sole Westbrook MS CCC-RAILROAD SIGNAL TECHNICIAN Cort[employer] preferred; #[phone] (Tuesday-Tuesday, [phone]) RAILROAD SIGNAL TECHNICIAN Float Pager #[phone] (Tuesday-Tuesday [phone]) Danuta Covarrubias - 03/30/2022 1324 EDT Case Management Note: Contacted daughter, Sarah at [phone] to discuss available support at home for Antoine. Sarah reports that she and her aunts would be able to provide a safe environment with 24/7 care forpatient. Family is very supportive. Also, she stated that her brother who was currently living in [place] would be moving back to [place] to help with his Father's care. Brother is currently in [place] for another 7-10 days and per Sarah, they are cleaning patient's home and preparing things for when he is discharged. Family are able to provide transportation and would anticipate referral to [facility]. Case Management will continue to follow for care coordination. Danuta Toure v groove cutter ll Case Management and Social Work [address] [phone] Pager # [phone] Anita Masterson MD - 03/30/2022 1108 EDT Medicine Progress Note Service Date: 03/30/2022 Admit Date: 03/16/2022 21:11 Reason for Admission: 61 y.o. male admitted with a chief complaint of shock and now with a principaldiagnosis of LGIB 24 Hour Events: - gonzalez placed Subjective/Objective Subjective Antoine is a bit agitated this morning. According to nursing he refused his tamsulosin. He does not like the gonzalez, he wants it removed because it is hindering his walking ability and is uncomfortable.Discussed keeping gonzalez in place vs intermittent straight catheterization. He prefers straight cath.He also is a bit confused by his arrival to the [facility]. His cardiac arrest and subsequent course were explained. He had no questions at the time. Reports improvement of constipation. Denies abdominal pain, fever, chills. Review of Systems A ten point review of systems was performed and was negative except for pertinent positives noted inthe HPI Objective Vital Signs Temp: [35.6 ??C (96.1 ??F)-36.9 ??C (98.4 ??F)] , Heart Rate: [60 BPM-66 BPM] , Resp: [12-18] , BP: (126-147)/(68-85) , SpO2: [96 %-98 %] Physical Exam General: laying in bed, awake and alert, conversive HEENT: Healing cut on nose, bruising under eyes, cuts on lip, no gross facial deformities, sclera anicteric, conjunctiva clear, broken teeth. Lungs: anterior lung riojas clear to auscultation bilaterally, no wheezes, rhonchi or rales Heart: regular rate and rhythm, normal S1 S2, no murmurs/rubs/gallops Abdomen: soft, non-distended, lower abdominal pain on palpitation Extremities: atraumatic, no lower extremity edema Skin: normal skin texture and turgor without rashes or lesions, no diaphoresis Neuro: able to respond appropriately to questions, speech clear and improved from days prior, no obvious asymmetries Is PICC or central line present? No, PICC/Central line not present. 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 S/P cardiac arrest with ROSC after 2 rounds CPR, MTP, and MICU stay with uncomplicated extubation. GI bleed resolved. Improving encephalopathy, MR 5/16 showing hypoxic-ischemic injury. Tolerating regular diet with no supervision. He is medically ready for discharge, OT recommends d/c to home with 24/7 supervision until cognition clears, daughter states family will be able to provide that. Will evaluate for urinary retention overnight. Plan Acute Encephalopathy secondary to hypoxic brain injury, improving Per family, lives independently, fully functional with all ADLs. Reportedly normal mental status on arrival to [facility]. No findings of seizure on EEG, no acute findings on head CT. Less likely tox given clinical timeline. Improving, remains far from baseline. MR Head W/O Contrast shows hypoxic brain injury suspect 2/2 hypotension form hemorrhagic shock and cardiac arrest. S/p NG tube removed 03/25. - Delirium precautions - thiamine, folate, mvm given hx alcohol use d/o - Ramelteon QHS - Limit sedating meds - PT, OT, RAILROAD SIGNAL TECHNICIAN Urinary Retention: Concern for BPH. With hypoxic brain injury, neurologic etiology is on the differential - Increase tamsulosin to 0.8mg daily - Gonzalez catheter placed 03/29, removed 03/30 per patients request. Will straight cath as needed Acute LGIB (resolved) Acute blood loss anemia (resolved) s/p 7u pRBC though Hgb never < 11, CTA A&P without active extravasation, s/p EGD on 03/17 w/o UGI source. Most likely LGIB, suspect diverticular bleed. Hgb stable - PPI daily for 4 week course - CTA A&P if additional large-volume hematochezia - CBC q48h - Restarted DVT ppx 03/28 HTN - LENS BLOCKER Lisinopril 5 mg daily ? Nasal fracture Cleared by trauma surgery. - ENT re-evaluated 03/26, no indication for closed reduction. Follow-up with ENT as-needed ?? 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 ?? Constipation -senna, miralax daily -1x lactulose Resolved or inactive hospital problems Cardiac arrest, resolved - s/p CPR x2 rounds w/ ROSC prior to admission at [facility]. TTE wnl. May have been hypotension in the setting of acute GI bleed. Lactic acidosis - likely 2/2 shock, LGIB. Down-trended. Troponinemia - likely 2/2 shock vs CPR. Down-trended. Bradycardia, resolved - likely 2/2 Precedex. Improved after discontinuation of Precedex. Hypocalcemia - s/p calcium gluconate Leukocytosis - resolved VTE Prophylaxis Pharmacologic Prophylaxis: Enoxaparin (Lovenox) 40 mg SQ daily Discharge Plan: medically ready for discharge - At home with 24/ supervision till cognition clears per OT Consults GI, ENT (signed off) Black Epps MS3 03/30/2022 11:01 Cortex I was present with the medical student for the history, exam, and medical decision making documented. I have edited the medical student note as appropriate. Mohini Waters MD PGY-1 Internal Medicine [employer]ext preferred, #[phone] (via PAS) 03/30/22 20:43 I have personally seen and examined the patient on 03/30/22. I reviewed the laboratory and radiographic results. The case was discussed with the medicine house staff and I agree with the findings above and plan of care documented. Please see my additional comments in blue. Anita Castellon MD Kinjal Herrera RD - 03/30/2022 1011 EDT Brief Nutrition Note 61 yo admitted with shock, LGIB, course c/b hypoxic brain injury. Overall improving with plan for NUNO. Pt not in room x several attempts to interview. PO intake varies, overall good, consuming 75-100% of house select meals per nsg flowsheets. Calorie counts incomplete, but suggest good PO which may be meeting needs. Continue to encourage good PO, offer Boost with meals to support adequate intake for healing. Wgt last recorded on 03/25, trending down significantly at that time, please recheck wgt to further assess nutritional status. Labs noted. Bowels moving. No pressure injuries noted. MVM, folic acid appropriate given hx ETOH. Plan: Continue diet, Boost, MVM, folic acid Please recheck wgt Encourage good PO Continue to monitor intake, wgt, labs, skin, bowels, comfort RD following Kinjal Johnston MS, RD (Call PAS or use Intelliweb to page RD covering this unit) Citlali Lacey RN - 03/30/2022 0841 EDT Acute rehab referral received from case management. EMR reviewed and spoke with trimming caser Danuta Toure RN. OT now recommending home with 30/05 supervision, PT states that patient is now independent with ambulation. Patient does not have the degree of motor functional deficit required to qualify for an acute rehabilitation admission. Acute rehab referral is discontinued. Citlali Suarez RN [facility] Acute Rehab [employer]er Jackelyn Simpson, OT - 03/29/2022 0149 EDT [facility] Rehabilitation Therapy Acute Therapies [place] ??? Occupational Therapy Encounter Note ADDENDUM: This addendum is intended as a Therapy Discharge Summary due to unplanned discharge of the patient. The information documented below this addendum was current at the time of last visit. Progress and patient response to treatment since the last progress note are summarized below. OBJECTIVE: In this reporting period 03/23/22 to today, the patient has been seen for therapy services. Therapy is discontinued at this time as the patient has been discharged from the hospital.. Relevant objective findings: see below ASSESSMENT: Unable to assess current status as the patient was not seen for any additional therapy sessions. Patient response to treatment and goal status at time of last visit: see below Short-Term Goals: n/a Long-Term Goals: Goal: Pt will follow 1-2 step commands 100% of the time Status: Discontinue Goal: Pt will complete bed mobility with independence in preparation for ADLs Status: Met Goal: Pt will complete UB ADLs with independence Status: Met Goal: Pt will complete toilet transfer and toileting tasks with independence Status: Discontinue Goal: Pt will complete Lb dressing independently Status: Discontinue Goal: Pt will complete functional ambulation with modified independence utilizing least restrictive AD Status: Discontinue PLAN: Discontinue therapy. We would be happy to see this patient in the future with a new referral. Jackelyn Gandara OT 04/02/22 7:43 Date of Service: 03/29/2022 Subjective/Objective Subjective It's a bag re: gonzalez catheter Objective Time: 1450 Total treatment time: 15 minutes. Timed code treatment minutes: 15 Interventions included: Self-Care/Home Management 15 minutes Pt received ambulation in hallway independently, holding onto gonzalez catheter bag. Once pt returned to room, pt stating he was trying to go to the bathroom. When discussing that he had a gonzalez, pt appeared confused, therefore further education provided regarding gonzalez catheter. Occupational Therapy administered the [facility] Mental Status Examination (UMS) today. This assessment is used to screen individuals for the presence of cognitive deficits and to identify changes in cognition over time. A score of 27 or higher indicates normal cognition. A score of 21-26 indicates a mild neurocognitivedisorder. A score of 1-20 indicates a more significant cognitive impairment. Performance and scoring as follows: Orientation- 1/3 Mental Calculations- 0/3 Naming- 0/3 Delayed Recall- 0/5 Attention- 0/2 Clock Draw- 0/4 Visual Perceptual- 1/2 Auditory memory paragraph- 0/8 Total Score: 2/30 - less than HS ed Comments: Pt incorrectly oriented to 2011, correctly oriented to [place]; required 3x to repeat objects correctly; incorrect answers to mental calculation, stating all but 100 and very little for answers respectfully; named 4 animals and repeated same 4 animals 2x; unable to complete clock drawing, did not attempt to place hands, only scribbled in the middle of the [place]; incorrectly placed x' in square; recalled 0/4 paragraph answers, stated [place] 3x for state. Discussed results with patient and recommendation for supervision until cognition clears secondary to safety concerns d/t cognition. Pt verbalized agreement in the moment, but based on cognition, do noanticipate pt will recall recommendations. At end of session, OT referenced gonzalez bag and pt was unable to state what it was for, referring to it as a bag, but I don't know what it does. Vital signs: Vital signs have been stable with interventions and were not monitored. Patient/Family Education: Topic: Cognitive strategies Role of OT D/C planning Safety awareness Learner: patient Method: verbal Barriers to Learning: cognitive deficits Outcome: verbalized understanding, but based on cognition do not anticipate carryover of informationprovided Team Communication: Communicated with RN prior to/post session re:pt status Assessment/Plan Assessment Pt continues to make significant improvement with functional mobility and cognition. He's much more alert today, able to speak in full sentences with intelligible speech. Despite improvement with cognition, it continues to be his primary barrier, as he remains confused and disoriented with impaired recall, short term memory, attention, concentration, and safety awareness. He scored 2/30 on the SLUMS indicated cognitive impairment. Pt would require 24/7 supervision at home until his cognition clears. Plan Continue per plan of care Recommended Discharge Destination: Home with 24/7 supervision until cognition clears Recommended Discharge Services: To be determined Recommended Discharge Equipment: No equipment necessary Pager: [phone] Jackelyn Gandara OT, 03/29/2022, 15:20 Anita Masterson MD - 03/29/2022 3456 EDT Medicine Progress Note Service Date: 03/29/2022 Admit Date: 03/16/2022 21:11 Reason for Admission: 61 y.o. male admitted with a chief complaint of shock and now with a principaldiagnosis of LGIB 24 Hour Events: - straight cath for urinary retention x2 Subjective/Objective Subjective Antoine reports that he is doing well this morning. He is alert and oriented. Says he is continuing to do well with eating and drinking. Reports feeling constipated. He walked around the floor yesterday. Denies abdominal pain, fever, chills. Review of Systems A ten point review of systems was performed and was negative except for pertinent positives noted inthe HPI Objective Vital Signs Temp: [36.5 ??C (97.7 ??F)-37 ??C (98.6 ??F)] , Heart Rate: [68 BPM-114 BPM] , Resp: [16-18] , BP: (121-139)/(73-78) , SpO2: [95 %-98 %] Physical Exam General: laying in bed, awake and alert, conversive HEENT: Healing cut on nose, bruising under eyes, cuts on lip, no gross facial deformities, sclera anicteric, conjunctiva clear, broken teeth. Lungs: anterior lung riojas clear to auscultation bilaterally, no wheezes, rhonchi or rales Heart: regular rate and rhythm, normal S1 S2, no murmurs/rubs/gallops Abdomen: soft, non-distended, lower abdominal pain on palpitation Extremities: atraumatic, no lower extremity edema Skin: normal skin texture and turgor without rashes or lesions, no diaphoresis Neuro: able to respond appropriately to questions, speech clear and improved from days prior, no obvious asymmetries Is PICC or central line present? No, PICC/Central line not present. 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 S/P cardiac arrest with ROSC after 2 rounds CPR, MTP, and MICU stay with uncomplicated extubation. GI bleed resolved. Improving encephalopathy, MR 5/16 showing hypoxic-ischemic injury. NG tube removed 03/25. Tolerating regular diet with no supervision. Recommending subacute rehabilitation. Plan Acute Encephalopathy secondary to hypoxic brain injury, improving Per family, lives independently, fully functional with all ADLs. Reportedly normal mental status on arrival to [facility]. No findings of seizure on EEG, no acute findings on head CT. Less likely tox given clinical timeline. Improving, remains far from baseline. MR Head W/O Contrast shows hypoxic brain injury suspect 2/2 hypotension form hemorrhagic shock and cardiac arrest. S/p NG tube removed 03/25. - Delirium precautions - thiamine, folate, mvm given hx alcohol use d/o - Ramelteon QHS - Limit sedating meds - RAILROAD SIGNAL TECHNICIAN following, regular diet without supervision - PT, OT, RAILROAD SIGNAL TECHNICIAN Urinary Retention: Concern for BPH. With hypoxic brain injury, neurologic etiology is on the differential - Increase tamsulosin to 0.8mg daily - Gonzalez catheter placed 03/29 Acute LGIB (resolved) Acute blood loss anemia (resolved) s/p 7u pRBC though Hgb never < 11, CTA A&P without active extravasation, s/p EGD on 03/17 w/o UGI source. Most likely LGIB, suspect diverticular bleed. Hgb stable - PPI daily for 4 week course - CTA A&P if additional large-volume hematochezia - CBC q48h - Restarted DVT ppx 03/28 HTN - LENS BLOCKER Lisinopril 5 mg daily ? Nasal fracture Cleared by trauma surgery. - ENT re-evaluated 03/26, no indication for closed reduction. Follow-up with ENT as-needed ?? 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 ?? Constipation -senna, miralax daily Resolved or inactive hospital problems Cardiac arrest, resolved - s/p CPR x2 rounds w/ ROSC prior to admission at [facility]. TTE wnl. May have been hypotension in the setting of acute GI bleed. Lactic acidosis - likely 2/2 shock, LGIB. Down-trended. Troponinemia - likely 2/2 shock vs CPR. Down-trended. Bradycardia, resolved - likely 2/2 Precedex. Improved after discontinuation of Precedex. Hypocalcemia - s/p calcium gluconate Leukocytosis - resolved VTE Prophylaxis Pharmacologic Prophylaxis: Enoxaparin (Lovenox) 40 mg SQ daily Discharge Plan [place] Consults GI, ENT (signed off) Black Epps MS3 03/29/2022 12:36 Cortext I was present with the medical student for the history, exam, and medical decision making documented. I have edited the medical student note as appropriate. Mohini Waters MD PGY-1 Internal Medicine [employer] preferred, #[phone] (via PAS) 03/29/22 16:04 I interviewed and examined patient 03/29/22. I agree with findings and plan of care documented by resident. I received sign out from Dr Fagan. I reviewed labs, meds, imaging, micro, and old records. I spent 30 minutes, 20 in coordination of care. Anita Castellon MD Hospitalist Melissa Noble, PT - 03/29/2022 1123 EDT [facility] Rehabilitation Therapy Acute Therapies [facility] Physical Therapy Encounter Note ADDENDUM: This addendum is intended as a Therapy Discharge Summary due to unplanned discharge of the patient. The information documented below this addendum was current at the time of last visit. Progress and patient response to treatment since the last progress note are summarized below. OBJECTIVE: In this reporting period the patient has been seen for therapy services. Therapy is discontinued at this time as the patient has been discharged from the hospital.. Relevant objective findings: ASSESSMENT: Unable to assess current status as the patient was not seen for any additional therapy sessions. Patient response to treatment and goal status at time of last visit: Short-Term Goals: N/A ? Long-Term Goals: 2-3 weeks (met) ?? The patient will be able to perform bed mobility with modified independence assist demonstrating appropriate sequencing/motor planning. ?? The patient will demonstrate vital signs in parameters with position changes. ?? The patient will be able to perform bed to chair transfers with modified independence while demonstrating an effective strategy for recovery of loss of balance. ?? The patient will be able to ambulate with modified independence with no loss of balance on level surfaces 200 feet. ?? The patient and/or caregiver will be able to recall and demonstrate precautions. ?? All of the above mobility goals will be performed with an oxygen saturation > 95%. ?? The patient will be able to perform stairs with modified independence with home set up for rails. PLAN: Discontinue therapy. We would be happy to see this patient in the future with a new referral. Melissa Stovall, PT 04/02/22 8:28 Date of Service: 03/29/2022 Subjective/Objective SUBJECTIVE: I have been walking OBJECTIVE: Intervention completed today: Time: 9:15 Total treatment time: 10 minutes. Timed code treatment minutes: 10 linen aide(s) present to assist: none Vital Signs: Therapeutic Activity: Bed mobility: independent Transfers: independent Gait/aerobic capacity trainin feet independent Patient/Family Education: Activity pacing/Energy conservation Assistive device/technique Balance Breathing exercises Exercise Gait Safety Transfers Learner: patient and caregiver Method: verbal and demonstration Barriers to Learning: cognition Outcome: needs practice, verbalized understanding and returned demonstration Team Communication: Pt status discussed with nursing prior to and after treatment session . Recommend OOB to chair ASSESSMENT: Patient is no independent with ambulation. His main limiting barrier is decreased cognition, I woulddefer to OT for cognitive evaluation, as most likely he will need supervision until his cognition clears PLAN: Continue per plan of care Recommended Discharge Destination: To be determined based on availability of assistance at home Recommended Discharge Services: To be determined Recommended Equipment Needs: No equipment necessary Other recommendations: No other consults recommended at this time Primary Therapist: Pager: [phone] Melissa Stovall, PT 03/29/2022 11:26 Danuta Covarrubias - 03/29/2022 1003 EDT Case Management Note: Reviewed patient notes for PT,OT and RAILROAD SIGNAL TECHNICIAN and all are recommending Acute Rehabilitation. Called [place] and spoke with Citlali Suarez, in [place] admissions to provide referral. Per Dr. Jarrett Kaplan will need to review patient. Case Management will continue to follow for care coordination. Danuta Toure v groove cutter ll Case Management and Social Work [address] [phone] Pager # [phone] Willian Rosado RN - 03/29/2022 0139 EDT Data: Patient alert and oriented x 2 but is able to follow and remember instruction. Ambulating independently in room and in halls. Denies pain. PVR: 453 mL @ 2230. Action: MD notified re: PVR and instructed to recheck @ 0600. Medications given per JAN. Care clustered to promote rest. Response: Patient sleeping well so far this shift. Will continue to monitor. WILLIAN LYONS RN 03/29/2022 1:40 Mayco Cramer MD - 03/28/2022 0842 EDT Medicine Progress Note Service Date: 03/28/2022 Admit Date: 03/16/2022 21:11 Reason for Admission: 61 y.o. male admitted with a chief complaint of shock and now with a principaldiagnosis of LGIB 24 Hour Events: - straight cath for urinary retention overnight (800 mL) Subjective/Objective Subjective Antoine reports that he is doing well this morning. He is alert and oriented. Eating a large breakfast. Says he is doing well with eating and drinking. Reports some tooth discomfort and complains of lower abdominal pain. Review of Systems A ten point review of systems was performed and was negative except for pertinent positives noted inthe HPI Objective Vital Signs Temp: [36.7 ??C (98 ??F)] , Heart Rate: --, Resp: [18] , BP: (131)/(77) , SpO2: [97 %] Physical Exam General: laying in bed, awake and alert, conversive HEENT: Healing cut on nose, bruising under eyes, cuts on lip, no gross facial deformities, sclera anicteric, conjunctiva clear, broken teeth. Lungs: anterior lung riojas clear to auscultation bilaterally, no wheezes, rhonchi or rales Heart: regular rate and rhythm, normal S1 S2, no murmurs/rubs/gallops Abdomen: soft, non-distended, lower abdominal pain on palpitation Extremities: atraumatic, no lower extremity edema Skin: normal skin texture and turgor without rashes or lesions, no diaphoresis Neuro: able to respond appropriately to questions, speech clear and improved from days prior, no obvious asymmetries Is PICC or central line present? No, PICC/Central line not present. 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 S/P cardiac arrest with ROSC after 2 rounds CPR, MTP, and MICU stay with uncomplicated extubation. GI bleed resolved. Improving encephalopathy, MR 5/16 showing hypoxic-ischemic injury. NG tube removed 03/25. Tolerating regular diet. Requiring video supervision. Once no longer requiring supervision will be ready for acute rehab. Plan Acute Encephalopathy secondary to hypoxic brain injury, improving Per family, lives independently, fully functional with all ADLs. Reportedly normal mental status on arrival to [facility] [place]. No findings of seizure on EEG, no acute findings on head CT. Less likely tox given clinical timeline. Improving, remains far from baseline. MR Head W/O Contrast shows hypoxic brain injury suspect 2/2 hypotension form hemorrhagic shock and cardiac arrest. S/p NG tube removed 03/25. - Delirium precautions - thiamine, folate, mvm given hx alcohol use d/o - Ramelteon QHS - Limit sedating meds - RAILROAD SIGNAL TECHNICIAN following, regular diet - PT, OT, RAILROAD SIGNAL TECHNICIAN - No longer needing 1:1 sitter, still requiring video supervision Urinary Retention: Concern for BPH. With hypoxic brain injury, neurologic etiology is on the differential - Increase tamsulosin to 0.8mg daily - Straight cath PRN for retention >500cc - If requiring multiple straight caths, consider gonzalez placement Acute LGIB (resolved) Acute blood loss anemia (resolved) s/p 7u pRBC though Hgb never < 11, CTA A&P without active extravasation, s/p EGD on 03/17 w/o UGI source. Most likely LGIB, suspect diverticular bleed. Hgb stable - PPI daily for 4 week course - CTA A&P if additional large-volume hematochezia - CBC q48 - Restarted DVT ppx 03/26 HTN - LENS BLOCKER Lisinopril 5 mg daily ? Nasal fracture Cleared by trauma surgery. - ENT re-evaluated 03/26, no indication for closed reduction. Follow-up with ENT as-needed ?? 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 ?? Resolved or inactive hospital problems Cardiac arrest, resolved - s/p CPR x2 rounds w/ ROSC prior to admission at [facility]. TTE wnl. May have been hypotension in the setting of acute GI bleed. Lactic acidosis - likely 2/2 shock, LGIB. Down-trended. Troponinemia - likely 2/2 shock vs CPR. Down-trended. Bradycardia, resolved - likely 2/2 Precedex. Improved after discontinuation of Precedex. Hypocalcemia - s/p calcium gluconate Leukocytosis - resolved VTE Prophylaxis Pharmacologic Prophylaxis: Enoxaparin (Lovenox) 40 mg SQ daily Discharge Plan Like AR vs NUNO Consults GI, ENT (signed off) Black Epps MS3 03/28/2022 Cortext I was present with the medical student for the history, exam, and medical decision making documented. I have edited the medical student note as appropriate. Mayco Villafana MD 03/28/2022 16:59 Internal Medicine Resident, PGY-3 Cortext or Pager [phone] Associated attestation - Manolo Fagan MD - 03/28/2022 2245 EDT I interviewed and examined the patient. I have personally reviewed interval events, laboratory data,and imaging. I discussed the case with the inpatient resident team. I agree with findings and plan of care as documented by the resident (or have edited in Blue). MD Nicholas Edouard Vivian, RN - 03/28/2022 0507 EDT Data: Assumed care @ 1900. Pt is A&Ox2, some confusion, speech hesitant but coherent. VM in place for impulsivity. Pt c/o generalized aches & cramps. 1x assist in room. VSS Action: Pt voided <50 ml, bladder scan revealed 888 ml. Straight cath, 800 ml clear yellow urine drained. Cramping resolved w straight cath. PRN tylenol for pain. Encouraged adequate PO intake. Clustered care to promote rest. Response: Pt slept well overnight. Voided 450 ml via urinal this AM. TALIA PETERSON RN 03/28/2022 5:07 Mayco Cramer MD - 03/27/2022 1224 EDT Medicine Progress Note Service Date: 03/27/2022 Admit Date: 03/16/2022 21:11 Reason for Admission: 61 y.o. male admitted with a chief complaint of shock and now with a principaldiagnosis of LGIB 24 Hour Events: Some agitation overnight, continues with 1:1 sitter Subjective/Objective Subjective Antoine reports that he is doing well this morning. He is alert and oriented. Reports some tooth discomfort. States that he has been doing well with eating, calorie count showed 1300 calories yesterday. Per nurse not great fluid intake because he needs assist to drink and lower urine output today. Review of Systems A ten point review of systems was performed and was negative except for pertinent positives noted inthe HPI Objective Vital Signs Temp: [36.4 ??C (97.6 ??F)-37.1 ??C (98.7 ??F)] , Heart Rate: [54 BPM] , Resp: [16-18] , BP: (125-159)/(66-84) , SpO2: [96 %-97 %] Physical Exam General: laying in bed, awake and alert, conversive HEENT: Healing cut on nose, bruising under eyes, cuts on lip, no gross facial deformities, sclera anicteric, conjunctiva clear. Lungs: anterior lung riojas clear to auscultation bilaterally, no wheezes, rhonchi or rales Heart: regular rate and rhythm, normal S1 S2, no murmurs/rubs/gallops Abdomen: soft, non-tender, non-distended Extremities: atraumatic, no lower extremity edema Skin: normal skin texture and turgor without rashes or lesions, no diaphoresis Neuro: able to respond appropriately to questions, speech clear and improved from days prior, no obvious asymmetries Is PICC or central line present? No, PICC/Central line not present. 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 S/P cardiac arrest with ROSC after 2 rounds CPR, MTP, and MICU stay with uncomplicated extubation. GI bleed resolved. Improving encephalopathy, MR 5/16 showing hypoxic-ischemic injury. NG tube removed 03/25 and tolerating soft regular diet. Once no longer requiring 1:1 supervision will be ready foracute rehab. Plan Acute Encephalopathy secondary to hypoxic brain injury, improving Per family, lives independently, fully functional with all ADLs. Reportedly normal mental status on arrival to [facility] [place]. No findings of seizure on EEG, no acute findings on head CT. Less likely tox given clinical timeline. Improving, remains far from baseline. MR Head W/O Contrast shows hypoxic brain injury suspect 2/2 hypotension form hemorrhagic shock and cardiac arrest. S/p NG tube removed 03/25. - Delirium precautions - thiamine, folate, mvm given hx alcohol use d/o - Ramelteon QHS - Limit sedating meds - RAILROAD SIGNAL TECHNICIAN following, diet soft regular with thin liquids and 1:1 assistance - 1L LR today given low urine output, poor fluid intake today - PT, OT, RAILROAD SIGNAL TECHNICIAN - Per Nurse, still requiring 1:1 today Acute LGIB (resolved) Acute blood loss anemia (resolved) s/p 7u pRBC though Hgb never < 11, CTA A&P without active extravasation, s/p EGD on 03/17 w/o UGI source. Most likely LGIB, suspect diverticular bleed. Hgb stable - PPI daily for 4 week course - CTA A&P if additional large-volume hematochezia - CBC q48 - Restarted DVT ppx 03/26 HTN - LENS BLOCKER Lisinopril 5 mg daily ? Nasal fracture Cleared by trauma surgery. - ENT re-evaluated 03/26, no indication for closed reduction. Follow-up with ENT as-needed ?? 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 ?? Resolved or inactive hospital problems Cardiac arrest, resolved - s/p CPR x2 rounds w/ ROSC prior to admission at [facility]. TTE wnl. May have been hypotension in the setting of acute GI bleed. Lactic acidosis - likely 2/2 shock, LGIB. Down-trended. Troponinemia - likely 2/2 shock vs CPR. Down-trended. Bradycardia, resolved - likely 2/2 Precedex. Improved after discontinuation of Precedex. Hypocalcemia - s/p calcium gluconate Leukocytosis - resolved VTE Prophylaxis Pharmacologic Prophylaxis: Enoxaparin (Lovenox) 40 mg SQ daily Discharge Plan Like AR vs NUNO Consults GI, ENT (signed off) Mayco Villafana MD 03/27/2022 12:24 Internal Medicine Resident, PGY-3 Cortext or Pager [phone] Associated attestation - Manolo Fagan MD - 03/27/20222027 EDT I interviewed and examined the patient. I have personally reviewed interval events, laboratory data,and imaging. I discussed the case with the inpatient resident team. I agree with findings and plan of care as documented by the resident (or have edited in Blue). MD Roly Edouard Courtney, MD - 03/26/2022 1231 EDT Brief ENT Consult Note: Antoine Saez is a 61-year-old male who has been admitted since 03/16/2022 for lower GI bleed. Prior to presentation, he had an unwitnessed fall, cardiac arrest with ROSC. CT was notable for minimally displaced nasal bone fractures. He was evaluated at bedside today. He was impulsive and trying to leave. He felt that his nose appears straight. He has not had any epistaxis. His nasal breathing is good. Exam is notable for healing infraorbital ecchymosis bilaterally. His nasal bones appear straight andfeel to be in good position on palpation. There are no mobile bony segments or palpable step-offs. There is no indication for closed reduction. He can follow-up with ENT on an as- needed basis. Nayla Dunham MD Otolaryngology Resident, PGY-4 Pager [phone] ETOanh Mohan - 03/26/2022 1046 EDT Nutrition Reassessment Medical Summary: Antoine Saez is a 61 y.o. 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 GI bleed resolved. Improving encephalopathy, MR 5/16 showing hypoxic-ischemic injury. NG tube still in place this morning. Plan to remove NG tube today, cleared for regular diet per RAILROAD SIGNAL TECHNICIAN, will monitorfor ability to get adequate nutrition without tube. Pending results of trial may soon be medically stable for rehab, PT/OT recommending acute rehab. Subjective Speaking in a soft voice, sometimes hard to hear what he was saying over the baseline noise level ofa busy hospital floor. He wasn't able to tell me what he's had to eat today, but said he did eat dinner last night, unable to say what that was. Appetite is it's there, I'm more thirsty than hungry. Can't say if he's had any supplement shakes, and when given choice of flavors for future shakes, I don't know. Denies nausea. He reports dental problems, looks as if he is actually able to wiggle one of his teeth back and forth with his tongue today. He likes coffee, does not like milk or juice very much. Objective Current Nutrition Orders: DIET REGULAR, cut up food, supervise while eating, calorie counts Nutrition Focused Physical Exam: pt deferred, states resting time Digestive Systems: BM 03/24, loose Skin: BSS=16, nutrition score=3 Edema per MD/Flowsheets: none noted Anthropometrics: Height: 167 cm (65.75) Weight : 62.9 kg (138 lb 11.2 oz) Body mass index is 22.56 kg/m??. Weights Filed This Admission 03/16/22 2345 03/17/22 0000 03/18/22 1000 03/20/22 0500 Weight: 68.8 kg (151 lb 10.8 oz) 68.8 kg (151 lb 10.8 oz) 68 kg (149 lb 14.6 oz) 64.3 kg (141 lb 12.1 oz) 03/21/22 0520 03/22/22 0537 03/23/22 0619 03/25/22 0910 Weight: 64 kg (141 lb 3.2 oz) 65.8 kg (145 lb) 65.8 kg (145 lb) 62.9 kg (138 lb 11.2 oz) Wt Readings from Last 8 Encounters: 03/25/22 62.9 kg (138 lb 11.2 oz) 03/16/22 70.3 kg (155 lb) Pertinent Medications: Scheduled enoxaparin, 40 mg, DAILY folic acid, 1 mg, DAILY lisinopril, 5 mg, DAILY Multivitamins with minerals + ferrous gluconate, 15 mL, DAILY pantoprazole, 40 mg, DAILY ramelteon, 8 mg, QHS sertraline, 100 mg, DAILY sodium chloride 0.9 % (flush), 5 mL, Q8H thiamine (VITAMIN B1) IVPB, 100 mg, DAILY Continuous PRN benzocaine, , Q6H PRN lidocaine (PF), 2 mg, PRN ondansetron (PF), 4 mg, PRN polyethylene glycol 3350, 17 g, Daily PRN senna, 1 Tablet, Daily PRN Pertinent Labs: Recent Labs 03/25/22 1011 03/25/22 1012 03/26/22 0628 NA -- 138 135* K -- 4.8 4.5 PHOS -- 3.6 3.8 MG -- 2.3 2.1 BUN -- 15 20 CREATININE -- 0.57* 0.61* CL -- 105 100 CO2 -- 23 25 WBC 8.66 -- -- HGB 18.1* -- -- HCT 51.6* -- -- Lab Results Component Value Date/Time MCV 88 03/25/2022 10:11 [id number] 03/21/2022 06:17 Estimated Nutrition Intake: Over past few days has eaten 25%, 25%, 75%, 25%, 25% Calorie counts: 03/25: 1354 kcal, 77 g protein (2 meals, 2 supplements recorded) Assessment: NGT clogged yesterday and was removed. Calorie counts begun. Actually did pretty well yesterday, only two meals were recorded but got 1354 kcal from them and some Boost shakes. Still with AMS, will set him up with automatic meal trays for now although I think he might soon be able to do Menu Assist (today still having some trouble giving choices). Will send soft foods d/t poor dentition. MVM, thiamine appropriate, continue. Nutrition Risk Level: Moderate (2) Medical Nutrition Therapy Plan and Recommendations: -Automatic meal trays of VERY SOFT foods -Boost Plus TID -Continue MVM, thiamine -Monitor weight, labs, BMs, skin, po intake Oanh Mohan RD (Call PAS or use Intelliweb to page RD covering this unit) Mayco Cramer MD - 03/26/2022 0840 EDT Medicine Progress Note Service Date: 03/26/2022 Admit Date: 03/16/2022 21:11 Reason for Admission: 61 y.o. male admitted with a chief complaint of shock and now with a principaldiagnosis of LGIB 24 Hour Events: NGT removed, advanced to regular solids with thin liquids and 1:1 assistance by RAILROAD SIGNAL TECHNICIAN Subjective/Objective Subjective Antoine is doing well this morning. He is alert and oriented. No complaints of pain. States that he has been doing well with eating and drinking. Recalls having some peanut butter yesterday. Denies pain and discomfort. Review of Systems A ten point review of systems was performed and was negative except for pertinent positives noted inthe HPI Objective Vital Signs Temp: [36.6 ??C (97.8 ??F)-37 ??C (98.6 ??F)] , Heart Rate: --, Resp: [18] , BP: (115-146)/(65-94) ,SpO2: [96 %] Physical Exam General: laying in bed, awake and alert, conversive HEENT: Healing cut on nose, bruising under eyes, cuts on lip, no gross facial deformities, sclera anicteric, conjunctiva clear. NG in place. Lungs: anterior lung riojas clear to auscultation bilaterally, no wheezes, rhonchi or rales Heart: regular rate and rhythm, normal S1 S2, no murmurs/rubs/gallops Abdomen: soft, non-tender, non-distended Extremities: atraumatic, no lower extremity edema Skin: normal skin texture and turgor without rashes or lesions, no diaphoresis Neuro: able to respond appropriately to questions, speech clear and improved from days prior, no obvious asymmetries Is PICC or central line present? No, PICC/Central line not present. Medications: reviewed Labs CBC: Recent Labs 03/25/22 1011 WBC 8.66 RBC 5.86* HGB 18.1* HCT 51.6* MCV 88 MCH 30.9 MCHC 35.1 PLT 329 BMP: Recent Labs 03/24/22 0916 03/25/22 1012 03/26/22 0628 NA 137 138 135* K 3.7 4.8 4.5 CL 102 105 100 CO2 25 23 25 BUN 19 15 20 CREATININE 0.58* 0.57* 0.61* CALCIUM 8.6 9.3 8.9 MG 2.1 2.3 2.1 PHOS 3.3 3.6 3.8 Imaging MR Head W/O Contrast - Scattered areas of cortical restricted diffusion and T2-FLAIR hyperintensity with similar faint signal abnormality in the basal ganglia, findings compatible with evolving hypoxic-ischemic injury in the context of recent cardiac arrest. 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 S/P cardiac arrest with ROSC after 2 rounds CPR, MTP, and MICU stay with uncomplicated extubation. GI bleed resolved. Improving encephalopathy, MR 5 showing hypoxic-ischemic injury. NG tube still in place this morning. NG tube removed 03/25. Advanced to regular solids with thin liquids and 1:1 assistance by RAILROAD SIGNAL TECHNICIAN on 03/25. Will continue to monitor for ability to get adequate nutrition without tube. Once adequate oral intake and not requiring 1:1 supervision will be ready for acute rehab. Plan Acute Encephalopathy secondary to hypoxic brain injury, improving Per family, lives independently, fully functional with all ADLs. Reportedly normal mental status on arrival to [facility]. No findings of seizure on EEG, no acute findings on head CT. Less likely tox given clinical timeline. Improving, remains far from baseline. MR Head W/O Contrast shows hypoxic brain injury suspect 2/2 hypotension form hemorrhagic shock and cardiac arrest. S/p NG tube removed 03/25. - Delirium precautions - thiamine, folate, mvm given hx alcohol use d/o - Ramelteon QHS - Limit sedating meds - RAILROAD SIGNAL TECHNICIAN following, diet advanced to regular with thin liquids and 1:1 assistance 03/25 - PT, OT, RAILROAD SIGNAL TECHNICIAN - Per Nurse, still requiring 1:1 today Acute LGIB (resolved) Acute blood loss anemia (resolved) s/p 7u pRBC though Hgb never < 11, CTA A&P without active extravasation, s/p EGD on 03/17 w/o UGI source. Most likely LGIB, suspect diverticular bleed. Hgb stable - PPI daily for 4 week course - CTA A&P if additional large-volume hematochezia - CBC q48 - Ok to restart DVT ppx HTN - LENS BLOCKER Lisinopril 5 mg daily ? Nasal fracture Cleared by trauma surgery. - ENT re-evaluated 03/26, no indication for closed reduction. Follow-up with ENT as-needed ?? 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 ?? Resolved or inactive hospital problems Cardiac arrest, resolved - s/p CPR x2 rounds w/ ROSC prior to admission at [facility]. TTE wnl. May have been hypotension in the setting of acute GI bleed. Lactic acidosis - likely 2/2 shock, LGIB. Down-trended. Troponinemia - likely 2/2 shock vs CPR. Down-trended. Bradycardia, resolved -likely 2/2 Precedex. Improved after discontinuation of Precedex. Hypocalcemia - s/p calcium gluconate Leukocytosis - resolved VTE Prophylaxis Pharmacologic Prophylaxis: Enoxaparin (Lovenox) 40 mg SQ daily Discharge Plan Like AR vs NUNO Consults GI, ENT (signed off) Black Epps MS3 Cortext 03/26/2022 I was present with the medical student for the history, exam, and medical decision making documented. I have edited the medical student note as appropriate. Mayco Villafana MD 03/26/2022 13:34 Internal Medicine Resident, PGY-3 Cortext or Pager [phone] Kirti Augustin RN - 03/25/2022 5916 EDT Review of chart and therapies notes. Pt continues to be seen for OT,PT and RAILROAD SIGNAL TECHNICIAN. Case Management will follow for on going recommendations. As he is 100% service connected will anticipate coordination with the SD ,(either [place] or [place]),depending of the final recommendations of therapies and the patient's status/stability for progress. Kirti Jefferson RN [facility] [id number] Jackelyn Simpson, OT - 03/25/2022 1305 EDT [facility] Therapy Acute Therapies [place] ??? Occupational Therapy Encounter Note Date of Service: 03/25/2022 Subjective/Objective Subjective I can do that re: donning pants Objective Time: 925 Total treatment time: 20 minutes. Timed code treatment minutes: 20 Interventions included: Self-Care/Home Management 20 minutes Functional mobility: -Sit<>stand: min contact assist without UE support -standing balance: min/mod assist without UE support; pt unsteady, swaying laterally ADLs: -LB dressing pants: max assist with max verbal and mod tactile cues. Assist to thread gonzalez catheterthrough pant leg. When cued, pt often lifting his LE and touching his thigh, but making no attempts to grasp pants or reach towards feet despite verbal/tactile cues and hand over hand assist. In stance, pt initiating hiking over hips on R side, but required assist to complete task -Lb dressing socks: doffed socks with min contact assist and max verbal and mod tactile cues for initiated and continuation of task. Donned B socks with min contact assist and mod verbal cues. -UB dressing: doffed shaorn with min contact assist and mod verbal/tactile cues. Donned sharon with mod assist and max verbal/tactile cues Cognition: -Pt oriented to [place], November 20 1959. Pt was reoriented to [place] and the correct date, but was unable to recall date/place when asked after 1-2 minutes. -Follows simple one step commands 50-75% of the time with repetition and tactile cueing -impaired attention, easily distractible with multiple providers coming in/out of room, requiring mod verbal cues for redirection Vital signs: Vital signs were monitored and were stable throughout occupational therapy session. Patient/Family Education: Topic: Benefits of activity Compensatory strategies Role of OT Safety awareness Learner: patient Method: verbal and demonstration Barriers to Learning: cognitive deficits Outcome: verbalized understanding and requires assist Team Communication: Communicated with RN prior to/post session re:pt status Assessment/Plan Assessment Pt demonstrates significant improvement with functional mobility and progression of ADLs today. He completed UB/LB ADls with min-max assist, but continues to require significant cueing throughout all functional tasks for initiation, redirection, and overall facilitation of tasks. Cognition has improved with increased command following, though still limited to simple one step commands with additional multimodal cueing. He remains well below his baseline with cognition being his most limiting factor at this time. Recommend acute rehab and Expect pt to be able to tolerate the frequency of multidisciplnary therapies 3 hours/day 5 days/week. Plan Continue per plan of care Recommended Discharge Destination: Acute rehabilitation Recommended Discharge Services: Occupational therapy at rehabilitation facility Recommended Discharge Equipment: To be determined by next care provider Pager: [phone] Jackelyn Gandara OT, 03/25/2022, 13:06 Kathleen Paiz MD - 03/25/2022 1115 EDT Medicine Progress Note Service Date: 03/25/2022 Admit Date: 03/16/2022 21:11 Reason for Admission: 61 y.o. male admitted with a chief complaint of shock and now with a principaldiagnosis of LGIB 24 Hour Events: NAEO Subjective/Objective Subjective Antoine continues to improve. He is more verbal and more oriented than yesterday. He says that he isdoing well with his current diet and swallowing. He wants the NG tube out. According to nursing, he has been trying to pull the NG tube out and the tube is clogged. He also seems to have increased desire to leave. Per family this would be expected once he was more his normal self. Review of Systems A ten point review of systems was performed and was negative except for pertinent positives noted inthe HPI Objective Vital Signs Temp: [36.4 ??C (97.6 ??F)-36.7 ??C (98.1 ??F)] , Heart Rate: [50 BPM] , Resp: [18] , BP: (119-146)/(58-116) , SpO2: [95 %-98 %] Physical Exam General: laying in bed, awake and alert, conversive HEENT: Healing cut on nose, bruising under eyes, cuts on lip, no gross facial deformities, sclera anicteric, conjunctiva clear. NG in place. Lungs: anterior lung riojas clear to auscultation bilaterally, no wheezes, rhonchi or rales Heart: regular rate and rhythm, normal S1 S2, no murmurs/rubs/gallops Abdomen: soft, non-tender, non-distended, Extremities: atraumatic, no lower extremity edema Skin: normal skin texture and turgor without rashes or lesions, no diaphoresis Neuro: able to respond appropriately to questions, speech clear and improved from days prior, no obvious asymmetries Is PICC or central line present? No, PICC/Central line not present. Medications: reviewed Labs CBC: Recent Labs 03/23/22 0634 03/25/22 1011 WBC 11.06* 8.66 RBC 5.63 5.86* HGB 16.8 18.1* HCT 49.2 51.6* MCV 87 88 MCH 29.8 30.9 MCHC 34.1 35.1 PLT 291 329 BMP: Recent Labs 03/23/22 0634 03/24/22 0916 NA 139 137 K 4.1 3.7 CL 107 102 CO2 24 25 BUN 18 19 CREATININE 0.67 0.58* CALCIUM 9.0 8.6 MG 2.1 2.1 PHOS 4.0 3.3 Imaging MR Head W/O Contrast - Scattered areas of cortical restricted diffusion and T2-FLAIR hyperintensity with similar faint signal abnormality in the basal ganglia, findings compatible with evolving hypoxic-ischemic injury in the context of recent cardiac arrest. 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 S/P cardiac arrest with ROSC after 2 rounds CPR, MTP, and MICU stay with uncomplicated extubation. GI bleed resolved. Improving encephalopathy, MR 5/ showing hypoxic-ischemic injury. NG tube still in place this morning. Plan to remove NG tube today, cleared for regular diet per RAILROAD SIGNAL TECHNICIAN, will monitorfor ability to get adequate nutrition without tube. Pending results of trial may soon be medically stable for rehab, PT/OT recommending acute rehab. Plan Acute Encephalopathy secondary to hypoxic brain injury, improving Per family, lives independently, fully functional with all ADLs. Reportedly normal mental status on arrival to [facility] [place]. No findings of seizure on EEG, no acute findings on head CT. Less likely tox given clinical timeline. Improving, remains far from baseline. - Delirium precautions - thiamine, folate, mvm given hx alcohol use d/o - Ramelteon - Limit sedating meds, stop dilaudid - MR Head W/O Contrast shows hypoxic brain injury suspect 2/2 hypotension form hemorrhagic shock andcardiac arrest - See nutrition below - PT, OT, RAILROAD SIGNAL TECHNICIAN Acute LGIB (resolved) Acute blood loss anemia (resolved) s/p 7u pRBC though Hgb never < 11, CTA A&P without active extravasation, s/p EGD on 03/17 w/o UGI source. Most likely LGIB, suspect diverticular bleed. Hgb stable - PPI IV daily for 4 week course - CTA A&P if additional large-volume hematochezia - CBC q48 - Hold dvt ppx for now given small amount of blood in stool 03/23 Nutrition - RAILROAD SIGNAL TECHNICIAN following, now full with thin liquids with 1-1 observation - Pull NGT 03/25 (placed 03/22) HTN - Hold lisinopril 5 mg daily ? Nasal fracture/trauma (ongoing) Cleared by trauma surgery. - F/u with ENT in 1 week from 03/19 for nasal bone fractures. - Discussed NGT w/ ENT. Cleared for NGT and placed. ?? 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 ?? Resolved or inactive hospital problems Cardiac arrest, resolved - s/p CPR x2 rounds w/ ROSC prior to admission at [facility]. TTE wnl. May have been hypotension in the setting of acute GI bleed. Lactic acidosis - likely 2/2 shock, LGIB. Down-trended. Troponinemia - likely 2/2 shock vs CPR. Down-trended. Bradycardia, resolved -likely 2/2 Precedex. Improved after discontinuation of Precedex. Hypocalcemia - s/p calcium gluconate Leukocytosis - resolved VTE Prophylaxis Seqential Compression Device Discharge Plan Like AR vs [facility] Consults GI Black Epps MS3 Cortext 03/25/2022 I was present with the medical student for the history, exam, and medical decision making documented. I have edited the medical student note as appropriate. Kathleen Rockwell MD 03/25/2022 15:59 Associated attestation - Manolo Fagan MD - 03/25/2022 1739 EDT I interviewed and examined the patient. I have personally reviewed interval events, laboratory data,and imaging. I discussed the case with the inpatient resident team. I agree with findings and plan of care as documented by the resident (or have edited in Blue). MD Dariana Edouard Hannah C, RYAN - 03/25/2022 1117 EDT Speech-Language Pathology Clinical Swallow Consult RAILROAD SIGNAL TECHNICIAN Diagnosis: Dysphagia, unspecified difficulty: Medical Diagnosis: Cardiac arrest (HCC) [I46.9] Date of Onset: 03/16/22 Date of Referral: 03/19/22 Start Time: 1020 Total Therapy minutes: 25 minute(s) SUBJECTIVE: This tube is in the way OBJECTIVE: RAILROAD SIGNAL TECHNICIAN returns to the bedside to ensure tolerance of diet and provide therapeutic trials of advanced textures as indicated 24o Events Relevant to RAILROAD SIGNAL TECHNICIAN: Cortrack Feeding Tube in place; 1:1 sitter present. Transferred to [facility]. NGT clogged, TF not initiated overnight WBC 8.66 MRI Head 03/22 IMPRESSION Scattered areas of cortical restricted diffusion and T2-FLAIR hyperintensity with similar faint signal abnormality in the basal ganglia, findings compatible with evolving hypoxic-ischemic injury in thecontext of recent cardiac arrest. Current Restrictions: Nasal fracture/trauma (ongoing) Cleared by trauma surgery.?? - F/u??with ENT??in 1 week from 03/19??for nasal bone fractures. Current Diet: DYS 2 with thin liquids Diet prior to admission: Unable to obtain; likely near regular based on age and dentition Current Status: Cognitive Status: Continues to demonstrate improvements in cognitive status. Follows 1 step commandsdespite reduced attention. Oriented to [place] and self only, given reorientation unable to answer orientation probes correctly with approx 1 minute delay. Answers closed set questions re: simple biographical information with encouragement. Respiratory Status: Tolerating RA, no wet breath sounds this date. Clinical Swallow: Oral Peripheral Motor Exam: Face: Face was symmetrical with adequate strength and range of motion. Lips: Mildly reduced strength and ROM Tongue: Adequate strength and ROM Velum: Unable to view during the evaluation. Dentition: Adequate dentition. Teeth appear fractured, unclear if consistent with baseline or as a result of trauma Laryngeal Excursion: Suspect adequatehyolaryngeal elevation/excursion. Speech Intelligibility: Speech intelligibility is poor with reduced articulation and vocal intensity. Vocal Quality: Clear vocal quality Cough: Strong non productive cough Positioning: Seen OOB in chair in AM. Consistencies Tested: was assessed withthins via straw, puree, soft solids, and regular solids. Methods of Delivery: Pt able to self-administer PO trials with RAILROAD SIGNAL TECHNICIAN assistance, though increased independence this date. Oral Phase Findings: Adequate oral acceptance and manipulation. Prolonged but adequate mastication with dry solids with adequate bolus awareness as evidenced by lingual sweep to clear oral residue. Adequate A-P transfer. Pharyngeal Phase: Strong productive cough response with thins via large consecutive straw sips and thins via cup, though suspect thins via cup confounded by reduced oral control re: utilizing cup sips in presence of NGT. No other overt s/sx aspiration. Esophageal Phase: Not addressed Compensatory Strategies: The following compensatory swallow strategies were attempted during today'sevaluation: Slow rate, small bites/sips Patient/Family Education/Training: Topic: Patient/Family education and training was completed today including the role of Speech-Language Pathology, results of today's exam/recommendations, anatomy and physiology of the swallowing mechanism, rehab goals and discharge planning. Learner: patient, RN Method of Education: Verbal Barriers to Learning/Education: AMS Patient: needs further instruction and education Assessment /Clinical Impressions: is a 61 y.o. male admitted with Cardiac arrest (HCC) [I46.9]. A clinical swallow follow up was completed today by Speech Language Pathology secondary to concerns for oropharyngeal dysphagia, and risk of laryngeal penetration/aspiration. currently presents with a mildoropharyngeal phasedysphagia characterized by mildly prolonged mastication with regular solids and occasional strong productive cough response with thins via large consecutive sips. Etiology of dysphagia is likely neurogenic in setting of AMS and encephalopathic presentation. continues to demonstrate improvements in oropharyngeal swallow function and mental status. Compensatory strategies of providing set up assistance and intermittent support for self-administration of PO and general aspiration precautions appear effective at reducing the risk of aspiration. Prognosis for improvement in swallow function is judged to be good at this time secondary to anticipated improvements in medical status. Functional Communication Measures ([place] [employer]- [employer], 2002). The Functional Communication Measures (FCM???s) are a series of 7 point rating scales, ranging from least functional (Level 1) to most functional (Level 7). They have been developed by [employer] to describedifferent aspects of patient???s functional communication and swallowing abilities over the course of RAILROAD SIGNAL TECHNICIAN intervention. Motor Speech Level 5: Individual is able to speak intelligibly using simple sentences in daily routine activities with both familiar and unfamiliar communication partners.l Individual occasionally requires minimal cueing to produce more complex sentences/messages in routine activities, although accuracy may vary and the individual may occasionally use compensatory strategies. GOALS: Pt will tolerate highest level safe/adequate PO intake without overt s/sx aspiration and min-no oralresidue. Plan /Recommendations: Patient will continue to benefit for further RAILROAD SIGNAL TECHNICIAN intervention in this setting to address dysphagia management and intervention needs. Recommendations: 1. Upgrade diet to regular solids with thin liquids and 1:1 assistance with all intake - please cut all PO into small thumb nail sized pieces 2. Aspiration precautions (HOB elevated, slow rate, small/single bites/sips, alternate liquids/solids) 3. Pt would greatly benefit from continued RAILROAD SIGNAL TECHNICIAN services at next level of care to address communicative-cognitive deficits Discharge plan: Recommend comprehensive interdisciplinary acute rehab program RAILROAD SIGNAL TECHNICIAN to continue to follow pt during acute hospitalization under consultative model. Sole Westbrook MS [facility]-RAILROAD SIGNAL TECHNICIAN Cortext preferred; #[phone] (Tuesday-Tuesday, [id number]) RAILROAD SIGNAL TECHNICIAN Float Pager #[phone] (Tuesday-Tuesday [phone]) Melissa Noble, PT - 03/25/2022 1051 EDT [facility] Therapy Acute Therapies [facility] Physical Therapy Encounter Note Date of Service: 03/25/2022 Subjective/Objective SUBJECTIVE: My name is Antoine and I want some clothes OBJECTIVE: Intervention completed today: Time: 10:00 Total treatment time: 25 minutes. Timed code treatment minutes: 25 linen aide(s) present to assist: none Vital Signs: Vitals stable on room air Therapeutic Activity: Bed mobility: Supine <> sit with minimal contact assist of 1 Transfers: sit <> stand with RW with moderate assist of 1 Bed <> chair with RW with moderate assist of 1 Gait/aerobic capacity training: Ambulated ~ 100 feet, with moderate assist of 2 and with verbal cues for paced/pursed lip breathing control, with verbal cues for wide base of support to maximize balance and maintain center of gravity All above with verbal cues for safety and sequencing as well as energy conservation Patient/Family Education: Activity pacing/Energy conservation Assistive device/technique Balance Breathing exercises Exercise Gait Safety Transfers Learner: patient and caregiver Method: verbal and demonstration Barriers to Learning: none noted Outcome: needs practice, verbalized understanding and returned demonstration Team Communication: Pt status discussed with nursing prior to and after treatment session . Recommend OOB to chair ASSESSMENT: Patient highly improved since initial evaluation. Continues to be below baseline, weak and confused but improved. Recommend acute rehab. PLAN: Continue per plan of care Recommended Discharge Destination: Acute rehabilitation Recommended Discharge Services: Physical therapy at rehabilitation facility Recommended Equipment Needs: To be determined by next care provider Other recommendations: No other consults recommended at this time Primary Therapist: Pager: [phone] Melissa Stovall, PT 03/25/2022 10:52 Kirti Augustin RN - 03/25/2022 1001 EDT Review of chart and therapies comments. As of this time it appears that the pt continues to progress. Therapies are continuing to see the pt and it is unclear where he will need to go: acute rehabilitation or [facility]. Case Management will continue to follow for status and needs. As the pt is 100% service connected he would mike to go to a participating [facility] or Acute Rehab when heis medically ready to transition. Kirti Jefferson RN [facility] 0430 Alberto Rincon RN - 03/25/2022 0439 EDT Data: Assumed care of patient at 1900. Patient AxOx2, gonzalez in place, on room air, 1:1 sitter at bedside. NGT in place, but clogged. Gingerale, warm water, and clog zapper administered. Action: Notified Dr. Shine of clogged feeding tube Response: ok to leave tube feeds off for the night per MD, call light within reach, no needs at thistime ALBERTO RODRIGUEZ RN 03/25/2022 4:39 Mayco Cramer MD - 03/24/20222028 EDT Medicine Progress Note Service Date: 03/24/2022 Admit Date: 03/16/2022 21:11 Reason for Admission: 61 y.o. male admitted with a chief complaint of shock and now with a principaldiagnosis of LGIB 24 Hour Events: NAEO Subjective/Objective Subjective Antoine continues to improve. He is more verbal and more oriented than yesterday. Ate a few bites ofoatmeal this morning. Had some pain from NG tube but resolved with throat spray. Review of Systems A ten point review of systems was performed and was negative except for pertinent positives noted inthe HPI Objective Vital Signs Temp: [36.4 ??C (97.6 ??F)-36.9 ??C (98.5 ??F)] , Heart Rate: [50 BPM-55 BPM] , Resp: [18] , BP: (119-146)/(58-116) , SpO2: [95 %-98 %] Physical Exam General: laying in bed, asleep on arrival but gradually arouses HEENT: Cut on nose, bruising under eyes, cuts on lip, no gross facial deformities, sclera anicteric,conjunctiva clear. NG in place. Lungs: anterior lung riojas clear to auscultation bilaterally, no wheezes, rhonchi or rales Heart: regular rate and rhythm, normal S1 S2, no murmurs/rubs/gallops Abdomen: soft, non-tender, non-distended, Extremities: atraumatic, no lower extremity edema, clubbing or cyanosis, distal pulses 2+ at DP and radial bilaterally Skin: normal skin texture and turgor without rashes or lesions, no diaphoresis Neuro: able to nod and shake head to questions, speech soft and difficult to understand, moving limbs minimally with weakness and muscle rigidity, no obvious asymmetries Is PICC or central line present? No, PICC/Central line not present. Medications: reviewed Labs CBC: Recent Labs 03/23/22 0634 WBC 11.06* RBC 5.63 HGB 16.8 HCT 49.2 MCV 87 MCH 29.8 MCHC 34.1 PLT 291 BMP: Recent Labs 03/23/22 0634 03/24/22 0916 NA 139 137 K 4.1 3.7 CL 107 102 CO2 24 25 BUN 18 19 CREATININE 0.67 0.58* CALCIUM 9.0 8.6 MG 2.1 2.1 PHOS 4.0 3.3 Imaging MR Head W/O Contrast - Scattered areas of cortical restricted diffusion and T2-FLAIR hyperintensity with similar faint signal abnormality in the basal ganglia, findings compatible with evolving hypoxic-ischemic injury in the context of recent cardiac arrest. 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 S/P cardiac arrest with ROSC after 2 rounds CPR, MTP, intubation, and extubation. Transferred from the MICU. Currently hemodynamically stable with no evidence of ongoing singificant GI bleed. Persistent encephalopathy with slight day to day improvement. MR 5/16 showing hypoxic-ischemic injury. Continuing to provide nutritional support through NG while recovering. Plan Acute Encephalopathy secondary to hypoxic brain injury Per family, lives independently, fully functional with all ADLs. Reportedly normal mental status on arrival to [facility] [place]. No findings of seizure on EEG, no acute findings on head CT. Less likely tox given clinical timeline. Improving, remains far from baseline. - Delirium precautions - thiamine, folate, mvm given hx alcohol use d/o - Ramelteon - Limit sedating meds, stop dilaudid - MR Head W/O Contrast shows hypoxic brain injury suspect 2/2 hypotension form hemorrhagic shock andcardiac arrest - See nutrition below - PT, OT, RAILROAD SIGNAL TECHNICIAN Acute LGIB (resolved) Acute blood loss anemia (resolved) s/p 7u pRBC though Hgb never < 11, CTA A&P without active extravasation, s/p EGD on 03/17 w/o UGI source. Most likely LGIB, suspect diverticular bleed. Hgb stable - PPI IV daily for 4 week course - CTA A&P if additional large-volume hematochezia - CBC q48 - Hold dvt ppx for now given small amount of blood in stool 03/23 Nutrition - RAILROAD SIGNAL TECHNICIAN following, now dysphagia 2 - NGT placed 03/22, continue tube feeds until adequate oral intake HTN - Hold lisinopril 5 mg daily ? Nasal fracture/trauma (ongoing) Cleared by trauma surgery. - F/u with ENT in 1 week from 03/19 for nasal bone fractures. - Discussed NGT w/ ENT. Cleared for NGT and placed. ?? 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 ?? Resolved or inactive hospital problems Cardiac arrest, resolved - s/p CPR x2 rounds w/ ROSC prior to admission at [facility]. TTE wnl. May have been hypotension in the setting of acute GI bleed. Lactic acidosis - likely 2/2 shock, LGIB. Down-trended. Troponinemia - likely 2/2 shock vs CPR. Down-trended. Bradycardia, resolved -likely 2/2 Precedex. Improved after discontinuation of Precedex. Hypocalcemia - s/p calcium gluconate Leukocytosis - resolved VTE Prophylaxis Seqential Compression Device Discharge Plan Like AR vs [facility] Consults GI Mayco Villafana MD 03/24/2022 20:29 Internal Medicine Resident, PGY-3 Cortext or Pager [phone] Associated attestation - Manolo Fagan MD - 03/24/2022 0487 EDT I interviewed and examined the patient. I have personally reviewed interval events, laboratory data,and imaging. I discussed the case with the inpatient resident team. I agree with findings and plan of care as documented by the resident (or have edited in Blue). MD Dariana Edouard Hannah C, RAILROAD SIGNAL TECHNICIAN - 03/24/2022 1129 EDT Speech-Language Pathology Clinical Swallow Consult RAILROAD SIGNAL TECHNICIAN Diagnosis: Dysphagia, unspecified difficulty: Medical Diagnosis: Cardiac arrest (HCC) [I46.9] Date of Onset: 03/16/22 Date of Referral: 03/19/22 Start Time: 1100 Total Therapy minutes: 20 minute(s) SUBJECTIVE: I've had enough thank you OBJECTIVE: RAILROAD SIGNAL TECHNICIAN returns to the bedside to ensure tolerance of diet and provide therapeutic trials of advanced textures as indicated 24o Events Relevant to RAILROAD SIGNAL TECHNICIAN: Cortrack Feeding Tube in place; 1:1 sitter present. RN reports no overt s/sx aspiration with diet, limited intake of purees. Current Restrictions: Nasal fracture/trauma (ongoing) Cleared by trauma surgery.?? - F/u??with ENT??in 1 week from 03/19??for nasal bone fractures. Current Diet: DYS 2 with thin liquids Diet prior to admission: Unable to obtain; likely near regular based on age and dentition Current Status: Cognitive Status: Eyes widely open throughout session, presents as encephalopathic; fleeting attention, though able to attend to clinician despite external distracters with intermittent verbal/tactile cues Respiratory Status: Tolerating RA, wet breath sounds prior to PO unable to clear with cued throat clear/swallow Clinical Swallow: Oral Peripheral Motor Exam: Face: Face was symmetrical with adequate strength and range of motion. Lips: Reduced strength and range of motion, consistent. Tongue: Increased ROM/strength. Velum: Unable to view during the evaluation. Dentition: Adequate dentition. Teeth appear fractured, unclear if consistent with baseline or as a result of trauma Laryngeal Excursion: Suspect adequatehyolaryngeal elevation/excursion. Speech Intelligibility: Speech intelligibility is poor with reduced articulation and vocal intensity. Vocal Quality: Patient presents with a wet vocal quality. Cough: Currently unable to elicit a volitional cough. Positioning: Seen at bedside for evaluation. Consistencies Tested: was assessed withthins via straw, and puree. Methods of Delivery: Pt able to self-administer PO trials with RAILROAD SIGNAL TECHNICIAN assistance. Oral Phase Findings: Able to form adequate labial seal around straw despite reduced labial strength/ROM limited by scabbing on R upper lip. Adequate oral manipulation of puree, mildly prolonged. Pharyngeal Phase: Strong productive cough response approx 1 minute following PO trials resulting in clear vocal quality that remained clear for the duration of PO trials. Esophageal Phase: Not addressed Compensatory Strategies: The following compensatory swallow strategies were attempted during today'sevaluation: Slow rate, small bites/sips, mechanically altered consistency Patient/Family Education/Training: Topic: Patient/Family education and training was completed today including the role of Speech-Language Pathology, results of today's exam/recommendations, anatomy and physiology of the swallowing mechanism, rehab goals and discharge planning. Learner: patient, RN Method of Education: Verbal Barriers to Learning/Education: AMS Patient: needs further instruction and education Assessment /Clinical Impressions: is a 61 y.o. male admitted with Cardiac arrest (HCC) [I46.9]. A clinical swallow follow up was completed today by Speech Language Pathology secondary to concerns for oropharyngeal dysphagia, and risk of laryngeal penetration/aspiration. currently presents with a mild-mod orophar yngeal phasedysphagia characterized by continued oromotor deficits (limited by attention), occasional strong productive cough response, and wet vocal quality throughout trials (though consistent with baseline prior to PO). Etiology of dysphagia is likely neurogenic in setting of AMS and encephalopathic presentation. continues to demonstrate improvements in oropharyngeal swallow function and mental status. Compensatory strategies of mechanically altering diet and general aspiration precautions appear effective at reducing the risk of aspiration. Prognosis for improvement in swallow function is judged to be good at this time secondary to anticipated improvements in medical status. Pt not yet a candidate for trials of advanced textures due to reduced oromotor function and bolus awareness. Functional Communication Measures ([place] Speech- [employer]- [employer], 2002). The Functional Communication Measures (FCM???s) are a series of 7 point rating scales, ranging from least functional (Level 1) to most functional (Level 7). They have been developed by [employer] to describedifferent aspects of patient???s functional communication and swallowing abilities over the course of RAILROAD SIGNAL TECHNICIAN intervention. Swallowing Level 4: Swallowing is safe, but usually requires moderate cues to use compensatory strategies, and/or the individual has moderate diet restrictions and/or still requires tube feeding and/ororal supplements. GOALS: Pt will improve oropharyngeal swallow function to safely resume PO diet prior to discharge from facility. Plan /Recommendations: Patient will continue to benefit for further RAILROAD SIGNAL TECHNICIAN intervention in this setting to address dysphagia management and intervention needs. Recommendations: 1. Continue DYS 2 (puree) diet with thin liquids and 1:1 assistance with all intake 2. Aspiration precautions (HOB elevated, slow rate, small/single bites/sips, alternate liquids/solids) 3. Pt would greatly benefit from continued RAILROAD SIGNAL TECHNICIAN services at next level of care to address communicative-cognitive deficits 4. Consider timing TF to encourage increased intake by stimulating appetite if appropriate Discharge plan: Appreciate OT acute rehabilitation recommendation RAILROAD SIGNAL TECHNICIAN to continue to follow pt during acute hospitalization under consultative model. Sole Westbrook MS [facility]-RAILROAD SIGNAL TECHNICIAN Cortext preferred; #[id number] (Tuesday-Tuesday, [id number]) RAILROAD SIGNAL TECHNICIAN Float Pager #[phone] (Tuesday-Tuesday [phone]) Black Mata - 03/24/2022 0832 EDT Nutrition Assessment Note: Reassessment Patient Name: Antoine Saez Admission Date: 03/16/2022 Admission Dx: Cardiac arrest (HCC) Reason for Visit: Follow Up BACKGROUND DATA Clinical Course Since Last RD Visit: Last RD visit: 03/22 Subjective: Pt still having difficulty swallowing though able to take some fluid and overall feels symptoms are improving Current Nutrition Orders: Diet Order: Dysphagia 2, thin liquids Physical Findings: Dentition: teeth appear to be fractured??and part of bridge?? Digestive Systems: Last BM (03/24/22) Skin:??BSS = 10 (high risk)?? Edema:??none noted per flowsheets ?? Anthropometrics: Height: 167 cm (65.75) Wt Readings from Last 6 Encounters: 03/23/22 65.8 kg (145 lb) 03/16/22 70.3 kg (155 lb) Pertinent Medications: Current Facility-Administered Medications Medication Route Frequency ??? benzocaine 20 % aerosol spray mouth / throat Q6H PRN ??? folic acid (FOLVITE) tablet 1 mg oral DAILY ??? Free Water (bolus dose) 100 mL per g tube Q4H ??? lidocaine (PF) 10 mg/mL (1 %) injection 2 mg intradermal PRN ??? lisinopriL (PRINIVIL) tablet 5 mg oral DAILY ??? Multivitamins with minerals + ferrous gluconate (CENTRUM) oral solution 15 mL feeding tube DAILY ??? ondansetron (PF) (ZOFRAN) injection 4 mg intravenous PRN ??? pantoprazole (PROTONIX) injection 40 mg intravenous DAILY ??? papain-alpha amylase-cellulase (CLOG ZAPPER) 2-5 mL feeding tube PRN ??? polyethylene glycol 3350 (MIRALAX) packet 17 g oral Daily PRN ??? ramelteon (ROZEREM) tablet 8 mg oral AT BEDTIME PRN ??? replete nutritional supplement liquid per g tube CONTINUOUS ??? senna (SENOKOT) tablet 1 Tablet oral Daily PRN ??? sertraline (ZOLOFT) tablet 100 mg oral DAILY ??? sodium chloride 0.9 % (flush) flush 5 mL intravenous Q8H ??? thiamine (VITAMIN B-1) 100 mg in sodium chloride (NS) 0.9 % 50 mL IVPB intravenous DAILY Relevant Labs: Lab Results Component Value Date WBC 11.06 (H) 03/23/2022 RBC 5.63 03/23/2022 HGB 16.8 03/23/2022 HCT 49.2 03/23/2022 MCV 87 03/23/2022 MCH 29.8 03/23/2022 PLT 291 03/23/2022 NA 139 03/23/2022 K 4.1 03/23/2022 CL 107 03/23/2022 CO2 24 03/23/2022 BUN 18 03/23/2022 CREATININE 0.67 03/23/2022 CALCIUM 9.0 03/23/2022 MG 2.1 03/23/2022 PHOS 4.0 03/23/2022 Estimated Nutrition Needs MONISHA BEE x 1.2??(using 68??kg) = 1423 - 1708??kcals/day 1.2 - 1.5??g/kg protein (using 68??kg) = 82 - 102??g protein/day 25 - 30??mL/kg fluid (using 68??kg) = 1700 - 2040??mL fluid/day ASSESSMENT: Pt started on tube feeds as he has been unable to take adequate PO intake 2/2 throat pain; tolerating tube feeds well thus far. Diet now advanced w/ swallowing slightly improved, no on Dysphagia diet s/p RAILROAD SIGNAL TECHNICIAN eval. Encourage PO intake and encourage pt to consume high calorie supplements, calorie counts started. Suggest continue tube feeds until pt demonstrates he is reliably able to take fair PO intake. Vitamins daily as ordered. Monitor BMs and continue to trend weight. Nutrition Risk Level: High (1) MEDICAL NUTRITION THERAPY - UPDATED PLAN 1. Continue diet as ordered - encourage PO intake - adjust per any new RAILROAD SIGNAL TECHNICIAN recs - nutrition offering high calorie supplements w/ meals - Calorie Counts 2. Continue tube feeds until PT demonstrates good/reliable ability to take PO 3. Vitamins daily as ordered 4. Monitor PO intake and BMs 5. Trend weight BLACK GUERRERO, ANA (Call PAS or use Intelliweb to page RD covering this unit) Sole Tripp, RAILROAD SIGNAL TECHNICIAN - 03/23/2022 1633 EDT Speech-Language Pathology Clinical Swallow Consult RAILROAD SIGNAL TECHNICIAN Diagnosis: Dysphagia, unspecified difficulty: Medical Diagnosis: Cardiac arrest (HCC) [I46.9] Date of Onset: 03/16/22 Date of Referral: 03/19/22 Start Time: 1400 Total Therapy minutes: 50 minute(s) SUBJECTIVE: Alert and cooperative.I'd like some more water please OBJECTIVE: RAILROAD SIGNAL TECHNICIAN returns to the bedside to re-assess candidacy to resume PO diet. 24o Events Relevant to RAILROAD SIGNAL TECHNICIAN: Cortrack Feeding Tube in place; 1:1 sitter present Current Restrictions: Nasal fracture/trauma (ongoing) Cleared by trauma surgery.?? - F/u??with ENT??in 1 week from 03/19??for nasal bone fractures. Current Diet: NPO Diet prior to admission: Unable to obtain; likely near regular based on age and dentition Current Status: Cognitive Status: Eyes widely open throughout session, presents as encephalopathic; fleeting attention, though able to attend to clinician despite external distracters with intermittent verbal/tactile cues Respiratory Status: Tolerating RA, wet breath sounds prior to PO unable to clear with cued throat clear/swallow Clinical Swallow: Oral Peripheral Motor Exam: Face: Face was symmetrical with adequate strength and range of motion. Lips: Reduced strength and range of motion. Increased from yesterday Tongue: Increased ROM/strength. Velum: Unable to view during the evaluation. Dentition: Adequate dentition. Teeth appear fractured, unclear if consistent with baseline or as a result of trauma Laryngeal Excursion: Suspect adequatehyolaryngeal elevation/excursion. Speech Intelligibility: Speech intelligibility is poor with reduced articulation and vocal intensity. Vocal Quality: Patient presents with a wet vocal quality. Cough: Currently unable to elicit a volitional cough. Positioning: Seen at bedside for evaluation. Consistencies Tested: was assessed with ice chips, thins via cup/straw, and puree. Methods of Delivery: Pt able to self-administer PO trials with RAILROAD SIGNAL TECHNICIAN assistance. Oral Phase Findings: Increased oral acceptance of all trials across presentation method and consistency, improved labial seal around spoon with increased poor bolus awareness and manipulation despite external distractors. No anterior loss of secretions noted this date, 1:1 observed pt with significantdrooling earlier in AM that has since resolved. Pharyngeal Phase: Weak/wet throat clear with ice chips and thins via cup intermittently. Strong productive cough response approx 1 minute following PO trials resulting in clear vocal quality that remained clear for the duration of PO trials (~2oz more of puree and ~ 4oz thins via straw). Esophageal Phase: Not addressed Compensatory Strategies: The following compensatory swallow strategies were attempted during today'sevaluation: Slow rate, small bites/sips, mechanically altered consistency Patient/Family Education/Training: Topic: Patient/Family education and training was completed today including the role of Speech-Language Pathology, results of today's exam/recommendations, anatomy and physiology of the swallowing mechanism, rehab goals and discharge planning. Learner: patient, children, and RN Method of Education: Verbal Barriers to Learning/Education: AMS Patient: needs further instruction and education Assessment /Clinical Impressions: is a 61 y.o. male admitted with Cardiac arrest (HCC) [I46.9]. A clinical swallow follow up was completed today by Speech Language Pathology secondary to concerns for oropharyngeal dysphagia, and risk of laryngeal penetration/aspiration. currently presents with a mild-mod orophar yngeal phasedysphagia characterized by prolonged oral manipulation with puree and intermittent weak throat clear throughout trials. Etiology of dysphagia is likely neurogenic in setting of AMS and encephalopathic presentation. continues to demonstrate improvements in oropharyngeal swallow function and mental status. Compensatory strategies of mechanically altering diet and general aspiration precautions appear effective at reducing the risk of aspiration. Prognosis for improvement in swallow function is judged to be good at this time secondary to anticipated improvements in medical status. Functional Communication Measures ([place] Speech- Language- Hearing Association, 2002). The Functional Communication Measures (FCM???s) are a series of 7 point rating scales, ranging from least functional (Level 1) to most functional (Level 7). They have been developed by [employer]AV[employer] to describedifferent aspects of patient???s functional communication and swallowing abilities over the course of RAILROAD SIGNAL TECHNICIAN intervention. Swallowing Level 4: Swallowing is safe, but usually requires moderate cues to use compensatory strategies, and/or the individual has moderate diet restrictions and/or still requires tube feeding and/ororal supplements. GOALS: Pt will improve oropharyngeal swallow function to safely resume PO diet prior to discharge from facility. Plan /Recommendations: Patient will continue to benefit for further RAILROAD SIGNAL TECHNICIAN intervention in this setting to address dysphagia management and intervention needs. Recommendations: 1. Initiate DYS 2 (puree) diet with thin liquids and 1:1 assistance with all intake 2. Aspiration precautions (HOB elevated, slow rate, small/single bites/sips, alternate liquids/solids) 3. Pt would greatly benefit from continued RAILROAD SIGNAL TECHNICIAN services at next level of care to address communicative-cognitive deficits Discharge plan: Appreciate OT acute rehabilitation recommendation RAILROAD SIGNAL TECHNICIAN to continue to follow pt during acute hospitalization under consultative model. Sole Westbrook MS [facility]-RAILROAD SIGNAL TECHNICIAN Cortext preferred; #[id number] (Tuesday-Tuesday, [phone]) RAILROAD SIGNAL TECHNICIAN Float Pager #[phone] (Tuesday-Tuesday [phone]) Jackelyn Simpson, OT - 03/23/2022 1501 EDT [facility] Rehabilitation Therapy Acute Therapy [facility] Occupational Therapy Initial Evaluation Note Date of Service: 03/23/2022 Reason for Referral: Evaluate and treat Mobility Precautions Activity: Activity as tolerated SUBJECTIVE: Subjective Information Reported by: Patient Reporting Person Comment: I want to shower Numeric Pain Level (Scale 1-10): 5 Select Specific Pain Scale: Numeric Primary Pain Site Assessment Pain Location: Throat OBJECTIVE: Patient Profile: Patient is a 61 y.o. male admitted on 03/16/2022 secondary to Cardiac arrest (HCC). The patient lives at [address] [place] [id number] Hand Dominance: Right Support Person: Family Amount of Support: 24 hour assist Support Comment: Per daughter, they could have 24/7 arranged if needed Prior Level of Function: Prior Level of Function Comment: No Ad Level of Assistance Throughout: Independent Basic Activities of Daily Living - General Level of Assistance Throughout: Independent Instrumental Activities of Daily Living - General Level of Assistance Throughout: Independent Medical/Surgical History: CURRENT: The patient has Lower GI bleed; Cardiac arrest ([facility]); Facial trauma; Syncope; Hemorrhagic shock (HCC-CMS) ([facility]); Metabolic encephalopathy; and Hypocalcemia on their problem list. Current Medications: Current medications reviewed Body Functions and Performance Skills Cardiovascular/Respiratory Systems Function: Vital Signs Vital Signs with Activity Comment: BP 155/91 SpO2 96% on RA HR 62 Voice and Speech Functions: Patient presents with dysarthria Voice and Speech Comments: Mumbling and difficult to understand; speaking 1-3 word sentences Mental Functions: Arousal/Alertness: Alert Orientation Level: Oriented to person Orientation Comments: Oriented to arlene, December, Following Commands: Follows commands inconsistently Following Commands Comments: Inconsistently follows simple one step commands with extra time, repetition, and tactile cueing. Follows commands <25% of the time. Behavioral Characteristics: Pleasant, Perseveration Behavioral Characteristics Comments: Perseverating on showering; frequently attempting to manipulateNG tube. Sensory Functions: Sensory Function Additional Comments: Unable to assess secondary to cognitive impairments Hearing: Intact to conversational tones Vision - Basic Assessment Additional Comments: Not assessed secondary to cognitive impairments Neuromusculoskeletal and Movement Related Functions: Range of Motion: Within normal limits Range of Motion Additional Comments: BUE Strength: Manual muscle testing not formally performed, strength observed to be > 3/5 with gross movement Throughout: Bilateral upper extremities Skin and Related Structure Functions: Additional Comments: Scab on upper lip Devices: Gonzalez/Indwelling Catheter, Other, NG tubes, etc Areas of Occupation and Performance Skills Basic Activities of Daily Living: Feeding Feeding Comments: Currently NPO with NG tube Grooming Grooming: anticipate supervision-mod assist based on pt's motivation and command following Upper Body Dressing Upper Body Dressing: anticipate supervision-mod assist based on pt's motivation and command following Lower Body Dressing Lower Body Dressing: Pt able to reach B feet in long sitting and adjust socks without assistance, when cued to remove socks, pt not following commands for task Toileting Toileting: Gonzalez catheter Mobility General Mobility: Impaired Additional Comments: supine>sit: min/mod assist x1-2 with max verbal and mod tactile cues; sit>supine: min contact assist with mod verbal cues; repositioning in bed: max assist x2 to boost in bed; sitting balance: close supervision Instrumental Activities of Daily Living: Instrumental Activities of Daily Living: Not evaluated Not Evaluated Reason: Not appropriate for diagnosis/reasons for referral, Inability to participate Informed Consent: The patient consented to the Occupational Therapy evaluation. The patient agrees to and understands the Occupational Therapy treatment plan and goals. Interventions Completed Today: Time: 1414 Total Treatment Time (minutes): 20 Timed Code Treatment Minutes: 0 Present for the Therapy Session Comments: 1:1 sitter, son and daughter No interventions completed today Patient Status at the End of the Therapy Session, The patient was left in the: bed with the: Call jefferson in reach Patient Status at the End of the Therapy Session Comments: daughter and sitter present Patient/Family Education: Activity/Work/Community: Importance of out of bed activity Medical Information/Signs and Symptoms: Ambulate with staff member only Recommendations: Discharge recommendations/planning, Follow-up services Safety: Safety Therapy Specific: Role of occupational therapy Learner: Patient, Family Method: Verbal Barriers to Learning: None, Cognition (none - family) Outcome: Needs practice, Needs reinforcement, Requires assist Team Communication Notified: Nurse When: Prior to therapy session By: [id number] communication Additional communication about Patient Status and Referrals: Patient status ASSESSMENT: Pt was appropriate for skilled OT evaluation secondary to functional impairments resulting from GIB with hospital course complicated by cardiac arrect with ROSC. Current impairments include decreased activity tolerance, pain, impaired cognition, decreased communication, decreased command following, impaired sitting and standing balance, impacting safety and independence with ADLs, IADLs, and functional mobility. Pt currently requiring up to max assist for ADLs and functional mobility, which is well below his independent baseline. Primary barriers at this time include impaired cognition and decreased command following. He tolerated evaluation well and was able to follow some simple one step commands, but was easily distracted and perseverating on showering. He was confused and unable to answer questions appropriately, therefore baseline information was provided by daughter. Per daughter, pt has 24/7 support via family and friends, but further clarification from CM would be appreciated. Expect ptwill require inpatient rehab to maximize functional independence prior to returning home. Recommend acute rehab. The patient: requires acute rehabilitation as next level care for multiple therapy disciplines and is expected to tolerate an intensity of 3 hours of therapy at a minimum of 5 days per week. Short Term Goals: n/a Retail Banking Manager Goals: Time Frame: 3-4 weeks Goal: Pt will follow 1-2 step commands 100% of the time Goal: Pt will complete bed mobility with independence in preparation for ADLs Goal: Pt will complete UB ADLs with independence Goal: Pt will complete toilet transfer and toileting tasks with independence Goal: Pt will complete Lb dressing independently Goal: Pt will complete functional ambulation with modified independence utilizing least restrictive AD PLAN: Occupational therapy will be provided by the occupational therapist and/or carpenter assistant when medically appropriate Frequency: The patient may be seen with increased frequency at times during this admission to facilitate discharge planning and to address discharge needs., Times per week Times Per Week: 1-2 Intensity: 15-45 minutes Duration: Duration of hospitalization Interventions May Include: Therapeutic activities, Therapeutic exercise, Self- care/home management, Cognitive function intervention Patient/Family Education: Recommendations, Discharge planning, Equipment, Falls Prevention, Role of physical therapy/occupational therapy/rehabilitation, Patient education, Family/caregiver education, Safety Further Data: Continued evaluation, Cognitive screen Recommended Discharge Destination: Acute rehabilitation Therapy Specific Services: Occupational therapy Equipment Recommended: To be determined by next provider Jackelyn Gandara OT, 03/23/2022, 15:01 Mayco Cramer MD - 03/23/2022 0819 EDT Medicine Progress Note Service Date: 03/23/2022 Admit Date: 03/16/2022 21:11 Reason for Admission: 61 y.o. male admitted with a chief complaint of shock and now with a principaldiagnosis of LGIB 24 Hour Events: NGT placed, MR Head W/O Contrast Subjective/Objective Subjective Antoine appears to continue to improve. He is more verbal and more oriented than yesterday. He said that he was confused as to why he had the IVs hooked up to him. He watched the red [employer] game yesterday, they kicked ass. He is thirsty and wants some liquids. He denies fevers, chills, SOB, and pain. Review of Systems A ten point review of systems was performed and was negative except for pertinent positives noted inthe HPI Objective Vital Signs Temp: [36.4 ??C (97.5 ??F)-37.3 ??C (99.1 ??F)] , Heart Rate: [52 BPM-98 BPM] , Resp: [16-17] , BP: (131-161)/(80-95) , SpO2: [95 %-99 %] Physical Exam General: laying in bed, eyes wide appears anxious HEENT: Cut on nose, bruising under eyes, cuts on lip, no gross facial deformities, sclera anicteric,conjunctiva clear Lungs: anterior lung riojas clear to auscultation bilaterally, no wheezes, rhonchi or rales Heart: regular rate and rhythm, normal S1 S2, no murmurs/rubs/gallops Abdomen: soft, non-tender, non-distended, Extremities: atraumatic, no lower extremity edema, clubbing or cyanosis, distal pulses 2+ at DP and radial bilaterally Skin: normal skin texture and turgor without rashes or lesions, no diaphoresis Neuro: able to nod and shake head to questions, speech soft and difficult to understand, moving limbs minimally with weakness and muscle rigidity, no obvious asymmetries Is PICC or central line present? No, PICC/Central line not present. Medications: reviewed Labs CBC: Recent Labs 03/21/22 0855 03/23/22 0634 WBC 9.53 11.06* RBC 5.38 5.63 HGB 16.8 16.8 HCT 47.9 49.2 MCV 89 87 MCH 31.2 29.8 MCHC 35.1 34.1 PLT 220 291 BMP: Recent Labs 03/21/22 0617 03/23/22 0634 NA 137 139 K 3.6 4.1 CL 102 107 CO2 27 24 BUN 16 18 CREATININE 0.59* 0.67 CALCIUM 8.8 9.0 MG -- 2.1 PHOS -- 4.0 Imaging MR Head W/O Contrast - Scattered areas of cortical restricted diffusion and T2-FLAIR hyperintensity with similar faint signal abnormality in the basal ganglia, findings compatible with evolving hypoxic-ischemic injury in the context of recent cardiac arrest. 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 S/P cardiac arrest with ROSC after 2 rounds CPR, MTP, intubation, and extubation. Transferred from the MICU. Currently hemodynamically stable with no evidence of ongoing singificant GI bleed. Persistent encephalopathy with slight day to day improvement. 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 Plan Acute Encephalopathy secondary to hypoxic brain injury Per family, lives independently, fully functional with all ADLs. Reportedly normal mental status on arrival to [facility] [place]. No findings of seizure on EEG, no acute findings on head CT. Less likely tox given clinical timeline. Improving, remains far from baseline. - Delirium precautions - thiamine, folate, mvm given hx alcohol use d/o - Ramelteon - Limit sedating meds, stop dilaudid - MR Head W/O Contrast shows hypoxic brain injury suspect 2/2 hypotension form hemorrhagic shock andcardiac arrest - See nutrition below - PT, OT, RAILROAD SIGNAL TECHNICIAN Acute LGIB (resolved) Acute blood loss anemia (resolved) s/p 7u pRBC though Hgb never < 11, CTA A&P without active extravasation, s/p EGD on 03/17 w/o UGI source. Most likely LGIB, suspect diverticular bleed. Hgb stable - PPI IV daily for 4 week course - Maintain 2 large-bore peripheral IV - CTA A&P if additional large-volume hematochezia - CBC q48 Nutrition (ongoing) Admitted 03/16 with no nutrition since admit - RAILROAD SIGNAL TECHNICIAN eval 03/21 stating: Continue NPO with strict oral care, allow single ice chips and small sips of NON-thick water if wakeful and interactive - Given clinical improvement and desire for water, will have RAILROAD SIGNAL TECHNICIAN re-eval - NGT placed 03/22, continue tube feeds until adequate oral intake - Given clinical improvement RAILROAD SIGNAL TECHNICIAN re-eval HTN - Hold lisinopril 5 mg daily ? Nasal fracture/trauma (ongoing) Cleared by trauma surgery. - F/u with ENT in 1 week from 03/19 for nasal bone fractures. - Discussed NGT w/ ENT. Cleared for NGT and placed. ?? 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 ?? Resolved or inactive hospital problems Cardiac arrest, resolved - s/p CPR x2 rounds w/ROSC prior to admission at [facility]. TTE wnl. May have been hypotension in the setting of acute GI bleed. Lactic acidosis - likely 2/2 shock, LGIB. Down-trended. Troponinemia - likely 2/2 shock vs CPR. Down-trended. Bradycardia, resolved -likely 2/2 Precedex. Improved after discontinuation of Precedex. Hypocalcemia - s/p calcium gluconate Leukocytosis - resolved VTE Prophylaxis Seqential Compression Device Discharge Plan Like AR vs NUNO Consults GI Black Epps, MS3 03/22/2022 Cortext I was present with the medical student for the history, exam, and medical decision making documented. I have edited the medical student note as appropriate. Mayco Villafana MD 03/23/2022 18:38 Internal Medicine Resident, PGY-3 Cortext or Pager [phone] Associated attestation - Manolo Fagan MD - 03/23/2022 2128 EDT I interviewed and examined the patient. I have personally reviewed interval events, laboratory data,and imaging. I discussed the case with the inpatient resident team. I agree with findings and plan of care as documented by the resident (or have edited in Blue). MD Charlie Edouard'Melissa Jacome, PT - 03/22/2022 1211 EDT [facility] Rehabilitation Therapy [facility] Physical Therapy Initial Evaluation Note Date of Service: 03/22/2022 Reason for Referral: Evaluate and treat Precautions: Activity as tolerated SUBJECTIVE: Antoine (patient mumbling difficult to understand) Pain: Patient confused and unable to answer pain questions, does not appear to be in pain OBJECTIVE: Per HPI: Mr. Saez is a 61 y.o. male, currently located in bed M415/M415-01 with a hx of EtOH use (no EtOHin approx 2 mo) otherwise very healthy per family now presenting with GI bleeding, unwitnessed fall and cardiac arrest with ROSC and continued GI bleeding prior to transfer. Patient Profile: Patient is a 61 y.o. male admitted on 03/16/2022 secondary to Cardiac arrest (HCC) [I46.9] The patient lives at [address] [place] [id number] Home environment Lives: need to clarify Caregiver Support: Need to clarify Equipment Available: Need to clarify Home Environment: house Home Layout: need to clarify Prior Level of Function: Independent Services prior to admission: None Work/Leisure: need to clarify Medical/Surgical History: Current: Patient Active Problem List Diagnosis ??? Lower GI bleed ??? Cardiac arrest (HCC) ??? Facial trauma ??? Syncope ??? Hemorrhagic shock (HCC-CMS) (HCC) ??? Metabolic encephalopathy ??? Hypocalcemia Past: No past medical history on file. No past surgical history on file. Medications: Medications reviewed Arousal, Attention, and Cognition: Orientation: Alert Not following any commands, tactile or verbal Drooling unable to control secretions Mumbling words difficulty to understand Reaching for things in the air Cardiopulmonary: Vital Signs: Activity Heart rate (bpm) Blood Pressure (mmHg) Respiratory rate (breaths/min) Oxygen Sat/ Fractions of inspired Oxygen SPO2/FIO2 % Pre- activity 55 148/90 95% on room air During Post-activity 66 148/90 96% on room air Integumentary/Anthropometric Characteristics: Palpation/Observation: Skin: lip with sore, facial abrasions Posture: No problem noted Range of Motion and Joint Integrity: Active Range of Motion: Within normal limits Upper Quarter: Left Upper Extremity: Right Upper Extremity: Cervical Spine: Lower Quarter: Left Lower Extremity: Right Lower Extremity: Lumbar Spine: N/E Muscle Performance: Strength: Formal resistive muscle testing was not performed due to cognition Formal resistive manual muscle testing not performed due to focus on functional activities at this time. Based on AROM and functional movement strength is as follows: Upper Quarter: Left Upper Extremity: > to 3/5 as demonstrated functionally Right Upper Extremity: > to 3/5 as demonstrated functionally Cervical Spine: > to 3/5 as demonstrated functionally Lower Quarter: Left Lower Extremity: > to 3/5 as demonstrated functionally Right Lower Extremity: > to 3/5 as demonstrated functionally Lumbar Spine: N/E Sensation, Reflexes, and Nerve Integrity: Light Touch Sensation: Upper Quarter: Not evaluated secondary to patient unable to participate in formal sensory testing but light touch sensation appears intact Lower Quarter: Not evaluated secondary to patient unable to participate in formal sensory testing but light touch sensation appears intact Neuromotor Function/Development: No problems noted Balance, Locomotion, and Gait: Balance: Balance deficits observed Sitting: Patient can tolerate static sitting at edge of bed with moderate assist of one Standing: Patient requires minimal contact assistance of two to maintain static standing with UE support. Locomotion: Not evaluated as wheelchair mobility does not apply to this patient. Gait: Patient unable to follow commands enough to walk Self-Care, Home Management, Work, and Leisure: Mobility evaluation as follows: Rolling: max assist of one Supine to sit: max assist of one Sit to supine: max assist of one Sit to stand: moderate assist of two Stand to sit: moderate assist of two Bed to chair: n/e Chair to bed: n/e Informed Consent: The patient consented to the physical therapy evaluation. The patient agrees to and understands the physical therapy treatment plan and goals. Interventions Completed Today: Physical Therapy today at: 11:30 Total treatment time: 20 minutes. Timed code treatment minutes: 0 Intervention included: No interventions completed today Patient/Family Education: Topic: Balance Role of therapy Safety Learner: patient Method: verbal Barriers to Learning: cognitive deficits Outcome: unable to learn Team Communication: Discussed current level of mobility and recommendations with nursing for assistance with mobility and positioning outside of PT. ASSESSMENT: Upper Quarter Screen: No positive findings-no follow up needed Physical Therapy Diagnosis: Patient presents with decreased functional mobility secondary to impairments of decreased cognition, decreased strength, balance, related to his GI bleed with cardiac arrest. Physical Therapy Prognosis: Patient was appropriate for skilled PT evaluation and intervention. Patient is currently below baseline level of functional mobility and activity. Evidence supports that early and regular mobilization decreases risks of secondary complications related from immobility and improves overall systemic body function. Skilled intervention by PT with knowledge of disease pathophyslology is indicated to establish and progress mobility and exercise, and provide recommendations for staff and safe discharge planning. Patients main limiting barrier is his poor cognition, inability to follow commands, inability to speak, inability to swallow. He will need inpatient rehab pending his progress. Short-Term Goals: N/A ?? Long-Term Goals: 2-3 weeks The patient will be able to perform bed mobility with modified independence assist demonstrating appropriate sequencing/motor planning. The patient will demonstrate vital signs in parameters with position changes. The patient will be able to perform bed to chair transfers with modified independence while demonstrating an effective strategy for recovery of loss of balance. The patient will be able to ambulate with modified independence with no loss of balance on level surfaces 200 feet. The patient and/or caregiver will be able to recall and demonstrate precautions. All of the above mobility goals will be performed with an oxygen saturation > 95%. The patient will be able to perform stairs with modified independence with home set up for rails. PLAN: Treatment/Intervention: Physical therapy will be provided by physical therapist and/or physical therapist sales operations assistant when medically appropriate. Frequency: daily for 2-3 times per week Intensity: 15-30 minutes per session Duration: During hospitalization Interventions may include:Therapeutic exercises, Therapeutic activities and Gait training Patient/family education: Discharge planning, Recommendations, Role of physical therapy/rehabilitation, Safety Further Data: Recommended Discharge Destination: Acute vs. sub-acute rehabilitation Recommended Discharge Services: To be determined Recommended Equipment Needs: To be determined Other recommendations: Occupational Therapy consult Pager: [phone] Melissa Stovall, PT 03/22/2022 12:11 Sole Tripp, RAILROAD SIGNAL TECHNICIAN - 03/22/2022 1207 EDT Speech-Language Pathology Clinical Swallow Evaluation RAILROAD SIGNAL TECHNICIAN Diagnosis: Dysphagia, unspecified difficulty: Medical Diagnosis: Cardiac arrest (HCC) [I46.9] Date of Onset: 03/16/22 Date of Referral: 03/19/22 Start Time: 1100 Total Therapy minutes: 35 minute(s) SUBJECTIVE: Pt alert and cooperative. Tearful. You have pretty eyes More water please I don't know where I am OBJECTIVE: RAILROAD SIGNAL TECHNICIAN returns to the bedside to re-assess candidacy to resume PO diet. 24o Events Relevant to RAILROAD SIGNAL TECHNICIAN: MD contacted RAILROAD SIGNAL TECHNICIAN requested re-assessment due noted improvements in mental status this AM. 1:1 sitter present and demonstrated use of straw pipette for RAILROAD SIGNAL TECHNICIAN Current Restrictions: Nasal fracture/trauma (ongoing) Cleared by trauma surgery.?? - F/u??with ENT??in 1 week from 03/19??for nasal bone fractures. - Dilaudid 0.2mg Q4H for pain - Would discuss with ENT prior to any NG tube placement PMH: No past medical history on file. Current Diet: NPO Diet prior to admission: Unable to obtain; likely near regular based on age and dentition Current Status: Cognitive Status: Eyes widely open throughout session, presents as encephalopathic; fleeting attention, though improved; not consistently engaging with providers; following movement of providers in room Respiratory Status: Tolerating RA, Wet breath sounds. Clinical Swallow: Oral Peripheral Motor Exam: limited by no command following Face: Face was symmetrical with adequate strength and range of motion. Lips: Reduced strength and range of motion. Tongue: Limited ROM/strength, unable to protrude past lips Velum: Unable to view during the evaluation. Dentition: Adequate dentition. Teeth appear fractured, unclear if consistent with baseline or as a result of trauma Laryngeal Excursion: Suspect reduced hyolaryngeal elevation/excursion with suspect incomplete swallow initiation/laryngeal pumping intermittently. Speech Intelligibility: Speech intelligibility is poor with reduced articulation and vocal intensity. Vocal Quality: Patient presents with a wet vocal quality. Cough: Currently unable to elicit a volitional cough. Positioning: Seen at bedside for evaluation. Side vs back lying in bed related to restlessness; required boosting in bed to maintain upright positioning Consistencies Tested: was assessed with ice chips x3, several pipette sips of water, thins via cup/straw, and 1/4 tsp puree Methods of Delivery: Pt able to self-administer PO trials with hand over hand RAILROAD SIGNAL TECHNICIAN assistance. Oral Phase Findings: Reduced oral acceptance of all trials across presentation method and consistency, with poor bolus awareness with items in the mouth. Reduced labial seal resulting in anterior loss of all consistencies and of thin clear secretions prior to providing PO trials. Oral phase remains impaired and greatly impacting swallow function, however improved since initial swallow assessment. Pharyngeal Phase: Variable pharyngeal phase response (incomplete swallow initiation/laryngeal pumping vs suspect complete swallow initiation with reduced hyoloaryngeal elevation/excursion); strong cough with intermittent subsequent swallow with all consistencies trialed; persistent wet voice and upperairway congestion Esophageal Phase: Not addressed Compensatory Strategies: The following compensatory swallow strategies were attempted during today'sevaluation: Not indicated Patient/Family Education/Training: Topic: Patient/Family education and training was completed today including the role of Speech-Language Pathology, results of today's exam/recommendations, anatomy and physiology of the swallowing mechanism, rehab goals and discharge planning. Learner: patient and RN Method of Education: Verbal Barriers to Learning/Education: AMS Patient: needs further instruction and education Assessment /Clinical Impressions: is a 61 y.o. male admitted with Cardiac arrest (HCC) [I46.9]. A clinical swallow follow up was completed today by Speech Language Pathology secondary to concerns for oropharyngeal dysphagia, and risk of laryngeal penetration/aspiration. currently presents with a severe oropharyn geal phasedysphagia characterized by reduced bolus awareness and overt s/sx aspiration with all trialed consistencies. Etiology of dysphagia is likely neurogenic in setting of AMS and encephalopathic presentation. remains not appropriate for PO despite improvements in both mental status and swallow functionthis date. Compensatory strategies not able to be assessed at this time due to insufficient PO trials, and aspiration concerns. Prognosis for improvement in swallow function is judged to be good at this time secondary to anticipated improvements in medical status. Aware of concerns related to non-oralnutrition (I.e., nasal bone fxs impact placement of nasoenteric tube), however pt may require a course of non-oral nutrition. Functional Communication Measures ([place] [employer], 2002). The Functional Communication Measures (FCM???s) are a series of 7 point rating scales, ranging from least functional (Level 1) to most functional (Level 7). They have been developed by [employer] to describedifferent aspects of patient???s functional communication and swallowing abilities over the course of RAILROAD SIGNAL TECHNICIAN intervention. Swallowing Level 1: Individual is not able to swallow anything safely by mouth. All nutrition and hydration is received through non-oral means (e.g., nasogastric tube, PEG). GOALS: Pt will improve oropharyngeal swallow function to safely resume PO diet prior to discharge from facility. Plan /Recommendations: Patient will continue to benefit for further RAILROAD SIGNAL TECHNICIAN intervention in this setting to address dysphagia management and intervention needs. Recommendations: 1. Continue NPO with strict oral care 2. Allow single ice chips and small sips of NON-thick water if wakeful and interactive, to aid with oral hygiene. Deliver water by tsp or straw pipette* 3. Consider short term alternate means of nutrition if consistent with POC- consult ENT if considering NGT due to known nasal bone fxs *finger over straw to contain liquid; place straw in pt's mouth and release finger RAILROAD SIGNAL TECHNICIAN to continue to follow pt during acute hospitalization under consultative model. Sole Westbrook MS [facility]-RAILROAD SIGNAL TECHNICIAN Cortext preferred; #[phone] (Tuesday-Tuesday, [phone]) RAILROAD SIGNAL TECHNICIAN Float Pager #[phone] (Tuesday-Tuesday [phone]) Black Mata - 03/22/2022 1021 EDT Nutrition Assessment Note: Reassessment Patient Name: Antoine Saez Admission Date: 03/16/2022 Admission Dx: Cardiac arrest (HCC) Reason for Visit: Follow Up BACKGROUND DATA Clinical Course Since Last RD Visit: Last RD visit: 03/19 Current Nutrition Orders: Diet Order: NPO Physical Findings: Dentition: teeth appear to be fractured and part of bridge Digestive Systems: Last BM (03/20/22) Skin: BSS = 10 (high risk) Edema: none noted per flowsheets Anthropometrics: Height: 167 cm (65.75) Wt Readings from Last 6 Encounters: 03/22/22 65.8 kg (145 lb) 03/16/22 70.3 kg (155 lb) Pertinent Medications: Current Facility-Administered Medications Medication Route Frequency ??? busPIRone (BUSPAR) tablet 10 mg oral BID ??? HYDROmorphone (PF) (DILAUDID) 0.5 mg/0.5 mL syringe 0.2 mg intravenous Q4H PRN ??? lidocaine (PF) 10 mg/mL (1 %) injection 2 mg intradermal PRN ??? lisinopriL (PRINIVIL) tablet 5 mg oral DAILY ??? nystatin (MYCOSTATIN) cream topical BID PRN ??? ondansetron (PF) (ZOFRAN) injection 4 mg intravenous PRN ??? pantoprazole (PROTONIX) injection 40 mg intravenous DAILY ??? polyethylene glycol 3350 (MIRALAX) packet 17 g oral Daily PRN ??? ramelteon (ROZEREM) tablet 8 mg oral AT BEDTIME PRN ??? senna (SENOKOT) tablet 1 Tablet oral Daily PRN ??? sertraline (ZOLOFT) tablet 100 mg oral DAILY ??? sodium chloride 0.9 % (flush) flush 5 mL intravenous Q8H Relevant Labs: Lab Results Component Value Date WBC 9.53 03/21/2022 RBC 5.38 03/21/2022 HGB 16.8 03/21/2022 HCT 47.9 03/21/2022 MCV 89 03/21/2022 MCH 31.2 03/21/2022 PLT 220 03/21/2022 NA 137 03/21/2022 K 3.6 03/21/2022 CL 102 03/21/2022 CO2 27 03/21/2022 BUN 16 03/21/2022 CREATININE 0.59 (L) 03/21/2022 CALCIUM 8.8 03/21/2022 MG 2.2 03/20/2022 PHOS 3.3 03/18/2022 ?? Estimated Nutrition Needs MSJ BEE x 1.2 (using 68 kg) = 1423 - 1708 kcals/day 1.2 - 1.5 g/kg protein (using 68 kg) = 82 - 102 g protein/day 25 - 30 mL/kg fluid (using 68 kg) = 1700 - 2040 mL fluid/day Estimated Nutrition Intake: NPO ASSESSMENT: Pt remains NPO per RAILROAD SIGNAL TECHNICIAN recommendation, unable to take nutrition by mouth at this time. If cleared by ENT, recommend placement of feeding tube and initiation of enteral nutrition w/ tube feeds as per recs below. If unable to place feeding tube, central access and TPN indicated in order to meet pt's dominga orie/protein needs and preserve nutrition status, consult RD for recs. Monitor lytes and replete as needed. Continue to trend weight. Nutrition Risk Level: High (1) MEDICAL NUTRITION THERAPY - UPDATED PLAN 1. If cleared by ENT, place feeding tube and initiate enteral nutrition: Tube feds of Replete @63mL/hr x 24 hours -Start at 25mL/hr and increase by 10mL Q4hrs -Water Flushes: 100mL Q6hrs -Provides: 1512 calories, 96g protein, 1270mL fluid daily 2. If unable to place feeding tube, recommend central access and TPN - consult RD for recs 3. Monitor lytes and replete as needed - monitor phos/mg 4. Monitor BMs 5. Trend weight 6. Strict I/Os BLACK GUERRERO, ANA (Call PAS or use Intelliweb to page RD covering this unit) Mayco Cramer MD - 03/22/2022 0816 EDT Medicine Progress Note Service Date: 03/22/2022 Admit Date: 03/16/2022 21:11 Reason for Admission: 61 y.o. male admitted with a chief complaint of shock and now with a principaldiagnosis of LGIB 24 Hour Events: NAOE Subjective/Objective Subjective This morning Antoine appears responsive. Still not fully oriented to place. Ongoing difficulty with speech. Can answer to yes or no questions and can form some words. He states that he is thirsty and requested water. He denies fevers, chills, SOB. Endorses pain in both arms and right leg. Review of Systems A ten point review of systems was performed and was negative except for pertinent positives noted inthe HPI Objective Vital Signs Temp: [36.6 ??C (97.9 ??F)-36.9 ??C (98.4 ??F)] , Heart Rate: [57 BPM-70 BPM] , Resp: [16-18] , BP: (145-158)/(82-96) , SpO2: [94 %-96 %] Physical Exam General: laying in bed, eyes wide appears anxious HEENT: Cut on nose, bruising under eyes, cuts on lip, no gross facial deformities, sclera anicteric,conjunctiva clear Lungs: anterior lung riojas clear to auscultation bilaterally, no wheezes, rhonchi or rales Heart: regular rate and rhythm, normal S1 S2, no murmurs/rubs/gallops Abdomen: soft, non-distended, pain to palpation in LLQ Extremities: atraumatic, no lower extremity edema, clubbing or cyanosis, distal pulses 2+ at DP and radial bilaterally Skin: normal skin texture and turgor without rashes or lesions, no diaphoresis Neuro: able to nod and shake head to questions, speech soft and difficult to understand, moving limbs minimally with weakness and muscle rigidity, no obvious asymmetries Is PICC or central line present? No, PICC/Central line not present. 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 S/P cardiac arrest with ROSC after 2 rounds CPR, MTP, intubation, and extubation. Transferred from the MICU. Currently hemodynamically stable with no evidence of ongoing singificant GI bleed. Persistent encephalopathy with slight day to day improvement. 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 Plan Acute Encephalopathy. Toxic vs metabolic. (slowly improving) Per family, lives independently, fully functional with all ADLs. Reportedly normal mental status on arrival to [facility] [place]. No findings of seizure on EEG, no acute findings on head CT. Less likely tox given clinical timeline. Slow improvement, remains far from baseline. - Delirium precautions - start thiamine, folate, mvm given hx alcohol use d/o - Ramelteon - MR brain given minimal improvement in mental status (cleared after full body xrays) - Limit sedating meds, stop dilaudid Acute LGIB (resolved) Acute blood loss anemia (resolved) s/p 7u pRBC though Hgb never < 11, CTA A&P without active extravasation, s/p EGD on 03/17 w/o UGI source. Most likely LGIB, suspect diverticular bleed. Hgb stable - PPI IV daily for 4 week course - Maintain 2 large-bore peripheral IV - CTA A&P if additional large-volume hematochezia - CBC q48 Nutrition (ongoing) Admitted 03/16 with no nutrition since admit - RAILROAD SIGNAL TECHNICIAN eval 03/21 stating: Continue NPO with strict oral care, allow single ice chips and small sips of NON-thick water if wakeful and interactive - Given clinical improvement and desire for water, will have RAILROAD SIGNAL TECHNICIAN re-eval - Consider NGT (w/ ENT consult for nasal bone fxs) vs TPN if not cleared by RAILROAD SIGNAL TECHNICIAN HTN - Hold lisinopril 5 mg daily ? Nasal fracture/trauma (ongoing) Cleared by trauma surgery. - F/u with ENT in 1 week from 03/19 for nasal bone fractures. - Would discuss with ENT prior to any NG tube placement ?? 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 ?? Resolved or inactive hospital problems Cardiac arrest, resolved - s/p CPR x2 rounds w/ROSC prior to admission at [facility]. TTE wnl. May have been hypotension in the setting of acute GI bleed. Lactic acidosis - likely 2/2 shock, LGIB. Down-trended. Troponinemia - likely 2/2 shock vs CPR. Down-trended. Bradycardia, resolved -likely 2/2 Precedex. Improved after discontinuation of Precedex. Hypocalcemia - s/p calcium gluconate Leukocytosis - resolved VTE Prophylaxis Seqential Compression Device Discharge Plan pending clinical result Consults GI Black Epps, MS3 03/22/2022 Cortexrosie I was present with the medical student for the history, exam, and medical decision making documented. I have edited the medical student note as appropriate. Mayco Villafana MD 03/22/2022 17:15 Internal Medicine Resident, PGY-3 Cortext or Pager [phone] Associated attestation - Manolo Fagan MD - 03/22/2022 2202 EDT I interviewed and examined the patient. I have personally reviewed interval events, laboratory data,and imaging. I discussed the case with the inpatient resident team. I agree with findings and plan of care as documented by the resident (or have edited in Blue). MD Wayne Edouard Laura, MS [facility]-RAILROAD SIGNAL TECHNICIAN - 03/21/2022 1430 EDT Speech-Language Pathology Clinical Swallow Evaluation RAILROAD SIGNAL TECHNICIAN Diagnosis: Dysphagia, unspecified difficulty: Medical Diagnosis: Cardiac arrest (HCC) [I46.9] Date of Onset: 03/16/22 Date of Referral: 03/19/22 Start Time: 1150 Total Therapy minutes: 20 minute(s) SUBJECTIVE: Can I go home please pt repeated every minute or so during session, whilst making attempts to exitbed I want a cigarette; can you get me one please OBJECTIVE: RAILROAD SIGNAL TECHNICIAN returns to the bedside to re-assess candidacy to resume PO diet. 24o Events Relevant to RAILROAD SIGNAL TECHNICIAN: RN familiar with pt from yesterday, had advocated pt be advanced to pureed foods, based on improved level of engagement- had tried pt with sips of nectar thick water which pt subsequently expectorated ; 1:1 sitter present and she reported the same Current Restrictions: Nasal fracture/trauma (ongoing) Cleared by trauma surgery.?? - F/u??with ENT??in 1 week from 03/19??for nasal bone fractures. - Dilaudid 0.2mg Q4H for pain - Would discuss with ENT prior to any NG tube placement PMH: No past medical history on file. Current Diet: Regular: pureed Diet prior to admission: Unable to obtain; likely near regular based on age and dentition Current Status: Cognitive Status: Eyes widely open (appearing fearful) throughout session, however presents as encephalopathic; fleeting attention; not consistently engaging with providers; repeating utterances related to wanting to leave and go home. Following movement of providers in room Respiratory Status: Tolerating RA, Wet breath sounds/vocal quality. 1x deep reflexive cough Clinical Swallow: Oral Peripheral Motor Exam: limited by no command following Face: Face was symmetrical with adequate strength and range of motion. Lips: Reduced strength and range of motion. Tongue: Limited ROM/strength, no attempts at protruding past lips Velum: Unable to view during the evaluation. Dentition: Adequate dentition. Laryngeal Excursion: no swallows appreciated this session. Speech Intelligibility: Speech intelligibility is poor with reduced articulation and vocal intensity. Vocal Quality: Patient presents with a wet vocal quality. Cough: Currently unable to elicit a volitional cough. Positioning: Seen at bedside for evaluation. Side vs back lying in bed related to restlessness; required boosting in bed to maintain upright positioning Consistencies Tested: was assessed with single ice chip x1 and several pipette sips of water Methods of Delivery: All items were administered by RAILROAD SIGNAL TECHNICIAN using a spoon, cup and straw. Oral Phase Findings: Reduced oral acceptance of all trials across presentation method and consistency, with poor bolus awareness with items in the mouth. Reduced labial seal resulting in anterior loss of all consistencies and of thin clear secretions prior to providing PO trials. Pharyngeal Phase: No volitional swallow observed throughout PO trials despite max encouragement; latent strong cough and did not observe subsequent swallow; persistent wet voice and upper airway congestion Esophageal Phase: Not addressed Compensatory Strategies: The following compensatory swallow strategies were attempted during today'sevaluation: Not indicated Patient/Family Education/Training: Topic: Patient/Family education and training was completed today including the role of Speech-Language Pathology, results of today's exam/recommendations, anatomy and physiology of the swallowing mechanism, rehab goals and discharge planning. Learner: patient and RN Method of Education: Verbal Barriers to Learning/Education: AMS Patient: needs further instruction and education Assessment /Clinical Impressions: is a 61 y.o. male admitted with Cardiac arrest (HCC) [I46.9]. A clinical swallow follow up was completed today by Speech Language Pathology secondary to concerns for oropharyngeal dysphagia, and risk of laryngeal penetration/aspiration. currently presents with a severe oropharyn geal phasedysphagia with poor bolus awareness and response. Etiology of dysphagia is likely neurogenic in setting of AMS and encephalopathic presentation. remains not appropriate for PO. Compensatory strategies not able to be assessed at this time due to insufficient PO trials, and aspiration concerns. Prognosis for improvement in swallow function is judged to be good at this time secondary to anticipated improvements in medical status. Aware of concerns related to non-oral nutrition (I.e., nasal bone fxs impact placement of nasoenteric tube), however pt may require a course of non- oral nutrition. Functional Communication Measures ([place] [employer], 2002). The Functional Communication Measures (FCM???s) are a series of 7 point rating scales, ranging from least functional (Level 1) to most functional (Level 7). They have been developed by [employer] to describedifferent aspects of patient???s functional communication and swallowing abilities over the course of RAILROAD SIGNAL TECHNICIAN intervention. Swallowing Level 1: Individual is not able to swallow anything safely by mouth. All nutrition and hydration is received through non-oral means (e.g., nasogastric tube, PEG). GOALS: Pt will improve oropharyngeal swallow function to safely resume PO diet prior to discharge from facility. Plan /Recommendations: Patient will continue to benefit for further RAILROAD SIGNAL TECHNICIAN intervention in this setting to address dysphagia management and intervention needs. Recommendations: 1. Continue NPO with strict oral care 2. Allow single ice chips and small sips of NON-thick water if wakeful and interactive, to aid with oral hygiene. Deliver water by tsp or straw pipette* 3. Consider short term alternate means of nutrition if consistent with POC- consult ENT if considering NGT due to known nasal bone fxs *finger over straw to contain liquid; place straw in pt's mouth and release finger RAILROAD SIGNAL TECHNICIAN to continue to follow pt during acute hospitalization under consultative model. Tatum Black MS CCC-RAILROAD SIGNAL TECHNICIAN Speech-Language Pathology Acute Rehabilitation Therapy Primary Contact - #[phone] (Tuesday- from [phone]) Secondary Contact- Cortext Float RAILROAD SIGNAL TECHNICIAN Pager #[phone] (Tuesday-Tuesday from [phone]) Upcoming off: 03/24 and 03/25 Anita Castellon MD - 03/21/2022 0818 EDT Medicine Progress Note Service Date: 03/21/2022 Admit Date: 03/16/2022 21:11 Reason for Admission: 61 y.o. male admitted with a chief complaint of shock and now with a principaldiagnosis of LGIB 24 Hour Events: NAOE Subjective/Objective Subjective This morning Antione denies pain, still unsure where he is, says he feels lost. Ongoing difficultywith speech. Asks several times to get out of here/go home. Seems shocked to hear he fell/broke his nose/can't go home yet. Review of Systems A ten point review of systems was performed and was negative except for pertinent positives noted inthe HPI Objective Vital Signs Temp: [36.6 ??C (97.9 ??F)-37.7 ??C (99.8 ??F)] , Heart Rate: [58 BPM-71 BPM] , Resp: [14-16] , BP: (132-175)/(84-86) , SpO2: [92 %-96 %] Physical Exam General: laying in bed, eyes wide appears anxious HEENT: Cut on nose, bruising under eyes, cuts on lip, no gross facial deformities, sclera anicteric,conjunctiva clear Lungs: anterior lung riojas clear to auscultation bilaterally, no wheezes, rhonchi or rales Heart: regular rate and rhythm, normal S1 S2, no murmurs/rubs/gallops Abdomen: soft, non-tender, non-distended, Extremities: atraumatic, no lower extremity edema, clubbing or cyanosis, distal pulses 2+ at DP and radial bilaterally Skin: normal skin texture and turgor without rashes or lesions, no diaphoresis Neuro: able to nod and shake head to questions, speech soft and difficult to understand, moving limbs minimally with weakness and muscle rigidity, no obvious asymmetries Is PICC or central line present? No, PICC/Central line not present. Medications: reviewed Home Medications - lisinopril 5mg - prazosin 1mg capsule - sertraline 100 mg - trazodone 50mg Labs CBC: Recent Labs 03/18/22 1228 03/19/22 0603 03/20/22 0632 WBC 12.76* 12.01* 10.22 RBC 4.49 4.90 5.34 HGB 13.8 14.7 16.3 HCT 38.5* 41.4 46.6 MCV 86 85 87 MCH 30.7 30.0 30.5 MCHC 35.8 35.5 35.0 PLT 166 194 221 BMP: Recent Labs 03/19/22 0603 03/20/22 0632 03/21/22 0617 NA 137 140 137 K 3.7 3.7 3.6 CL 108 108 102 CO2 24 19* 27 BUN 6* 15 16 CREATININE 0.55* 0.64* 0.59* CALCIUM 8.5 9.0 8.8 MG 1.9 2.2 -- Imaging No new Assessment/Plan Assessment Antoine Saez??is a 61 y.o.??male??with a PMH of anxiety, PTSD, 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 S/P cardiac arrest with ROSC after 2 rounds CPR, MTP, intubation, and extubation. Transferred from the MICU. Currently hemodynamically stable with no evidence of ongoing singificant GI bleed. Persistent encephalopathy with slight day to day improvement. 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 Plan Acute Encephalopathy. Toxic vs metabolic. (improving) Per family, lives independently, fully functional with all ADLs. Reportedly normal mental status on arrival to [facility] [place]. No findings of seizure on EEG, no acute findings on head CT. Less likely tox given clinical timeline. Slow improvement, remains far from baseline. - Delirium precautions - Ramelteon - MR brain given minimal improvement in mental status (cleared after full body xrays) - Trial food as tolerated Acute LGIB (resolved) Acute blood loss anemia (resolved) s/p 7u pRBC though Hgb never < 11, CTA A&P without active extravasation, s/p EGD on 03/17 w/o UGI source. Most likely LGIB, suspect diverticular bleed. Hgb stable - PPI IV daily for 4 week course - Maintain 2 large-bore peripheral IV - CTA A&P if additional large-volume hematochezia - CBC q48 HTN - Restart lisinopril 5 mg daily ? Nasal fracture/trauma (ongoing) Cleared by trauma surgery. - F/u with ENT in 1 week from 03/19 for nasal bone fractures. - Dilaudid 0.2mg Q4H for pain - Would discuss with ENT prior to any NG tube placement ?? 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 ?? Resolved or inactive hospital problems Cardiac arrest, resolved - s/p CPR x2 rounds w/ROSC prior to admission at [facility]. TTE wnl. May have been vasovagal event in the setting of acute GI bleed. Lactic acidosis - likely 2/2 shock, LGIB. Down-trended. Troponinemia - likely 2/2 shock vs CPR. Down-trended. Bradycardia, resolved -likely 2/2 Precedex. Improved after discontinuation of Precedex. Hypocalcemia - s/p calcium gluconate Leukocytosis - resolved VTE Prophylaxis Seqential Compression Device Discharge Plan pending clinical result Consults KIARA BridgetArchie Rockwell MD, MPH PGY-1 03/21/2022 8:26 [id number] or Cortext I have personally seen and examined the patient 03/21/22. I reviewed the laboratory and radiographic results. The case was discussed with the medicine house staff and I agree with the findings above andplan of care documented. Please see my additional comments in blue. I have signed out to Dr Fagan, who will assume care tomorrow. Anita Castellon MD Hospitalist cribAnita solares MD - 03/20/2022 1151 EDT Medicine Progress Note Service Date: 03/20/2022 Admit Date: 03/16/2022 21:11 Reason for Admission: 61 y.o. male admitted with a chief complaint of shock and now with a principaldiagnosis of LGIB 24 Hour Events: NAOE Subjective/Objective Subjective This morning Antoine was laying in bed and was responsive to voice. He was responsive to questions with nods and shakes with unintelligible mumbles. He appears to be minimally improving since yesterdaymorning but is still not as baseline cognition. He is experiencing muscle weakness and rigidity. Denies abdominal pain. He guessed we were in and that it was April, in response to those questions.All other responses unintelligible. Review of Systems A ten point review of systems was performed and was negative except for pertinent positives noted inthe HPI Objective Vital Signs Temp: [36.9 ??C (98.4 ??F)-37.7 ??C (99.8 ??F)] , Heart Rate: [58 BPM-68 BPM] , Resp: [14-54] , BP: (132-171)/(78-107) , SpO2: [92 %-97 %] Physical Exam General: laying in bed, in no acute distress HEENT: facial trauma, bruising under eyes, cuts on lip, no gross facial deformities, sclera anicteric, conjunctiva clear, mucus membranes moist, no JVD appreciated Lungs: anterior lung riojas clear to auscultation bilaterally, no wheezes, rhonchi or rales Heart: regular rate and rhythm, normal S1 S2, no murmurs/rubs/gallops Abdomen: soft, non-tender, non-distended, Extremities: atraumatic, no lower extremity edema, clubbing or cyanosis, distal pulses 2+ at DP and radial bilaterally Skin: normal skin texture and turgor without rashes or lesions, no diaphoresis Neuro: able to nod and shake head to questions, mumbling unintelligibly, moving limbs minimally withweakness and muscle rigidity, no obvious asymmetries Is PICC or central line present? No, PICC/Central line not present. Medications: reviewed Home Medications - lisinopril 5mg - prazosin 1mg capsule - sertraline 100 mg - trazodone 50mg Labs CBC: Recent Labs 03/18/22 1228 03/19/22 0603 03/20/22 0632 WBC 12.76* 12.01* 10.22 RBC 4.49 4.90 5.34 HGB 13.8 14.7 16.3 HCT 38.5* 41.4 46.6 MCV 86 85 87 MCH 30.7 30.0 30.5 MCHC 35.8 35.5 35.0 PLT 166 194 221 BMP: Recent Labs 03/17/22 1732 03/17/22 1858 03/18/22 0440 03/18/22 1459 03/19/22 0603 03/20/22 0632 NA 140 -- 144 141 137 140 K 3.7 -- 3.9 4.0 3.7 3.7 CL 112* -- 113* 115* 108 108 CO2 20* -- 24 19* 24 19* BUN -- -- 11 -- 6* 15 CREATININE -- -- 0.80 -- 0.55* 0.64* CALCIUM -- -- 7.7* -- 8.5 9.0 CAION -- 1.11* -- -- -- -- MG 1.6* -- 2.2 -- 1.9 2.2 PHOS 2.8 -- 3.3 -- -- -- LABALBU -- -- 2.7* -- -- -- Imaging No new Assessment/Plan Assessment Antoine Saez??is a 61 y.o.??male??with a PMH of anxiety, PTSD, 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 S/P cardiac arrest with ROSC after 2 rounds CPR, massive transfusion, intubation, and extubation. Transferred from the MICU. Currently hemodynamically stable with no evidence of ongoing GI bleed. Persistent encephalopathy with minimal improvement. Given clinical course, will pursue advanced imaging of brain. Plan Acute Encephalopathy w/ unclear etiology. Toxic vs metabolic. (ongoing) Per family, lives independently, fully functional with all ADLs. Reportedly normal mental status on arrival to [facility] [place]. Reported purposeful movements after ROSC. No findings of seizure on EEG, no acutefindings on head CT. Less likely tox given clinical timeline. - Ordered buspirone 30 mg Q12Hrs - Delirium precautions - Ramelteon - MR brain given minimal improvement in mental status Acute LGIB (stable) - possible hemorrhagic shock, cannot reliably clinically determine this vs iatrogenic shock Acute blood loss anemia (resolved) s/p 7u pRBC though Hgb never < 11, CTA A&P without active extravasation, s/p EGD on 03/17 w/o UGI source. Most likely LGIB, suspect diverticular bleed. - PPI IV daily- would stop this after 2-4 weeks as likelihood of upper source is low - Maintain 2 large-bore peripheral IV - CTA A&P if additional large-volume hematochezia - CBC daily HTN - Re-instate lisinopril 5 mg tablet with improving clinical course ? Nasal fracture/trauma (ongoing) Cleared by trauma surgery. - F/u with ENT in 1 week from 03/19 for nasal bone fractures. - Dilaudid 0.2mg Q4H for pain - Would discuss with ENT prior to any NG tube placement ?? PTSD Anxiety - Buspar as above. - Hold LENS BLOCKER sertraline, trazodone pending clinical course and clearing of his mental status. ?? Resolved or inactive hospital problems ?Cardiac arrest, resolved - s/p CPR x2 rounds w/ROSC prior to admission at [facility]. TTE wnl. May have been vasovagal event in the setting of acute GI bleed. Lactic acidosis - likely 2/2 shock, LGIB. Down-trended. Troponinemia - likely 2/2 shock vs CPR. Down-trended. Bradycardia, resolved -likely 2/2 Precedex. Improved after discontinuation of Precedex. Hypocalcemia - s/p calcium gluconate Leukocytosis - Likely attributable to shock, no focal infectious symptoms identified. VTE Prophylaxis Seqential Compression Device Discharge Plan pending clinical result Consults GI Black Epps Ms3 Internal Medicine Green Team 03/20/2022 11:51 I was present with the medical student for the history, exam, and medical decision making documented. I have edited the medical student note as appropriate. Kathleen Rockwell MD 03/20/2022 13:52 I have personally seen and examined the patient on 03/20/22. I reviewed the laboratory and radiographic results. The case was discussed with the medicine house staff and I agree with the findings above and plan of care documented. Please see my additional comments in blue. Anita Castellon MD Alina Fleming RN - 03/20/2022 0624 EDT Patient was nonverbal most of this shift, however this morning I was able to make out some of the words he was saying and understand him. Patient unable to follow commands; unable to press against my hands with his feet but is able to feel me touching them as exhibited by him pulling his feet away. Mouth care provided frequently overnight. Check of his blood sugar this morning showed he was 72 and MDon call notified and they deferred to day shift. Requested that MD make nursing aware of plan for nutrition and mobility status as currently patient has been in bed (he can not get up or out of bed or follow commands) and RAILROAD SIGNAL TECHNICIAN was unable to complete full swallowing eval yesterday due to somnolence and currently patient does not seem to be able to swallow safely. Patient received Dilaudid X2 overnight for pain that patient verbalized by answering yes when I asked him if he was in pain as well as his facial grimacing. Patient is a of the [place] war and suffers from PTSD baseline. Nursing to continue to monitor and assess. ALINA VENTURA RN John Beltran - 03/19/2022 1213 EDT Nutrition Assessment Note: Initial Visit Patient Name: Antoine Saez Admission Date: 03/16/2022 Admission Dx: Cardiac arrest (HCC) Reason for Visit: Identified at risk d/t inability to safely swallow per RAILROAD SIGNAL TECHNICIAN BACKGROUND DATA Clinical Summary: Antoine Saez is a 61 y.o. 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 Course c/b cardiac arrest with ROSC and continued GI bleeding. He was stabilized following MTP with 7 units pRBC and 4 units FFP as well as fluid resuscitation. Patient was intubated and sedated for airway protection. After cleared by GI and upper GI bleed was excluded, he was quickly??weaned off of vasopressors??and extubated. Patient required brief Precedex drip for agitation.No further signs of GI bleeding. He is now HD stable, though still altered, appropriate for transferto the floor. No past medical history on file. Allergies on file: Patient has no known allergies. Subjective: Patient unable to communicate at this time, chart reviewed. Current Nutrition Orders: NPO Physical Findings: Dentition: teeth appear to be fractured and part of bridge Digestive Systems: Last BM 03/19 (x2 BMs, bloody) Skin: BSS = 10 (high risk) Edema: none noted per flowsheets Nutrition Focused Physical Exam: deferred; unable to see patient today Anthropometrics: Height: 5'4 (167 cm) BMI: Body mass index is 24.38 kg/m?? (normal weight) Wt Readings from Last 6 Encounters: 03/18/22 68 kg (149 lb 14.6 oz) 03/16/22 70.3 kg (155 lb) Pertinent Medications: Current Facility-Administered Medications Medication Route Frequency ??? HYDROmorphone (PF) (DILAUDID) 0.5 mg/0.5 mL syringe 0.2 mg intravenous Q4H PRN ??? lidocaine (PF) 10 mg/mL (1 %) injection 2 mg intradermal PRN ??? melatonin tablet 5 mg oral AT BEDTIME PRN ??? ondansetron (PF) (ZOFRAN) injection 4 mg intravenous PRN ??? pantoprazole (PROTONIX) injection 40 mg intravenous DAILY ??? polyethylene glycol 3350 (MIRALAX) packet 17 g oral Daily PRN ??? ramelteon (ROZEREM) tablet 8 mg oral AT BEDTIME PRN ??? senna (SENOKOT) tablet 1 Tablet oral Daily PRN ??? sodium chloride 0.9 % (flush) flush 5 mL intravenous Q8H Pertinent Labs: Lab Results Component Value Date/Time NA 137 03/19/2022 06:03 K 3.7 03/19/2022 06:03 CO2 24 03/19/2022 06:03 CL 108 03/19/2022 06:03 BUN 6 (L) 03/19/2022 06:03 CREATININE 0.55 (L) 03/19/2022 06:03 GLUCOSEPOC 89 03/19/2022 05:35 CALCIUM 8.5 03/19/2022 06:03 PHOS 3.3 03/18/2022 04:40 MG 1.9 03/19/2022 06:03 Lab Results Component Value Date/Time GLUCOSEPOC 89 03/19/2022 05:35 GLUCOSEPOC 100 03/18/2022 23:18 GLUCOSEPOC 95 03/18/2022 17:24 GLUCOSEPOC 105 (H) 03/18/2022 11:58 GLUCOSEPOC 122 (H) 03/18/2022 06:27 Estimated Nutrition Needs: MSJ BEE x 1.2 (using 68 kg) = 1423 - 1708 kcals/day 1.2 - 1.5 g/kg protein (using 68 kg) = 82 - 102 g protein/day 25 - 30 mL/kg fluid (using 68 kg) = 1700 - 2040 mL fluid/day Estimated Nutrition Intake: NPO ASSESSMENT: Unable to assess for malnutrition at this time. Patient currently NPO x3 days. Unable to obtain diet or weight history d/t patient being unable to communicate well per EMR review. RAILROAD SIGNAL TECHNICIAN note today reports that Individual is not able to swallow anything safely by mouth. All nutrition and hydration is received through non-oral means (e.g., nasogastrictube, PEG). Tube feeding recommendations are provided below and will meet 100% of patient's needs. Recommend starting with a fiber free formula d/t GIB and hold tube feeds if GIB becomes severe. Nutrition Risk Level: High (1) MEDICAL NUTRITION THERAPY PLAN: Enteral Nutrition - Continuous: -Recommend Replete @63mL/hr x 24 hours -Start at 25mL/hr and increase by 10mL Q4hrs -Water Flushes: 100mL Q6hrs -Provides: 1512 calories, 96g protein, 1270mL fluid daily Coordination of Care: -Monitor lytes, phos and mag, replete as needed -Weekly weight on Mondays -Monitor TF tolerance, weight trend, labs, skin, and BMs JOHN [address] RD, CD (Call PAS or use Intelliweb to page RD covering this unit) Andrea Waller - 03/19/2022 1110 EDT Spiritual Care Department Cafe Team Member Note Re: Antoine Saez : 1960 Room: [id number] Service: Adult Hospital Medicine Hindu: Ruel Antoine has received a visit from the Spiritual Care Department on 03/19/2022. Assessment/Comments: I met with Neeraj this morning for pastoral support and prayer. Neeraj spoke quietly and speech difficult to understand. However, Neeraj nodded when I ask if it was okay to offer prayer. Provided comforting presence and prayerful support. DEMOGRAPHICS Spiritual Care Welcomed End of Life Patient Is Unable to Assess Importance Unable to Assess Current Support System Unable to Assess Level of Support Unable to Assess ENCOUNTER DATA Date of Encounter 03/19/22 Time of Encounter 1110 Reason for Encounter Referral Referred by Self Care Level 3 - Some Matter of Substance Reason not visited ENCOUNTER Needs Addressed Overwhelmed Interventions Support, Prayer, Build Relationship Sacraments Provided Date of Anointing Communion Date of Communion Date of Scientologist OUTCOME Outcome Stress Level Unable to Assess Outcome of Encounter N/A CARE PLAN Plan Continued Cafe Team Member Support Consult With Additional Support Was Clergy Needed? Yes, provided, Attic Blower TIME STAMP: Total time spent 15 minutes in direct floor time; >50% of time was spent in spiritualcare. 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 Course c/b cardiac arrest with ROSC and continued GI bleeding. He was stabilized following MTP with 7 units pRBC and 4 units FFP as well as fluid resuscitation. Patient was intubated and sedated for airway protection. After cleared by GI and upperGI bleed was excluded, he was quickly??weaned off of vasopressors??and extubated. Patient required brief Precedex drip for agitation. No further signs of GI bleeding. He is now HD stable, though still altered, appropriate for transfer to the floor. CT HEAD WO CONTRAST Result Date: 03/16/2022 No acute intracranial abnormality. ?? CT FACIAL BONES WO CONTRAST IMPRESSION: 1. Acute fracture of bilateral nasal bones. 2. Hypoplastic bilateral maxillary sinuses with complete opacification of the right maxillary sinus. Extensive mucosal thickening of bilateral ethmoid and frontal sinuses. 3. Polyposis of bilateral nasal cavities. CT CERVICAL SPINE WO CONTRAST Result Date: 03/17/2022 1. No acute fracture of the cervical spine. 2. Multilevel degenerative changes with neural foraminalstenosis of varying degrees, most severely on the right at C5-C6. 3. Polypoid soft tissue in the nasal cavities likely represents sinonasal polyposis. PMH: No past medical history on file. Current Diet: NPO Diet prior to admission: Unable to obtain Current Medications: Current Facility-Administered Medications Medication Dose Route Frequency Provider Last Rate Last Admin ??? HYDROmorphone (PF) (DILAUDID) 0.5 mg/0.5 mL syringe 0.2 mg 0.2 mg intravenous Q4H PRN Kathleen Rockwell MD 0.2 mg at 03/19/22 0952 ??? lidocaine (PF) 10 mg/mL (1 %) injection 2 mg 2 mg intradermal PRN Gardenia Martin MD ??? melatonin tablet 5 mg 5 mg oral AT BEDTIME PRN Gardenia Martin MD ??? ondansetron (PF) (ZOFRAN) injection 4 mg 4 mg intravenous PRN Jem Nation MD ??? pantoprazole (PROTONIX) injection 40 mg 40 mg intravenous DAILY Rubens Hurtado MD 40 mg at 03/19/22 0756 ??? polyethylene glycol 3350 (MIRALAX) packet 17 g 17 g oral Daily PRN Gardenia Martin MD ??? ramelteon (ROZEREM) tablet 8 mg 8 mg oral AT BEDTIME PRN Gardenia Martin MD ??? senna (SENOKOT) tablet 1 Tablet 1 Tablet oral Daily PRN Gardenia Martin MD ??? sodium chloride 0.9 % (flush) flush 5 mL 5 mL intravenous Q8H Jem Nation MD 5 mL at 03/18/22 9269 Current Status: Cognitive Status: Lethargic requiring frequent verbal/tactile cues for maintaining eyes opened. Unintelligible verbal output marked by articulatory imprecision and reduced vocal intensity. Respiratory Status: Tolerating RA, SpO2 97%. Wet breath sounds/vocal quality. Clinical Swallow Evaluation: Patient/Family: was unable to consent to clinical bedside swallow exam secondary to cognitive communicative deficits Oral Peripheral Motor Exam: limited by no command following Face: Face was symmetrical with adequate strength and range of motion. Lips: Reduced strength and range of motion. Tongue: Limited ROM/strength, no attempts at protruding past lips Velum: Unable to view during the evaluation. Dentition: Adequate dentition. Laryngeal Excursion: Appreciated x1 with spontaneous throat clear/swallow with secretion Speech Intelligibility: Speech intelligibility is poor with reduced articulation and vocal intensity. Vocal Quality: Patient presents with a wet vocal quality. Cough: Currently unable to elicit a volitional cough. RN reports pt with a strong productive cough resulting in expectoration of thick phlegm earlier this AM Positioning: Seen at bedside for evaluation. Consistencies Tested: was assessed with oral swab, ice chips, thin liquids, and puree foods. Methods of Delivery: All items were administered by RAILROAD SIGNAL TECHNICIAN using a spoon, cup and straw. Oral Phase Findings: Reduced oral acceptance of all trials across presentation method and consistency. Reduced labial seal resulting in anterior loss of all consistencies and of thin clear secretions prior to providing PO trials. Min-no attempts at oral manipulation and A-P transfer of PO. RAILROAD SIGNAL TECHNICIAN suctioned lateral sulci for mod thin clear secretions following attempts at PO, suctioning and oral care limited as pt with reduced mouth opening to all stimuli.Pharyngeal Phase: No volitional swallow observedthroughout PO trials despite max encouragement, reflexive swallow x1 noted following weak throat clear with swallow. RN reports pt observed to have been swallowing secretions following strong cough earlier this AM.Esophageal Phase: Unable to assess due to insufficient quantities Compensatory Strategies: The following compensatory swallow strategies were attempted during today'sevaluation: Not indicated Patient/Family Education/Training: Topic: Patient/Family education and training was completed today including the role of Speech-Language Pathology, results of today's exam/recommendations, anatomy and physiology of the swallowing mechanism, rehab goals and discharge planning. Learner: patient Method of Education: Verbal Barriers to Learning/Education: AMS Patient: needs further instruction and education Assessment /Clinical Impressions: is a 61 y.o. male admitted with Cardiac arrest (HCC) [I46.9]. A clinical swallow evaluation was completed today by Speech Language Pathology secondary to concerns for oropharyngeal dysphagia, and risk of laryngeal penetration/aspiration. currently presents with a severe oral phase dysphagia characterized by reduced oral acceptance and min-no attempts at oral manipulation of bolus across bolus types or presentation methods. Reduced labial seal resulting in anterior loss of allPO and including anterior loss of thin clear secretions. Unable to assess pharyngeal stage as no volitional swallow observed despite max cues/encouragement. Reflexive swallow x1 noted throughout session. Etiology of dysphagia is likely neurogenic in setting of AMS and reduced level of alertness following cardiac arrest. remains at high risk of aspiration at this time. Compensatory strategies not able to be assessed at this time due to insufficient PO trials. Prognosis for improvement in swallow function is judged to be good at this time secondary to anticipated improvements in medical status. Anticipate patient will be able to tolerate PO during admission given anticipated improvementsin mental status. Functional Communication Measures ([place] [employer], 2002). The Functional Communication Measures (FCM???s) are a series of 7 point rating scales, ranging from least functional (Level 1) to most functional (Level 7). They have been developed by [employer] to describedifferent aspects of patient???s functional communication and swallowing abilities over the course of RAILROAD SIGNAL TECHNICIAN intervention. Swallowing Level 1: Individual is not able to swallow anything safely by mouth. All nutrition and hydration is received through non-oral means (e.g., nasogastric tube, PEG). GOALS: Pt will improve oropharyngeal swallow function to safely resume PO diet prior to discharge from facility. Plan /Recommendations: Patient will continue to benefit for further RAILROAD SIGNAL TECHNICIAN intervention in this setting to address dysphagia management and intervention needs. Referrals: Nutrition Recommendations: 1. Continue NPO with strict oral care 2. Consider short term alternate means of nutrition if consistent with POC RAILROAD SIGNAL TECHNICIAN to continue to follow pt during acute hospitalization under consultative model. Please contact primary treating RAILROAD SIGNAL TECHNICIAN for change in status requiring priority re-assessment. Sole Westbrook MS [facility]-RAILROAD SIGNAL TECHNICIAN Cortext preferred; #[phone] (Tuesday-Tuesday, [id number]) RAILROAD SIGNAL TECHNICIAN Float Pager #[phone] (Tuesday-Tuesday [phone]) cribAnita solares MD - 03/19/2022 0903 EDT Medicine Progress Note Service Date: 03/19/2022 Admit Date: 03/16/2022 21:11 Reason for Admission: 61 y.o. male admitted with a chief complaint of shock and now with a principaldiagnosis of LGIB 24 Hour Events: D/C Precedex 15:23, 3.16 sec pause on tele 03/19/22 08:56 Subjective/Objective Subjective This morning Antoine was laying in bed and was responsive to voice. He was responsive to questions with nods and shakes with unintelligible mumbles. He appeared disoriented. He is able to respond to pain. Bedside nurse reports small blood in stool. Spoke to patient's sister regarding baseline mental status. He lives independently, independent ADLs, and has normal baseline cognitive function. Review of Systems A ten point review of systems was performed and was negative except for pertinent positives noted inthe HPI Objective Vital Signs Temp: [36.4 ??C (97.5 ??F)-37.1 ??C (98.7 ??F)] , Heart Rate: [41 BPM-81 BPM] , Resp: [11-23] , BP: (130-168)/(70-108) , SpO2: [92 %-99 %] Physical Exam General: laying in bed, in no acute distress HEENT: facial trauma, bruising under eyes, cuts on lip, no gross facial deformities, sclera anicteric, conjunctiva clear, mucus membranes moist, no JVD appreciated Lungs: anterior lung riojas clear to auscultation bilaterally, no wheezes, rhonchi or rales Heart: regular rate and rhythm, normal S1 S2, no murmurs/rubs/gallops Abdomen: right upper and lower quadrant tenderness to light palpation Extremities: atraumatic, no lower extremity edema, clubbing or cyanosis, distal pulses 2+ at DP and radial bilaterally Skin: normal skin texture and turgor without rashes or lesions, no diaphoresis Neuro: able to nod and shake head to questions, mumbling unintelligibly, able to localize pain, moving limbs minimally, no obvious asymmetries Is PICC or central line present? No, PICC/Central line not present. Medications: reviewed Home Medications - lisinopril 5mg - prazosin 1mg capsule - sertraline 100 mg - trazodone 50mg Labs CBC: Recent Labs 03/16/22 1637 03/16/22 1910 03/16/22 2247 03/17/22 0526 03/18/22 0440 03/18/22 1228 03/19/22 0603 WBC 6.82 5.80 16.41* < > 13.75* 12.76* 12.01* RBC 3.56* 3.68* 5.43 < > 4.30* 4.49 4.90 HGB 11.6* 11.7* 16.6 < > 13.1* 13.8 14.7 HCT 33.6* 34.3* 49.9 < > 37.4* 38.5* 41.4 MCV 94 93 92 < > 87 86 85 MCH 32.6 31.8 30.6 < > 30.5 30.7 30.0 MCHC 34.5 34.1 33.3 < > 35.0 35.8 35.5 PLT 319 258 235 < > 173 166 194 NEUTROABS 4.04 3.29 13.77* -- -- -- -- < > = values in this interval not displayed. BMP: Recent Labs 03/16/22 2130 03/17/22 0525 03/17/22 0526 03/17/22 1732 03/17/22 1858 03/18/22 0440 03/18/22 1459 03/19/22 0603 NA 134* 134* -- 140 -- 144 141 137 K 3.5 4.2 -- 3.7 -- 3.9 4.0 3.7 CL 109 105 -- 112* -- 113* 115* 108 CO2 19* 21* -- 20* -- 24 19* 24 BUN 18 17 -- -- -- 11 -- 6* CREATININE 0.85 0.90 -- -- -- 0.80 -- 0.55* CALCIUM 6.4* 7.8* -- -- -- 7.7* -- 8.5 CAION -- -- 1.08* -- 1.11* -- -- -- MG 1.9 -- -- 1.6* -- 2.2 -- 1.9 PHOS 2.4* 2.0* -- 2.8 -- 3.3 -- -- LABALBU 2.5* 2.8* -- -- -- 2.7* -- -- Imaging No new Assessment/Plan Assessment Antoine Saez??is a 61 y.o.??male??with a PMH of anxiety, PTSD, 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 Course c/b cardiac arrest with ROSC and continued melena. S/p 7 units pRBC and 4 units FFP as well as fluid resuscitation (hgb never below 11). Patient was intubated and sedated for airway protection. Scoped by GI with no evidence of upper GI bleed. he was quickly??weaned off of vasopressors??and extubated. Briefly on chemical and mechanical restraints for agitation, now off both. He is now HD stable, though still altered, last bm brown with BRB on it. Given clinical course, unclear if patient was in hemorrhagic shock vs acute GIB w/vagal response and subsequent iatrogenic hypotension. No evidence of ongoing major GI bleed. Ongoing severe encephalopathy with improving EEG, plan to monitor for improvement of mental status, if not improving will pursue more intensive workup. Plan Principal Problem: Acute LGIB- possible hemorrhagic shock, cannot reliably clinically determine this vs iatrogenic shock Acute blood loss anemia s/p 7u pRBC though Hgb never < 11, CTA A&P without active extravasation, s/p EGD on 03/17 w/o UGI source. Most likely LGIB, suspect diverticular bleed. Per RN, BM this morning with insignificant blood. - GI consulted, appreciate recs - PPI IV daily - Maintain 2 large-bore peripheral IV - CTA A&P if additional large-volume hematochezia - CBC daily Acute Encephalopathy w/ unclear etiology. Toxic vs metabolic. Per family, lives independently, fully functional with all ADLs. Reportedly normal mental status on arrival to [facility] [place]. Reported purposeful movements after ROSC. No findings of seizure on EEG, no acutefindings on head CT. Less likely tox given clinical timeline. Restraints removed this morning. - Ordered buspirone 30 mg Q12Hrs - Delirium precautions -1:1 sitter - Ramelteon - RAILROAD SIGNAL TECHNICIAN eval. Cannot advance diet at this time. - CTM trend of mental status Leukocytosis - Likely attributable to shock. Elevated Procal, but no focal infectious symptoms identified. S/p vancomycin, piperacillin???tazobactam x1 day - F/u blood cultures (03/17) still pending HTN - Re-instate lisinopril 5 mg tablet provided improving clinical course tomorrow ? Nasal fracture/trauma Cleared by trauma surgery. - F/u with ENT in 1 week for nasal bone fractures. - Dilaudid 0.2mg Q4H for pain - Would discuss with ENT prior to any NG tube placement ?? PTSD Anxiety - Buspar as above. - Hold LENS BLOCKER sertraline, trazodone pending clinical course and clearing of his mental status. ?? Resolved or inactive hospital problems ?Cardiac arrest, resolved - s/p CPR x2 rounds w/ROSC prior to admission at [facility]. TTE wnl. May have been vasovagal event in the setting of acute GI bleed. Lactic acidosis - likely 2/2 shock, LGIB. Down-trended. Troponinemia - likely 2/2 shock vs CPR. Down-trended. Bradycardia, resolved -likely 2/2 Precedex. Improved after discontinuation of Precedex. Hypocalcemia - s/p calcium gluconate VTE Prophylaxis Seqential Compression Device Discharge Plan pending clinical result Consults GI Black Epps [facility] Internal Medicine Green Team 03/19/2022 9:03 I was present with the medical student for the history, exam, and medical decision making documented. I have edited the medical student note as appropriate. Kathleen Rockwell MD 03/19/2022 14:26 I have personally seen and examined the patient on 03/19/22. I reviewed the laboratory and radiographic results. The case was discussed with the medicine house staff and I agree with the findings above and plan of care documented. Please see my additional comments in blue. Anita Castellon MD Nick Epps MD - 03/18/2022 0953 EDT Gastroenterology Progress Note Service Date: 03/18/2022 Admit Date: 03/16/2022 21:11 ID: 61 y.o. male admitted as a transfer from [facility] [place], intially thought to be due to hematochezia, requiring MTP, intubation, sedation, and vasopressor support. S/p EGD 03/17/22 without without evidence of UGIB as source of patient's blood loss; signs of post-ischemic injury in gastric mucosa noted Interval Events: -Weaned off pressors, HDS -on sedation holiday, though intermittently on Precedex for combativeness -no further e/o bleeding from above or below. No BMs from below Subjective Spoke with bedside nurse as patient was heavily sedated and difficult to arouse. He intermittently wakes up and is confused, sometimes trying to get out of bed. Today, he has not had any bowel movements, emesis, complaints of abdominal pain, or jaundice. Objective Vital Signs Temp: [36.4 ??C (97.6 ??F)-37.3 ??C (99.1 ??F)] , Heart Rate: [48 BPM-100 BPM] , Resp: [9-24] , BP: (99-157)/(59-128) , SpO2: [97 %-100 %] Physical Exam General Appearance: minimally responsive, intubated Lung: normal work of breathing Heart: regular rate and rhythm Abdomen: soft, nondistended Extremities: no erythema or edema Skin: Skin color, temperature, turgor normal. No rashes or lesions Labs Reviewed: Recent Labs 03/17/22 0525 03/17/22 1732 03/18/22 0440 NA 134* 140 144 K 4.2 3.7 3.9 CL 105 112* 113* CO2 21* 20* 24 BUN 17 -- 11 CREATININE 0.90 -- 0.80 Recent Labs 03/16/22 1637 03/16/22 1910 03/16/22 2247 03/17/22 0526 03/17/22 1858 03/18/22 0041 03/18/22 0440 WBC 6.82 5.80 16.41* < > 19.74* 17.86* 13.75* HGB 11.6* 11.7* 16.6 < > 15.1 14.9 13.1* PLT 319 258 235 < > 206 212 173 MCV 94 93 92 < > 84 84 87 NEUTROABS 4.04 3.29 13.77* -- -- -- -- < > = values in this interval not displayed. Imaging Reviewed: No new imaging. Assessment/Plan Assessment Neeraj Saez is a 61 y/o male with a PMHx significant for HTN, HLD, mood disorder, previous alcohol use disorder who presents as a transfer from [facility] due to shock, initially thought to be due to GIB given hemtochezia; patient arrived to [facility] MICU on 3 pressors. Patient cardiac arrest with no palpable pulses, and he achieved ROSC after 2 minutes of CPR. He was hemodynamically unstable and required one round of MTP, 2L crystalloid solution, multiple pressors (levophed, epinephrine), and vasopressin. Patient has been extubated and is now hemodynamically stable. Prior Hgb was 11, with repeat Hgb now 15-16. CTA Abdomen/Pelvis at [facility] showed no active extravasation. Given the degree of pressor requirement, cardiac arrest but lack of corresponding amount of blood loss seen, less likely that this was due to hemorrhagic shock (though the patient's hematochezia certainly may have contributed to his worsening clinical status); suspect primary cardiac etiology. EGD revealed congestion of mucosa consistent with post-ischemic changes and no findings that would explain the patient's critical state/hematochezia. Likely given the patient's acute episode of hypotension with cardiac arrest, may see evidence of ischemia (e.g. shock liver, ischemic colitis) in the coming days. Plan #Lower GI bleed 1. If patient re-demonstrates large volume hematochezia, recommend repeat CT Angio A/P. 2. Continue alcohol cessation 3. Avoid NSAIDs moving forward MONICA SOLIS 03/18/2022 9:53 DWA Rios Thompson MD Gastroenterology and Hepatology Fellow #[id number] [facility] PA-C - 03/18/2022 0910 EDT Trauma Tertiary Circle Saw Operator Complaint: GI Bleed Admit Date: 03/16/2022 24 Hour Events: - EEG monitoring without seizure activity - EGD without identification of source of bleed Subjective: not able to obtain due to mental status Injuries Identified: - Bilateral nasal bone fractures - Fracture of right upper maxillary incisor VS: Vital Signs BP: (!) 157/128 Heart Rate: 62 BPM Resp: 16 Temp: 36.4 ??C (97.6 ??F) SpO2: 99 % O2 Device: None Limitations to participate in tertiary survey no Physical Exam: Head: normocephalic/atraumatic Eyes: pupils 3 mm, bilaterally reactive to light, extraocular muscles intact ENT: oropharynx clear abrasion with adherent scab right upper lip. Neck: supple, non-tender and trachea midline Respiratory: clear to auscultation bilaterally Cardiovascular: regular rate and rhythm, palpable peripheral pulses present Abdomen: soft, non-tender; non-distended, normal bowel sounds Back: no tenderness across thoracic/lumbar spine Pelvis: non-tender, stable to anterior/posterior/lateral compression Genitourinary: normal male genitalia gonzalez in place Musculoskeletal/Extremities: no palpable long bone deformities and motor/sensation grossly intact Skin: grossly intact Neurologic: alert, oriented, normal speech, no focal findings or movement disorder noted Pressure Ulcer Present on admission? No Lab results: Labs reviewed I&O's: 03/17 700 - 03/18 659 In: 4791.8 [I.V.:3741.8] Out: 8325 [Urine:8325] Assessment/Problems: Active Hospital Problems Diagnosis Date Noted ??? *Cardiac arrest ([facility]) 03/16/2022 ??? Facial trauma 03/17/2022 ??? Syncope 03/17/2022 ??? Hemorrhagic shock ([facility]) ([facility]) 03/17/2022 ??? Metabolic encephalopathy 03/17/2022 ??? Hypocalcemia 03/17/2022 ??? Lower GI bleed 03/16/2022 61 y.o. male admitted in transfer from [facility] after presenting in hemorrhagic shock with GIB, course complicated by syncopal event with fall in the [facility] [place] where he sustained facial trauma with nasal anddental fractures. Any pertinent new history? No Any significant new examination findings? No Med reconciliation complete? Defer to primary Final radiology reads checked? Yes Any significant new traumatic findings on radiologic reads? No Any significant Incidental findings on final radiologic reads? Bilateral adrenal adenomas Plan: Acs to sign off from trauma and GI bleeding stand point. Recommend pt f/u with his dentist as teeth that are fractured appear to be part of a bridge. Discharge Plan/Referrals Needed: Per primary team Prophylaxis: Service not responsible for VTE therapy Janis Portillo NP 03/18/2022 9:12 Chato Triplett PA-C 03/18/2022 14:23 Nolan Leong MD - 03/18/2022 0719 EDT Critical Care Progress Note Service Date: 03/18/2022 Admit Date: 03/16/2022 21:11 Reason for Admission to ICU: 61 y.o. male admitted with a chief complaint of hematochezia and now with a principal diagnosis of Cardiac arrest (HCC). Critical and life-threatening events over the past 24 hours: None Subjective/Objective Subjective Patient is sedated on precedex and unable to participate in the interview. Intermittently opens eyesto command and mumbles words. Review of Systems Unable to assess secondary to sedation. Objective Blood pressure 107/71, temperature 36.6 ??C (97.9 ??F), temperature source Axillary, resp. rate 10, height 167.6 cm (65.98), weight 68.8 kg (151 lb 10.8 oz), SpO2 97 %. Physical Exam General: Ill appearing, sedated, laying in bed with restraints on. Intermittently opens eyes to command. HEENT: Blood underneath the nares CV: Normal S1, S2, No M/R/G Respiratory: Anterior lungs CTAB, difficult to auscultate posterior Abdominal: Soft, nondistended Skin: Warm, dry, no rashes MSK: Normal muscle bulk Neuro: Moving all extremities, difficult to assess secondary to sedation Psych: Difficult to assess secondary to sedation Assessment/Plan Assessment Antoine Saez is a 61 y.o. 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 He was stabilized following MTP with 7 units pRBC and 4 units FFP as well as fluid resuscitation. Patient was intubated and sedated for airway protection. After cleared by GI and upper GI bleed was excluded, he was quickly weaned off of vasopressors and extubated. The lower GI bleed is presumed to be from diverticulosis as seenon CT though no signs of active extravasation on CTA and has been stable for greater than 24 hours. ACS trauma evaluation cleared the patient and he was extubated and he been hemodynamically stable following extubation. There have been no signs of further GI bleeding and Hgb is stable. We have been weaning off of precedex though the patient is intermittently combative and still very altered. We willcontinue to monitor off of precedex and evaluate his mental status as he is off the sedatives with plan to transfer to the floor when appropriate. Plan Pulmonary Patient was extubated last night following clearance from facial trauma and ACS. He has been protecting his airway and satting appropriately on room air. Cardiac Hemorrhagic shock Likely secondary to lower GI bleed (diverticular) with BRBPR with 2 stools in MICU with blood clots present though CT Angio A&P without active extravasation. GI performed EGD with no upper GI bleedseen. MTP with 7 units pRBC and 4 units FFP and fluid resuscitated with 4 L LR. MAPs remain stable off of pressors without evidence of further rebleeding. - Continue pantoprazole 40 mg IV two times daily, s/p 80 mg IV loading - Repeat CBC Q8Hrs - D/C'd octreotide with no evidence of bleeding varices Cardiac Arrest ? Patient was noted to have agonal respirations and without palpable pulse so 2 rounds of CPR were performed with [place] [facility] No signs of ischemia noted on EKG. Elevated troponin likely secondary to demand ischemia in the setting of hemorrhagic shock. - TTE ordered Bradycardia HR in the 40's, likely secondary to sedation. Will continue to monitor as he is weaned down off the precedex. -Precedex drip currently at 0.3 Neurologic Metabolic encephalopathy Reported purposeful movements after ROSC. Patient successfully extubated and weaning off of precedex. Mental status is still altered and patient intermittently combative though improving. Plan for haldol if he escalates. - Precedex drip weaning this morning, currently 0.3, continue to wean as tolerated - Haldol 2mg IV PRN for aggression - Ordered buspirone 30 mg Q12Hrs Renal Hypocalcemia Calcium of 7.8 likely secondary to administration of blood products. S/p calcium gluconate - Repeat CMP, continue to trend and replete as necessary. Lactic Acidosis Lactate of 4.1 down trending to 2.1, s/p hemorrhagic shock, likely secondary to mal perfusion. Low concern for other etiology of lactic acidosis. No longer need to trend. Monitor for signs of infection. Infectious Disease - Even though procalcitonin is 7.8, no localizing signs of infection and patient has remained afebrile and without leukocytosis. D/C abx today. - D/c pipercillin-tazobactam coverage - D/c'd vancomycin - F/u blood cultures Heme/Onc Acute blood loss anemia S/P MTP as above, presumed to be secondary to lower GI bleed. Continue to monitor for signs of further bleeding but stable at this time. - Hgb now 13.1 - Daily CBCs Leukocytosis Likely reactive secondary to GI bleed, no further signs of infection. Downtrending from 17.8 to 13.8. Monitor fever curve. - Daily CBC - Continue to monitor for signs of infection Endocrine Blood glucose has remained within normal limits without hypoglycemia. Concern for hypoglycemia given alcohol abuse history. - D5W in 1/2 NS at 100ml/hr - POCT glucose q 6 Hyperglycemia - Ordered glucose daily - Monitor with POC glucose Gastrointestinal Lower GI Bleed, presumed Likely lower GI bleed in the setting of BRBPR on presentation with dropping Hgb [place] [facility] GI performed EGD that was negative for upper GI bleed. CT abd/pelv that showed diverticular disease is the most likely source though negative CT Angio A&P for bleed. If patient shows signs of rebleeding will need to consider surgery vs. IR for management. - As above Diet Continue with NPO Musculoskeletal/Dermatology Nasal fracture/Trauma Nasal fracture seen on CT facial bones. No bleeding on exam. - ACS will perform tertiary exam 03/18 - Follow up with ENT in 1 week for nasal bone fractures Prophylaxis: - DVT: Hold given recent bleeding - PPx: Pantoprazole - Glucose: Glucose ordered q 6 hrs - Sleep: Remelteon - Pain: Comfortable. Medications ordered as needed - BM: Senna and Miralax Lines Arterial line: Left femoral A-line placed 03/17/22 Bilateral pIVs in R and L AC's IV access: PIV Communication Code Status: Full Code. Clinical Condition: Stable Critical Care Daily Checklist: Completed Enzo Parish MS4 Attending attestation statement: I was present with the medical student for the history, exam, and medical decision making documented. I have personally performed my own physical exam and medical decision making. I have verified and agree with (or, as indicated, have edited) the medical student's documentation. Extubated; doing better today. Clinical Condition: Antoine Saez is a critically ill 61 y.o. male. Over the past 24 hours, therehas been a high probability of sudden, clinically significant or life threatening deterioration in the patient???s condition, which include the following diagnoses which I have managed: Principal Problem: Cardiac arrest (HCC) Active Problems: Lower GI bleed Facial trauma Syncope Hemorrhagic shock (HCC-CMS) (HCC) Metabolic encephalopathy Hypocalcemia Critical Care time was provided in the form of interventions to treat and prevent further life threatening deterioration of the patient???s condition including ongoing monitoring and high complexity decision making regarding respiratory status, hemodynamics. My bedside involvement was required to monitor and direct the critical care that has been provided. Exclusive of procedures, my critical care time is 35 minutes. Nolan Leong MD MICU Attending 03/18/2022 Priyank Jacob MD - 03/17/2022 1733 EDT C-spine Clearance: Has patient had a CT of the cervical spine? Yes Report is final? yes Report has been read by [facility] attending radiologist? yes Final report negative for any cervical spine injury? yes If ???Yes?? to ALL questions the patient is cleared radiologically and collar can be removed If ???No?? to ANY of the questions discuss with team/spine consult Plan: Remove c-collar ACS to perform tertiary exam on 03/18 Remainder of care per primary team Rowdy Vicente RT - 03/17/2022 1604 EDT Respiratory Care Transport Note (Internal) Pre-transport - The airway was not suctioned. Heart Rate: 61 BPM, Resp: 20, SpO2: 100 %, BP: 125/75.The patient was placed on the transport vent with settings of RR 20 Vt 500 Peep +5 fio2 21%. The patient was noted to be stable on these settings. The resuscitation bag, mask and syringe were availableduring transport. Transport- The patient was transported to and from CT Scan without incident. The SpO2 remained at 98% throughout the transport and no critical changes in HR, BP or RR noted. Post-transport- Once the patient was returned to their room and placed on the ICU vent with previoussettings; a full vent check was performed. Please see the ventilator flowsheet for charting. All emergency equipment was returned to the patient's HOB. Comments: Patient tolerated well. ROWDY ROSS, RT 03/17/22 Mayco Sy MD - 03/17/2022 1319 EDT Video-EEG Preliminary Report - A preliminary report is available in the pended notes section. Further review is planned later today and again in the AM. Call if concerns of a seizure or worsening in cerebral function. - KJN Nick Epps MD - 03/17/2022 1202 EDT Brief Procedure Note Indication/HPI R/o UGIB EGD performed in MICU, patient previously intubated and sedated Medications Patient previously sedated Procedure Diagnosis Esophagus: -mild superfical erosion just above GE junction, likely due to og tube trauma Stomach: -congested and erythematous mucosa throughout, likely post-ischemic injury from patient's recent cardiac arrest -slight mosaic pattern to mucosa -small healed linear lesion, small amount of old blood- again, likely due to ischemic injury from cardiac arrest- these are not likely the cause of patient's large volume hematochezia Duodenum: -normal mucosa from bulb to second portion Recommendations -UGI tract unlikely the source of patient's original bleed -if patient re-bleeds, recommend repeat CT Angio A/P -EtOH cessation, avoid NSAIDs moving forward -rest of care per primary For details of procedure, please see full note in procedure or scanned media tab within [facility]ISM. NICK THOMPSON MD Gastroenterology and Hepatology #[id number] Dm Willis RT - 03/17/2022 0914 EDT Respiratory Progress Note Indications for Respiratory therapy: Vent Data Vitals: Heart Rate: 85 BPM, Resp: 20, SpO2: 100 % FIO2/O2 Device: , , , Intubated, 30% FI02 RT Orders: AC 500 x 20 +5 Action/Events Respiratory events; Pt tolerating current vent settings well. FI02 weaned to 21% without issue. BBS are slightly coarse. Suctioned for moderate amounts of thick white secretions. Laceration noted on right side of upper lip. Commercial tube wooten being moved only to the left and center at this time. DM OHARA, RT 03/17/22 Respiratory Extubation Note Pre-procedure - The extubation order and correct patient verified. The procedure was coordinated with the RN. Procedure - The patient's oral pharynx and ETT were suctioned for Secretion Amount: Scant Secretion Color: Clear, White and Secretion Consistency: Thin. A cuff leak was present. The patient was placed on 100% resuscitation bag and the ventilator placed in standby. The patient was extubated and placed on O2 Device: None. No stridor was noted and the patient was able to produce voice. DM OHARA, 03/17/22 Rubens Mclean MD - 03/17/2022 0745 EDT Critical Care Progress Note Service Date: 03/17/2022 Admit Date: 03/16/2022 21:11 Reason for Admission to ICU: 61 y.o. male admitted with a chief complaint of hematochezia and now with a principal diagnosis of Cardiac arrest (HCC). Critical and life-threatening events over the past 24 hours: Hemorrhagic shock secondary to presumedlower GI bleed requiring MTP, intubation and sedation for airway protection as well vasopressor support. Subjective/Objective Subjective Patient is intubated and sedated, unable to participate with exam. He does make intentional movement(attempting to reach for OG tube). Review of Systems Unable to assess secondary to sedation. Objective Blood pressure 128/76, temperature 37 ??C (98.6 ??F), resp. rate 20, height 167.6 cm (65.98), weight 68.8 kg (151 lb 10.8 oz), SpO2 98 %. Physical Exam General: Intubated and sedated HEENT: C-collar in place, blood underneath the nares CV: Normal S1, S2, No M/R/G Respiratory: Anterior lungs CTAB, difficult to auscultate posterior Abdominal: Soft, nondistended Skin: Warm, dry, no rashes MSK: Normal muscle bulk Neuro: Difficult to assess secondary to sedation Psych: Difficult to assess secondary to sedation Assessment/Plan Assessment Antoine Saez is a 61 y.o. 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 He was stabilized following MTP with 7 units pRBC and 4 units FFP as well as fluid resuscitation. Patient was intubated and sedated for airway protection though he has been weaned off of vasopressors, no long requiring blood pressure support. At this point it is a lower GI bleed from presumed diverticulosis as seen on CT thoughno signs of active extravasation on CTA. GI performed EGD that was able to rule out any upper GI bleed. Course was complicated by patient falling after the initial bleeding at [facility] that resulted in fractures to the nasal bones though no abnormalities seen on CT C-spine or CT head. We are awaiting ACS trauma evaluation to evaluate for removal of C-collar though patient has been cleared from facial traumastandpoint for extubation. We will continue to wean sedation to evaluate the patients mental status and evaluate if he can protect his airway while monitoring for signs of GI rebleed. He appears to be stable at this time and plan is to perform trial of extubation if cleared by trauma surgery and mental status allows. Plan Pulmonary Intubated and sedated for airway protection - Plan for trial of extubation if cleared by ACS surgery and patient is able to protect airway off of sedation. - SBT this afternoon after trauma eval. Cleared by ENT Cardiac Hemorrhagic shock Likely secondary to lower GI bleed (diverticular) with BRBPR with 2 stools in MICU with blood clots present though CT Angio A&P without active extravasation. GI performed EGD with no upper GI bleedseen. MTP with 7 units pRBC and 4 units FFP and fluid resuscitated with 4 L LR. MAPs stable with no evidence of active bleeding and patient weaned off of pressors. - Continue pantoprazole 40 mg IV two times daily, s/p 80 mg IV loading - Repeat CBC Q8Hrs - Fever prevention to 37C, patient remains afebrile - D/C'd octreotide with no evidence of bleeding varices - Hold tagged RBC scan for now unless further signs of active bleeding. Cardiac Arrest ? Patient was noted to have agonal respirations and without palpable pulse so 2 rounds of CPR were performed with ROSC at [facility] No signs of ischemia noted on EKG. Elevated troponin likely secondary to demand ischemia in the setting of hemorrhagic shock. ?? Neurologic Metabolic encephalopathy Reported purposeful movements after ROSC. Patient remains on fever prevention protocol with goal of 37C. Plan for sedation holiday today to evaluate patients mental status. - Ordered buspirone 30 mg Q12Hrs - Ordered fever prevention to 37C - wean sedation ?? Renal Hypocalcemia Calcium of 7.8 likely secondary to administration of blood products. S/p calcium gluconate - Repeat CMP, continue to trend and replete as necessary. Lactic Acidosis Lactate of 4.1 down trending to 2.3, s/p hemorrhagic shock, likely secondary to mal perfusion. Low concern for other etiology of lactic acidosis. No longer need to trend. Monitor for signs of infection. ?? Infectious Disease - No localizing source of infection though plan for empiric coverage of intra- abdominal source with pip-tazo in setting of shock. - Continue pipercillin-tazobactam coverage - discontinue vancomycin - F/u blood cultures - check procal in AM ?? Heme/Onc Acute blood loss anemia S/P MTP as above, presumed to be secondary to lower GI bleed. Continue to monitor for signs of further bleeding but stable at this time. - Hgb now 16.7 Leukocytosis Likely reactive secondary to GI bleed, no further signs of infection. Remains afebrile though on ArcticSun. Monitor fever curve. - Repeat CBC - Continue to monitor for signs of infection - On Pip-urbano 4.5g Q4H (ends 03/23) Endocrine - POCT glucose q 6 Hyperglycemia - Ordered glucose daily - Monitor with POC glucose ?? Gastrointestinal Lower GI Bleed, presumed Likely lower GI bleed in the setting of BRBPR on presentation with dropping Hgb at [facility]. GI performed EGD that was negative for upper GI bleed. CT abd/pelv that showed diverticular disease is the most likely source though negative CT Angio A&P for bleed. If patient shows signs of rebleeding will need to consider surgery vs. IR for management. - As above Diet Continue with NPO ?? Musculoskeletal/Dermatology Nasal fracture/Trauma Nasal fracture seen on CT facial bones. No bleeding on exam. - ACS will evaluate the patient for tertiary trauma exam - Facial Trauma cleared the patient for extubation from facial fracture standpoint. ?? Prophylaxis: - DVT: Hold given recent bleeding - PPx: Pantoprazole - Glucose: Glucose ordered q 6 hrs - Sleep: Remelteon - Pain: Comfortable. Medications ordered as needed - BM: Senna and Miralax ?? Lines Arterial line: Left femoral A-line placed 03/17/22 Central line: Right femoral line placed 03/16/22 IV access: PIV DVT Prophylaxis: Contraindicated GI Prophylaxis: Yes Skin Integrity Risk Factors: Yes Pressure Ulcer / Breakdown Present?: No Communication Updates: (Plan to update family today) Code Status: Full Code. Daily Goals: Wean sedation. Monitor hemodynamics. CTA if bleed. Trauma eval to determine extubation plan. Clinical Condition: Stable Critical Care Daily Checklist: Completed Enzo Марина MS4 I was present with the medical student for the history, exam, and medical decision making documented. I have edited the medical student note as appropriate. Edits made in green. Rubens Hurtado MD 03/17/2022 14:10 Internal Medicine, PGY-3 #0347/Cortext Associated attestation - Aylin Saenz MD - 03/17/2022 1531 EDT Attending attestation statement: I saw and examined the patient with the resident and agree with thefindings and plans as documented, and as amended in blue. Clinical Condition: Antoine Saez is a critically ill 61 y.o. male. Over the past 24 hours, therehas been a high probability of sudden, clinically significant or life threatening deterioration in the patient???s condition, which include the following diagnoses which I have managed: Principal Problem: Cardiac arrest (HCC) Active Problems: Lower GI bleed Facial trauma Syncope Hemorrhagic shock (HCC-CMS) (HCC) Metabolic encephalopathy Hypocalcemia Critical Care time was provided in the form of interventions to treat and prevent further life threatening deterioration of the patient???s condition including: Management of mechanical ventilation, Observation before/during/after ventilator weaning, Neurological monitoring, Management of pain and sedation, Fluid and electrolyte management, Antimicrobial therapy, Management of vasopressors, GI prophylaxis, and Updating family during rounds, and high complexity decision making regarding candidacy forextubation and need for additional imaging studies and / or interventional radiology interventions a My bedside involvement was required to monitor and direct the critical care that has been provided. Exclusive of procedures, my critical care time is 180 minutes. Aylin Saenz MD MICU Attending 03/17/2022 Lana Andrade RN - 03/17/2022 0641 EDT Pt off all pressors at this time. A-line w/good waveform. H&H stable. No rectal bleeding noted. Octreotide gtt infusing per orders. Urine blood tinged: MICU team aware. Pt failed SBT. Intermittently restless and agitated w/spontaneous movement to all extremities. Knee immobilizer placed on left leg. Pt continues on artic sun protocol. Hemodynamically stable at this time. Lana Dupree RN - 03/17/2022 0639 EDT FOUR EYES SKIN ASSESSMENT Four Eyes skin assessment was performed on admission to the unit by Lana Andrade RN and Kim Sharp RN Areas of concern: [] Occiput [x] Nose [] Ear [x] Lip [] Scapula [] Spinous process [] Shoulder [] Elbow [] Iliac crest [] Sacrum/coccyx [] Ischial tuberosity [] Trochanter [] Knee [] Malleolus [] Heel [] Toe [] Other: Patient has the following devices at the time of this assessment: ETT, Gonzalez, SCD sleeves, Restraints and Cervical collar . Device related pressure injury present? No Instructions: ??? Add LDA for any identified wounds ??? Add Paradise image for any suspected PI ??? Order wound consult if suspected PI identified 03/17/2022 6:39 Joby Reinoso [facility] - 03/17/2022 0005 EDT Pharmacy Note: Vancomycin Initial Regimen Antoine Saez is a 61 y.o. male ordered to receive vancomycin 1000 mg IV q12h for the treatment of undifferentiated shock. Other antibiotics include: piperacillin-tazobactam 4.5g IV q8h. 24 hour vitals and labs: Temp (24hrs), Av.1 ??C (96.9 ??F), Min:34.4 ??C (93.9 ??F), Max:37.1 ??C (98.7 ??F) Recent Labs 03/16/22 1453 03/16/22 2130 CREATININE 0.72 0.85 BUN 20 18 Assessment and Plan: 1). Current goal trough concentration is 10-20 mcg/ml. 2). Administer vancomycin 1500 mg IV x1 load now and start maintenance regimen of vancomycin 750 mg IV q12h 03/17 @ 0900. 4). Pharmacy will order a trough concentration on 03/18 prior to PM dose or earlier if indicated. 5). Please continue to monitor renal function, WBC trend, fever curve, and culture results. Joby Alcantara, ErnestoD, ALLISON, BCPS Pharmacist (Night) Lead - Emergency Medicine/Critical Care Lana Dupree RN - 03/17/2022 0000 EDT Data: Pt transfer [place] [facility] [place]/p GI bleed w/unwitnessed fall after ambulating back from bathroom w/PEA arrest and ROSC after two minutes. Intubated for airway protection. [facility] Levo, vaso, and epi gtts infusing. Pt w/d to pain, does not follow commands. BRONSON spontaneously. Intermittently agitated. NSR-Sinus Tach on monitor. Pt tolerating vent settings. Small oral bleeding present from lacerated upper lip. Broken front tooth noted. OGT placement confirmed via air instillation and XRAY. One medium dark bloody BM during transfer to [facility]. New gonzalez placed w/o complications.Right femoral CVC w/good blood return. Left femoral a-line placed by Dr. Hoff w/good waveform. Action: Propofol gtt and prn fentanyl for vent compliance and agitation per orders. SWRS for pt safety. Meds and lab per orders. Gentle oral care provided. Octreotide gtt infusing. Additional unit PRBCgiven along w/3 FFP. Artic Sun protocol for temp management started for temp goal of 37 degrees per orders. Response: Pt hemodynamically stable: remains on pressor support. No additional BMs at this time. No bleeding noted. H&H stable. Continues to tolerate vent settings. LANA ANDRADE RN 03/17/2022 6:24 Martha Quesada MD - 03/16/2022 3105 EDT [facility] for [facility] consult to follow 03/17/2022. 61M w/ HTN, mood disorder who presented to [facility] with acute rectal bleeding, initially stable but subsequently found to be unresponsive and pulseless w/ ROSC achieved after CPR x2 minutes with ongoing rectal bleeding, concerning for hemorrhagic shock, transferred to [facility] MICU, intubated and on multiple vasopressors. No prior to admission or witnessed hematemesis, melena. NGT also without bloody output. No prior colonoscopies. Workup also notable for unrevealing CTA A/P at OSH. Hgb 12.4 (no baseline) --> 11.6-->11.7 (from 03/16/22 ~1500 to ~1910). Platelets within normal limits. INR 1.1 Per MICU team, patient continues to pass both blood and blood clots, ongoing resuscitation with uptitration of vasopressors and transfusion of multiple blood products. - CTA A/P (03/16/2022): FINDINGS: Lungs: There are slight dependent atelectatic changes at the lung bases. Heart: There are coronary artery calcifications. ?? Aorta: There are arteriosclerotic changes of the aorta. Celiac trunk and mesenteric arteries: No occlusion or significant stenosis. Renal arteries: No occlusion or significant stenosis. Right iliac arteries: No occlusion or significant stenosis. Left iliac arteries: No occlusion or significant stenosis. ?? Liver: The liver is within normal limits. Gallbladder and bile ducts: Small gallstones within the gallbladder are not excluded. Pancreas: The pancreas is within normal limits. Spleen: The spleen is unremarkable. Adrenal glands: There is a small right adrenal adenoma measuring approximately 1.5 cm. There is a left adrenal adenoma measuring approximately the 2.1 cm. Kidneys and ureters: The kidneys are within normal limits. Stomach and bowel: A small metallic foreign body within the stomach is suspected. This measures approximately 4 mm. Clinical correlation is recommended. There is contrast within the bowel. Appendix: The appendix is visualized and is within normal limits. Intraperitoneal space: Unremarkable. No free air. No significant fluid collection. Lymph nodes: No enlarged lymph nodes. ?? Urinary bladder: There is a Gonzalez catheter within a collapsed urinary bladder. The urinary bladder wall is thickened, however, this could be due to collapsed nature of the urinary bladder. Reproductive: The prostate and seminal vesicles are within normal limits. Bones/joints: There are degenerative changes of the thoracic and lumbar spines. There is degenerative disc disease at L4-L5. Soft tissues: Unremarkable. ?? IMPRESSION 1. Coronary artery calcifications. Arteriosclerotic changes of the aorta. 2. Suspect metallic foreign body within the stomach. NG tube within the stomach. 3. Small gallstones within the gallbladder are not excluded. 4. Bilateral bilateral adrenal adenoma. 5. Gonzalez catheter within a collapsed urinary bladder. The bladder wall appears thickened. This could be due to the collapsed nature of the urinary bladder. I/P: Hemorrhagic shock from GI bleeding. While brisk upper GI bleeding could (and should) be considered, the lack of bloody output from NGT suggests against this origin, favoring instead a lower GI etiology such as diverticular, vascular ectasias, ischemic. He remains hemodynamically unstable and tenuous despite aggressive resuscitation at this time and thus requires further medical optimization prior to consideration of any endoscopic procedure. Moreover, lower endoscopy at this time will not be beneficial currently either diagnostically or therapeutically given ongoing hemorrhage and the patient being un-prepped. Thus, recommend repeat angiography as first diagnostic (and potentially therapeutic) step once stabilized. - medically stabilize, repeat CT angio A/P +/- IR embolization - will re-evaluate further workup/management from a GI perspective tomorrow (03/17/22) pending clinical trajectory, repeat CT angio findings documented in this encounter H&P Notes Jem Nation MD - 03/17/2022 0197 EDT Endoscopy Sedation for Procedure History & Physical Date: 03/17/2022 Time: 9:26 Location: [facility] Medical Intensive Care Unit Planned Procedure: EGD Chief Complaint/Indications for Procedure: Rectal bleeding. History Previous Complication with Sedation and/or Anesthesia? No Allergies: No Known Allergies Current Medications: Current Facility-Administered Medications Medication Route Frequency acetaminophen (TYLENOL) tablet 650 mg per ng tube Q6H Or acetaminophen (TYLENOL) suppository 650 mg rectal Q6H busPIRone (BUSPAR) tablet 30 mg per ng tube Q12H calcium GLUconate 100 mg/mL (10%) injection dextrose 50 % solution 12.5 g intravenous PRN diphenhydrAMINE (BENADRYL) injection 25 mg intravenous Once PRN fentaNYL citrate (PF) injection 50 mcg intravenous Q30 MINUTES PRN glucagon injection 1 mg intramuscular PRN insulin aspart U-100 (NOVOLOG FLEXPEN) injection subcutaneous TID WC sodium chloride 0.9 % (NS) infusion intravenous PRN Or lactated ringers (LR) infusion intravenous PRN lidocaine (PF) 10 mg/mL (1 %) injection 2 mg intradermal PRN lidocaine (PF) 10 mg/mL (1 %) injection 2 mg intradermal PRN lidocaine (PF) 10 mg/mL (1 %) injection 2 mg intradermal PRN magnesium sulfate 2 g in water 50 mL intravenous PRN melatonin tablet 5 mg oral AT BEDTIME PRN norepinephrine (LEVOPHED) 8 mg in NS 250 mL infusion intravenous CONTINUOUS octreotide (SANDOSTATIN) 500 mcg in sodium chloride (NS) 0.9 % 250 mL infusion intravenous CONTINUOUS ondansetron (PF) (ZOFRAN) injection 4 mg intravenous PRN pantoprazole (PROTONIX) injection 40 mg intravenous BID piperacillin-tazobactam 4.5 g in sodium chloride (NS MBP) 100 mL IVPB intravenous Q8H polyethylene glycol 3350 (MIRALAX) packet 17 g oral Daily PRN potassium chloride in water infusion 20 mEq intravenous PRN propOFol (DIPRIVAN) 1000 mg in 100 mL infusion intravenous CONTINUOUS ramelteon (ROZEREM) tablet 8 mg oral AT BEDTIME PRN senna (SENOKOT) tablet 1 Tablet oral Daily PRN sodium chloride 0.9 % (flush) flush 5 mL intravenous Q8H sodium chloride 0.9 % (flush) flush 5 mL intravenous PRN vancomycin (VANCOCIN) 750 mg in dextrose 5% (D5W) 150 mL IVPB intravenous Q12H Past Medical History: No past medical history on file. Social History: No past surgical history on file. Social History Tobacco Use Smoking status: Not on file Substance Use Topics Alcohol use: Not on file Family History: No family history on file. Review of Systems as pertinent: Physical Exam Vital Signs: BP 119/82 Temp 37.1 ??C (98.8 ??F) (Esophageal) Resp 20 Ht 167.6 cm (65.98) Wt68.8 kg (151 lb 10.8 oz) SpO2 100% BMI 24.49 kg/m?? Heart Examination: Cardiac Regularity: Regular Respiratory Examination: Respiratory Pattern: Other (Comment), Regular Breath Sounds Right: Clear Breath Sounds Left: Clear Abdominal Examination: Soft, non-tender, bowel sounds normal, no masses, no organomegaly Additional physical exam related to the proposed procedure, patient activity, disease state and treatment as pertinent: Assessment Previous complications with sedation or anesthesia?: No Airway Concerns: None/NA Anesthesia Classification: ASA 4 Plan: Proceed with sedation for procedure Fasting Time: Patient Appropriate Candidate for Planned Sedation?: Yes NICK THOMPSON MD 03/17/2022 9:26 Gardenia Porter MD - 03/16/2022 2135 EDT Critical Care History & Physical Service Date: 03/17/2022 Admit Date: 03/16/2022 21:11 Assessment Antoine Saez is a 61 y.o. 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 CT Angio A&P without active extravasation. OG tube suctioned without presence of blood. ACS, GI, and IR consulted. S/p 7 units pRBC and 4 units FFP. S/p 4 L LR after arrival. MAP stable with no evidence of bleeding currently. Plan on repeat CT A&P if bleeding recurrs. - Continue pantoprazole 40 mg IV two times daily, s/p 80 mg IV loading - Continue octreotide infusion 50 mcg/hr - Ordered buspirone 30 mg Q12Hrs - Wean norepinephrine as able - Discontinue vasopressing when able - Ordered CBC Q8Hrs - Ordered NM Gastrointestinal bleeding - Ordered fever prevention to 37C - Ordered TTE Neurologic Metabolic encephalopathy Reported purposeful movements after ROSC.Plan for sedation holiday in AM with fever prevention protocol with goal of 37C until then. - AM sedation holiday - Ordered buspirone 30 mg Q12Hrs - Ordered fever prevention to 37C Renal Hypocalcemia Likely due to administration of blood products. S/p calcium gluconate - Ordered CMP in AM Infectious Disease Hemorrhagic shock No localizing source of infection, however, Hgb never measured under 11. Plan for empiric coverage with pip-tazo and vanc in setting of shock. - Continue pipercillin-tazobactam - Continue vancomycin - F/u blood cultures - F/u UA Heme/Onc Acute blood loss anemia Likely due to lower GI bleed. - As above Endocrine Hyperglycemia - Ordered glucose daily Gastrointestinal - Diet: NPO Lower GI Bleed BRBPR on presentation with dropping Hgb at [facility]. No blood seen with suction of OG tube suggestive oflower GI bleed. Negative CT Angio A&P for bleed. - As above Musculoskeletal/Dermatology Nasal fracture/Trauma Nasal fracture seen on CT facial bones. No bleeding on exam. - Discuss tertiary trauma eval with ACS in AM Prophylaxis: - DVT: Hold - PPx: Pantoprazole - Glucose: Glucose ordered daily - Sleep: Medications ordered as needed - Pain: Comfortable. Medications ordered as needed - BM: Medications ordered as needed Lines Arterial line: Left femoral A-line placed 03/17/22 Central line: Right femoral line placed 03/16/22 IV access: PIV Medicine Reconciliation Not performed Code Status: Full Subjective Chief Complaint: Bright red blood per rectum HPI: Antoine Saez is a 61 y.o. 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 Mr. Saez was reported to have initially presented to [facility] for bright red blood per rectum with adrop in her hemoglobin. He was initially hemodynamically stable and the case was discussed with gastroenterology at [facility] who recommended admission and colonoscopy. However, Mr. Saez had a syncopal episode and collapsed in his room and was found down surrounded by bright red blood with agonal respirations followed by a loss of pulse. He received 2 rounds of CPR with ROSC. After ROSC he was reported to have purposeful movement, but appeared altered and so he was intubated for airway protection. Due to concern for hemorrhagic shock he was given 4 units of PRBCs and [address] head, facial bones, and C-spine were ordered which showed and showed a bilateral nasal bone fracture. A CT angioabdomen pelvis was ordered which showed no active extravasation. A central line was placed under sterile conditions in the right femoral vein he was started on norepinephrine. He was then transferred to the [facility] medical ICU for further management. Transport team reports that he received an additional 2 units of packed red blood cells in route. Hehad 2 additional large volume stools upon arrival. ROS: The patient is intubated and sedated limiting ability to assess subjective complaints Objective Vital Signs: Blood pressure (!) 132/106, temperature 36.4 ??C (97.5 ??F), temperature source Esophageal, resp. rate 19, height 167.6 cm (65.98), weight 68.8 kg (151 lb 10.8 oz), SpO2 100 %. Ventilator Settings: Mode: VC-AC Rate: 20 bmp Vt 500 mL PS: PEEP 5 cmH2O FiO2: 40 % Vasoactive Med Infusions: - Norepinephrine 10 mcg/min - Vasopressin 0.04 units/min Sedative Med Infusions: - Propofol 10 mcg/kg/min Physical Exam General: Intubated and sedated HEENT: MMM CV: Tachycardia with regular rhythm with no extra heart sounds Resp: CTAB, normal work of breathing Abdominal: Soft, non-tender, and non-distended. Bloody stool present on presentation Lower extremities: No edema, DP and PT pulses present Skin: No rashes or skin changes Neuro: Intubated and sedated. Ins/Outs: Intake/Output Summary (Last 24 hours) at 03/17/2022 0122 Last data filed at 03/17/2022 0100 Gross per 24 hour Intake 729.84 ml Output 915 ml Net -185.16 ml Labs Reviewed. Imaging Reviewed. CT ABDOMEN PELVIS W CONTRAST Result Date: 03/16/2022 1. Marked distention of the urinary bladder. The urinary bladder wall is mildly thickened given degree of distention. The prostate is mildly enlarged and indents the base of the bladder. A 2.6 cm diverticulum is noted near the right UVJ. 2. Colonic diverticulosis without evidence of acute diverticulitis. 3. Moderate gaseous distention of the rectum, nonspecific. CT ANGIO ABDOMEN PELVIS Result Date: 03/16/2022 1. Coronary artery calcifications. Arteriosclerotic changes of the aorta. 2. Suspect metallic foreign body within the stomach. NG tube within the stomach. 3. Small gallstones within the gallbladder arenot excluded. 4. Bilateral bilateral adrenal adenoma. 5. Gonzalez catheter within a collapsed urinary bladder. The bladder wall appears thickened. This could be due to the collapsed nature of the urinary bladder. THIS DOCUMENT HAS BEEN ELECTRONICALLY SIGNED BY AMAN DEVI MD FOR ANY QUESTIONS OR CONCERNS REGARDING THIS REPORT PLEASE CALL [facility] AT [phone] CT CERVICAL SPINE WO CONTRAST Result Date: 03/16/2022 IMPRESSION: 1. Acute fracture of bilateral nasal bones. 2. Hypoplastic bilateral maxillary sinuses with completeopacification of the right maxillary sinus. Extensive mucosal thickening of bilateral ethmoid and frontal sinuses. 3. Polyposis of bilateral nasal cavities. CT FACIAL BONES WO CONTRAST Result Date: 03/16/2022 IMPRESSION: 1. Acute fracture of bilateral nasal bones. 2. Hypoplastic bilateral maxillary sinuses with completeopacification of the right maxillary sinus. Extensive mucosal thickening of bilateral ethmoid and frontal sinuses. 3. Polyposis of bilateral nasal cavities. CT HEAD WO CONTRAST Result Date: 03/16/2022 IMPRESSION: 1. Acute fracture of bilateral nasal bones. 2. Hypoplastic bilateral maxillary sinuses with completeopacification of the right maxillary sinus. Extensive mucosal thickening of bilateral ethmoid and frontal sinuses. 3. Polyposis of bilateral nasal cavities. Cardio Reviewed. - 03/16/22 ECG: Tachycardia without evidence of ischemia Micro Reviewed. Gardenia Martin MD Internal Medicine PGY-2 Associated attestation - Shanika Hernández MD - 03/17/2022 0211 EDT ATTENDING ATTESTATION I have discussed the case with the resident. I have personally performed a history, physical exam, and my own medical decision making. I have reviewed the note and agree with the findings and plan withthe following additions : Mr. Saez is a 61 y.o. male, currently located in bed M415/M415-01 with a hx of EtOH use (no EtOHin approx 2 mo) otherwise very healthy per family now presenting with GI bleeding, unwitnessed fall and cardiac arrest with ROSC and continued GI bleeding prior to transfer. Upon my evaluation, this patient had a high probability of imminent or life- threatening deterioration due to GI bleeding and post cardiac arrest which required my direct attention, intervention, and personal management. I have personally provided 120 minutes of critical care time exclusive of time spent on separately billable procedures. Time includes review of laboratory data, radiology results, discussion with consultants, and monitoring for potential decompensation. Interventions were performed as documented below. Shanika Hernández MD Critical Care Medicine 03/16/2022 documented in this encounter Procedure Notes Yaritza Espino RN - 03/22/2022 1607 EDT Cortrack Feeding Tube Placement Procedure Note Title of Procedure: Cortrack Feeding Tube Placement Date Performed: 03/22/2022 Time Performed: 1330 Performed by: Keke Espino Indications and/or Provisional Diagnosis: FTT poor PO intake dysphagia Condition: The condition of the patient was Fair Consent: The patient/surrogate has consented after being informed of the risks, benefits and alternatives Ordered By: Broderick Time Out: A time-out was completed prior to procedure verifying correct patient, procedure, site, positioning, and special equipment if applicable. Type of Anesthesia or Sedation: Lidocaine gel Procedure Technique/Description: Performed tube placement using the Cortrak EAS system2 X-Ray Confirmation: Yes Final Tube Position: Small bowel Exposed Catheter Length (cm): @ 85cm Complications: None YARITZA ESPINO RN 03/22/2022 16:07 Mayco Sy MD - 03/17/2022 6324 EDTAssociated Order(s): EEG WITH PROLONGED BEDSIDE VIDEO MONITORING [facility] Name: Antoine Saez Clinical Neurophysiology Laboratory [address] : 1960 [place], [place] Date: 03/17/2022 Video-Electroencephalographic Monitoring Report Referring Physician: Ruby Irby P* Clinical Indication: A 61 y.o. man referred for evaluation of acute encephalopathy. Medications: Propofol infusion through afternoon on 17 MARCH, dexmedetomidine, buspirone, fentanyl, haloperidol and others reviewed and as documented in the electronic record Technical Description: Continuous digital video-digital electroencephalographic monitoring is performed in the ICU. Silver/silver chloride EEG electrodes are placed according to the International 10-20 system as well as anterior temporal electrodes, a CPz recording reference and FCz ground contract. An ECG channel is also monitored. Caregivers are encouraged to maintain an event diary and to press and Event Button in the event of a seizure-like spell (Target Event). The entire EEG dataset is reviewed by the attending physician. No pain assessment for this procedure is necessary. Vitals: 03/17/22 1100 03/17/22 1152 03/17/22 1200 03/17/22 1300 BP: 122/78 135/74 Resp: Temp: 36.9 ??C (98.4 ??F) 37 ??C (98.6 ??F) 37 ??C (98.6 ??F) TempSrc: Esophageal Esophageal SpO2: 100% 99% 99% Weight: Height: Findings: The monitoring period begins on 17 MAR 2022 at 08:40 and this report summarizes findings until 18 MARCH at 12:30. Resting cerebral background activity throughout the day on 17 MARCH is remarkable for diffuse low amplitude delta and theta activity with attenuation of nearly all faster frequencies aside from diffuse frontally maximal 10-12 Hz low amplitude fast activity (this faster activity often attributed to a propofol effect). There are occasional 2-10 s runs of frontally maximal moderate amplitude rhythmic delta activity. With stimulation there is the appearance of diffuse muscle artifact and a reduction in faster frequencies. The propofol infusion is discontinued and the patient is extubated by 18:15. During this time activity during wake-drowsiness is remarkable for 6-9 Hz rhythmic activity over the posterior head regions,an increase in low amplitude faster frequencies, frequent low-moderate amplitude frontally maximal delta and theta waves as well as more diffuse admixed theta activity. During drowsiness there are frequent runs of symmetric FIRDA. During light sleep there are occasional low amplitude sleep spindles. REM sleep is not present. Impression: No seizures recorded. EEG findings are most consistent with initial moderately severe diffuse dysfunction that improves over the course of the recording with a remaining mild-moderate diffuse encephalopathy. Clinical Correlation: A medication effect likely contributes to the severity of these initial findings. A diffuse encephalopathy remains present with no etiologically specific features. No interictal epileptiform discharges or seizures are recorded. Mayco Solomon MD ABPN Certified, Neurology and Clinical Neurophysiology 12:58 03/17/2022 atsJem vazquez MD - 03/16/2022 2100 EDTProcedure(s): INSERT ARTERIAL LINEPre- Procedure Diagnose(s): Shock (HCC-CMS) (HCC) Pulmonary & Critical Care Medicine Fellow Procedure Note Procedure Type: Arterial Line Placement. Date Performed: 03/16/22. Time Performed: 2100. Performed by: Jem Chávez MD, performed the procedure under the supervision of Shanika Hernández MD, who was present during the entire course of the procedure.. Indications and/or Provisional Diagnosis: Invasive hemodynamic monitoring and Frequent arterial sampling. Consent: Not done, emergency placement. Time Out: A time-out was completed prior to procedure verifying correct patient, procedure, site, positioning, and special equipment if applicable. . Procedure Technique/Description of Procedure: After palpation of pulse, confirmation with ultrasound, and assessment of collateral flow with Dario's Test, the patient was prepped and draped in the usual sterile fashion. An arterial line was introduced via the Seldinger technique into the left femoral artery after 1 attempts. Good blood return with out significant extremity blanching was noted. Good arterial wave form was noted. Blood loss was minimal. Complications: None. Post Procedure Diagnosis and Findings: Same as Indications and/or Provisional Diagnosis. Type of Anesthesia/Sedation: Fentanyl and Propofol. Fluids Given: None. Unless otherwise noted, there was no blood loss, specimens removed, cultures obtained, or drains retained. GIO Childers, PGY-4, Pager: [phone]. Pulmonary & Critical Care Medicine Fellow 03/16/22,22:33 Associated attestation - Shanika Hernández MD - 03/17/2022 0123 EDT Attending attestation: I was present during the entire procedure. I saw and examined the patient. I agree with the findings and plan of care documented in the resident's/fellow's note. Shanika Hernández MD 03/16/2022 documented in this encounter Consult Notes Nick Thompson MD - 03/17/2022 0958 EDT Gastroenterology Consult Note Admit Date: 03/16/2022 Date of Service: 03/17/2022 Requesting Physician: Dany Brand Completing Consult: Gastroenterology Reason for Consult: GI bleed HPI: Neeraj Saez is a 61 y/o male with a PMHx significant for HTN, HLD, PTSD, previous alcohol use disorder (last drink 5 months prior per sister), hx cardiac arrest 20 years ago, who presents as a transfer from [facility] [place], initially thought to be due to hematochezia. Patient had cardiac arrest, with ROSC and currently on hypothermic protocol. Patient had been in his usual state of health yesterday when he had a normal bowel followed by a large bloody bowel movement. This was his first history of a bloody bowel movement so patient decided topresent to [facility] [place]. While there, he had an additional episode of bloody bowel movement and was foundon the ground in his room after likely unwitnessed syncopal episode. He had a chip of his right tooth and large volume of blood per rectum. He had no palpable pulses and received two minutes of chest compression with ROSC achieved. Patient's mental status remained altered, he was intubated, and MTP was initiated. He underwent a CTA abdomen/pelvis which showed no active extravasation. He was transferred to [facility] MICU. He had an additional dark bloody bowel movement with clots while in transfer. Upon arrival to MICU, he was minimally responsive on no sedation and on Levophed, epinephrine, and vasopressin for blood pressure support. He received 1 round of MTP and 2L of crystalloid. Prior to this, patient had no previous colonoscopy. He has a history of alcohol use disorder, drinking beer continuously throughout the day, but quit five months ago, and has not had a drink since. He does take 1000mg of NSAIDs daily, it is not clear for how long. PMH PSH No past medical history on file. No past surgical history on file. Social History Family History Social History Tobacco Use ??? Smoking status: Not on file Substance Use Topics ??? Alcohol use: Not on file No family history on file. Medications Current Facility-Administered Medications Medication Route Frequency ??? acetaminophen (TYLENOL) tablet 650 mg per ng tube Q6H Or ??? acetaminophen (TYLENOL) suppository 650 mg rectal Q6H ??? busPIRone (BUSPAR) tablet 30 mg per ng tube Q12H ??? calcium GLUconate 100 mg/mL (10%) injection ??? dextrose 50 % solution 12.5 g intravenous PRN ??? diphenhydrAMINE (BENADRYL) injection 25 mg intravenous Once PRN ??? fentaNYL citrate (PF) injection 50 mcg intravenous Q30 MINUTES PRN ??? glucagon injection 1 mg intramuscular PRN ??? insulin aspart U-100 (NOVOLOG FLEXPEN) injection subcutaneous TID WC ??? sodium chloride 0.9 % (NS) infusion intravenous PRN Or ??? lactated ringers (LR) infusion intravenous PRN ??? lidocaine (PF) 10 mg/mL (1 %) injection 2 mg intradermal PRN ??? lidocaine (PF) 10 mg/mL (1 %) injection 2 mg intradermal PRN ??? lidocaine (PF) 10 mg/mL (1 %) injection 2 mg intradermal PRN ??? magnesium sulfate 2 g in water 50 mL intravenous PRN ??? melatonin tablet 5 mg oral AT BEDTIME PRN ??? norepinephrine (LEVOPHED) 8 mg in NS 250 mL infusion intravenous CONTINUOUS ??? octreotide (SANDOSTATIN) 500 mcg in sodium chloride (NS) 0.9 % 250 mL infusion intravenous CONTINUOUS ??? ondansetron (PF) (ZOFRAN) injection 4 mg intravenous PRN ??? pantoprazole (PROTONIX) injection 40 mg intravenous BID ??? piperacillin-tazobactam 4.5 g in sodium chloride (NS MBP) 100 mL IVPB intravenous Q8H ??? polyethylene glycol 3350 (MIRALAX) packet 17 g oral Daily PRN ??? potassium chloride in water infusion 20 mEq intravenous PRN ??? propOFol (DIPRIVAN) 1000 mg in 100 mL infusion intravenous CONTINUOUS ??? ramelteon (ROZEREM) tablet 8 mg oral AT BEDTIME PRN ??? senna (SENOKOT) tablet 1 Tablet oral Daily PRN ??? sodium chloride 0.9 % (flush) flush 5 mL intravenous Q8H ??? sodium chloride 0.9 % (flush) flush 5 mL intravenous PRN ??? vancomycin (VANCOCIN) 750 mg in dextrose 5% (D5W) 150 mL IVPB intravenous Q12H Allergies No Known Allergies Review of Systems: A ten point review of systems was performed and was negative except for pertinent positives noted inthe HPI Objective/Physical Exam: VS: Patient Vitals for the past 8 hrs: BP Heart Rate Resp Temp SpO2 03/17/22 0812 ??? 85 BPM 20 ??? 100 % 03/17/22 0800 119/82 78 BPM 20 37.1 ??C (98.8 ??F) 100 % 03/17/22 0700 123/80 65 BPM 20 37 ??C (98.6 ??F) 100 % 03/17/22 0645 ??? 68 BPM 20 ??? 100 % 03/17/22 0630 107/72 67 BPM 20 ??? 100 % 03/17/22 0600 113/80 85 BPM 20 ??? 100 % 03/17/22 0545 ??? (!) 111 BPM 16 ??? 100 % 03/17/22 0530 (!) 173/77 104 BPM 9 ??? 100 % 03/17/22 0515 ??? 101 BPM 23 ??? 99 % 03/17/22 0500 122/81 96 BPM 13 37 ??C (98.6 ??F) 100 % 03/17/22 0445 ??? 69 BPM 20 ??? 100 % 03/17/22 0430 126/84 71 BPM 20 ??? 100 % 03/17/22 0425 ??? 75 BPM 20 ??? 100 % 03/17/22 0400 (!) 146/89 66 BPM 20 37.1 ??C (98.8 ??F) 100 % 03/17/22 0330 131/84 62 BPM 20 ??? 100 % 03/17/22 0315 ??? 74 BPM 20 ??? 100 % 03/17/22 0300 (!) 144/77 81 BPM 20 37 ??C (98.6 ??F) 100 % 03/17/22 0245 ??? 80 BPM 20 ??? 100 % 03/17/22 0230 129/83 69 BPM 20 ??? 100 % 03/17/22 0215 ??? 88 BPM 20 ??? 100 % 03/17/22 0200 136/77 68 BPM 20 36.8 ??C (98.2 ??F) 100 % Exam: General Appearance: Intubated, minimally responsive Lung: Mechanical breath sounds bilaterally Heart: Tachycardic, regular Abdomen: soft, nondistended, NGT in place with thin brown output Rectal: normal tone, no masses, dark red blood Extremities: no erythema or edema Skin: Skin color, temperature, turgor normal. No rashes or lesions Data Review: I have independently visualized the and image(s) Labs: CBC: Lab Results Component Value Date WBC 23.79 (H) 03/17/2022 RBC 5.52 03/17/2022 HGB 16.7 03/17/2022 HCT 47.2 03/17/2022 MCV 86 03/17/2022 MCH 30.3 03/17/2022 MCHC 35.4 03/17/2022 PLT 227 03/17/2022 NEUTROABS 13.77 (H) 03/16/2022 BMP: Lab Results Component Value Date NA 134 (L) 03/17/2022 K 4.2 03/17/2022 CL 105 03/17/2022 CO2 21 (L) 03/17/2022 BUN 17 03/17/2022 CREATININE 0.90 03/17/2022 CALCIUM 7.8 (L) 03/17/2022 MG 1.9 03/16/2022 PHOS 2.0 (L) 03/17/2022 LABALBU 2.8 (L) 03/17/2022 U/A: Lab Results Component Value Date CLARITYU Hazy (A) 03/17/2022 LABSPEC >1.050 (H) 03/17/2022 PHUR 5.5 03/17/2022 GLUCOSEU Negative 03/17/2022 BILIRUBINUR Negative 03/17/2022 KETONES 2+ (A) 03/17/2022 BLOODU 3+ (A) 03/17/2022 PROTEINUA 2+ (A) 03/17/2022 Other Studies: CTA Abdomen/Pelvis 03/16/22 19:50 IMPRESSION 1. Coronary artery calcifications. Arteriosclerotic changes of the aorta. 2. Suspect metallic foreign body within the stomach. NG tube within the stomach. 3. Small gallstones within the gallbladder are not excluded. 4. Bilateral bilateral adrenal adenoma. 5. Gonzalez catheter within a collapsed urinary bladder. The bladder wall appears thickened. This couldbe due to the collapsed nature of the urinary bladder. ?? CT ABDOMEN PELVIS W CONTRAST ??03/16/2022 3:40 PM IMPRESSION 1. Marked distention of the urinary bladder. The urinary bladder wall is mildly thickened given degree of distention. The prostate is mildly enlarged and indents the base of the bladder. A 2.6 cm diverticulum is noted near the right UVJ. 2. Colonic diverticulosis without evidence of acute diverticulitis. 3. Moderate gaseous distention of the rectum, nonspecific. ?? XR CHEST PORTABLE LINE PLACEMENT ??03/16/2022 9:50 PM IMPRESSION No acute radiographic abnormality. Assessment: Neeraj Saez is a 61 y/o male with a PMHx significant for HTN, HLD, mood disorder, previous alcohol use disorder who [place] [facility], initially thought to be due to GIB given hemtochezia; patient arrived to [facility] on 3 pressors. Patient cardiac arrest with no palpable pulses, and he achieved ROSC after 2 minutes of CPR. He was hemodynamically unstable and required one round of MTP, 2L crystalloid solution, multiple pressors (levophed, epinephrine), and vasopressin. Patient has remained intubated since transfer and is now hemodynamically stable. Prior Hgb was 11, with repeat Hgb now 15-16. CTA Abdomen/Pelvis yesterday [place] [facility] showed no active extravasation. Given the degree of pressor requirement, cardiac arrest but lack of corresponding amount of blood loss seen, less likely that this was due to hemorrhagic shock (though the patient's hematochezia certainly may have contributed to his worsening clinical status); suspect primary cardiac etiology. EGDrevealed congestion of mucosa consistent with post-ischemic changes and no findings that would explain the patient's critical state/hematochezia. Likely given the patient's acute episode of hypotensionwith cardiac arrest, may see evidence of ischemia (e.g. shock liver, ischemic colitis) in the comingdays. Recommendations: 1. If patient re-demonstrates large volume hematochezia, recommend repeat CT Angio A/P. 2. Continue alcohol cessation 3. Avoid NSAIDs moving forward MONICA SOLIS 03/17/2022 9:47 Agree with above, edits may in ballesteros where needed MERLY Thompson MD Gastroenterology and Hepatology Fellow #[id number] Associated attestation - Jem Nation MD - 03/17/2022 1532 EDT I saw and examined the patient with the resident/fellow on 03/17/2022. Patient seen in consultation at the request of Dr. Saenz. I discussed with the resident/fellow and agree with the findings and plan as documented in the resident/fellow note. Please refer to formal procedure note for complete procedure details and recommendations. documented in this encounter Miscellaneous Notes Plan of Care - Aide Bonilla RN - 04/01/2022 1342 EDT Problem: Daily Care Plan Goals Goal: Care Plan Documentation Outcome: Met This Shift Flowsheets (Taken 04/01/2022 0925) Area of Focus: Discharge Plan Goal This Shift: Pt will be discharged this shift Nursing Discharge Note D: Patient noted with discharge orders to: home with family and home health. A: Prescriptions provided to patient. Reviewed discharge instructions and prescriptions with Patientand Family. Education regarding gonzalez catheter care discussed with patient and family. IV d/c'd. Belongings collected and sent home with patient. Report called to Britney at [facility]. R: Patient and Family verbalized understanding of discharge instructions and denied further questions. AIDE BONILLA RN 04/01/2022 13:42 lan of Care - Milo Marcial RN - 04/01/2022 0549 EDT Data: Pt was retaining urine, gonzalez in place and draining red/bloody color. Pt wake up once and was trying to get out of bed and he went back to bed when he was told that it was night time. Pt denies any pain/sob. Action: Hourly check performed. Response: Pt slept well during the shift. Safety maintained. Pt refused his bed time med. MILO MARCIAL RN 04/01/2022 5:51 lan of Care - Abida Fuentes RN - 03/31/2022 1925 EDT Data: Assumed pt at 0700. Aox3. Independent with ADLs. Retaining urine, straight catherization orders when needed. Action: Meds given per eMAR. Gonzalez placed x 2 and is now draining. Response: Pt is comfortable in bed. Possible discharge tomorrow with gonzalez. ABIDA FUENTES RN 03/31/2022 19:25 lan of Care - Danielle Cadean RN - 03/31/2022 0217 EDT Data: Assumed care for patient at 1915. Pt only had complaints of being tired. Forgetful but easily oriented. Independently ambulating. Action: medicated with HS meds. Hourly checks done. Safety maintained. Response: pt is in bed resting. Call jefferson in reach. Will continue to monitor. DANIELLE CADENA RN 03/31/2022 2:18 lan of Terell - Nery Whittaker RN - 03/30/2022 1438 EDT Data: Assumed care at 0715. Pt has been c/o discomfort from Gonzalez. Pt has been very pleasant and cooperative this shift. Ambulating independently in room and in hallways. Action: Meds given per JAN. Gonzalez removed. Hourly checks. Shift assessment completed. Response: Pt is in bed resting. Call jefferson within reach, pt able to make needs known. Will continue to monitor. NERY WHITTAKER RN 03/30/2022 14:38 lan of Care - SalinasSimran zaman - 03/30/2022 1009 EDT Problem: Daily Care Plan Goals Goal: Care Plan Documentation Flowsheets (Taken 03/30/2022 0800) Area of Focus: Psychosocial Goal This Shift: Patient will have stress and worry managed this shift Data: Assumed care of patient at 0700. Patient is hospital day 14 s/p shock due to GI bleed, followed by cardiac arrest with resuscitation. Patient expressed worry about not understanding cause of cardiac arrest, also expressed discomfort with the gonzalez catheter. Action: Completed nursing assessment. Completed gonzalez care. Provided 1:1 emotional support and encouragement. Encouraged mobility and nutrition intake. Response: Patient remains stable on the unit. Will continue to monitor. Simran Rita 03/30/2022 10:11 lan of Care - Jeronimo Curiel, HERNESTO - 03/30/2022 0331 EDT Pt received at change of shift from day RN. Alert and oriented to self and location, disoriented to situation and time; pt is agitated and with fixation on gonzalez catheter, c/o trouble with carrying itaround, statlock on his leg and general discomfort. Pt states he no longer needs gonzalez because he is having bowel movements at this time and is refusing flomax and other nightly meds despite educationprovided. Otherwise, VSS w/ lungs clear on RA. Abdomen soft and nontender w/ bowel sounds present. RN to round Q1 for safety and toileting needs. Education to be provided on nature of gonzalez catheter,pt-specific indication for placement, indications for removal. Medication education to be provided, including but not limited to flomax and its role in improving urinary retention symptoms. Pt remained free from falls or injury. Education provided on medication and gonzalez. lan of Care - Nery Whittaker RN - 03/29/2022 1509 EDT Data: Assumed care at 0715. Pt A&Ox2. Pt c/o increased fatigue and dizziness this AM, VS were stable. Pt c/o constipation. Pt is forgetful but easily reoriented. VM discontinued. Independent in room and in hallway. Action: Meds given per JAN. Hourly checks. Shift assessment completed. Response: Pt is in bed resting. Bed alarm on for safety. Call jefferson within reach. Will continue to monitor. NERY WHITTAKER RN 03/29/2022 15:09 lan of Terell - Lane Mensah - 03/29/2022 1336 EDT Data: Pt is 61yo male, full code, with allergy to bee venom, aspirin, shrimp. He was admitted 13 days ago following hemorrhagic shock and cardiac arrest and subsequent anoxic brain injury. He is A/Ox2,and experienced a period of dizziness, fatigue, disorientation and a decline in LOC between approx. 1030- 1230. His mentation now appears improved back to baseline. Vital signs are stable. He has generalized weakness, but has full ROM in all 4 extremities and is ambulatory for short distances, though he remains a fall risk. He is retaining urine and reports feelings of constipation. Pt reports no pain/nausea. Currently, his son and daughter are at bedside. Action: During his period of decline in mentation, BP and blood glucose were checked for out of range values - glucose was slightly elevated. Primary nurse and care team were notified. A Gonzalez catheterwas inserted, replacing the need for periodic straight caths. Encouraged an increase in fluid intaketo help with constipation. Medications were administered with RN, and were readily accepted. Response: The catheter placement was well tolerated and is returning clear, yellow urine. Vital signs remained stable. Cognition, speech and orientation are improved. Lane Mensah 03/29/2022 13:16 lan of Britney Schaefer LPN - 03/28/2022 194 EDT A&Ox2. Periods of confusion. Video monitor in place. Patient compliant with instructions. Straight cathed for urinary retention 800 ML. Mds increasing Flomax tonight. Needs set up assist for meals.Soft diet for painful loose teeth probably from intubation BRITNEY ABDI LPN 03/28/2022 19:42 lan of Milo Soliz RN - 03/27/2022 0704 EDT Data: Pt gonzalez was removed and pt was due to void at 1200 am. Pt did not void and bladder scan was 275 ml. Pt is 1.1. pt was agitated last night and been staying a lot most of the time during the shift. Action: Assessment performed. Redirect the pt frequently as needed. Response: safety maintained. 1.[address] MILO MARCIAL RN 03/27/2022 7:04 lan of Milo Soliz RN - 03/26/2022 0549 EDT Pt is at risk for injury and fall due to immobility and impulsiveness. Pt was redirected easily. Administered medication per emar. Safety maintained. lan of Cecelia Garcia LPN - 03/25/2022 1500 EDT Problem: Daily Care Plan Goals Goal: Care Plan Documentation Outcome: Ongoing Flowsheets (Taken 03/25/2022 1500) Area of Focus: Nutrition/ Diet Goal This Shift: Encourage intake Note: Data: Nutrition/Diet Action: Pt is alert; oriented to self. Able to make his needs known. 1-1 sitter continues. removes pt's NG tube. Pt able to tolerate food w/ small bits and thin liquids. Pt denies of any pain and discomfort. PO meds given per MD order. Gonzalez complete and continues. Bed at the lowest position, Non skid socks on. Call light within reach. Will continue to monitor. Response: Pt in bed resting CECELIA LITTLE LPN 03/25/2022 15:02 lan of Care - Renata Kern RN - 03/24/2022 1556 EDT Data: Assumed care of pt at 0700. Pt A&Ox1 to person only, speaking 3-5 words at a time, sometimes incoherent. Able to express needs. 1:1 sitter present. Ng tube in at 86, tube feeds running at 63 mL/hr. Gonzalez draining clear yellow urine. Action: Meds administered via NG tube. Pt taking in some fluids orally and small bites of food. OOB to chair today x2 assist. 1 liquid BM today, no blood present. Response: Pt comfortable and tolerating tube feeds well. Denies pain. Report given and pt transferred to [place] [id number] at 1600. lan of Care - Alma Cruz RN - 03/24/2022 0625 EDT Data: 61 y/o male; full code. NSR/SB. S1,S2 heart sounds. VSS on room air. Feeding pump at 63mL/hr with 100mL Free H2O bolus q4h. NGT in place, anchored at 86cm. Patient reporting discomfort at throat,demonstrating difficulty swallowing with the statement It adam as it goes down on attempt. Intermi ttently pulling at lines and tubes. Action: All medications administered as ordered (see eMAR). Communicated patient's discomfort on swallowing effort with provider senior microsoft consultant - Hurricaine numbing spray administered per orders. Tele monitored per 4 policy. Gonzalez catheter care performed - intact and draining clear, tiffany colored urine. HOB maintained at 45degrees. Provided education to 1:1 staff r/t maintaining positioning for preventionof aspiration and safety. VS and assessment as documented. Provided education to patient r/t plan ofcare. Call light in reach; safety measures in place. Result: Patient denies SOB or chest pain. Patient able to express needs. Reports relief from throat spray - quality of speech improved; decreased discomfort on effort to swallow. Redirectable behaviorswith intervention of 1:1 (counselled to leave NGT in place and gonzalez catheter in place). Agreeable to plan of care at this time. ALMA CRUZ RN 03/24/2022 0631 lan of Care - Carol Yanes RN - 03/23/2022 1226 EDT Data: Assumed care of pt at 0700. Pt s/p cardiac arrest. Alert and oriented to self only. 1:1 sitterpresent, pt cooperative this shift, able to follow some commands. NG tube in place. Pt had two BMs today, dark-brown red in color, MD notified. Gonzalez in place draining tiffany colored urine. Action: Meds given through NG tube, tube feeds running, continuing to titrate rate up q4h. Response: Vitals stable, tele in NSR. Pt comfortable in bed. Problem: Daily Care Plan Goals Goal: Care Plan Documentation Outcome: Ongoing Flowsheets (Taken 03/23/2022 0825) Area of Focus: Nutrition/ Diet Problem: High Fall Risk: Goal: Patient Will Remain Free from Fall-Related Injury Outcome: Ongoing Problem: Pressure Ulcer Prevention Goal: Absence Of Pressure Ulcer Outcome: Ongoing 6:30pm: Attempted to feed mashed potatoes as diet has been advanced, however pt did not tolerate well. Sips of water tolerated. lan of Care - Ruby Valdez RN - 03/23/2022 0245 EDT Problem: Daily Care Plan Goals Goal: Care Plan Documentation Outcome: Ongoing Flowsheets (Taken 03/22/20222049) Area of Focus: Circulatory Status Goal This Shift: vs Note: Data: assumed care of patient at 1900. Admitted with s/p cardiac arrest. Vss, afebrile. Alert and oriented to 1-2 only. Moving all extremities but not to command.1:1 sitter with patient. Tube feeding in place. Remains NPO. Gonzalez patent, draining tiffany urine.telemetry shows NSR. Action: turned and repositioned q 2hrs. BRANDY Shine notified for order to use NG ( on hold). Bed alarmon. Problem: Safety: Description: Module scope: For the purpose of this module, the definition for restraint comes from the Medicare and Medicaid Programs; Hospital Conditions of Participation. A restraint is any manual, physical, or mechanical device, material, or equip ... Goal: Complications related to restraint use will be avoided or minimized Outcome: Ongoing Problem: High Fall Risk: Goal: Patient will Remain Free of Falls due to Med. Side Effects Outcome: Ongoing Problem: High Fall Risk: Goal: Patient Will Remain Free from Fall-Related Injury Outcome: Ongoing Problem: SKIN INTEGRITY Goal: Skin integrity will improve or be maintained Outcome: Ongoing Problem: Pressure Ulcer Prevention Goal: Absence Of Pressure Ulcer Outcome: Ongoing Response: continue to monitor. RUBY VALDEZ RN 03/23/2022 2:39 lan of Vicky Miranda RN - 03/22/2022 1426 EDT Data: assumed care of patient @ 0730, pt alert, confused unable to answer questions appropriately, SBP in 140's other VSS On RA. Patient appears comfortable. 1:[address] for safety[address] NG tube placed by Rapid Response Nurse. Patient more agitated after NG placement. Action: assessment as documented, meds administered per JAN. Monitored tele, VS, and neuro status. Repositioned pt Q2 hrs and PRN to prevent skin breakdown. Response: patient alert, able to state his name and , states I am in [place], SBP in 140's other VSS On RA. Patient resting comfortably in bed, call jefferson within reach, will continue to monitor. VICKY DEL REAL RN 03/22/2022 14:26 lan of Care - Kim Ahn RN - 03/22/2022 0813 EDT Geriatric Nurse Clinician: Patient Consult Note Criteria for Delirium Prevention Consult Inclusion criteria: For pts >70 yrs, with at least one risk factor for cognitive decline: Cognitive impairment Mobility or ADL impairment Sensory impairment Dehydration Exclusion criteria: Estimated LOS<48 hours In ICU or vented Unable to communicate verbally or in writing Comfort care only with imminent Major mental illness Delirium Prevention Protocol Received Patient does not qualify for geriatric consult due to <70 years of age. Continue with delirium prevention per care plan. Non-pharmacologic approach to delirium management: - Turn the room lights on during the day and off at night. Open the window shades during the day andclose them at night. - Encourage the patient to remain awake during the day and asleep at night. - Frequently reorient the patient to place and time. - Briefly mention who you are and your role in the patient's care to them when you interact. - Correct hearing impairment and visual impairment. - Avoid physical restraints, if possible. - Try to maintain day-to-day the same nursing, case management, and patient care staff as much as possible. - Encourage visits from well known family and friends. Make sure to tell them to gently redirect andreorient the patient during their visit. - Avoid urinary catheters, if possible. - Encourage mobility in bed and out of bed. OOB to chair for all meals - Monitor bowels and bladder. Proactive toileting. - Encourage appropriate oral intake and hydration Geriatric Clinician will sign off for now. GIO Zuñiga, RN- Geriatric Nurse Clinician Phone: [phone] Pager: [phone] lan of Care - Flores Rivesr RN - 03/22/2022 0422 EDT D: Pt presented from OSH following cardiac arrest, now with persistent encephalopathy. A: Alert to self, recognizes name -- able to answer yes or no questions and form some words. Continues to be unable to follow commands. 1:1 sitter continued. No bowel movements or s/s of bleeding overnight. Low urine output this shift, 175 mLs in 6 hours, team aware, no new orders. Plan for MRI today.Needs PT consult. R: VSS, pt repositioned frequently - delirium precautions in place. WCTM. 0600: UOP improved, 475 mLs total this shift. ? Continuing IVF today if patient is still not eating or drinking -- MD aware. lan of Care - Flores Rivers RN - 03/21/2022 0538 EDT Upon assumption of care, pt alert with eyes open - able to nod yes & no to questions, verbal speech garbled, not understandable. Unable to follow commands. 1x stool overnight. Turned and repositioned to promote skin integrity. 1:1 sitter maintained. BP elevated into 170s systolically this shift, pt restless at the time -- MD aware, no new orders. Urine output low this shift, 350 mLs total, MD aware, no new orders. Pt resting comfortably, VSS, bed alarm on, sitter at bedside WCTM. lan of Care - Mayco Jack RN - 03/20/2022 1721 EDT Pt increasingly responsive to verbal cues throughout shift. And while he was able to respond to yes or no questions, he was still unable to follow physical commands. Stephen red liquid BM occurring every1-2hrs in afternoon, turned and cleaned as frequently as they occurred. Skin barrier applied after each cleaning. Gonzalez continuing to drain tiffany urine. IV Dextrose gtt started. Passive range of motionperformed by nursing staff. Family to bedside to visit and was able to assist with care and range ofmotion exercises. Lights and blinds open and conversation and interaction encouraged to maintain day/night orientation. Pt was rigid and restless, however when asked if he was in pain, Juan always stated no. 1:1 sitter maintained to prevent removal of IVs or catheter and to assist in reminding him to stay in bed. Attempted to move to chair, however pt unable to follow commands and saraflex not fit for use, ceiling hoist out of order, request placed to engineering to fix so that we can mobilize Juan more. lan of Care - Prince Ware RN - 03/19/2022 1539 EDT Data: On assumption of care patient is non-verbal and not able to follow commands, occasionally doesmake eye contact. SB to NSR on tele, lungs dim on room air. 1:1 sitter at bedside maintained for safety. RAILROAD SIGNAL TECHNICIAN unable to complete full assessment 2/2 mental status. Pt was more alert in the afternoon andRN trialed ice chips & small bites of applesauce. Patient showed no signs of coughing or aspirating. Action: MD notified of patients more alert level of consciousness & inquired about nutrition plan. RAILROAD SIGNAL TECHNICIAN notified of ice & applesauce intake. Response: patients vitals remained stable, no plan for NG tube at this time 2/2 facial trauma. Son is at bedside, updated by MD PRINCE WARE RN 03/19/2022 15:39 lan of Terell - Yolanda Lemon RN - 03/19/2022 0854 EDT Data: Patient admitted s/p hemorrhagic shock and cardiac [place] [facility] Patient is alert and oriented to self, able to make needs known will nod head for yes, shake side to side for no. Cannot follow commands. Speech not recognizable. Plan: RAILROAD SIGNAL TECHNICIAN, PT & OT consult. Patient is agreeable with plan of care, has not tried to get OOB or pull at lines. Moves and adjusts self frequently. Says frustrating while trying to lift head off the pillow. 0855 3.12 sec pause on tele, HR 31. LEONARDO if symptomatic, 1:1 sitter in room. Action: aware. VS/Neuros. Telemetry monitored. Dilaudid 0.2mg given for facial pain. Response: RAILROAD SIGNAL TECHNICIAN not able to advance oral diet, patient not able to swallow or follow commandes. Patient continues with moderate drooling, high fowlers as tolerated. 1:1 sitter in room. YOLANDA LEMON RN 03/19/2022 8:54 Problem: SKIN INTEGRITY Goal: Skin integrity will improve or be maintained Outcome: Ongoing Problem: Pressure Ulcer Prevention Goal: Absence Of Pressure Ulcer Outcome: Ongoing Problem: Impaired Skin Integrity Goal: Signs of wound healing will improve Outcome: Ongoing Problem: Safety: Description: Module scope: For the purpose of this module, the definition for restraint comes from the Medicare and Medicaid Programs; Hospital Conditions of Participation. A restraint is any manual, physical, or mechanical device, material, or equip ... Goal: Complications related to restraint use will be avoided or minimized Outcome: Ongoing ransfer Summary (Intrafacility) - Sean Cruz MD - 03/19/2022 0422 EDT Hospital Medicine Transfer Summary Service Date: 03/19/2022 Admit Date: 03/16/22 Primary Care Provider: Christiana Adams Ga Chief Complaint: shock HPI Per MICU documentation: Antoine Saez is a 61 y.o. 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 Course c/b syncopal event while in [facility] [place]. Patient had large amount BRB SC and obvious facial trauma. This was followed by cardiac arrest with ROSC after CPR x2 rounds. Patient was noted to be making purposeful movements and speaking after code, though remained ?altered. He was stabilized following MTP with 4 units pRBC and 4 units FFP, as well as fluid resuscitation. Of note, Hgb did not drop below 11. A CT head, facial bones, and C-spine were ordered which showed and showed a bilateral nasal bone fracture. A CT angio abdomen pelvis was ordered which showed no active extravasation. A central line was placed under sterile conditions in the right femoral vein he was started on norepinephrine. He was then transferred to the [facility] medical ICU for further management. Transport team reports that he received an additional 2 units of packed red blood cells in route. He had 2 additional large volume stools upon arrival. Patient was intubated and sedated for airway protection on arrival. He received additional 1 unit PRBC, 3 FFP. He was maintained briefly on pressors. EGD on 03/17 demonstrated no focal source for bleeding in upper GI tract. EEG showed no seizures, improving diffuse dysfunction. Patient was weaned off pressors on 03/17. He was cleared by ACS and extubated on that day. Course complicated by agitation requiring Precedex drip, which also resulted in bradycardia. Precedex was weaned in the afternoon on 03/18. Patient had improving mentation and was subsequently appropriate for transfer to the floor. On evaluation, patient is intermittently responsive to questioning. Can only specify that he does not have abdominal pain. Review of Systems: A complete 10 point ROS was performed and pertinent positive and negative findings listed in HPI, otherwise negative. 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 Social History Tobacco Use ??? Smoking status: Not on file Substance Use Topics ??? Alcohol use: Not on file No family history on file. Medications Prior to Admission Medication Sig ??? lisinopriL (PRINIVIL) 5 mg tablet 5 mg. ??? Prazosin (MINIPRESS) 1 mg capsule Take 1 mg by mouth at bedtime. ??? sertraline (ZOLOFT) 100 mg tablet 100 mg. ??? traZODone (DESYREL) 50 mg tablet 50 mg. No Known Allergies Objective Vitals Temp: [36.4 ??C (97.5 ??F)-37.1 ??C (98.7 ??F)] , Heart Rate: [41 BPM-81 BPM] , Pulse: [45] , Resp: [10-23] , BP: (107-168)/(70-128) , SpO2: [92 %-99 %] , Numeric Pain Level (Scale 1-10): 0 Weight: Weight : 68 kg (149 lb 14.6 oz) Body mass index is 24.38 kg/m??. Physical Exam Gen: resting in bed, NAD, hands in restraints HEENT: NC. Bilateral bruising to eyes. Dried blood over face and mouth. Patient has difficulty opening eyes, but sclera anicteric. MMM, lips crusted. Pulm: CTAB anterior and lateral lung riojas. Comfortable on RA. CV: bradycardic, regular. No M/R/G. Abd: Soft, non-tender all quadrants. Ext: WWP, no LE edema b/l Skin: Warm, dry. Neuro: Patient somnolent, intermittently arousable to provider voice. Answer some questions appropriately (nods head yes to are you Antoine, nods head no to do you have abdominal pain). Speech quiet and garbled. Did not follow instructions on neuro exam. Moves upper extremities. Psych: Appears euthymic Labs I have personally reviewed Recent Labs 03/16/22 2247 03/17/22 0503/19/22 0603 WBC 16.41* < > 12.01* RBC 5.43 < > 4.90 HGB 16.6 < > 14.7 HCT 49.9 < > 41.4 MCV 92 < > 85 MCH 30.6 < > 30.0 MCHC 33.3 < > 35.5 PLT 235 < > 194 NEUTROABS 13.77* -- -- < > = values in this interval not displayed. Recent Labs 03/18/22 0440 03/18/22 1459 03/19/22 0603 NA 144 < > 137 K 3.9 < > 3.7 CL 113* < > 108 CO2 24 < > 24 BUN 11 -- 6* CREATININE 0.80 -- 0.55* CALCIUM 7.7* -- 8.5 MG 2.2 -- 1.9 PHOS 3.3 -- -- LABALBU 2.7* -- -- < > = values in this interval not displayed. Recent Labs 03/16/22 2130 03/17/22 0503/17/222 PROTIME 12.3 < > 13.7* INR 1.1 < > 1.2* PTT 25* -- -- < > = values in this interval not displayed. Recent Labs 03/17/22 1258 TROPONINI 0.122* Recent Labs 03/18/22 0440 TBIL 0.8 ALKPHOS 43 AST 47* ALT 14 Recent Labs 03/16/22 1531 03/17/22 0051 03/17/22 1850 COLOR Light Yellow < > Red* CLARITYU Clear < > Clear GLUCOSEU Negative < > Negative BILIRUBINUR Negative < > Negative KETONES Negative < > Negative LABSPEC 1.010 < > 1.006 BLOOD Negative -- -- PHUR 5.5 < > 7.5 PROTEINUA Negative < > 1+* UROBILINOGEN 0.2 < > Normal NITRITE Negative < > Negative LEUKESTER Negative < > Trace* WBCU -- < > 4 - 10* RBCU -- < > >50* BACTERIA -- < > None Seen LABCAST -- < > <=10 < > = values in this interval not displayed. Imaging: I have independently visualized images CT ABDOMEN PELVIS W CONTRAST Result Date: 03/16/2022 1. Marked distention of the urinary bladder. The urinary bladder wall is mildly thickened given degree of distention. The prostate is mildly enlarged and indents the base of the bladder. A 2.6 cm diverticulum is noted near the right UVJ. 2. Colonic diverticulosis without evidence of acute diverticulitis. 3. Moderate gaseous distention of the rectum, nonspecific. CT ANGIO ABDOMEN PELVIS Result Date: 03/16/2022 1. Coronary artery calcifications. Arteriosclerotic changes of the aorta. 2. Suspect metallic foreign body within the stomach. NG tube within the stomach. 3. Small gallstones within the gallbladder arenot excluded. 4. Bilateral bilateral adrenal adenoma. 5. Gonzalez catheter within a collapsed urinary bladder. The bladder wall appears thickened. This could be due to the collapsed nature of the urinary bladder. CT CERVICAL SPINE WO CONTRAST Result Date: 03/17/2022 1. No acute fracture of the cervical spine. 2. Multilevel degenerative changes with neural foraminalstenosis of varying degrees, most severely on the right at C5-C6. 3. Polypoid soft tissue in the nasal cavities likely represents sinonasal polyposis. CT HEAD WO CONTRAST Result Date: 03/16/2022 No acute intracranial abnormality. CT FACIAL BONES WO CONTRAST IMPRESSION: 1. Acute fracture of bilateral nasal bones. 2. Hypoplastic bilateral maxillary sinuses with complete opacification of the right maxillary sinus. Extensive mucosal thickening of bilateral ethmoid and frontal sinuses. 3. Polyposis of bilateral nasal cavities. 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 Course c/b cardiac arrest with ROSC and continued GI bleeding. He was stabilized following MTP with 7 units pRBC and 4 units FFP as well as fluid resuscitation. Patient was intubated and sedated for airway protection. After cleared by GI and upper GI bleed was excluded, he wasquickly weaned off of vasopressors and extubated. Patient required brief Precedex drip for agitation. No further signs of GI bleeding. He is now HD stable, though still altered, appropriate for transfer to the floor. ?? Plan Suspected hemorrhagic shock in the setting of acute LGIB Acute blood loss anemia - s/p 7u pRBC though Hgb never < 11 CTA A&P without active extravasation. S/p EGD on 03/17 w/o UGI source. Most likely LGIB, suspect diverticular bleed. Per RN, last BM on arrival, no other visualized bleeding. Likely cause of syncopein [facility] [place]. Overall however given his clinical course and lab trajectory, unclear if patient was in transient hemorrhagic shock following large volume hematochezia resulting in pulselessness appropriately prompting CPR which achieved ROSC and some degree of regained consciousness after 2 rounds. Pt was intubated for airway protection in the setting of significant facial trauma and ?encephalopathy. Hypotension prompting pressers may have been a secondary to sedation. Cardiogenic shock confounded by LIGB is also certainly a possibility. Notably, pt is still somewhat bradycardic long after precedex has been discontinued. -GI consulted, appreciate recs -PPI IV daily -Maintain 2 large-bore peripheral IV -CTA A&P if additional large-volume hematochezia -CBC daily -Still NPO -Tele Encephalopathy Seemingly normal on arrival to [facility] [place] per notes. Reported purposeful movements after ROSC. S/p agitation post-intubation requiring Haldol, Precedex drip. Successfully weaned off Precedex. No findings of seizure on EEG. Less likely tox given clinical timeline. Currently maintained in restraints, though patient has not required subsequent Haldol. -Dc restraints -Haldol 2mg IV PRN for aggression -Ordered buspirone 30 mg Q12Hrs -1:1 sitter -Melatonin and ramelteon -RAILROAD SIGNAL TECHNICIAN eval before advancing diet -CTM trend of mental status -May benefit from clarifying baseline w/family Leukocytosis Likely attributable to shock. Elevated Procal, but no focal infectious symptoms identified. S/p vancomycin, piperacillin???tazobactam. -F/u blood cultures (03/17) -CBC daily HTN -Would med rec patient in AM, consider re-instating LENS BLOCKER therapy Hypocalcemia 2/2 blood product administration. S/p use calcium gluconate. -F/u AM labs, replete as needed Nasal fracture/trauma Cleared by trauma surgery. -F/u with ENT in 1 week for nasal bone fractures. PTSD Anxiety -Buspar as above. -Needs med rec. May benefit from reinstating LENS BLOCKER sertraline, trazodone pending clinical course and clearing of his mental status. Resolved or inactive hospital problems ?Cardiac arrest, resolved - s/p CPR x2 rounds w/ROSC prior to admission at [facility]. TTE wnl. Lactic acidosis - likely 2/2 shock, LGIB. Down-trended. Troponinemia - likely 2/2 shock vs CPR. Down-trended. Bradycardia -likely 2/2 Precedex. VTE Prophylaxis: Seqential Compression Device, hold pharmacologic PPx Code: Full Code Discharge Plan: pending clinical course Consults: GI. S/p ACS consult. D/w Dr. Sean Cruz. SISSY BONILLA MD 03/19/22 6:46 FM PGY-2, [id number] I have personally seen and examined the patient on 03/19/22. I reviewed the laboratory and radiographic results. The case was discussed with the medicine house staff and I agree with the findings above and plan of care documented. Please see my additional comments in [place]. Gareth Cruz MD Internal Medicine Hospitalist lan of Care - Dm López RN - 03/19/2022 0113 EDT 03/18/221999 Care Plan Focus Area of Focus Neuro Status Goal This Shift Neuro status will improve and patient will remain safe Data: Assumed care of pt @ 1900. S/p cardiac arrest. Extubated 03/17 and no longer requiring pressors. Pt in bilateral wrist restraints with 1:1 sitter at bedside for agitation/pulling at lines/trying to get out of bed. Pt speech is incomprehensible and thought pattern is very impaired. D5 1/2NS c 20K infusing @ 100cc/hr. SB to NSR on tele and slightly hypertensive. Action: Medication given per JAN. Assessment complete. Pt encouraged to verbalize needs. Boosted frequently in bed. 0500--report called to MR4 RN 0530--pt transferred to MR4. 1:1 sitter followed pt to the floor Response: VS stable overnight. 1:1 sitter and bilateral wrist restraints remain in place. Pt transferred to the floor without event. No bloody BMs for this RN overnight. DM LÓPEZ RN 03/19/2022 1:14 lan of Care - Bjorn Levine RN - 03/18/2022 1342 EDT Problem: Daily Care Plan Goals Goal: Care Plan Documentation Outcome: Ongoing Data: Assumed patient's care at 0700 AM. Pt was admitted on 03/16/22 with cardiac arrest and facial trauma. Pt confused, agitated, occasionally combative. Requires 1:1 sitter for safety reasons. Pt is getting IV fluids and gtt Precedex. Pt has intermittent Bradycardia. Action: Titrated Precedex to maintain patient safe and hemodynamically stable. Pt received 2 mg of haldol for agitation. Assessment as documented. Assisted with turning and repositioning. Redirecting patient as needed. Response: Pt hemodynamically stable. Precedex discontinued. Safety maintained. 1:1 sitter remains atthe bedside. Will continue to monitor. BJORN LEVINE RN 03/18/2022 13:42 lan of Care - Andrea Powell RN - 03/18/2022 0540 EDT Problem: Safety: Description: Module scope: For the purpose of this module, the definition for restraint comes from the Medicare and Medicaid Programs; Hospital Conditions of Participation. A restraint is any manual, physical, or mechanical device, material, or equip ... Goal: Complications related to restraint use will be avoided or minimized Outcome: Ongoing Problem: Daily Care Plan Goals Goal: Care Plan Documentation Outcome: Ongoing Problem: SKIN INTEGRITY Goal: Skin integrity will improve or be maintained Outcome: Ongoing Problem: Pressure Ulcer Prevention Goal: Absence Of Pressure Ulcer Outcome: Ongoing Data: Pt adm for gi bleed, s/p cardiac arrest. Pt extubated, anxious, verbally aggressive and constantly tries to get out of bed, kicking, 1:[address], SR-ST on monitor then became SB after precedex, bp stable, on NC 2L/min saturating >92%, gonzalez in place(i/o refer to flowsheet) Action: meds given per mar, needs 1:1 sitter, 2mg haldol given x2, started precedex Response: pt still attempts to get out of bed when awake, high urine UO (md aware), no signs of distress, still confused, on safety precaution ANDREA POWELL RN 03/18/2022 5:40 lan of Hector Yang RN - 03/17/2022 1048 EDT Data: Care assumed at 0700. Pt remains intubated and sedated with propofol. On 20mcg/kg/min of propofol pt was sitting up I bed, and may have been reaching for the ETT. He remains on targeted temp management with arctic sun, water temp is stable and close to body temp. Gonzalez draining concentrated tiffany/tea colored urine. Action: EGD performed by this morning. Post EGD sedation was paused, during which time he was able to answer yes/no questions with head nods. Response: Continuing to monitor hemodynamics as ordered, and providing support as needed. HECTOR NEIL RN 03/17/2022 10:49 lan of Kennedy Hooper - 03/17/2022 1011 EDT Initial Case Management/Social Work Assessment and Discharge Plan/Readmission Risk Assessment REASON FOR ADMISSION: Cardiac arrest (HCC) Patient understands reason for admission: Yes PATIENT INFO VERIFIED: (S) PCP not verified, Contact Info, Address ([facility] but PCP is still unknwn at this time. patient uses his parents address directly next door for his mailinng address.) Type of housing (single family, condo, apartment, custodial, single room occupancy, [facility] funded hotel room, group usp) - [facility] directly next door to parents and sisters home. The patient utilizes their mailing address. Who does the patient live with? alone Does the patient have access to their own bedroom/bathroom/kitchen - or is it shared with others? own Name of housing complex (ex [place] [facility], [facility], etc)- Housing Authority/Managing Organization - Community Care Providers (trimming caser, [facility] nurse, etc) name and contact information- 100% service connected to the SD. SD called to inform of admission. LIVING ARRANGEMENTS AND ACCESSIBILITY ISSUES: Living Arrangements: Alone Levels: 1 Stairs to enter: 2 Handicap access: None Bathroom located on bedroom level?: Yes What in home social supports are available to the patient? Family member(s), Parent, Friends / neighbors Is 30/05 care available? No ADVANCED DIRECTIVES, POA &/or COLST IN PLACE: Healthcare Directive: No, patient does not have advance directive for healthcare treatment Information Provided on Healthcare Directives: No (patient in coma) Information on Healthcare Directives Requested: No DIRECTIVES FOR FINANCES: Directive For Finances: No TRANSPORTATION: Transportation: (P) Family Transportation Additional Details: (P) sister is able to help with transportation as needed Patient expects to be discharged to: (P) TBD CULTURAL, ORIENTAL ORTHODOX and/or LANGUAGE factors affecting health care/discharge planning: Spiritual/Cultural Requests: (S) Prayer (per family the patient is religous and owoudl want prayer even wile incopsaitated. the patient is Pridistant.) Language/Literacy Needs Do you need us to provide any communication aids or devices?: No Insurance Information: Medical Insurance: Yes Type of insurance: (S) [facility] health benefits (CM working to find out if the patient has additinal coverage) Referred to patient financial services: No Nutrition: DISCHARGE RISK ASSESSMENT: (P) None of the above risks identified Total # selected above: (P) Score: Zero Tentative plan to address the risk of re-hospitalization for those at HIGH MODERATE RISK: (P) Refer to skilled home care services;Refer to SNF (plan is still TBD pending clinnical course) RAPT TOOL: Age: (P) 50-65 Gender: (P) Male Ambulation distance: (P) 2 or more blocks (600ft) Gait device: (P) None Community Services: (P) Home health, MOW, SASH-none of one time a week Will you live with someone who will care for you?: (P) No RAPT Tool Score: (P) 9 Patient expects to be discharged to: (P) TBD SBIRT: Unable to assess-SASQ: (S) (P) Intubated-will reassess (patientis intubated andin coma however family reprots he was a heavy beer drinker till 3 months ago when he quit drinking.) Intervention in place/initiated?: (S) (P) Other (Comment) (ETOH (beer) a concern however family reports the patent has not drank for 3 months.) FUNCTIONAL STATUS: Activities patient requires assistance: (P) None Assistive Devices: (P) None COMMUNITY RESOURCES/SUPPORTS: Primary Care Provider: Christiana Adams Ga PCP Verified: Specialists: (P) None Type of Home Health Services: (P) None DME Provider: Pharmacy: No Pharmacies Listed Home Health: Other: POST HOSPITAL TRANSITION PLAN: the patient is a 61 year old male whom his mother, who completed the assessment via phone with this CM, reports he was previously active and independent in his daily living piror to this admission. He currently resides in a 1 level [facility] with 2-3 steps. He loves immediately adjacent to his sister and mother and he utilizes their mailing address. This CM reached out to theSD to get more info on provider status and additional coverage however the [facility] was only able to inform this CM that he is 100% service connected to the [facility]. Patient has good support from family and fiends in the community however / support is not currently available. Family is able to help with transportation needed. KENNEDY DINERO 03/17/2022 10:11 documented in this encounter Plan of Treatment Pending Results Name Type Priority Associated Diagnoses Date/Ti me PREPARE PLATELETS Blood Bank Routine 03/16/2022 22:11 EDT Scheduled Referrals Name Type Priority Associated Diagnoses Order S chedule AMB CONS/FOLLOW Outpatient Urgent Metabolic Expected: [facility] Referral encephalopathy 04/03/2022 SERVICES Syncope, unspecified (Approx imate), syncope type Expires: 04/01/2023 AMB CONS/FOLLOW Outpatient Routine/Next Acute urinary Expected: [facility] Referral Available retention 04/14/2022 (Approximate), Expires: 04/01/2023 AMB CONS/FOLLOW Outpatient Routine/Next Acute urinary Expected: [facility] Referral Available retention 04/08/2022 PHYSICIAN - Syncope, unspecified (Approx imate), [facility] syncope type Expires: Metabolic 04/01/2023 encephalopathy Hemorrhagic shock (HCC-CMS) (HCC) Gastrointestinal hemorrhage, unspecified gastrointestinal hemorrhage type Cardiac arrest ( HCC) Lower GI bleed documented as of this encounter Procedures Procedure Name Priority Date/Time Associated Comments [...] procedure are i n the results section. PROCALCITONIN Routine 03/18/2022 4:40 Results for [...] PHOS,ALT,AST,DBIL,TOT the re sults ZACH,TOT PROT) section. BASIC METABOLIC PANEL Routine 03/18/2022 4:40 [...] RED BLOOD Routine 03/16/2022 22:38 CELLS EDT XR CHEST PORTABLE LINE STAT 03/16/2022 22:00 R esults for this PLACEMENT EDT procedure are i n the results section. PREPARE CRYOPRECIPITATE Routine 03/16/2022 22:00 Results for [...] procedure are i n the results section. documented in this encounter Results (ABNORMAL) COMPLETE BLOOD COUNT (04/01/2022 8:04 EDT) Pathologist Sig nature WBC 7.86 4.00 - 10.40 K/cmm [facility] RBC 4.73 4.36 - 5.78 M/cmm [facility] Hemoglobin 14.2 13.8 - 17.3 gm/dL [facility] HCT 43.2 39.5 - 50.2 % [facility] MCV 91 81 - 95 fl [facility] MCH 30.0 27.6 - 33.0 pg [facility] MCHC 32.9 32.8 - 36.4 gm/dL [facility] RDW-CV 13.9 <14.2 % [facility] RDW-SD 46.6 (H) <46.0 fl [facility] PLT 397 (H) 141 - 377 K/cmm [facility] MPV 8.8 (L) 9.5 - 12.7 fl [facility] Specimen Blood - Venous blood (substance) Performing Organization Address City/State/ZIP Code Phon e Number [facility] [address] [place] [address] SERVICES MAGNESIUM (03/30/2022 6:38 EDT) Pathologist Sig nature Magnesium 2.2 1.7 - 2.8 mg/dL [facility] Specimen Blood - Venous blood (substance) Performing Organization Address [facility]/ZIP Code Phon e Number [facility] [address] [place] [address] SERVICES (ABNORMAL) BASIC METABOLIC PANEL (BMP) (03/30/2022 6:38 EDT) Pathologist Sig nature Sodium 138 136 - 145 mmol/L [facility] Potassium 4.5 3.5 - 5.0 mmol/L [facility] Chloride 101 96 - 110 mmol/L [facility] CO2 Total 30 22 - 32 mmol/L [facility] Anion Gap 7 5 - 14 [facility] Glucose 87 70 - 100 mg/dL [facility] Calcium 9.2 8.5 - 10.5 mg/dL [facility] BUN 18 10 - 26 mg/dL [facility] Creatinine 0.63 (L) 0.66 - 1.25 mg/dL [facility] eGFR 108 >60 mL/min/1.73m2 [facility] Specimen Blood - Venous blood (substance) Performing Organization Address City/[facility]/ZIP Code Phon e Number [facility] [address] [place] [address] SERVICES (ABNORMAL) POCT GLUCOSE, INTERFACED (03/29/2022 11:21 EDT) Glucose, POC 113 (H) 70 - 100 [facility] mg/dL LABORATORY SERVICES HN LAB POC COMMENT Test Performed by [facility] (GLUCOSE) Nursing Services LABORATORY SERVICES Specimen Blood - Capillary blood (substance) Performing Organization Address City/State/ZIP Code Phon e Number [facility] [address] [place] [address] SERVICES (ABNORMAL) COMPLETE BLOOD COUNT (03/29/2022 9:57 EDT) Pathologist Sig nature WBC 8.00 4.00 - 10.40 K/cmm [facility] RBC 5.22 4.36 - 5.78 M/cmm [facility] Hemoglobin 16.1 13.8 - 17.3 gm/dL [facility] HCT 47.3 39.5 - 50.2 % [facility] MCV 91 81 - 95 fl [facility] MCH 30.8 27.6 - 33.0 pg [facility] MCHC 34.0 32.8 - 36.4 gm/dL [facility] RDW-CV 14.0 <14.2 % [facility] RDW-SD 46.5 (H) <46.0 fl [facility] PLT 368 141 - 377 K/cmm [facility] MPV 9.3 (L) 9.5 - 12.7 fl [facility] Specimen Blood - Venous blood (substance) Performing Organization Address City/State/ZIP Code Phon e Number [facility] [address] [place] [address] SERVICES PHOSPHORUS (03/28/2022 8:57 EDT) [facility] Sig nature Phosphorus 2.9 2.5 - 4.5 mg/dL [facility] Specimen Blood - Venous blood (substance) Performing Organization Address City/State/ZIP Code Phon e Number [facility] [address] [place] [address] SERVICES MAGNESIUM (03/28/2022 8:57 EDT) [facility] Sig nature Magnesium 2.1 1.7 - 2.8 mg/dL [facility] Specimen Blood - Venous blood (substance) Performing Organization Address City/[facility]/ZIP Code Phon e Number [facility] [address] [place] [address] SERVICES (ABNORMAL) BASIC METABOLIC PANEL (BMP) (03/28/2022 8:57 EDT) Pathologist Sig nature Sodium 137 136 - 145 mmol/L [facility] Potassium 4.3 3.5 - 5.0 mmol/L [facility] Chloride 102 96 - 110 mmol/L [facility] CO2 Total 26 22 - 32 mmol/L [facility] Anion Gap 9 5 - 14 [facility] Glucose 154 (H) 70 - 100 mg/dL [facility] Calcium 9.2 8.5 - 10.5 mg/dL [facility] BUN 20 10 - 26 mg/dL [facility] Creatinine 0.69 0.66 - 1.25 mg/dL [facility] eGFR 105 >60 mL/min/1.73m2 [facility] Specimen Blood - Venous blood (substance) Performing Organization Address City/[facility]/ZIP Code Phon e Number [facility] [address] [place] [address] SERVICES PHOSPHORUS (03/27/2022 5:46 EDT) Pathologist Sig nature Phosphorus 4.2 2.5 - 4.5 mg/dL [facility] Specimen Blood - Venous blood (substance) Performing Organization Address City/State/ZIP Code Phon e Number [facility] [address] [place] [address] SERVICES MAGNESIUM (03/27/2022 5:46 EDT) Pathologist Sig nature Magnesium 2.4 1.7 - 2.8 mg/dL [facility] Specimen Blood - Venous blood (substance) Performing Organization Address [facility]/ZIP Code Phon e Number [facility] [address] [place] [address] SERVICES (ABNORMAL) COMPLETE BLOOD COUNT (03/27/2022 5:46 EDT) Pathologist Sig nature WBC 10.30 4.00 - 10.40 K/cmm [facility] RBC 5.57 4.36 - 5.78 M/cmm [facility] Hemoglobin 17.0 13.8 - 17.3 gm/dL [facility] HCT 49.8 39.5 - 50.2 % [facility] MCV 89 81 - 95 fl [facility] MCH 30.5 27.6 - 33.0 pg [facility] MCHC 34.1 32.8 - 36.4 gm/dL [facility] RDW-CV 13.9 <14.2 % [facility] RDW-SD 44.9 <46.0 fl [facility] PLT 313 141 - 377 K/cmm [facility] MPV 9.2 (L) 9.5 - 12.7 fl [facility] Specimen Blood - Venous blood (substance) Performing Organization Address [facility]/ZIP Code Phon e Number [facility] [address] [place] [address] SERVICES (ABNORMAL) BASIC METABOLIC PANEL (BMP) (03/27/2022 5:46 EDT) Pathologist Sig nature Sodium 136 136 - 145 mmol/L [facility] Potassium 4.7 3.5 - 5.0 mmol/L [facility] Chloride 100 96 - 110 mmol/L [facility] CO2 Total 21 (L) 22 - 32 mmol/L [facility] Anion Gap 15 (H) 5 - 14 [facility] Glucose 88 70 - 100 mg/dL [facility] Calcium 9.3 8.5 - 10.5 mg/dL [facility] BUN 27 (H) 10 - 26 mg/dL [facility] Creatinine 0.70 0.66 - 1.25 mg/dL [facility] eGFR 104 >60 mL/min/1.73m2 [facility] Specimen Blood - Venous blood (substance) Performing Organization Address [facility]/ZIP Code Phon e Number [facility] [address] [place] [address] SERVICES PHOSPHORUS (03/26/2022 6:28 EDT) Pathologist Sig nature Phosphorus 3.8 2.5 - 4.5 mg/dL [facility] Specimen Blood - Venous blood (substance) Performing Organization Address [facility]/ZIP Code Phon e Number [facility] [address] [place] [address] SERVICES MAGNESIUM (03/26/2022 6:28 EDT) Pathologist Sig nature Magnesium 2.1 1.7 - 2.8 mg/dL [facility] Specimen Blood - Venous blood (substance) Performing Organization Address City/[facility]/ZIP Code Phon e Number [facility] [address] [place] [address] SERVICES (ABNORMAL) BASIC METABOLIC PANEL (BMP) (03/26/2022 6:28 EDT) Pathologist Sig nature Sodium 135 (L) 136 - 145 mmol/L [facility] Potassium 4.5 3.5 - 5.0 mmol/L [facility] Chloride 100 96 - 110 mmol/L [facility] CO2 Total 25 22 - 32 mmol/L [facility] Anion Gap 10 5 - 14 [facility] Glucose 92 70 - 100 mg/dL [facility] Calcium 8.9 8.5 - 10.5 mg/dL [facility] BUN 20 10 - 26 mg/dL [facility] Creatinine 0.61 (L) 0.66 - 1.25 mg/dL [facility] eGFR 109 >60 mL/min/1.73m2 [facility] Specimen Blood - Venous blood (substance) Performing Organization Address [facility]/ZIP Code Phon e Number [facility] [address] [place] [address] SERVICES POCT GLUCOSE, INTERFACED (03/25/2022 13:32 EDT) Glucose, POC 96 70 - 100 [facility] mg/dL LABORATORY SERVICES HN LAB POC COMMENT Test Performed by [facility] MARIA DE JESUS Vickers (GLUCOSE) Nursing Services LABORATORY SERVICES Specimen Blood - Capillary blood (substance) Performing Organization Address [facility]/ZIP Code Phon e Number [facility] [address] [place] [address] SERVICES PHOSPHORUS (03/25/2022 10:12 EDT) Pathologist Sig nature Phosphorus 3.6 2.5 - 4.5 mg/dL [facility] Specimen Blood - Venous blood (substance) Performing Organization Address City/[facility]/ZIP Code Phon e Number [facility] [address] [place] [address] SERVICES MAGNESIUM (03/25/2022 10:12 EDT) Pathologist Sig nature Magnesium 2.3 1.7 - 2.8 mg/dL [facility] Specimen Blood - Venous blood (substance) Performing Organization Address City/State/[place] [facility] [place] Number [facility] [address] [place] [address] SERVICES (ABNORMAL) BASIC METABOLIC PANEL (BMP) (03/25/2022 10:12 EDT) Pathologist Sig nature Sodium 138 136 - 145 mmol/L [facility] Potassium 4.8 3.5 - 5.0 mmol/L [facility] Chloride 105 96 - 110 mmol/L [facility] CO2 Total 23 22 - 32 mmol/L [facility] Anion Gap 10 5 - 14 [facility] Glucose 109 (H) 70 - 100 mg/dL [facility] Calcium 9.3 8.5 - 10.5 mg/dL [facility] BUN 15 10 - 26 mg/dL [facility] Creatinine 0.57 (L) 0.66 - 1.25 mg/dL [facility] eGFR 111 >60 mL/min/1.73m2 [facility] Specimen Blood - Venous blood (substance) Performing Organization Address [facility] Phon e Number [facility] [address] [place] [address] SERVICES (ABNORMAL) COMPLETE BLOOD COUNT (03/25/2022 10:11 EDT) Pathologist Sig nature WBC 8.66 4.00 - 10.40 K/cmm [facility] RBC 5.86 (H) 4.36 - 5.78 M/cmm [facility] Hemoglobin 18.1 (H) 13.8 - 17.3 gm/dL [facility] HCT 51.6 (H) 39.5 - 50.2 % [facility] MCV 88 81 - 95 fl [facility] MCH 30.9 27.6 - 33.0 pg [facility] MCHC 35.1 32.8 - 36.4 gm/dL [facility] RDW-CV 14.0 <14.2 % [facility] RDW-SD 44.5 <46.0 fl [facility] PLT 329 141 - 377 K/cmm [facility] MPV 9.1 (L) 9.5 - 12.7 fl [facility] Specimen Blood - Venous blood (substance) Performing Organization Address [facility]/ZIP Code Phon e Number [facility] [address] [place] [address] SERVICES POCT GLUCOSE, INTERFACED (03/25/2022 6:32 EDT) Glucose, POC 91 70 - 100 [facility] mg/dL LABORATORY SERVICES HN LAB POC COMMENT Test Performed by [facility] R (GLUCOSE) Nursing Services LABORATORY SERVICES Specimen Blood - Capillary blood (substance) Performing Organization Address [facility]/ZIP Code Phon e Number [facility] [address] [place] [address] SERVICES POCT GLUCOSE, INTERFACED (03/24/2022 23:53 EDT) Glucose, POC 87 70 - 100 [facility] mg/dL LABORATORY SERVICES HN LAB POC COMMENT Test Performed by [facility] R (GLUCOSE) Nursing Services LABORATORY SERVICES Specimen Blood - Capillary blood (substance) Performing Organization Address [facility]/ZIP Code Phon e Number [facility] [address] [place] [address] SERVICES (ABNORMAL) POCT GLUCOSE, INTERFACED (03/24/2022 20:11 EDT) Glucose, POC 121 (H) 70 - 100 [facility] mg/dL LABORATORY SERVICES HN LAB POC COMMENT Test Performed by [facility] R (GLUCOSE) Nursing Services LABORATORY SERVICES Specimen Blood - Capillary blood (substance) Performing Organization Address [facility]/ZIP Code Phon e Number [facility] [address] [place] [address] SERVICES POCT GLUCOSE, INTERFACED (03/24/2022 11:59 EDT) Glucose, POC 86 70 - 100 [facility] mg/dL LABORATORY SERVICES HN LAB POC COMMENT Test Performed by [facility] R (GLUCOSE) Nursing Services LABORATORY SERVICES Specimen Blood - Capillary blood (substance) Performing Organization Address [facility]/ZIP Code Phon e Number [facility] [address] [place] [address] SERVICES PHOSPHORUS (03/24/2022 9:16 EDT) Pathologist Sig nature Phosphorus 3.3 2.5 - 4.5 mg/dL [facility] Specimen Blood - Venous blood (substance) Performing Organization Address City/[facility]/ZIP Code Phon e Number [facility] [address] [place] [address] SERVICES MAGNESIUM (03/24/2022 9:16 EDT) Pathologist Sig nature Magnesium 2.1 1.7 - 2.8 mg/dL [facility] Specimen Blood - Venous blood (substance) Performing Organization Address [facility]/ZIP Code Phon e Number [facility] [address] [place] [address] SERVICES (ABNORMAL) BASIC METABOLIC PANEL (BMP) (03/24/2022 9:16 EDT) Pathologist Sig nature Sodium 137 136 - 145 mmol/L [facility] Potassium 3.7 3.5 - 5.0 mmol/L [facility] Chloride 102 96 - 110 mmol/L [facility] CO2 Total 25 22 - 32 mmol/L [facility] Anion Gap 10 5 - 14 [facility] Glucose 114 (H) 70 - 100 mg/dL [facility] Calcium 8.6 8.5 - 10.5 mg/dL [facility] BUN 19 10 - 26 mg/dL [facility] Creatinine 0.58 (L) 0.66 - 1.25 mg/dL [facility] eGFR 110 >60 mL/min/1.73m2 [facility] Specimen Blood - Venous blood (substance) Performing Organization Address City/[facility]/ZIP Code Phon e Number [facility] [address] [place] [address] SERVICES (ABNORMAL) POCT GLUCOSE, INTERFACED (03/24/2022 6:04 EDT) Glucose, POC 130 (H) 70 - 100 [facility] mg/dL LABORATORY SERVICES HN LAB POC COMMENT Test Per[facility] by [facility] R (GLUCOSE) Nursing Services LABORATORY SERVICES Specimen Blood - Capillary blood (substance) Performing Organization Address City/[facility]/ZIP Code Phon e Number [facility] [address] [place] [address] SERVICES (ABNORMAL) POCT GLUCOSE, INTERFACED (03/23/2022 23:56 EDT) Glucose, POC 106 (H) 70 - 100 [facility] mg/dL LABORATORY SERVICES HN LAB POC COMMENT Test Performed by [facility] [employer] R (GLUCOSE) Nursing Services LABORATORY SERVICES Specimen Blood - Capillary blood (substance) Performing Organization Address City/[facility]/ZIP Code Phon e Number [facility] [address] [place] [address] SERVICES (ABNORMAL) POCT GLUCOSE, INTERFACED (03/23/2022 18:04 EDT) Glucose, POC 107 (H) 70 - 100 [facility] mg/dL LABORATORY SERVICES HN LAB POC COMMENT Test Per[facility] (GLUCOSE) Nursing Services LABORATORY SERVICES Specimen Blood - Capillary blood (substance) Performing Organization Address City/[facility]/ZIP Code Phon e Number [facility] [address] [place] [address] SERVICES POCT GLUCOSE, INTERFACED (03/23/2022 11:54 EDT) Glucose, POC 99 70 - 100 [facility] mg/dL LABORATORY SERVICES HN LAB POC COMMENT Test Per[facility] (GLUCOSE) Nursing Services LABORATORY SERVICES Specimen Blood - Capillary blood (substance) Performing Organization Address City/[facility]/ZIP Code Phon e Number [facility] [address] [place] [address] SERVICES POCT GLUCOSE, INTERFACED (03/23/2022 7:48 EDT) Glucose, POC 86 70 - 100 [facility] mg/dL LABORATORY SERVICES HN LAB POC COMMENT Test [facility] (GLUCOSE) Nursing Services LABORATORY SERVICES Specimen Blood - Capillary blood (substance) Performing Organization Address [facility]/ZIP Code Phon e Number [facility] [address] [place] [address] SERVICES PHOSPHORUS (03/23/2022 6:34 EDT) Pathologist Sig nature Phosphorus 4.0 2.5 - 4.5 mg/dL [facility] Specimen Blood - Venous blood (substance) Performing Organization Address City/[facility]/ZIP Code Phon e Number [facility] [address] [place] [address] SERVICES MAGNESIUM (03/23/2022 6:34 EDT) Pathologist Sig nature Magnesium 2.1 1.7 - 2.8 mg/dL [facility] Specimen Blood - Venous blood (substance) Performing Organization Address City/[facility]/ZIP Code Phon e Number [facility] [address] [place] [address] SERVICES (ABNORMAL) COMPLETE BLOOD COUNT (03/23/2022 6:34 EDT) Pathologist Sig nature WBC 11.06 (H) 4.00 - 10.40 K/cmm [facility] RBC 5.63 4.36 - 5.78 M/cmm [facility] Hemoglobin 16.8 13.8 - 17.3 gm/dL [facility] HCT 49.2 39.5 - 50.2 % [facility] MCV 87 81 - 95 fl [facility] MCH 29.8 27.6 - 33.0 pg [facility] MCHC 34.1 32.8 - 36.4 gm/dL [facility] RDW-CV 14.1 <14.2 % [facility] RDW-SD 45.0 <46.0 fl [facility] PLT 291 141 - 377 K/cmm [facility] MPV 9.0 (L) 9.5 - 12.7 fl [facility] Specimen Blood - Venous blood (substance) Performing Organization Address [facility] Code Phon e Number [facility] [address] [place] [address] SERVICES BASIC METABOLIC PANEL (BMP) (03/23/2022 6:34 EDT) Pathologist Sig nature Sodium 139 136 - 145 mmol/L [facility] Potassium 4.1 3.5 - 5.0 mmol/L [facility] Chloride 107 96 - 110 mmol/L [facility] CO2 Total 24 22 - 32 mmol/L [facility] Anion Gap 8 5 - 14 [facility] Glucose 92 70 - 100 mg/dL [facility] Calcium 9.0 8.5 - 10.5 mg/dL [facility] BUN 18 10 - 26 mg/dL [facility] Creatinine 0.67 0.66 - 1.25 mg/dL [facility] eGFR 106 >60 mL/min/1.73m2 [facility] Specimen Blood - Venous blood (substance) Performing Organization Address City/[facility]/ZIP Code Phon e Number [facility] [address] [place] [address] SERVICES POCT GLUCOSE, INTERFACED (03/22/2022 21:33 EDT) Glucose, POC 87 70 - 100 [facility] mg/dL LABORATORY SERVICES HN LAB POC COMMENT Test Performed by [facility] Vickers (GLUCOSE) Nursing Services LABORATORY SERVICES Specimen Blood - Capillary blood (substance) Performing Organization Address City/State/ZIP Code Phon e Number [facility] [address] [place] [address] SERVICES MR HEAD W WO CONTRAST (03/22/2022 19:03 EDT) Anatomical Region Laterality Modality Head Magnetic Resonance Specimen Impressions [facility] - 03/23/2022 8:44 EDT Scattered areas of cortical restricted diffusion and T2-FLAIR hyperintensity with similar faint signa l abnormality in the basal ganglia, find ings compatible with evolving hypoxic- ischemic injury in the context of recent cardiac arrest. Narrative [facility] - 03/23/2022 8:44 [...] Organization Address City/State/ZIP Code Phon e Number [facility] XR FEEDING TUBE PLACEMENT (03/22/2022 14:39 EDT) Anatomical Region Laterality Modality Abdomen Computed Radiography Specimen Narrative [facility] - 03/22/2022 15:06 [...] Organization Address City/State/ZIP Code Phon e Number [facility] (ABNORMAL) POCT GLUCOSE, INTERFACED (03/22/2022 6:09 EDT) Glucose, POC 116 (H) 70 - 100 [facility] mg/dL LABORATORY SERVICES HN LAB POC COMMENT Test Per[facility] by [facility] (GLUCOSE) Nursing Services LABORATORY SERVICES Specimen Blood - Capillary blood (substance) Performing Organization Address City/State/ZIP Code Phon e Number [facility] [address] [place] [address] SERVICES POCT GLUCOSE, INTERFACED (03/22/2022 0:24 EDT) Glucose, POC 87 70 - 100 [facility] mg/dL LABORATORY SERVICES HN LAB POC COMMENT Test Performed by [facility] R (GLUCOSE) Nursing Services LABORATORY SERVICES Specimen Blood - Capillary blood (substance) Performing Organization Address City/State/ZIP Code Phon e Number [facility] [address] [place] [address] SERVICES (ABNORMAL) POCT GLUCOSE, INTERFACED (03/21/2022 17:28 EDT) Glucose, POC 105 (H) 70 - 100 [facility] mg/dL LABORATORY SERVICES HN LAB POC COMMENT Test Performed by [facility] [employer] R (GLUCOSE) Nursing Services LABORATORY SERVICES Specimen Blood - Capillary blood (substance) Performing Organization Address City/[facility]/ZIP Code Phon e Number [facility] [address] [place] [address] SERVICES (ABNORMAL) COMPLETE BLOOD COUNT (03/21/2022 8:55 EDT) Pathologist Sig nature WBC 9.53 4.00 - 10.40 K/cmm [facility] RBC 5.38 4.36 - 5.78 M/cmm [facility] Hemoglobin 16.8 13.8 - 17.3 gm/dL [facility] HCT 47.9 39.5 - 50.2 % [facility] MCV 89 81 - 95 fl [facility] MCH 31.2 27.6 - 33.0 pg [facility] MCHC 35.1 32.8 - 36.4 gm/dL [facility] RDW-CV 14.6 (H) <14.2 % [facility] RDW-SD 46.6 (H) <46.0 fl [facility] PLT 220 141 - 377 K/cmm [facility] MPV 9.2 (L) 9.5 - 12.7 fl [facility] Specimen Blood - Venous blood (substance) Performing Organization Address City/[facility]/ZIP Code Phon e Number [facility] [address] [place] [address] SERVICES POCT GLUCOSE, INTERFACED (03/21/2022 6:27 EDT) Glucose, POC 98 70 - 100 [facility] mg/dL LABORATORY SERVICES HN LAB POC COMMENT Test Performed by [facility] [employer] R (GLUCOSE) Nursing Services LABORATORY SERVICES Specimen Blood - Capillary blood (substance) Performing Organization Address City/[facility]/ZIP Code Phon e Number [facility] [address] [place] [address] SERVICES VITAMIN B12 (03/21/2022 6:17 EDT) Pathologist Sig nature Vitamin B12 356 211 - 911 pg/mL [facility] SERVICES Specimen Blood - Venous blood (substance) Performing Organization Address City/[facility]/ZIP Code Phon e Number [facility] [address] [place] [address] SERVICES (ABNORMAL) BASIC METABOLIC PANEL (BMP) (03/21/2022 6:17 EDT) Pathologist Sig nature Sodium 137 136 - 145 mmol/L [facility] Potassium 3.6 3.5 - 5.0 mmol/L [facility] Chloride 102 96 - 110 mmol/L [facility] CO2 Total 27 22 - 32 mmol/L [facility] Anion Gap 8 5 - 14 [facility] Glucose 120 (H) 70 - 100 mg/dL [facility] Calcium 8.8 8.5 - 10.5 mg/dL [facility] BUN 16 10 - 26 mg/dL [facility] Creatinine 0.59 (L) 0.66 - 1.25 mg/dL [facility] eGFR 110 >60 mL/min/1.73m2 [facility] Specimen Blood - Venous blood (substance) Performing Organization Address City/[facility]/ZIP Code Phon e Number [facility] [address] [place] [address] SERVICES (ABNORMAL) POCT GLUCOSE, INTERFACED (03/21/2022 0:06 EDT) Glucose, POC 105 (H) 70 - 100 [facility] mg/dL LABORATORY SERVICES HN LAB POC COMMENT Test Performed by [facility] MARIA DE JESUS Vickers (GLUCOSE) Nursing Services LABORATORY SERVICES Specimen Blood - Capillary blood (substance) Performing Organization Address City/[facility]/ZIP Code Phon e Number [facility] [address] [place] [address] SERVICES XR FOOT RIGHT 1-2 VIEWS (03/20/2022 18:49 EDT) Anatomical Region Laterality Modality Lower Extremities Right Computed Radiography Specimen Impressions [facility] - 03/21/2022 10:58 EDT No evidence of metallic foreign body over the right lower extremity. I have personally reviewed the images an d the above interpretation and agree with the findings. Narrative [facility] - 03/21/2022 10:58 EDT XR FEMUR RIGHT 2 OR MORE VIEWS, XR TIBIA FIBULA RIGHT 2 VIEWS, XR FOOT RIGHT 1-2 VIEWS ??03/20/2022 5:50 PM Signs and Symptoms/Comments: ??Only AP p er ordering DrArchie ; MRI metal [...] Signs and Symptoms/Comments: Only AP per ordering ; MRI metal screening Comparison: None. Technique: [...] Organization Address City/State/ZIP Code Phon e Number [facility] XR FOOT LEFT 1-2 VIEWS (03/20/2022 18:49 EDT) Anatomical Region Laterality Modality Lower Extremities Left Computed Radiography Specimen Impressions [facility] - 03/21/2022 10:57 EDT Metallic focus measuring 2 mm projects over the lateral aspect of the second metatarsal head. No additional metallic foci are identified in the left lower extremity. I have personally reviewed the images an d the above interpretation and agree with the findings. Narrative [facility] - 03/21/2022 10:57 EDT XR FEMUR LEFT 2 OR MORE VIEWS, XR TIBIA FIBULA LEFT 2 VIEWS, XR FOOT LEFT 1-2 VIEWS ??03/20/2022 5:50 PM Signs and Symptoms/Comments: ??Only Ap p er ordering ; MRI metal screening Comparison: None. Technique: [...] Organization Address City/State/ZIP Code Phon e Number [facility] [place] XR TIBIA FIBULA LEFT 2 VIEWS (03/20/2022 18:49 EDT) Anatomical Region Laterality Modality Lower Extremities Computed Radiography Specimen Impressions [facility] [place] - 03/21/2022 10:57 EDT Metallic focus measuring 2 mm projects over the lateral aspect of the second metatarsal head. No additional metallic foci are identified in the left lower extremity. I have personally reviewed the images an d the above interpretation and agree with the findings. Narrative [facility] [place] - 03/21/2022 10:57 EDT XR FEMUR LEFT [...] Organization Address City/State/ZIP Code Phon e Number [facility] XR TIBIA FIBULA RIGHT 2 VIEWS (03/20/2022 18:49 EDT) Anatomical Region Laterality Modality Lower Extremities Computed Radiography Specimen Impressions [facility] - 03/21/2022 10:58 EDT No evidence of metallic foreign body over the right lower extremity. I have personally reviewed the images an d the above interpretation and agree with the findings. Narrative [facility] - 03/21/2022 10:58 EDT XR FEMUR RIGHT [...] Organization Address City/State/ZIP Code Phon e Number [facility] XR FEMUR RIGHT 2 OR MORE VIEWS (03/20/2022 18:49 EDT) Anatomical Region Laterality Modality Lower Extremities Right Computed Radiography Specimen Impressions [facility] - 03/21/2022 10:58 EDT No evidence of metallic foreign body over the right lower extremity. I have personally reviewed the images an d the above interpretation and agree with the findings. Narrative [facility] - 03/21/2022 10:58 EDT XR FEMUR RIGHT 2 OR MORE VIEWS, XR TIBIA FIBULA RIGHT 2 VIEWS, XR FOOT RIGHT 1-2 VIEWS ??03/20/2022 5:50 PM Signs and Symptoms/Comments: ??Only AP p er ordering DrArchie ; MRI metal [...] Signs and Symptoms/Comments: Only AP per ordering ; MRI metal screening Comparison: None. Technique: [...] Organization Address City/State/ZIP Code Phon e Number [facility] XR FEMUR LEFT 2 OR MORE VIEWS (03/20/2022 18:49 EDT) Anatomical Region Laterality Modality Lower Extremities Left Computed Radiography Specimen Impressions [facility] - 03/21/2022 10:57 EDT Metallic focus measuring 2 mm projects over the lateral aspect of the second metatarsal head. No additional metallic foci are identified in the left lower extremity. I have personally reviewed the images an d the above interpretation and agree with the findings. Narrative [facility] - 03/21/2022 10:57 EDT XR FEMUR LEFT 2 OR MORE VIEWS, XR TIBIA FIBULA LEFT 2 VIEWS, XR FOOT LEFT 1-2 VIEWS ??03/20/2022 5:50 PM Signs and Symptoms/Comments: ??Only Ap p er ordering ; MRI metal screening Comparison: None. Technique: [...] Organization Address City/State/ZIP Code Phon e Number [facility] [place] XR HAND LEFT 1-2 VIEWS (03/20/2022 18:49 EDT) Anatomical Region Laterality Modality Upper Extremities Left Computed Radiography Specimen Impressions [facility] [place] - 03/21/2022 10:53 EDT No evidence of metallic foreign body over the left upper extremity. I have personally reviewed the images an d the above interpretation and agree with the findings. Narrative [facility] - 03/21/2022 10:53 EDT XR HAND LEFT 1-2 VIEWS, XR HUMERUS LEFT, XR FOREARM LEFT 2 VIEWS ??03/20/2022 5:50 PM Signs and Symptoms/Comments: ??Only PA p er ordering DrArchie; MRI metal screening [...] Organization Address City/State/ZIP Code Phon e Number [facility] XR HAND RIGHT 1-2 VIEWS (03/20/2022 18:49 EDT) Anatomical Region Laterality Modality Upper Extremities Right Computed Radiography Specimen Impressions [facility] - 03/21/2022 10:59 EDT No evidence of metallic foreign body over the right upper extremity. I have personally reviewed the images an d the above interpretation and agree with the findings. Narrative [facility] - 03/21/2022 10:59 EDT XR HAND RIGHT [...] Organization Address City/State/ZIP Code Phon e Number [facility] XR FOREARM LEFT 2 VIEWS (03/20/2022 18:49 EDT) Anatomical Region Laterality Modality Upper Extremities Left Computed Radiography Specimen Impressions [facility] - 03/21/2022 10:53 EDT No evidence of metallic foreign body over the left upper extremity. I have personally reviewed the images an d the above interpretation and agree with the findings. Narrative [facility] - 03/21/2022 10:53 EDT XR HAND LEFT 1-2 VIEWS, XR HUMERUS LEFT, XR FOREARM LEFT 2 VIEWS ??03/20/2022 5:50 PM Signs and Symptoms/Comments: ??Only PA p er ordering DrArchie; MRI metal screening [...] Signs and Symptoms/Comments: Only PA per ordering ; MRI metal screening Comparison: None. Technique: One [...] Organization Address City/State/ZIP Code Phon e Number [facility] XR FOREARM RIGHT 2 VIEWS (03/20/2022 18:49 EDT) Anatomical Region Laterality Modality Upper Extremities Right Computed Radiography Specimen Impressions [facility] - 03/21/2022 10:59 EDT No evidence of metallic foreign body over the right upper extremity. I have personally reviewed the images an d the above interpretation and agree with the findings. Narrative [facility] - 03/21/2022 10:59 EDT XR HAND RIGHT 1-2 VIEWS, XR HUMERUS RIGHT, XR FOREARM RIGHT 1 VIEW ??03/20/2022 5:50 PM Signs and Symptoms/Comments: ?? Only PA per ordering ; MRI metal scre ening Comparison: None. Technique: [...] Organization Address City/State/ZIP Code Phon e Number [facility] [place] XR HUMERUS RIGHT (03/20/2022 18:49 EDT) Anatomical Region Laterality Modality Right Computed Radiography Specimen Impressions [facility] - 03/21/2022 10:59 EDT No evidence of metallic foreign body over the right upper extremity. I have personally reviewed the images an d the above interpretation and agree with the findings. Narrative [facility] - 03/21/2022 10:59 EDT XR HAND [...] Signs and Symptoms/Comments: Only PA per ordering ; MRI metal scre ening Comparison: None. Technique: [...] Organization Address City/State/ZIP Code Phon e Number [facility] XR HUMERUS LEFT (03/20/2022 18:49 EDT) Anatomical Region Laterality Modality Upper Extremities Left Computed Radiography Specimen Impressions [facility] - 03/21/2022 10:53 EDT No evidence of metallic foreign body over the left upper extremity. I have personally reviewed the images an d the above interpretation and agree with the findings. Narrative [facility] - 03/21/2022 10:53 EDT XR HAND LEFT 1-2 VIEWS, XR HUMERUS LEFT, XR FOREARM LEFT 2 VIEWS ??03/20/2022 5:50 PM Signs and Symptoms/Comments: ??Only NORMA parker er ordering DrArchie; MRI metal screening Comparison: [...] Organization Address City/State/ZIP Code Phon e Number [facility] POCT GLUCOSE, INTERFACED (03/20/2022 17:51 EDT) Glucose, POC 93 70 - 100 [facility] mg/dL LABORATORY SERVICES HN LAB POC COMMENT Test Performed by [facility] MARIA DE JESUS Vickers (GLUCOSE) Nursing Services LABORATORY SERVICES Specimen Blood - Capillary blood (substance) Performing Organization Address City/State/ZIP Code Phon e Number [facility] [address] [place] [address] SERVICES POCT GLUCOSE, INTERFACED (03/20/2022 12:48 EDT) Glucose, POC 72 70 - 100 [facility] mg/dL LABORATORY SERVICES HN LAB POC COMMENT Test Performed by [facility] MARIA DE JESUS Vickers (GLUCOSE) Nursing Services LABORATORY SERVICES Specimen Blood - Capillary blood (substance) Performing Organization Address [facility]/ZIP Code Phon e Number [facility] [address] [place] [address] SERVICES (ABNORMAL) COMPLETE BLOOD COUNT (03/20/2022 6:32 EDT) Pathologist Sig nature WBC 10.22 4.00 - 10.40 K/cmm [facility] RBC 5.34 4.36 - 5.78 M/cmm [facility] Hemoglobin 16.3 13.8 - 17.3 gm/dL [facility] HCT 46.6 39.5 - 50.2 % [facility] MCV 87 81 - 95 fl [facility] MCH 30.5 27.6 - 33.0 pg [facility] MCHC 35.0 32.8 - 36.4 gm/dL [facility] RDW-CV 14.8 (H) <14.2 % [facility] RDW-SD 47.6 (H) <46.0 fl [facility] PLT 221 141 - 377 K/cmm [facility] MPV 9.1 (L) 9.5 - 12.7 fl [facility] Specimen Blood - Venous blood (substance) Performing Organization Address City/[facility]/ZIP Code Phon e Number [facility] [address] [place] [address] SERVICES MAGNESIUM (03/20/2022 6:32 EDT) [facility] Sig nature Magnesium 2.2 1.7 - 2.8 mg/dL [facility] SERVICES Specimen Blood - Venous blood (substance) Performing Organization Address City/[facility]/ZIP Code Phon e Number [facility] [address] [place] [address] SERVICES (ABNORMAL) BASIC METABOLIC PANEL (BMP) (03/20/2022 6:32 EDT) Pathologist Sig nature Sodium 140 136 - 145 mmol/L [facility] Potassium 3.7 3.5 - 5.0 mmol/L [facility] Chloride 108 96 - 110 mmol/L [facility] CO2 Total 19 (L) 22 - 32 mmol/L [facility] Anion Gap 13 5 - 14 [facility] Glucose 87 70 - 100 mg/dL [facility] Calcium 9.0 8.5 - 10.5 mg/dL [facility] BUN 15 10 - 26 mg/dL [facility] Creatinine 0.64 (L) 0.66 - 1.25 mg/dL [facility] eGFR 107 >60 mL/min/1.73m2 [facility] Specimen Blood - Venous blood (substance) Performing Organization Address City/[facility]/[place] [facility] [place] [facility] [address] [place] [address] SERVICES POCT GLUCOSE, INTERFACED (03/20/2022 5:44 EDT) Glucose, POC 72 70 - 100 [facility] mg/dL LABORATORY SERVICES HN LAB POC COMMENT Test Performed by [facility] R (GLUCOSE) Nursing Services LABORATORY SERVICES Specimen Blood - Capillary blood (substance) Performing Organization Address City/[facility]/ZIP Code Phon e Number [facility] [address] [place] [address] SERVICES POCT GLUCOSE, INTERFACED (03/19/2022 13:23 EDT) Glucose, POC 83 70 - 100 [facility] mg/dL LABORATORY SERVICES HN LAB POC COMMENT Test [facility] ([facility]UCOSE) Nursing Services LABORATORY SERVICES Specimen Blood - Capillary blood (substance) Performing Organization Address [facility]/[place]IP [facility] [place] Number [facility] [address] [place] [address] SERVICES (ABNORMAL) COMPLETE BLOOD COUNT (03/19/2022 6:03 EDT) Pathologist Sig nature WBC 12.01 (H) 4.00 - 10.40 K/cmm [facility] RBC 4.90 4.36 - 5.78 M/cmm [facility] Hemoglobin 14.7 13.8 - 17.3 gm/dL [facility] HCT 41.4 39.5 - 50.2 % [facility] MCV 85 81 - 95 fl [facility] MCH 30.0 27.6 - 33.0 pg [facility] MCHC 35.5 32.8 - 36.4 gm/dL [facility] RDW-CV 15.0 (H) <14.2 % [facility] RDW-SD 46.0 (H) <46.0 fl [facility] PLT 194 141 - 377 K/cmm [facility] MPV 9.3 (L) 9.5 - 12.7 fl [facility] Specimen Blood - Venous blood (substance) Performing Organization Address City/[facility]/ZIP Code Phon e Number [facility] [address] [place] [address] SERVICES MAGNESIUM (03/19/2022 6:03 EDT) Pathologist Sig nature Magnesium 1.9 1.7 - 2.8 mg/dL [facility] SERVICES Specimen Blood - Venous blood (substance) Performing Organization Address [facility]/ZIP [facility] [place] [facility] [address] [place] [address] SERVICES (ABNORMAL) BASIC METABOLIC PANEL (BMP) (03/19/2022 6:03 EDT) Pathologist Sig nature Sodium 137 136 - 145 mmol/L [facility] Potassium 3.7 3.5 - 5.0 mmol/L [facility] Chloride 108 96 - 110 mmol/L [facility] CO2 Total 24 22 - 32 mmol/L [facility] Anion Gap 5 5 - 14 [facility] Glucose 112 (H) 70 - 100 mg/dL [facility] Calcium 8.5 8.5 - 10.5 mg/dL [facility] BUN 6 (L) 10 - 26 mg/dL [facility] Creatinine 0.55 (L) 0.66 - 1.25 mg/dL [facility] eGFR 112 >60 mL/min/1.73m2 [facility] Specimen Blood - Venous blood (substance) Performing Organization Address [facility]/ZIP Code Phon e Number [facility] [address] [place] [address] SERVICES POCT GLUCOSE, INTERFACED (03/19/2022 5:35 EDT) Glucose, POC 89 70 - 100 [facility] mg/dL LABORATORY SERVICES HN LAB POC COMMENT Test Performed by [facility] [employer] R (GLUCOSE) Nursing Services LABORATORY SERVICES Specimen Blood - Capillary blood (substance) Performing Organization Address City/[facility]/ZIP Code Phon e Number [facility] [address] [place] [address] SERVICES POCT GLUCOSE, INTERFACED (03/18/2022 23:18 EDT) Glucose, POC 100 70 - 100 [facility] mg/dL LABORATORY SERVICES HN LAB POC COMMENT Test [facility] (GLUCOSE) Nursing Services LABORATORY SERVICES Specimen Blood - Capillary blood (substance) Performing Organization Address City/[facility]/ZIP Code Phon e Number [facility] [address] [place] [address] SERVICES POCT GLUCOSE, INTERFACED (03/18/2022 17:24 EDT) Glucose, POC 95 70 - 100 [facility] mg/dL LABORATORY SERVICES HN LAB POC COMMENT Test [facility] (GLUCOSE) Nursing Services LABORATORY SERVICES Specimen Blood - Capillary blood (substance) Performing Organization Address [facility] Phon e Number [facility] [address] [place] [address] SERVICES (ABNORMAL) ELECTROLYTES (03/18/2022 14:59 EDT) Pathologist Sig nature Sodium 141 136 - 145 [facility] mmol/L LABORATORY SERVICES Potassium 4.0Comment: Slight 3.5 - 5.0 [facility] hemolysis mmol/L LABORATORY SERVICES identified, interpret with caution as hemolysis will elevate potassium result. Chloride 115 (H) 96 - 110 mmol/L [facility] CO2 Total 19 (L) 22 - 32 mmol/L [facility] Anion Gap 7 5 - 14 [facility] Specimen Blood - Venous blood (substance) Performing Organization Address City/[facility]/ZIP Code Phon e Number [facility] [address] [place] [address] SERVICES (ABNORMAL) COMPLETE BLOOD COUNT (03/18/2022 12:28 EDT) Pathologist Sig nature WBC 12.76 (H) 4.00 - 10.40 K/cmm [facility] RBC 4.49 4.36 - 5.78 M/cmm [facility] Hemoglobin 13.8 13.8 - 17.3 gm/dL [facility] HCT 38.5 (L) 39.5 - 50.2 % [facility] MCV 86 81 - 95 fl [facility] MCH 30.7 27.6 - 33.0 pg [facility] MCHC 35.8 32.8 - 36.4 gm/dL [facility] RDW-CV 15.7 (H) <14.2 % [facility] RDW-SD 49.1 (H) <46.0 fl [facility] SERVICES PLT 166 141 - 377 K/cmm [facility] SERVICES MPV 9.2 (L) 9.5 - 12.7 fl [facility] Specimen Blood - Venous blood (substance) Performing Organization Address City/[facility]/ZIP Code Phon e Number [facility] [address] [place] [address] SERVICES (ABNORMAL) POCT GLUCOSE, INTERFACED (03/18/2022 11:58 EDT) Glucose, POC 105 (H) 70 - 100 [facility] mg/dL LABORATORY SERVICES HN LAB POC COMMENT Test Performed by [facility] MARIA DE JESUS R (GLUCOSE) Nursing Services LABORATORY SERVICES Specimen Blood - Capillary blood (substance) Performing Organization Address City/[facility]/ZIP Code Phon e Number [facility] [address] [place] [address] SERVICES TRANSTHORACIC ECHO (TTE) COMPLETE W/DOPPLER W/CF [...] Phon e Number [facility] POINT OF CARE (ABNORMAL) POCT GLUCOSE, INTERFACED (03/18/2022 6:27 EDT) Glucose, POC 122 (H) 70 - 100 [facility] mg/dL LABORATORY SERVICES HN LAB POC COMMENT Test Performed by [facility] MARIA DE JESUS Vickers (GLUCOSE) Nursing Services LABORATORY SERVICES Specimen Blood - Capillary blood (substance) Performing Organization Address [facility]/ZIP [facility] [place] e Number [facility] [address] [place] [address] SERVICES PHOSPHORUS (03/18/2022 4:40 EDT) Pathologist Sig nature Phosphorus 3.3 2.5 - 4.5 mg/dL [facility] LABORA TORY SERVICES Specimen Blood - Venous blood (substance) Performing Organization Address [facility] Phon e Number [facility] [address] [place] [address] SERVICES MAGNESIUM (03/18/2022 4:40 EDT) Pathologist Sig nature Magnesium 2.2 1.7 - 2.8 mg/dL [facility] LAB[facility] SERVICES Specimen Blood - Venous blood (substance) Performing Organization Address [facility] Phon e Number [facility] [address] [place] [address] SERVICES (ABNORMAL) HEPATIC FUNCTION PANEL (ALB,ALK PHOS,ALT,AST,DBIL,TOT ZACH,TOT PROT) (03/18/2022 4:40 EDT) Total Protein 4.6 (L) 6.3 - 8.2 g/dL [facility] Albumin 2.7 (L) 3.4 - 4.9 g/dL [facility] Bilirubin, Total 0.8 <1.4 mg/dL [facility] Conjugated Bilirubin 0.0 <=0.3 mg/dL [facility] Unconjugated Bilirubin 0.8 <=1.1 mg/dL [facility] Alkaline Phosphatase 43 38 - 126 U/L [facility] ALT 14 <50 U/L [facility] AST 47 (H) 15 - 46 U/L [facility] Calculated Total 0.8 <1.4 mg/dL [facility] Bilirubin LABORATORY SERVICES Specimen Blood - Venous blood (substance) Performing Organization Address [facility]/ZIP [facility] [place] e Number [facility] [address] [place] [address] SERVICES (ABNORMAL) BASIC METABOLIC PANEL (BMP) (03/18/2022 4:40 EDT) Pathologist Sig nature Sodium 144 136 - 145 mmol/L [facility] Potassium 3.9 3.5 - 5.0 mmol/L [facility] Chloride 113 (H) 96 - 110 mmol/L [facility] CO2 Total 24 22 - 32 mmol/L [facility] Anion Gap 7 5 - 14 [facility] Glucose 165 (H) 70 - 100 mg/dL [facility] Calcium 7.7 (L) 8.5 - 10.5 mg/dL [facility] [facility] BUN 11 10 - 26 mg/dL [facility] Creatinine 0.80 0.66 - 1.25 mg/dL [facility] eGFR 100 >60 mL/min/1.73m2 [facility] Specimen Blood - Venous blood (substance) Performing Organization Address [facility] Phon e Number [facility] [address] [place] [address] SERVICES (ABNORMAL) COMPLETE BLOOD COUNT (03/18/2022 4:40 EDT) Pathologist Sig nature WBC 13.75 (H) 4.00 - 10.40 K/cmm [facility] RBC 4.30 (L) 4.36 - 5.78 M/cmm [facility] Hemoglobin 13.1 (L) 13.8 - 17.3 gm/dL [facility] HCT 37.4 (L) 39.5 - 50.2 % [facility] MCV 87 81 - 95 fl [facility] MCH 30.5 27.6 - 33.0 pg [facility] MCHC 35.0 32.8 - 36.4 gm/dL [facility] RDW-CV 15.7 (H) <14.2 % [facility] RDW-SD 49.7 (H) <46.0 fl [facility] PLT 173 141 - 377 K/cmm [facility] MPV 9.2 (L) 9.5 - 12.7 fl [facility] Specimen Blood - Venous blood (substance) Performing Organization Address [facility]/ZIP Code Phon e Number [facility] [address] [place] [address] SERVICES (ABNORMAL) PROCALCITONIN (03/18/2022 4:40 EDT) Procalcitonin 7.78 (H) See Note ng/mL [facility] Comment: LABORATORY SERVICES NOTE: Reference Range: <0.5 ng/mL - Low risk of severe sepsis >2.0 ng/mL - High risk of severe sepsis Specimen Blood - Venous blood (substance) Performing Organization Address [facility]/ZIP Code Phon e Number [facility] [address] [place] [address] SERVICES (ABNORMAL) COMPLETE BLOOD COUNT (03/18/2022 0:41 EDT) Pathologist Sig nature WBC 17.86 (H) 4.00 - 10.40 K/cmm [facility] RBC 4.84 4.36 - 5.78 M/cmm [facility] Hemoglobin 14.9 13.8 - 17.3 gm/dL [facility] HCT 40.5 39.5 - 50.2 % [facility] MCV 84 81 - 95 fl [facility] MCH 30.8 27.6 - 33.0 pg [facility] MCHC 36.8 (H) 32.8 - 36.4 gm/dL [facility] RDW-CV 15.4 (H) <14.2 % [facility] RDW-SD 47.0 (H) <46.0 fl [facility] PLT 212 141 - 377 K/cmm [facility] MPV 9.4 (L) 9.5 - 12.7 fl [facility] Specimen Blood - Venous blood (substance) Performing Organization Address [facility]/ZIP Code Phon e Number [facility] [address] [place] [address] SERVICES (ABNORMAL) POCT GLUCOSE, INTERFACED (03/18/2022 0:06 EDT) Glucose, POC 139 (H) 70 - 100 [facility] mg/dL LABORATORY SERVICES HN LAB POC COMMENT Test Performed by [facility] MARIA DE JESUS Vickers (GLUCOSE) Nursing Services LABORATORY SERVICES Specimen Blood - Capillary blood (substance) Performing Organization Address [facility]/State/ZIP Code Phon e Number [facility] [address] [place] [address] SERVICES EEG WITH PROLONGED BEDSIDE VIDEO MONITORING (03/17/2022 23:58 EDT) Narrative [facility] POINT OF CARE - 03/17/2022 23:58 E Mayco Herron MD ? 03/19/2022 ??9:18 [facility] ??Name: Antoine Saez Clinical Neurophysiology Laboratory ??MR N: [id number] [address] [facility] ? : 1960 [place], [place] ?Date: Video-Electroencephalographic Monitoring Report Referring Physician: Ruby Irby [...] BP: 122/78 ??135/74 ?? Resp: 20 24 21 ?? Temp: 36.9 ??C (98.4 ??F) ??37 ??C (98.6 ??F) 37 ??C (98.6 ??F) TempSrc: Esophageal ??Esophageal ?? SpO2: 100% 99% 99% ?? Weight: ? Height: ? Findings: The monitoring period begins on 11 MAY 2 022 at 08:40 and this report summarizes findings [...] N europhysiology 12:58 ??03/17/2022 Performing Organization Address City/State/ZIP Code Phon e Number [facility] POINT OF CARE (ABNORMAL) PROTIME (03/17/2022 20:32 EDT) Pathologist Sig nature I.N.R. 1.2 (H) 0.9 - 1.1 Ratio [facility] Pro Time 13.7 (H) 10.4 - 12.6 secs [facility] Specimen Blood - Venous blood (substance) Narrative [facility] - 03/17/2022 21:18 EDT Moderate Intensity Coumadin INR = 2.0-3.0 Adjustments in anticoagulant therapy dos e should be based on the INR and NOT on the Protime. Performing Organization Address [facility]/ZIP Code Phon e Number [facility] [address] [place] [address] SERVICES (ABNORMAL) COMPLETE BLOOD COUNT (03/17/2022 18:58 EDT) Pathologist Sig nature WBC 19.74 (H) 4.00 - 10.40 K/cmm [facility] RBC 4.98 4.36 - 5.78 M/cmm [facility] Hemoglobin 15.1 13.8 - 17.3 gm/dL [facility] HCT 41.8 39.5 - 50.2 % [facility] MCV 84 81 - 95 fl [facility] MCH 30.3 27.6 - 33.0 pg [facility] MCHC 36.1 32.8 - 36.4 gm/dL [facility] RDW-CV 15.9 (H) <14.2 % [facility] RDW-SD 49.3 (H) <46.0 fl [facility] SERVICES PLT 206 141 - 377 K/cmm [facility] SERVICES MPV 9.2 (L) 9.5 - 12.7 fl [facility] SERVICES Specimen Blood - Venous blood (substance) Performing Organization Address [facility] Phon e Number [facility] [address] [place] [address] SERVICES (ABNORMAL) CALCIUM, IONIZED (03/17/2022 18:58 EDT) Calcium, Ionized 1.11 (L)Comment: 1.14 - 1.35 [facility] Tube not filled to mmol/L LABORATORY capacity. Ionized SERVICES calcium results may be falsely decreased. Interpret results with caution. Specimen Blood - Venous blood (substance) Performing Organization Address [facility]/ZIP Code Phon e Number [facility] [address] [place] [address] SERVICES BACTERIAL CULTURE, URINE (03/17/2022 18:50 EDT) Pathologist Sig nature Organism ID No Growth [facility] LABORATOR Y SERVICES Specimen Urine - Urine specimen collection, clean catch (procedure) Performing Organization Address [facility]/[place]IP [facility] [place] [facility] [address] [place] [address] SERVICES OSMOLALITY, URINE (03/17/2022 18:50 EDT) Pathologist Sig nature Osmolality, Urine 159 150-1,150 mOsm/kg [facility] SERVICES Specimen Urine - Urine specimen collection, clean catch (procedure) Performing Organization Address City/[facility]/ZIP Code Phon e Number [facility] [address] [place] [address] SERVICES (ABNORMAL) URINE CHEMICAL (DIP) & SEDIMENT (MICRO) WITH REFLEX TO CULTURE (03/17/2022 18:50 EDT) Color UA Red (A) Colorless, [facility] Yellow LABORATORY SERVICES Clarity UA Clear Clear [facility] SERVICES Glucose UA Negative Negative [facility] SERVICES Bilirubin UA Negative Negative [facility] SERVICES Ketones UA Negative Negative [facility] SERVICES Specific [place], 1.006 1.001 - 1.035 [facility] Urine LABORATORY SERVICES Blood UA 3+ (A) Negative [facility] SERVICES Urobilinogen UA Normal Normal mg/dL [facility] SERVICES Nitrite UA Negative Negative [facility] SERVICES Leukocyte Esterase UA Trace (A) Negative [facility] SERVICES Protein UA 1+ (A) Negative [facility] SERVICES pH, UA 7.5 4.6 - 8.0 [facility] SERVICES Urine RBC Count, Auto >50 (A) 0 - 2 Cells/HPF [facility] ER LABORATORY SERVICES Urine WBC Count, Auto 4 - 10 (A) 0 - 3 Cells/HPF [facility] LABORATORY SERVICES Urine Squamous Count, None Seen None Seen [facility] Auto Cells/HPF LABORATORY SERVICES Urine Hyaline Cast <=10 <=10 Casts/LPF [facility] Count, Auto LABORATORY SERVICES Urine Bacteria Count, None Seen None Seen [facility] Auto Bacteria/HPF LABORATORY SERVICES Specimen Urine - Urine specimen collection, clean catch (procedure) Narrative [facility] LAB[facility]ORY SERVICES - 03/17/2022 19:19 EDT A Urine Culture test has been reflexively ordered based on result criteria from the Urine Sediment Analysis. Urine Sediment Analysis results are unre liable on urines that are unrefrigerated for >2 hrs or refrigerated >8 hrs. Performing Organization Address City/State/ZIP Code Phon e Number [facility] [address] [place] [address] SERVICES (ABNORMAL) POCT GLUCOSE, INTERFACED (03/17/2022 17:33 EDT) Glucose, POC 122 (H) 70 - 100 [facility] mg/dL LABORATORY SERVICES HN LAB POC COMMENT Test Performed by [facility] MARIA DE JESUS Vickers (GLUCOSE) Nursing Services LABORATORY SERVICES Specimen Blood - Capillary blood (substance) Performing Organization Address [facility]/ZIP Code Phon e Number [facility] [address] [place] [address] SERVICES (ABNORMAL) MAGNESIUM (03/17/2022 17:32 EDT) Pathologist Sig nature Magnesium 1.6 (L) 1.7 - 2.8 mg/dL [facility] Specimen Blood - Venous blood (substance) Performing Organization Address [facility] Phon e Number [facility] [address] [place] [address] SERVICES (ABNORMAL) ELECTROLYTES (03/17/2022 17:32 EDT) Pathologist Sig nature Sodium 140 136 - 145 mmol/L [facility] SERVICES Potassium 3.7 3.5 - 5.0 mmol/L [facility] SERVICES Chloride 112 (H) 96 - 110 mmol/L [facility] SERVICES CO2 Total 20 (L) 22 - 32 mmol/L [facility] SERVICES Anion Gap 8 5 - 14 [facility] LAB[facility]ATORY SERVICES Specimen Blood - Venous blood (substance) Performing Organization Address [facility]/ZIP Code Phon e Number [facility] [address] [place] [id number] SERVICES PHOSPHORUS (03/17/2022 17:32 EDT) Pathologist Sig nature Phosphorus 2.8 2.5 - 4.5 mg/dL [facility] TOR SERVICES Specimen Blood - Venous blood (substance) Performing Organization Address [facility]/ZIP Code Phon e Number [facility] [address] [place] [id number] [address] CERVICAL SPINE WO CONTRAST (03/17/2022 15:36 EDT) Anatomical Region Laterality Modality Computed Tomography Specimen Impressions [facility] - 03/17/2022 16:37 [...] interpretation and agree with the findings. Narrative [facility] - 03/17/2022 16:37 [...] polyposis. VISIBLE INTRACRANIAL CONTENTS: Unremarkable. Procedure Note Sean House MD - 03/17/2022 EXAM: CT CERVICAL SPINE [...] agree with the findings. Performing Organization Address City/[facility]/ZIP Code Phon e Number [facility] SLIDE REQUEST (03/17/2022 12:58 EDT) Pathologist Sig lynette Note A smear is filed in [facility] the Hematology lab. LABORATORY SERVICES Specimen Blood - Venous blood (substance) Performing Organization Address City/[facility]/ZIP Code Phon e Number [facility] [address] [place] [address] SERVICES (ABNORMAL) LACTIC ACID (03/17/2022 12:58 EDT) Pathologist Sig [facility] Lactic Acid 2.1 (HH) <=2.0 mmol/L [facility] LABORATOR Y SERVICES Specimen Blood - Venous blood (substance) Performing Organization Address [facility]/ZIP Code Phon e Number [facility] [address] [place] [address] SERVICES (ABNORMAL) COMPLETE BLOOD COUNT (03/17/2022 12:58 EDT) Pathologist Sig [facility] WBC 22.95 (H) 4.00 - 10.40 K/cmm [facility] LAB[facility]ATORY SERVICES RBC 5.01 4.36 - 5.78 M/cmm [facility]ORY SERVICES Hemoglobin 15.4 13.8 - 17.3 gm/dL [facility] SERVICES HCT 41.5 39.5 - 50.2 % [facility] LABORATORY SERVICES MCV 83 81 - 95 fl [facility]ORY SERVICES MCH 30.7 27.6 - 33.0 pg [facility] LABORATORY SERVICES MCHC 37.1 (H) 32.8 - 36.4 gm/dL [facility] LABORATORY SERVICES RDW-CV 15.6 (H) <14.2 % [facility] LABORATORY SERVICES RDW-SD 46.9 (H) <46.0 fl [facility] LABORATORY SERVICES PLT 213 141 - 377 K/cmm [facility] LABORATORY SERVICES MPV 9.0 (L) 9.5 - 12.7 fl [facility] LABORATORY SERVICES Specimen Blood - Venous blood (substance) Performing Organization Address [facility] Phon e Number [facility] [address] [place] [address] SERVICES (ABNORMAL) TROPONIN I (03/17/2022 12:58 EDT) Pathologist Sig nature Troponin I (ng/mL) 0.122 (H) <0.034 ng/mL [facility] LABORATORY SERVICES Specimen Blood - Venous blood (substance) Narrative [facility] LABORATORY SERVICES - 03/17/2022 13:38 EDT The results of this assay can be falsely lowered due to the consumption of Biotin. Performing Organization Address [facility]/ZIP Code Phon e Number [facility] [address] [place] [address] SERVICES (ABNORMAL) POCT GLUCOSE, INTERFACED (03/17/2022 12:46 EDT) Glucose, POC 166 (H) 70 - 100 [facility] mg/dL LABORATORY SERVICES HN LAB POC COMMENT Test Performed by [facility] MARIA DE JESUS Vickers (GLUCOSE) Nursing Services LABORATORY SERVICES Specimen Blood - Capillary blood (substance) Performing Organization Address City/[facility]/ZIP Code Phon e Number [facility] LABOR[facility]ORY [address] [place] [address] SERVICES UPPER ENDOSCOPY PROCEDURE (03/17/2022 12:27 EDT) Specimen Narrative [facility] ENDOSCOPY - 12:27 EDT Procedure Performed [...] s. Further management per primary team. The??procedure??was??performed??by??Dr. Nick Thompson MD in the presence of Dr. Jem Nation. The attending physician was in the room for the entire procedure. This electronic signature authenticates all electronic and/or handwritten documentation, including orders, generated by the nicko r during the episode of care contained in this record. 03/17/2022 12:27:25 PM By Jem Magallanes Performing Organization Address City/State/ZIP Code Phon e Number [facility] ENDOSCOPY (ABNORMAL) POCT GLUCOSE, INTERFACED (03/17/2022 8:38 EDT) Glucose, POC 174 (H) 70 - 100 [facility] mg/dL LABORATORY SERVICES HN LAB POC COMMENT Test Per[facility] by [facility] (GLUCOSE) Nursing Services LABORATORY SERVICES Specimen Blood - Capillary blood (substance) Performing Organization Address City/State/ZIP Code Phon e Number [facility]ORY [address] [place] [address] SERVICES BACTERIAL CULTURE, BLOOD (03/17/2022 5:46 EDT) Pathologist Sig nature Organism ID No Growth at 5 days [facility] LABORATORY SERVICES Specimen Blood - Venous blood (substance) Performing Organization Address [facility]/[place]IP [facility] [place] Number [facility] [address] [place] [address] SERVICES BACTERIAL CULTURE, BLOOD (03/17/2022 5:45 EDT) Pathologist Sig nature Organism ID No Growth at 5 days [facility] LABORATORY SERVICES Specimen Blood - Venous blood (substance) Performing Organization Address [facility] Phon e Number [facility]ORY [address] [place] [address] SERVICES SLIDE REQUEST (03/17/2022 5:26 EDT) [facility] Note A smear is filed in [facility] the Hematology lab. LABORATORY SERVICES Specimen Blood - Venous blood (substance) Performing Organization Address [facility] Phon e Number [facility]ORY [address] [place] [address] SERVICES FIBRINOGEN (03/17/2022 5:26 EDT) [facility] Fibrinogen 196 171 - 384 mg/dL [facility] LABORA TORY SERVICES Specimen Blood - Venous blood (substance) Performing Organization Address [facility]/[place]IP [facility] [place] Number [facility] [address] [place] [address] SERVICES (ABNORMAL) COMPLETE BLOOD COUNT (03/17/2022 5:26 EDT) Pathologist Sig nature WBC 23.79 (H) 4.00 - 10.40 K/cmm [facility] LABORATORY SERVICES RBC 5.52 4.36 - 5.78 M/cmm [facility] LABORATORY SERVICES Hemoglobin 16.7 13.8 - 17.3 gm/dL [facility] LABORATORY SERVICES HCT 47.2 39.5 - 50.2 % [facility] LABORATORY SERVICES MCV 86 81 - 95 fl [facility] LABORATORY SERVICES MCH 30.3 27.6 - 33.0 pg [facility] LABORATORY SERVICES MCHC 35.4 32.8 - 36.4 gm/dL [facility] LABORATORY SERVICES RDW-CV 15.7 (H) <14.2 % [facility] LABORATORY SERVICES RDW-SD 48.9 (H) <46.0 fl [facility] LABORATORY SERVICES PLT 227 141 - 377 K/cmm [facility] LABORATORY SERVICES MPV 9.2 (L) 9.5 - 12.7 fl [facility] LABORATORY SERVICES Specimen Blood - Venous blood (substance) Performing Organization Address [facility]/ZIP Code Phon e Number [facility] [address] [place] [address] SERVICES (ABNORMAL) CALCIUM, IONIZED (03/17/2022 5:26 EDT) Pathologist Sig nature Calcium, Ionized 1.08 (L) 1.14 - 1.35 [facility] mmol/L LABORATORY SERVICES Specimen Blood - Venous blood (substance) Performing Organization Address [facility] Phon e Number [facility] [address] [place] [address] SERVICES PROTIME (03/17/2022 5:26 EDT) Pathologist Sig nature I.N.R. 1.1 0.9 - 1.1 Ratio [facility] LABORA TORY SERVICES Pro Time 12.3 10.4 - 12.6 secs [facility] LABOR ATORY SERVICES Specimen Blood - Venous blood (substance) Narrative [facility] LABORATORY SERVICES - 03/17/2022 6:04 EDT Moderate Intensity Coumadin INR = 2.0-3.0 Adjustments in anticoagulant therapy dos e should be based on the INR and NOT on the Protime. Performing Organization Address [facility] Phon e Number [facility]ORY [address] [place] [address] SERVICES CK (03/17/2022 5:25 EDT) Pathologist Sig nature CK 242 <=250 U/L [facility] LABORATOR Y SERVICES Specimen Blood - Venous blood (substance) Performing Organization Address [facility]/ZIP [facility] [place] e Number [facility] [address] [place] [address] SERVICES (ABNORMAL) COMPREHENSIVE METABOLIC PANEL (CMP) (03/17/2022 5:25 EDT) Pathologist Sig nature Sodium 134 (L) 136 - 145 [facility] mmol/L LABORATORY SERVICES Potassium 4.2 3.5 - 5.0 [facility] mmol/L LABORATORY SERVICES Chloride 105 96 - 110 mmol/L [facility] LABORATORY SERVICES CO2 Total 21 (L) 22 - 32 mmol/L [facility] LABORATORY SERVICES Glucose 200 (H) 70 - 100 mg/dL [facility] LABORATORY SERVICES BUN 17 10 - 26 mg/dL [facility] LABORATORY SERVICES Creatinine 0.90 0.66 - 1.25 [facility] mg/dL LABORATORY SERVICES eGFR 97 >60 [facility] mL/min/1.73m2 LABORATORY SERVICES Total Protein 4.9 (L) 6.3 - 8.2 g/dL [facility] LABORATORY SERVICES Albumin 2.8 (L) 3.4 - 4.9 g/dL [facility] LABORATORY SERVICES Alkaline Phosphatase 46 38 - 126 U/L [facility] LABORATORY SERVICES AST 33 15 - 46 U/L [facility] LABORATORY SERVICES ALT 14 <50 U/L [facility] LABORATORY SERVICES Bilirubin, Total 1.4 (H) <1.4 mg/dL [facility] LABORATORY SERVICES Calcium 7.8 (L) 8.5 - 10.5 [facility] mg/dL LABORATORY SERVICES Albumin/Globulin 1.3 1.0 - 2.5 [facility] Ratio LABORATORY SERVICES Anion Gap 8 5 - 14 [facility] LABORATORY SERVICES Specimen Blood - Venous blood (substance) Performing Organization Address [facility]/ZIP [facility] [place] e Number [facility] [address] [place] [address] SERVICES (ABNORMAL) LACTIC ACID (03/17/2022 5:25 EDT) Pathologist Sig nature Lactic Acid 2.3 (HH) <=2.0 mmol/L [facility] LABORATOR Y SERVICES Specimen Blood - Venous blood (substance) Performing Organization Address City/[facility]/ZIP [facility] [place] e Number [facility] [address] [place] [address] SERVICES (ABNORMAL) TROPONIN I (03/17/2022 5:25 EDT) Pathologist Sig nature Troponin I (ng/mL) 0.205 (H) <0.034 ng/mL [facility] LABORATORY SERVICES Specimen Blood - Venous blood (substance) Narrative [facility] LABORATORY SERVICES - 03/17/2022 6:11 EDT The results of this assay can be falsely lowered due to the consumption of Biotin. Performing Organization Address [facility]/ZIP Code Phon e Number [facility]ORY [address] [place] [address] SERVICES (ABNORMAL) PHOSPHORUS (03/17/2022 5:25 EDT) Pathologist Sig nature Phosphorus 2.0 (L) 2.5 - 4.5 mg/dL [facility] LABORATORY SERVICES Specimen Blood - Venous blood (substance) Performing Organization Address [facility] Phon e Number [facility] [address] [place] [address] SERVICES (ABNORMAL) POCT GLUCOSE, INTERFACED (03/17/2022 4:05 EDT) Glucose, POC 179 (H) 70 - 100 [facility] mg/dL LABORATORY SERVICES HN LAB POC COMMENT Test Performed by [facility] MARIA DE JESUS Vickers (GLUCOSE) Nursing Services LABORATORY SERVICES Specimen Blood - Capillary blood (substance) Performing Organization Address City/[facility]/ZIP Code Phon e Number [facility] [address] [place] [address] SERVICES EKG 12-LEAD (03/17/2022 0:55 EDT) Specimen Narrative [facility] HOSPITAL EKG - 03/17/2022 16:4 9 EDT ? [facility] ? Test Date: ?2022-03-17 Pat Name: ? ANTOINE SAEZ ? Department: ?? Antoine 4 ? Room: ? M415 Gender: ? Male ? 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 : ?1960 ? Requested By: PAMELA Melgoza Number: [id number] ? Reading MD: ?? CARLOS ROSENBERG MD PhD ? Measurements Intervals ?Clawson ? Rate: ? 91 ? P: ?72 SC: ? 139 ?QRS: ?-44 QRSD: ? 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 Electronically Signed On 03-17-20 16:49:50 EDT by CARLOS ROSENBERG MD PhD. Performing Organization Address [facility] Code Phon e Number [facility] EKG TSH (03/17/2022 0:51 EDT) Pathologist Sig nature TSH 2.98 0.47 - 4.68 mIU/L [facility] LABO RATORY SERVICES Specimen Blood - Venous blood (substance) Narrative [facility] LABORATORY SERVICES - 03/17/2022 2:45 EDT The results of this assay can be falsely lowered due to the consumption of Biotin. Performing Organization Address [facility] Phon e Number [facility] LABORATORY [address] [place] [address] SERVICES BACTERIAL CULTURE, URINE (03/17/2022 0:51 EDT) Pathologist Sig nature Organism ID No Growth [facility] LABORATOR Y SERVICES Specimen Urine - Urine specimen collection, clean catch (procedure) Performing Organization Address [facility]/[place] [facility] [place] Number [facility] LABORATORY [address] [place] [address] SERVICES (ABNORMAL) URINE CHEMICAL (DIP) & SEDIMENT (MICRO) WITH REFLEX TO CULTURE (03/17/2022 0:51 EDT) Color UA [place] (A) Colorless, [facility] LABORATORY SERVICES Clarity UA Hazy (A) Clear [facility] LABORATORY SERVICES Glucose UA Negative Negative [facility] LABORATORY SERVICES Bilirubin UA Negative Negative [facility] LABORATORY SERVICES Ketones UA 2+ (A) Negative [facility] LABORATORY SERVICES Specific [place], >1.050 (H)Comment: 1.001 - 1.035 [facility] Urine Urine Specific CENTER [place] results LABORATORY greater than 1.035 SERVICES suggest possible interference from glucose or radiographic dye. Blood UA 3+ (A) Negative [facility] LABORATORY SERVICES Urobilinogen UA Normal Normal mg/dL [facility] LABORATORY SERVICES Nitrite UA Negative Negative [facility] LABORATORY SERVICES Leukocyte Esterase Negative Negative [facility] LABORATORY SERVICES Protein UA 2+ (A) Negative [facility] LABORATORY SERVICES pH, UA 5.5 4.6 - 8.0 [facility] LABORATORY SERVICES Urine RBC Count, >50 (A) 0 - 2 [facility] Auto Cells/HPF CENTER LABORATORY SERVICES Urine WBC Count, 11 - 50 (A) 0 - 3 [facility] Auto Cells/HPF [facility]ENTER LABORATORY SERVICES Urine Squamous Few (A) None Seen [facility] Count, Auto Cells/HPF [facility] LABORATORY SERVICES Urine Hyaline Cast <=10 <=10 Casts/LPF [facility] Count, Auto CENTER LABORATORY SERVICES Urine Bacteria None Seen None Seen [facility] Count, Auto Bacteria/HPF [facility]ENTER LABORATORY SERVICES Specimen Urine - Urine specimen collection, clean catch (procedure) Narrative [facility] LABORATORY SERVICES - 03/17/2022 1:30 EDT A Urine Culture test has been reflexively ordered based on result criteria from the Urine Sediment Analysis. Urine Sediment Analysis results are unre liable on urines that are unrefrigerated for >2 hrs or refrigerated >8 hrs. Performing Organization Address [facility] Phon e Number [facility] LABORATORY [address] [place] [address] SERVICES (ABNORMAL) LACTIC ACID (03/17/2022 0:51 EDT) Pathologist Sig nature Lactic Acid 4.1 (HH) <=2.0 mmol/L [facility] LABORATOR Y SERVICES Specimen Blood - Venous blood (substance) Performing Organization Address [facility]/ZIP Code Phon e Number [facility] LABORATORY [address] [place] [address] SERVICES MRSA PCR (03/16/2022 23:08 EDT) MRSA Result No Staphylococcus aureus [facility] ER detected by PCR LABORATORY SERVICES Specimen Swab - Entire naris (body structure) Performing Organization Address [facility]/ZIP Code Phon e Number [facility] LABORATORY [address] [place] [address] SERVICES (ABNORMAL) COMPLETE BLOOD COUNT AND DIFFERENTIAL (03/16/2022 22:47 EDT) WBC 16.41 (H) 4.00 - 10.40 [facility] LABORATORY SERVICES RBC 5.43 4.36 - 5.78 [facility] M/formerly [facility] LABORATORY SERVICES Hemoglobin 16.6 13.8 - 17.3 [facility] gm/dL LABORATORY SERVICES HCT 49.9 39.5 - 50.2 % [facility] LABORATORY SERVICES MCV 92 81 - 95 fl [facility] LABORATORY SERVICES MCH 30.6 27.6 - 33.0 pg [facility] LABORATORY SERVICES MCHC 33.3 32.8 - 36.4 [facility] gm/dL LABORATORY SERVICES RDW-CV 15.3 (H) <14.2 % [facility] LABORATORY SERVICES RDW-SD 51.2 (H) <46.0 fl [facility] LABORATORY SERVICES PLT 235 141 - 377 K/[facility] LABORATORY SERVICES MPV 8.8 (L) 9.5 - 12.7 fl [facility] LABORATORY SERVICES Neutrophils 84.0 % [facility] LABORATORY SERVICES Lymphocytes 13.0 % [facility] LABORATORY SERVICES Monocytes 1.7 % [facility] LABORATORY SERVICES Eosinophils 0.5 % [facility] LABORATORY SERVICES Basophils 0.2 % [facility] LABORATORY SERVICES Immature Grans 0.6 % [facility] LABORATORY SERVICES Absolute Neutrophils 13.77 (H) 2.20 - 8.85 [facility] LABORATORY SERVICES Absolute Lymphocytes 2.13 1.09 - 3.30 [facility] LABORATORY SERVICES Absolute Monocytes 0.28 0.10 - 0.80 [facility] LABORATORY SERVICES Absolute Eosinophils 0.09 0.03 - 0.61 [facility] LABORATORY SERVICES Absolute Basophils 0.04 0.01 - 0.11 [facility] LABORATORY SERVICES Absolute Immature 0.10 (H) 0.00 - 0.06 [facility] Grans [facility] LABORATORY SERVICES Type of Differential: Auto [facility] LABORATORY SERVICES Specimen Blood - Blood sample taken from central line (situation) Performing Organization Address City/State/ZIP Code Phon e Number [facility] LABORATORY [address] [place] [address] SERVICES PREPARE CRYOPRECIPITATE (03/16/2022 22:00 EDT) Product Code [id number] [facility] BLOOD BANK Donor Number [id number] [facility] BLOOD BANK Unit ABO O [facility] BLOOD BANK Unit Rh NEG [facility] BLOOD BANK Unit Status RE^Released From [facility] BLOOD [facility] Product Expiration [id number] [facility] BLOOD BANK Unit Blood Type 9500 [facility] BLOOD BANK Volume 99 [facility] BLOOD BANK Coding System [id number] [facility] BLOOD BANK Specimen Blood - Venous blood (substance) Performing Organization Address City/State/ZIP Code Phon e Number [facility] BLOOD BANK [address] [place] [address] XR CHEST PORTABLE LINE PLACEMENT (03/16/2022 22:00 EDT) Anatomical Region Laterality Modality Chest Computed Radiography Specimen Impressions [facility] RADIOLOGY [facility] [place] - 03/17/2022 9:32 EDT No acute radiographic abnormality. I have personally reviewed the images an d the above interpretation and agree with the findings. Narrative [facility] RADIOLOGY [facility] - 03/17/2022 9:32 EDT XR CHEST PORTABLE [...] agree with the findings. Performing Organization Address [facility]/ZIP Code Phon e Number [facility] RADIOLOGY [facility] (ABNORMAL) POCT BLOOD GAS, EG6 I-STAT (03/16/2022 21:43 EDT) Pathologist Sig nature pH, Venous, i-STAT 7.23 (L) 7.31 - 7.41 [facility] LABORATORY SERVICES pCO2, Venous, i-STAT 45 41 - 51 mmHg [facility] LABORATORY SERVICES pO2, Venous, i-STAT 54 (H) 30 - 50 mmHg [facility] LABORATORY SERVICES TCO2, Venous, i-STAT 20 (L) 22 - 28 mmol/L [facility] LABORATORY SERVICES O2 Saturation, 83 60 - 85 % [facility] Venous, i-STAT LABORATORY SERVICES Base Excess(+) / -9 (L) -2 - 3 mmol/L [facility] Deficit(-), Venous, LABORATORY SERVICES i-STAT Temperature, Venous, 97.4 ??C [facility] i-STAT LABORATORY SERVICES Specimen Blood - Venous blood (substance) Narrative [facility] LABORATORY SERVICES - 03/16/2022 21:46 EDT Test Performed by Respiratory Performing Organization Address City/[facility]/ZIP Code Phon e Number [facility] LABORATORY [address] [place] [address] SERVICES PATIENT RE-TYPE (03/16/2022 21:40 EDT) Pathologist Sig nature ABO O [facility] BLOOD BAN K Rh Factor Positive [facility] BLOOD BAN K Specimen Blood - Venous blood (substance) Performing Organization Address City/[facility]/ZIP Code Phon e Number [facility] BLOOD BANK [address] [place] [address] (ABNORMAL) POCT GLUCOSE, INTERFACED (03/16/2022 21:32 EDT) Pathologist Jourdan Glucose, POC 145 (H) 70 - 100 [facility] mg/dL LABORATORY SERVICES HN LAB POC COMMENT Test Performed by [facility] (GLUCOSE) Nursing Services LABORATORY SERVICES Specimen Blood - Capillary blood (substance) Performing Organization Address [facility]/[place]IP [facility] [place] Number [facility] LABORATORY [address] [place] [address] SERVICES TYPE AND SCREEN (03/16/2022 21:32 EDT) Pathologist Jourdan ABO O [facility] BLOOD BANK Rh Factor Positive [facility] BLOOD BANK Antibody Screen Negative [facility] BLOOD BANK Specimen Expires: 03/19/2022 @ 23:59 [facility] BLOOD BANK Specimen Blood - Venous blood (substance) Performing Organization Address [facility] Phon e Number [facility] BLOOD BANK [address] [place] [address] RETICULOCYTE COUNT (03/16/2022 21:30 EDT) Pathologist Sig nature Retic Ct (Uncorrected) 1.2 0.5 - 2.5 % [facility] LABORATORY SERVICES Specimen Blood - Venous blood (substance) Performing Organization Address [facility] Phon e Number [facility] LABORATORY [address] [place] [address] SERVICES (ABNORMAL) PTT (03/16/2022 21:30 EDT) Pathologist Sig nature PTT 25 (L) 26 - 37 secs [facility] LABORATOR Y SERVICES Specimen Blood - Venous blood (substance) Performing Organization Address [facility]/[place] [facility] [place] [facility] LABOR[facility]ORY [address] [place] [address] SERVICES (ABNORMAL) FIBRINOGEN (03/16/2022 21:30 EDT) Pathologist Sig nature Fibrinogen 166 (L) 171 - 384 mg/dL [facility] LABORATORY SERVICES Specimen Blood - Venous blood (substance) Performing Organization Address [facility] Phon e Number [facility] LABORATORY [address] [place] [address] SERVICES (ABNORMAL) LACTIC ACID (03/16/2022 21:30 EDT) Pathologist Sig nature Lactic Acid 2.8 (HH) <=2.0 mmol/L [facility] LABORATOR Y SERVICES Specimen Blood - Venous blood (substance) Performing Organization Address City/State/ZIP Code Phon e Number [facility] LABORATORY [address] [place] [address] SERVICES TROPONIN I (03/16/2022 21:30 EDT) Pathologist Sig nature Troponin I (ng/mL) <0.034 <0.034 ng/mL [facility] LABORATORY SERVICES Specimen Blood - Venous blood (substance) Narrative [facility] LABORATORY SERVICES - 03/16/2022 22:02 EDT The results of this assay can be falsely lowered due to the consumption of Biotin. Performing Organization Address City/State/ZIP Code Phon e Number [facility] LABORATORY [address] [place] [address] SERVICES PROTIME (03/16/2022 21:30 EDT) Pathologist Sig nature I.N.R. 1.1 0.9 - 1.1 Ratio [facility] LABORA TORY SERVICES Pro Time 12.3 10.4 - 12.6 secs [facility] LABOR ATORY SERVICES Specimen Blood - Venous blood (substance) [facility] LABORATORY SERVICES - 03/16/2022 21:58 EDT Moderate Intensity Coumadin INR = 2.0-3.0 Adjustments in anticoagulant therapy dos e should be based on the INR and NOT on the Protime. Performing Organization Address City/[facility]/ZIP Code Phon e Number [facility] LABORATORY [address] [place] [address] SERVICES (ABNORMAL) COMPREHENSIVE METABOLIC PANEL (CMP) (03/16/2022 21:30 EDT) Sodium 134 (L) 136 - 145 [facility] mmol/L LABORATORY SERVICES Potassium 3.5 3.5 - 5.0 [facility] mmol/L LABORATORY SERVICES Chloride 109 96 - 110 [facility] mmol/L LABORATORY SERVICES CO2 Total 19 (L) 22 - 32 [facility] mmol/L LABORATORY SERVICES Glucose 144 (H) 70 - 100 [facility] mg/dL LABORATORY SERVICES BUN 18 10 - 26 mg/dL [facility] LABORATORY SERVICES Creatinine 0.85 0.66 - 1.25 [facility] mg/dL LABORATORY SERVICES eGFR 98 >60 [facility] mL/min/1.73m2 LABORATORY SERVICES Total Protein 4.6 (L) 6.3 - 8.2 [facility] g/dL LABORATORY SERVICES Albumin 2.5 (L) 3.4 - 4.9 [facility] g/dL LABORATORY SERVICES Alkaline 45 38 - 126 U/L [facility] Phosphatase LABORATORY SERVICES AST 33 15 - 46 U/L [facility] LABORATORY SERVICES ALT 11 <50 U/L [facility] LABORATORY SERVICES Bilirubin, Total 1.2 <1.4 mg/dL [facility] LABORATORY SERVICES Calcium 6.4 (LL)Comment: 8.5 - 10.5 [facility] Sample retested, mg/dL LABORATORY result confirmed SERVICES Albumin/Globulin 1.2 1.0 - 2.5 [facility] Ratio LABORATORY SERVICES Anion Gap 6 5 - 14 [facility] LABORATORY SERVICES Specimen Blood - Venous blood (substance) Performing Organization Address City/[facility]/ZIP Code Phon e Number [facility] LABORATORY [address] [place] [address] SERVICES (ABNORMAL) PHOSPHORUS (03/16/2022 21:30 EDT) Pathologist Sig nature Phosphorus 2.4 (L) 2.5 - 4.5 mg/dL [facility] LABORATORY SERVICES Specimen Blood - Venous blood (substance) Performing Organization Address City/[facility]/ZIP Code Phon e Number [facility] LABORATORY [address] [place] [address] SERVICES MAGNESIUM (03/16/2022 21:30 EDT) Pathologist Sig nature Magnesium 1.9 1.7 - 2.8 mg/dL [facility] LABORA TORY SERVICES Specimen Blood - Venous blood (substance) Performing Organization Address City/[facility]/ZIP Code Phon e Number [facility] LABORATORY [address] [place] [address] SERVICES NT PRO BNP (03/16/2022 21:30 EDT) Pathologist Sig nature NT-pro BNP 75Comment: The results <125 pg/mL [facility] of this assay can be LABORATORY SERVICES falsely lowered due to consumption of Biotin. Specimen Blood - Venous blood (substance) Performing Organization Address City/State/ZIP Code Phon e Number [facility] LABORATORY [address] [place] [address] SERVICES PREPARE RED BLOOD CELLS (03/16/2022 21:18 EDT) Product Code [id number] [facility] BLOOD BANK Donor Number [id number] [facility] BLOOD BANK Unit ABO O [facility] BLOOD BANK Unit Rh POS [facility] BLOOD BANK Unit Status TR^Transfuse [facility] BLOOD BANK Product Expiration [facility] BLOOD BANK Unit Blood Type Code 5100 [facility] BLOOD BANK Volume 276 [facility] BLOOD BANK Coding System [id number] [facility] BLOOD BANK Specimen Performing Organization Address City/State/ZIP Code Phon e Number [facility] BLOOD BANK [address] [place] [address] PREPARE RED BLOOD CELLS (03/16/2022 21:18 EDT) Product Code [id number] [facility] BLOOD BANK Donor Number [id number] [facility] BLOOD BANK Unit ABO O [facility] BLOOD BANK Unit Rh POS [facility] BLOOD BANK Unit Status RE^Released From [facility] BLOOD BANK Product Expiration [id number] [facility] BLOOD BANK Unit Blood Type 5100 [facility] BLOOD BANK Volume 281 [facility] BLOOD BANK Coding System [id number] [facility] BLOOD BANK Specimen Performing Organization Address City/State/ZIP Code Phon e Number [facility] BLOOD BANK [address] [place] [address] PREPARE RED BLOOD CELLS (03/16/2022 21:18 EDT) Product Code [id number] [facility] BLOOD BANK Donor Number [id number] [facility] BLOOD BANK Unit ABO O [facility] BLOOD BANK Unit Rh POS [facility] BLOOD BANK Unit Status RE^Released From [facility] BLOOD BANK Product Expiration [id number] [facility] BLOOD BANK Unit Blood Type 5100 [facility] BLOOD BANK Volume 275 [facility] BLOOD BANK Coding System [id number] [facility] BLOOD BANK Specimen Performing Organization Address City/State/ZIP Code Phon e Number [facility] BLOOD BANK [address] [place] [address] PREPARE RED BLOOD CELLS (03/16/2022 21:18 EDT) Product Code [id number] [facility] BLOOD BANK Donor Number [id number] [facility] BLOOD BANK Unit ABO O [facility] BLOOD BANK Unit Rh POS [facility] BLOOD BANK Unit Status RE^Released From [facility] BLOOD BANK Product Expiration [id number] [facility] BLOOD BANK Unit Blood Type 5100 [facility] BLOOD BANK Volume 281 [facility] BLOOD BANK Coding System [id number] [facility] BLOOD BANK Specimen Blood Performing Organization Address City/State/ZIP Code Phon e Number [facility] BLOOD BANK [address] [place] [address] EKG 12-LEAD (03/16/2022 18:38 EDT) Specimen Narrative [facility] EKG - 03/17/2022 8:09 EDT ? [facility] ? Test Date: ?2022-03-16 Pat Name: ? ANTOINE SAEZ ? Department: ? Room: ? M415 Gender: ? Male ? 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 CH : ?1960 ? Requested By: PAMELA Melgoza Number: [id number] ? Ernestine ARREAGA: ?? RUPERT MUNGUIA MD ? Measurements Intervals ?[place] ? Rate: ? 96 ? P: ?73 SC: ? 130 ?QRS: ?-9 QRSD: ? 94 ? T: ?68 QT: ? 383 ? QTc: ?484 ? Interpretive Statements Normal sinus rhythm Prolonged QT No previous ECG available for comparison I reviewed the tracing and have either a greed or edited the findings in this report. Electronically Signed On 03-17-20 8:09:48 EDT by RUPERT MUNGUIA MD. 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 Electronically Signed On 03-17-20 8:09:48 EDT by RUPERT MUNGUIA MD. Performing Organization Address City/State/ZIP Code Phon e Number [facility] EKG T4 FREE (03/16/2022 14:53 EDT) [facility] T4, Free 1.3 0.8 - 2.2 ng/dL [facility] R LAB Specimen Blood - Venous blood (substance) Performing Organization Address City/State/ZIP Code Phon e Number [facility] [address] [place] [address] documented in this encounter Visit Diagnoses Diagnosis Cardiac arrest (HCC) Cardiac arrest Gastrointestinal hemorrhage, unspecified gastrointestinal hemorrhage type Hemorrhagic shock (HCC-CMS) (HCC) Other shock without mention of trauma Metabolic encephalopathy Syncope, unspecified syncope type Acute urinary retention Other specified retention of urine Lower GI bleed Hemorrhage of gastrointestinal tract, un specified Facial injury, initial encounter Hypocalcemia Hypoxic brain injury (HCC-CMS) (HCC) Anoxic brain damage Urinary retention Retention of urine, unspecified Bradycardia Other specified cardiac dysrhythmias Lactic acidosis Acidosis documented in this encounter Admitting Diagnoses Diagnosis Cardiac arrest (HCC) Cardiac arrest documented in this encounter Administered Medications Inactive Administered Medications - up to 3 most recent administrations Medication Order MAR Action Action Date Dose Rate Site acetaminophen (TYLENOL) tablet 325 mg Given 04/01/2022 9:59 EDT 325 mg 325 mg, oral, EVERY 4 HOURS PRN, Starting on 03/27/22 at 2318, Until Lesvia 04/01/22 at 1826, Pain, Routine Given 03/27/2022 23:59 EDT 325 mg acetaminophen (TYLENOL) tablet 650 mg Given 03/17/2022 6:00 EDT 650 mg 650 mg, per ng tube, EVERY 6 HOURS, First dose on 03/17/22 at 0000, Until Discontinued, Routine Given 03/16/2022 23:20 EDT 650 mg benzocaine 20 % aerosol spray Given 03/23/2022 21:23 EDT mouth / throat, ONCE, 1 dose, Starting on Tue03/23/22 at 2020, Until Tue03/23/22 at 2122 benzocaine 20 % aerosol spray Given 03/25/2022 4:52 EDT mouth / throat, EVERY 6 HOURS PRN, Starting on Tue03/24/22 at 0227, Until 03/27/22 at 0949, Throat Pain/NG Pain Given 03/24/2022 3:36 EDT busPIRone (BUSPAR) tablet 30 mg Given 03/16/2022 23:20 EDT 30 mg 30 mg, per ng tube, EVERY 12 HOURS, First dose on Tue03/16/22 at 2315, Until Discontinued, Routine calcium GLUconate 100 mg/mL (10%) injection Given 03/17/2022 6:5 3 EDT 1,000 mg 1,000 mg 1,000 mg (1 g), intravenous, NOW X1, 1 dose, On Tue03/17/22 at 0630, Routine calcium GLUconate 100 mg/mL (10%) inject ion Given 03/16/2022 21:32 EDT 2,000 mg 1 dose, Starting on Tue03/16/22 at 2130, Until Tue03/16/22 at 2132 dexmedeTOMIDine in 0.9 % Rate Documented 03/18/2022 7:00 0.401 mcg/ kg/hr 6.9 mL/hr NaCL (PRECEDEX) 400 EDT mcg/100 mL infusion 0.2-1.4 mcg/kg/hr ? 68.8 kg (3.44-24.08 mL/hr, rounded to 3.4-24.1 mL/hr), intravenous, CONTINUOUS, Starting on Lesvia 03/18/22 at 0100, Until Lesvia 03/18/22 at 0747, Routine Rate Documented 03/18/2022 6:00 EDT 0.401 mcg/kg/hr 6.9 mL/hr New Bag 03/18/2022 5:18 EDT 0.4 mcg/kg/hr 6.9 mL/hr dexmedeTOMIDine in 0.9 % Rate Documented 03/18/2022 14:00 0.2 mcg/k g/hr 3.4 mL/hr NaCL (PRECEDEX) 400 EDT mcg/100 mL infusion 0.2-1.4 mcg/kg/hr ? 68.8 kg (3.44-24.08 mL/hr, rounded to 3.4-24.1 mL/hr), intravenous, CONTINUOUS, Starting on Lesvia 03/18/22 at 0830, Until Lesvia 03/18/22 at 1523, Routine Rate Change 03/18/2022 13:39 EDT 0.2 mcg/kg/hr 3.4 mL/hr Rate Documented 03/18/2022 13:00 EDT 0.302 mcg/kg/hr 5.2 mL/hr dextrose 5 % (D5W) infusion New Bag 03/21/2022 2:53 EDT 1,500 mL 100 mL/hr at 100 mL/hr, 1,500 mL, intravenous, CONTINUOUS, Starting on 03/20/22 at 1415, Until 03/21/22 at 0748, Routine New Bag 03/20/2022 16:49 EDT 1,500 mL 100 mL/hr dextrose 5 % (D5W) infusion New Bag 03/22/2022 12:34 EDT 1,000 mL 100 mL/hr at 100 mL/hr, 1,000 mL, intravenous, CONTINUOUS, Starting on 03/22/22 at 1230, Until Tue03/22/22 at 1601, Routine dextrose 5 % and 0.45 % NaCl with Rate Documented 03/19/2022 5:00 E DT 100 mL/hr KCl 20 mEq/L infusion at 100 mL/hr, intravenous, CONTINUOUS, Starting on Tue03/17/22 at 1915, Until Tue03/19/22 at 0711, Routine Rate Documented 03/19/2022 4:00 EDT 100 mL/hr Rate Documented 03/19/2022 3:00 EDT 100 mL/hr dextrose 5 % and 0.45 % NaCl with KCl New Bag 03/22/2022 0:49 EDT 500 mL 100 mL/hr 20 mEq/L infusion at 100 mL/hr, 1,500 mL, intravenous, CONTINUOUS, Starting on 03/21/22 at 1215, Until 03/22/22 at 0513, Routine New Bag 03/21/2022 14:14 EDT 1,500 mL 100 mL/hr enoxaparin (LOVENOX) injection 40 mg Given 04/01/2022 9:39 EDT 40 mg 40 mg, subcutaneous, DAILY, First dose on Tue03/26/22 at 1100, Until Discontinued, Routine Given 03/31/2022 8:52 EDT 40 mg Given 03/30/2022 9:41 EDT 40 mg EPINEPHrine 0.1 mg/mL injection Given 03/16/2022 21:30 EDT 1 mg 1 dose, Starting on Tue03/16/22 at 2130, Until Tue03/16/22 at 2130 EPINEPHrine 4 mg/250 mL in NS 4 mg/250 m L (16 mcg/mL) infusion 1 dose, Starting on Tue03/16/22 at 2129, Until 03/07 at 2130 EPINEPHrine 4 mg/250 mL Rate Documented 03/17/2022 0:00 EDT 1.013 m cg/min 3.8 mL/hr in NS infusion 1-10 mcg/min (3.75-37.5 mL/hr, rounded to 3.8-37.5 mL/hr), intravenous, CONTINUOUS, Starting on Tue03/16/22 at 2315, Until Tue03/17/22 at 0622, Routine Rate Change-ICU/L&D Only 03/16/2022 23:49 EDT 1 mcg/min 3.8 mL/h r Rate Change-ICU/L&D Only 03/16/2022 23:42 EDT 2 mcg/min 7.5 mL/h r fentaNYL citrate (PF) 50 mcg/mL injectio n 1 dose, Starting on Tue03/16/22 at 2150, Until 03/07 at 2250 fentaNYL citrate (PF) injection 50 mcg Given 03/16/2022 22:51 EDT 50 mcg 50 mcg, intravenous, NOW X1, 1 dose, On Tue03/16/22 at 2300, Routine fentaNYL citrate (PF) injection 50 mcg Given 03/16/2022 22:50 EDT 50 mcg 50 mcg, intravenous, NOW X1, 1 dose, On Tue03/16/22 at 2300, Routine fentaNYL citrate (PF) injection 50 mcg Given 03/17/2022 17:16 EDT 50 mcg 50 mcg, intravenous, EVERY 30 MINUTES PRN, Starting on Tue03/16/22 at 2243, Until Tue03/17/22 at 1744, Pain, Routine Given 03/17/2022 16:26 EDT 50 mcg Given 03/17/2022 14:47 EDT 50 mcg folic acid (FOLVITE) tablet 1 mg Given 03/24/2022 9:23 EDT 1 mg 1 mg, oral, DAILY, First dose on Tue03/22/22 at 1630, Until Discontinued, Routine Given 03/23/2022 9:19 EDT 1 mg folic acid (FOLVITE) tablet 1 mg Given 04/01/2022 9:40 EDT 1 mg 1 mg, oral, DAILY, First dose (after last modification) on Tue03/25/22 at 1315, Until Discontinued, Routine Given 03/31/2022 8:52 EDT 1 mg Given 03/30/2022 9:41 EDT 1 mg Free Water (bolus dose) 100 mL Given 03/25/2022 0:48 EDT 100 mL 100 mL, per g tube, EVERY 4 HOURS, First dose on Tue03/22/22 at 1630, Until Discontinued, Routine, Release Given 03/24/2022 16:47 EDT 100 mL Given 03/24/2022 12:53 EDT 100 mL gadoterate meglumine solution 1-30 mL Given 03/22/2022 18:50 EDT 13 mL 1-30 mL, intravenous, Once in imaging, 1 dose, Starting on Tue03/22/22 at 1850, Until Tue03/22/22 at 1850, Routine, Imaging Protocol Orders haloperidol lactate (HALDOL) 5 mg/mL inj ection 1 dose, Starting on Tue03/18/22 at 0038, Until 03/07 at 0047 haloperidol lactate (HALDOL) injection 2 mg Given 03/18/2022 0:47 EDT 2 mg 2 mg, intravenous, NOW X1, 1 dose, On Tue03/18/22 at 0045, Routine haloperidol lactate (HALDOL) injection 2 mg Given 03/18/2022 1:13 EDT 2 mg 2 mg, intravenous, NOW X1, 1 dose, On Tue03/18/22 at 0130, Routine haloperidol lactate (HALDOL) injection 2 mg Given 03/18/2022 11:04 EDT 2 mg 2 mg, intravenous, EVERY 4 HOURS PRN, Starting on Tue03/18/22 at 1057, Until Tue03/19/22 at 1006, Agitation, Routine HYDROmorphone (PF) (DILAUDID) 0.5 mg/0.5 mL Given 03/22/2022 2:4 2 EDT 0.2 mg syringe 0.2 mg 0.2 mg, intravenous, EVERY 4 HOURS PRN, Starting on Tue03/19/22 at 0904, Until Tue03/22/22 at 1145, Moderate Pain 4-6, Severe Pain 7-10, Routine Given 03/20/2022 17:54 EDT 0.2 mg Given 03/20/2022 1:14 EDT 0.2 mg insulin aspart U-100 (NOVOLOG FLEXPEN) Given 03/17/2022 8:38 EDT 1 Units injection subcutaneous, 3 TIMES DAILY WITH MEALS, First dose on Tue03/17/22 at 0800, Until Discontinued, Routine insulin aspart U-100 (NOVOLOG FLEXPEN) Given 03/17/2022 12:51 ED T 1 Units injection subcutaneous, EVERY 6 HOURS, First dose (after last modification) on Tue03/17/22 at 1200, Until Discontinued, Routine lactated ringers BOLUS 1,000 mL Given 03/17/2022 1:43 EDT 1,000 mL 1,000 mL, intravenous, NOW X1, 1 dose, On Tue03/17/22 at 0145, Routine lactated ringers BOLUS 1,000 mL Given 03/18/2022 0:48 EDT 1,000 mL 1,000 mL, intravenous, NOW X1, 1 dose, On Tue03/18/22 at 0100, Routine lactated ringers BOLUS 1,000 mL Given 03/27/2022 11:48 EDT 1,000 mL 1,000 mL, intravenous, NOW X1, 1 dose, On 03/27/22 at 1145, Routine lactated ringers BOLUS 4,000 mL Given 03/16/2022 21:44 EDT 4,000 mL 4,000 mL, intravenous, NOW X1, 1 dose, On Tue03/16/22 at 2245, Routine lactated ringers BOLUS 500 mL Given 03/17/2022 19:01 EDT 500 mL 500 mL, intravenous, NOW X1, 1 dose, On Tue03/17/22 at 1915, Routine lactulose (CHRONULAC) 20 gram/30 mL solution 30 Given 03/30/2022 16:25 EDT 30 mL mL 30 mL, oral, NOW X1, 1 dose, On Tue03/30/22 at 1530, Routine lidocaine (XYLOCAINE) 2 % viscous soluti on 5 mL Given 03/22/2022 13:20 EDT 5 mL 5 mL, topical, NOW X1, 1 dose, On Tue03/22/22 at 1230, STAT lisinopriL (PRINIVIL) tablet 5 mg Given 03/24/2022 9:23 EDT 5 mg 5 mg, oral, DAILY, First dose on Tue03/21/22 at 1145, Until Discontinued, Routine Given 03/23/2022 9:19 EDT 5 mg lisinopriL (PRINIVIL) tablet 5 mg Given 04/01/2022 9:39 EDT 5 mg 5 mg, oral, DAILY, First dose (after last modification) on Lesvia 03/25/22 at 1315, Until Discontinued, Routine Given 03/31/2022 8:52 EDT 5 mg Given 03/30/2022 9:42 EDT 5 mg magnesium sulfate 2 g in water 50 mL New Bag 03/17/2022 19:06 EDT 2 g 2 g, intravenous, Administer over 30 Minutes, NOW X1, 1 dose, On Tue03/17/22 at 1915, Routine morphine injection 2 mg Given 03/31/2022 18:13 EDT 2 mg 2 mg, intravenous, NOW X1, 1 dose, On Tue03/31/22 at 1830, Routine Multivitamins with minerals + ferrous gluconate Given 2021 9:25 EDT 15 mL (CENTRUM) oral solution 15 mL 15 mL, feeding tube, DAILY, First dose on Tue03/22/22 at 1630, Until Discontinued, Routine, Release Given 03/23/2022 9:29 EDT 15 mL Multivitamins with minerals + ferrous gluconate Given 03/26/2022 10:49 EDT 15 mL (CENTRUM) oral solution 15 mL 15 mL, oral, DAILY, First dose (after last modification) on Lesvia 03/25/22 at 1315, Until Discontinued, Routine, Release Given 03/25/2022 14:00 EDT 15 mL Multivitamins with Minerals tablet 1 Tab let Given 04/01/2022 9:39 EDT 1 Tablet 1 Tablet, oral, DAILY, First dose on 03/27/22 at 0900, Until Discontinued, Routine Given 03/31/2022 8:51 EDT 1 Tablet Given 03/30/2022 9:41 EDT 1 Tablet norepinephrine Rate Documented 03/17/2022 3:00 EDT 2.027 mcg/min 3.8 mL/hr (LEVOPHED) 8 mg in NS 250 mL infusion 2-30 mcg/min (3.75-56.25 mL/hr, rounded to 3.8-56.3 mL/hr), intravenous, CONTINUOUS, Starting on Tue03/16/22 at 2130, Until Tue03/17/22 at 2134, Routine Rate Documented 03/17/2022 2:30 EDT 2.027 mcg/min 3.8 mL/hr Rate Change-ICU/L&D Only 03/17/2022 2:05 EDT 2 mcg/min 3.8 mL/hr nystatin (MYCOSTATIN) cream Given 03/21/2022 19:10 EDT topical, 2 TIMES DAILY PRN, Starting on Tue03/21/22 at 1529, Until Tue03/23/22 at 1528, Other, Rash octreotide (SANDOSTATIN) Rate Documented 03/17/2022 10:00 EDT 50 mc g/hr 25 mL/hr 500 mcg in sodium chloride (NS) 0.9 % 250 mL infusion 50 mcg/hr (25 mL/hr), intravenous, CONTINUOUS, Starting on Tue03/17/22 at 0100, Until Tue03/17/22 at 1010, Routine Rate Documented 03/17/2022 8:00 EDT 50 mcg/hr 25 mL/hr Rate Documented 03/17/2022 7:00 EDT 50 mcg/hr 25 mL/hr ondansetron (PF) (ZOFRAN) injection 4 mg 4 mg, intravenous, PRN, Starting on Tue03/17/22 at 0833, Until Lesvia 04/01/22 at 1826, Nausea, Vomiting, Routine, Intraprocedure pantoprazole (PROTONIX) injection 40 mg Given 03/18/2022 9:02 EDT 40 mg 40 mg, intravenous, 2 TIMES DAILY, First dose on Tue03/17/22 at 0900, Until Discontinued, Routine Given 03/17/2022 20:08 EDT 40 mg Given 03/17/2022 8:13 EDT 40 mg pantoprazole (PROTONIX) injection 40 mg Given 03/25/2022 12:52 EDT 40 mg 40 mg, intravenous, DAILY, First dose on Tue03/19/22 at 0900, Until Discontinued, Routine Given 03/24/2022 9:41 EDT 40 mg Given 03/23/2022 9:31 EDT 40 mg pantoprazole (PROTONIX) injection 80 mg Given 03/16/2022 23:03 EDT 80 mg 80 mg, intravenous, NOW X1, 1 dose, On Tue03/16/22 at 2245, Routine pantoprazole (PROTONIX) tablet 40 mg Given 04/01/2022 9:39 EDT 40 mg 40 mg, oral, DAILY, First dose on Tue03/26/22 at 1130, Until Discontinued, Routine Given 03/31/2022 8:52 EDT 40 mg Given 03/30/2022 9:42 EDT 40 mg papain-alpha amylase-cellulase (CLOG ZAPPER) 2-5 Given 03/24/2022 23:15 EDT 5 mL mL 2-5 mL, feeding tube, PRN, Starting on Tue03/22/22 at 1558, Until Tue03/25/22 at 1224, blocked feeding tube, Routine, Release phenazopyridine (PYRIDIUM) tablet 200 mg Given 03/31/2022 18:14 EDT 200 mg 200 mg, oral, NOW X1, 1 dose, On Tue03/31/22 at 1645, STAT piperacillin-tazobactam 4.5 g in sodium chloride Given 03/18/2022 8:50 EDT 4.5 g (NS MBP) 100 mL IVPB 4.5 g, intravenous, Administer over 4 Hours, EVERY 8 HOURS, 21 doses, First dose on Tue03/17/22 at 0015, Last dose on Tue03/23/22 at 1600, Controlled antibiotic, has ID approved? No: ICU Patient, Type of Therapy: Empiric, Suspected Indication (Select all that apply): Other, Other Indication: undifferentiated shock, ID Consult: No, Routine Given 03/18/2022 0:00 EDT 4.5 g Given 03/17/2022 15:56 EDT 4.5 g polyethylene glycol 3350 (MIRALAX) packe t 17 g Given 03/31/2022 8:51 EDT 17 g 17 g, oral, DAILY, First dose (after last modification) on Tue03/29/22 at 1630, Until Discontinued, Routine Given 03/30/2022 9:41 EDT 17 g Given 03/29/2022 16:23 EDT 17 g potassium chloride (KLOR-CON) packet 40 mEq Given 03/24/2022 18:38 EDT 40 mEq 40 mEq, per ng tube, NOW X1, 1 dose, On Tue03/24/22 at 1845, Routine potassium chloride (KLOR-CON) packet 40 mEq Given 03/25/2022 1:00 EDT 40 mEq 40 mEq, per ng tube, NOW X1, 1 dose, On Tue03/24/22 at 2145, Routine potassium, sodium phosphates (PHOS-NAK) Given 03/17/2022 6:52 ED T 16 mmol 280-160-250 mg packet 16 mmol 16 mmol (2 Packet), oral, NOW X1, 1 dose, On Tue03/17/22 at 0615, Routine propOFol (DIPRIVAN) Rate Change-ICU/L&D 03/17/2022 17:07 20 mcg/kg/ min 8.4 mL/hr 1000 mg in 100 mL Only EDT infusion 5-83 mcg/kg/min ? 70.3 kg (2.109-35.0094 mL/hr, rounded to 2.1-35 mL/hr), intravenous, CONTINUOUS, Starting on Tue03/16/22 at 2315, Until Tue03/17/22 at 2135, Routine New Bag 03/17/2022 16:03 EDT 40 mcg/kg/min 16.9 mL/hr Rate Documented 03/17/2022 15:00 EDT 40.066 mcg/kg/min 16.9 mL/hr ramelteon (ROZEREM) tablet 8 mg Given 03/24/2022 2:51 EDT 8 mg 8 mg, oral, AT BEDTIME PRN, Starting on Tue03/16/22 at 2155, Until Tue03/24/22 at 1816, Sleep, Routine ramelteon (ROZEREM) tablet 8 mg Given 03/24/2022 21:19 EDT 8 mg 8 mg, per ng tube, AT BEDTIME, First dose (after last modification) on Tue03/24/22 at 2100, Until Discontinued, Routine ramelteon (ROZEREM) tablet 8 mg Given 03/30/2022 20:14 EDT 8 mg 8 mg, oral, AT BEDTIME, First dose (after last modification) on Tue03/25/22 at 2100, Until Discontinued, Routine Given 03/28/2022 20:20 EDT 8 mg Given 03/27/2022 21:09 EDT 8 mg replete nutritional supplement liquid New Bag 03/24/2022 9:38 EDT 63 mL/hr at 63 mL/hr, per g tube, CONTINUOUS, Starting on Tue03/22/22 at 1630, Until Tue03/25/22 at 1224, Routine, Release Rate Documented 03/24/2022 6:17 EDT 63 mL/hr Rate Change 03/24/2022 5:23 EDT 63 mL/hr senna (SENOKOT) tablet 1 Tablet Given 03/29/2022 16:23 EDT 1 Tablet 1 Tablet, oral, DAILY, First dose (after last modification) on Tue03/29/22 at 1630, Until Discontinued, Routine senna (SENOKOT) tablet 2 Tablet Given 03/30/2022 20:13 EDT 2 Tablets 2 Tablet, oral, AT BEDTIME, First dose (after last modification) on Tue03/29/22 at 2100, Until Discontinued, Routine sertraline (ZOLOFT) tablet 100 mg Given 03/24/2022 9:23 EDT 100 mg 100 mg, oral, DAILY, First dose on Tue03/21/22 at 1145, Until Discontinued, Routine Given 03/23/2022 9:19 EDT 100 mg sertraline (ZOLOFT) tablet 100 mg Given 04/01/2022 9:39 EDT 100 mg 100 mg, oral, DAILY, First dose (after last modification) on Lesvia 03/25/22 at 1315, Until Discontinued, Routine Given 03/31/2022 8:52 EDT 100 mg Given 03/30/2022 9:42 EDT 100 mg sodium bicarbonate 8.4 % injection Given 03/16/2022 21:39 EDT 50 mEq 1 dose, Starting on Tue03/16/22 at 2137, Until Tue03/16/22 at 2139 sodium chloride 0.9 % (flush) flush 5 mL Given 04/01/2022 9:41 EDT 5 mL 5 mL, intravenous, EVERY 8 HOURS, First dose on Tue03/17/22 at 0900, Until Discontinued, Routine, Preprocedure Given 03/30/2022 9:00 EDT 5 mL Given 03/29/2022 15:01 EDT 5 mL TAMSulosin (FLOMAX) capsule 0.4 mg Given 03/27/2022 21:10 EDT 0.4 mg 0.4 mg, oral, AT BEDTIME, First dose on 03/27/22 at 2100, Until Discontinued, Routine TAMSulosin (FLOMAX) capsule 0.8 mg Given 03/30/2022 20:13 EDT 0.8 mg 0.8 mg, oral, AT BEDTIME, First dose (after last modification) on Tue03/28/22 at 2100, Until Discontinued, Routine Given 03/28/2022 20:20 EDT 0.8 mg thiamine (VITAMIN B-1) 100 mg in sodium chloride Given 03/25/2022 9:45 EDT 100 mg (NS) 0.9 % 50 mL IVPB 100 mg, intravenous, Administer over 15 Minutes, DAILY, 5 doses, First dose on Tue03/22/22 at 1630, Last dose on Tue03/26/22 at 0900, Routine Given 03/24/2022 10:12 EDT 100 mg Given 03/23/2022 9:54 EDT 100 mg thiamine (VITAMIN B1) tablet 100 mg Given 03/26/2022 13:11 EDT 100 mg 100 mg, oral, DAILY, 1 dose, First dose on Tue03/26/22 at 1130, Routine vancomycin (VANCOCIN) 1,500 mg in dextrose 5% Given 0:28 EDT 1,500 mg (D5W) 500 mL IVPB 1,500 mg (rounded from 1,406 mg = 20 mg/ kg ? 70.3 kg), intravenous, Administer over 90 Minutes, NOW X1, 1 dose, On Tue03/17/22 at 0000, Type of Therapy: Empiric, Suspected Indication (Select all that apply): Sepsis or septic shock of unknown source, ID Consult: No, Routine vancomycin (VANCOCIN) 750 mg in dextrose 5% Given 03/17/2022 8:1 2 EDT 750 mg (D5W) 150 mL IVPB 750 mg, intravenous, Administer over 60 Minutes, EVERY 12 HOURS, 14 doses, First dose (after last reorder) on Tue03/17/22 at 0900, Last dose on Tue03/23/22 at 2100, Type of Therapy: Empiric, Suspected Indication (Select all that apply): Sepsis or septic shock of unknown source, ID Consult: No, Routine vasopressin (VASOSTRICT) Rate Documented 03/17/2022 2:30 EDT 0.04 U nits/min 12 mL/hr 20 Units in sodium chloride (NS) 0.9 % 100 mL infusion 0.04 Units/min (12 mL/hr), intravenous, CONTINUOUS, Starting on Tue03/16/22 at 2200, Until Tue03/17/22 at 0245, STAT Rate Documented 03/17/2022 2:00 EDT 0.04 Units/min 12 mL/hr Rate Documented 03/17/2022 1:00 EDT 0.04 Units/min 12 mL/hr documented in this encounter Discontinued Medications Medication Sig Discontinue Reason Start Date End Date Prazosin (MINIPRESS) 1 mg Take 5 mg by mouth 04/01/2022 capsule at bedtime. documented as of this encounter Active and Recently Administered Medications Times are shown in EDT. Scheduled Medication Order 03/30/2022 03/31/2022 04/01/2022 enoxaparin (LOVENOX) injection 40 mg 0941 (Given - Provider: Nery Whittaker RN) 0852 (Given - Provider: Abida Fuentes, RN) 0939 (Given - Provider: Aide Bonilla, RN) 40 mg, subcutaneous, DAILY, First dose o n Tue03/26/22 at 1100, Until Discontinued, Routine folic acid (FOLVITE) tablet 1 mg 0941 (Given - Provider: Milli Whittaker RN) 0852 (Given - Provider: Abida Fuentes, RN) 0940 (Given - Provider: Aide Bonilla, RN) 1 mg, oral, DAILY, First dose (after las t modification) on Tue03/25/22 at 1315, Until Discontinued, Routine lactulose (CHRONULAC) 20 gram/30 mL solution 30 mL (CO MPLETED) 1625 (Given - Provider: Tanika Dong RN) 30 mL, oral, NOW X1, 1 dose, On Tue03/30/22 at 1530, Routine lisinopriL (PRINIVIL) tablet 5 mg 0942 (Given - Provider: Bladimir Whittaker RN) 0852 (Given - Provider: Abida Fuentes, RN) 0939 (Given - Provider: Aide Bonilla, RN) 5 mg, oral, DAILY, First dose (after las t modification) on Tue03/25/22 at 1315, Until Discontinued, Routine morphine injection 2 mg (COMPLETED) 1812 (Given - Provider: Abida Fuentes, RN) 2 mg, intravenous, NOW X1, 1 dose, On Tue03/31/22 at 1830, Routi ne Multivitamins with Minerals tablet 1 Tablet 0941 (Give n - Provider: Nery Whittaker, RN) 0851 (Given - Provider: Abida Fuentes, RN) 0939 (Given - Provider: Aide Bonilla, RN) 1 Tablet, oral, DAILY, First dose on Tue03/27/22 at 0900, Until Discontinued, Routine pantoprazole (PROTONIX) tablet 40 mg 0942 (Given - Provider: Nery Whittaker RN) 0852 (Given - Provider: Abida Fuentes, HERNESTO) 0939 (Given - Provider: Aide Bonilla, RN) 40 mg, oral, DAILY, First dose on Tue at 1130, Until Discontinued, Routine phenazopyridine (PYRIDIUM) tablet 200 mg (COMPLETED) 1813 (Given - Provider: Abida Fuentes, HERNESTO) 200 mg, oral, NOW X1, 1 dose, On Tue03/31/22 at 1645, STAT polyethylene glycol 3350 (MIRALAX) packet 17 g 0941 (G iven - Provider: Nery Whittaker RN) 0851 (Given - Provider: Abida Fuentes, HERNESTO) 0939 (Hold - Provider: Aide Bonilla, RN - Reason: Patient/family refused) 17 g, oral, DAILY, First dose (after las t modification) on Tue03/29/22 at 1630, Until Discontinued, Routine ramelteon (ROZEREM) tablet 8 mg 2013 (Given - Provider: Grayson Cadena, HERNESTO) 2030 (Not Given - Provider: Milo Marcial RN - Reason: Patient/family refused - Comment: just need to sleep, he said.) 8 mg, oral, AT BEDTIME, First dose (afte r last modification) on Tue03/25/22 at 2100, Until Discontinued, Routine senna (SENOKOT) tablet 2 Tablet 2012 (Given - Provider: Grayson Cadena, HERNESTO) 2030 (Not Given - Provider: Milo Marcial RN - Reason: Patient/family refused - Comment: just need to sleep, he said.) 2 Tablet, oral, AT BEDTIME, First dose ( after last modification) on 03/29/22 at 2100, Until Discontinued, Routine sertraline (ZOLOFT) tablet 100 mg 0942 (Given - Provider: Bladimir Whittaker RN) 0852 (Given - Provider: Abida Fuentes RN) 0939 (Given - Provider: Aide Bonilla RN) 100 mg, oral, DAILY, First dose (after l ast modification) on Lesvia 03/25/22 at 1315, Until Discontinued, Routine sodium chloride 0.9 % (flush) flush 5 mL(Linked Group 1) 0000 (Hold - Provider: Jeronimo Curiel RN - Reason: Other)0900 (Given - Provider: Nery Whittaker RN)1646 (Not Given - Provider: Tanika Dong RN - Reason: Order parameters not met) 0854 (Not Given - Provider: Abida Fuentes RN - Reason: Other)1837 (Not Given - Provider: Abida Fuentes RN - Reason: Other)2306 (Not Given - Provider: Milo Marcial RN - Reason: Other) 0941 (Given - Provider: Aide Bonilla, HERNESTO)1502 (Not Given - Provider: Aide Bonilla RN - Reason: Order parameters not met - Comment: IV removed for discharge) 5 mL, intravenous, EVERY 8 HOURS, First dose on Tue03/17/22 at 0900, Until Discontinued, Routine, Preprocedure 2346 (Not Given - Provider: Danielle magallanes RN - Reason: Other - Comment: ALREADY DONE) TAMSulosin (FLOMAX) capsule 0.8 mg 2012 (Given - Provider: Sona Cadena RN) 2030 (Not Given - Provider: Milo Marcial RN - Reason: Patient/family refused - Comment: just need to sleep, he said.) 0.8 mg, oral, AT BEDTIME, First dose (af ter last modification) on Tue03/28/22 at 2100, Until Discontinued, Routine PRN Medication Order 03/30/2022 03/31/2022 04/01/2022 acetaminophen (TYLENOL) tablet 325 mg 0959 (Given - Provider: Aide Bonilla RN) 325 mg, oral, EVERY 4 HOURS PRN, Startin g on 03/27/22 at 2318, Until Lesvia 04/01/22 at 1826, Pain, Routine lidocaine (PF) 10 mg/mL (1 %) injection 2 mg 2 mg, intradermal, PRN, 4 doses, Startin g on Tu03/16/22 at 2153, Until Tue04/01/22 at 1826, peripheral intravenous catheter placement, Routine ondansetron (PF) (ZOFRAN) injection 4 mg 4 mg, intravenous, PRN, Starting on Tue03/17/22 at 0833, Until Tue04/01/22 at 1826, Nausea, Vomiting, Routine, Intraprocedure Linked Groups Order Group 1: Insert Saline Lock (CANCELED) Routine, ONE TIME, On Tue03/17/22 at 083 5, For 1 occurrence
Preprocedure And sodium chloride 0.9 % (flush) flush 5 mLJump to med 5 mL, intravenous, EVERY 8 HOURS, First dose on Tue03/17/22 at 0900, Until Discontinued, Routine, Preprocedure documented in this encounter Orders Medications Ordered That Might Not Have Count Last Ord ered Date First Ordered Date Been Administered folic acid (FOLVITE) tablet 1 mg 2 03/25/2022 03/24/2022 lisinopriL (PRINIVIL) tablet 5 mg 2 03/25/2022 03/24/2022 Multivitamins with minerals + ferrous 1 03/25/2022 gluconate (CENTRUM) oral solution 15 mL sertraline (ZOLOFT) tablet 100 mg 2 03/25/2022 03/24/2022 potassium chloride (KLOR-CON) packet 40 1 03/24/20 22 mEq potassium chloride SA (K-DUR) tablet 40 2 03/24/20 22 mEq phenylephrine-lidocaine 0.25 %-3 % 2 03/22/2022 03/17/2022 (CO-PHENYLCAINE) topical solution 5 mL busPIRone (BUSPAR) tablet 10 mg 1 03/21/2022 cefTRIAXone (ROCEPHIN) 1,000 mg in sodium 1 2021 chloride (NS MBP) 50 mL IVPB metronidazole (FLAGYL) infusion 500 mg 1 OLANZapine (ZYPREXA) injection 10 mg 1 03/18/2022 dextrose 50 % solution 12.5 g 1 03/17/2022 diphenhydrAMINE (BENADRYL) injection 25 mg 1 03/17 glucagon injection 1 mg 1 03/17/2022 lactated ringers (LR) infusion 1 03/17/2022 lidocaine (PF) 10 mg/mL (1 %) injection 2 3 202103/16/2022 mg lidocaine (XYLOCAINE) 2 % viscous solution 1 03/17 5 mL OLANZapine (ZYPREXA) injection 5 mg 1 03/17/2022 ondansetron (PF) (ZOFRAN) injection 4 mg 1 potassium, sodium phosphates (PHOS-NAK) 1 03/17/20 22 280-160-250 mg packet 8 mmol sodium chloride 0.9 % (flush) flush 5 mL 1 sodium chloride 0.9 % (NS) infusion 1 03/17/2022 acetaminophen (TYLENOL) solution unit dose 1 03/16 cup 650 mg acetaminophen (TYLENOL) suppository 650 mg 2 03/16 acetaminophen (TYLENOL) tablet 650 mg 1 03/16/2022 calcium GLUconate 100 mg/mL (10%) 1 03/16/2022 injection EPINEPHrine 4 mg/250 mL in NS infusion 1 famotidine (PEPCID) injection 20 mg 1 03/16/2022 famotidine (PEPCID) tablet 20 mg 1 03/16/2022 magnesium sulfate 2 g in water 50 mL 1 03/16/2022 melatonin tablet 5 mg 1 03/16/2022 methylene blue (PROVAYBLUE) 5 mg/mL (0.5 1 022 %) injection 140 mg polyethylene glycol 3350 (MIRALAX) packet 1 2021 17 g potassium chloride in water infusion 20 1 03/16/20 22 mEq senna (SENOKOT) tablet 1 Tablet 1 03/16/2022 Procedures Count Last Ordered Date First Ordered Date ECG REPORT - SCANNED 4 04/06/2022 03/22/2022 Diet Count Last Ordered Date First Ordered Date DISCHARGE DIET 1 04/01/2022 Nursing Count Last Ordered Date First Ordered Date ACTIVITY INSTRUCTIONS 1 04/01/2022 BATHING INSTRUCTIONS 1 04/01/2022 DELIRIUM PREVENTION PROTOCOL 1 03/19/2022 DAILY WEIGHTS 1 03/16/2022 TREATMENT/INTERVENTION - MISCELLANEOUS 1 VITAL SIGNS 1 03/16/2022 VTE PHARMACOLOGIC PROPHYLAXIS CURRENTLY 1 03/16/20 22 ORDERED OR ON ALTERNATIVE THER Consult Count Last Ordered Date First Ordered Date CONSULT NUTRITION 1 03/22/2022 Respiratory Care Count Last Ordered Date First Ordered Date EXTUBATION 1 03/17/2022 RESPIRATORY CARE EVALUATION ONLY 1 03/16/2022 RAILROAD SIGNAL TECHNICIAN Count Last Ordered Date First Ordered Date RAILROAD SIGNAL TECHNICIAN CLINICAL SWALLOW EVALUATION AND TREAT 1 2021 IV Count Last Ordered Date First Ordered Date IV REQUEST 3 03/22/2022 03/18/2022 Admission Count Last Ordered Date First Ordered Date ADMIT TO INPATIENT 1 03/16/2022 Transfer Count Last Ordered Date First Ordered Date TRANSFER PATIENT 1 03/19/2022 Discharge Count Last Ordered Date First Ordered Date DISCHARGE PATIENT 1 04/01/2022 Legal Count Last Ordered Date First Ordered Date MISCELLANEOUS DISCHARGE INSTRUCTIONS 1 04/01/2022 Transfuse Count Last Ordered Date First Ordered Date TRANSFUSE RED BLOOD CELLS 1 03/16/2022 documented in this encounter Care Teams Operations Analyst Relationship Specialty Start Date End Date Tyrese Juares PA PCP - General 03/16/[address] [place] [id number] documented as of this encounter
--- OUTSIDE RECORDS SUMMARY | 2022-05-26 01:14 | XMS_ITS | Encounter Summary ---
:1960 Author Organization [facility] Address [address] [place] [address] Care Team Providers Name Role Phone Tyrese Juares Primary Care Provider Reason for Visit Reason Comments Rectal Bleeding bloody stools starting today , lower abd cramping/pressure Auth/Cert Specialty Diagnoses / Procedures Referred By Contact Refer red To Contact Diagnoses Hemorrhagic shock (HCC-CMS) (HCC) Urinary retention Rectal bleeding Lower GI bleed Syncope, unspecified syncope type Referral ID Status Reason Start Date Expiration Date Visits Requ ested Visits Authorized [id number] 1 1 Encounter Details Date Type Department Care Team Description 03/16/2022 Emergency [facility] - Ruby Irby PA-C [address] [facility], [facility] [address] [place] [address] Urinary retention (Primary Dx); [facility] Satinder Foote MD [address] [place] [phone] Rectal bleeding; Department Prakash Lockhart MD [address] [place] [phone] Hemorrhagic shock (HCC-CMS) (HCC); [address] [place] [address] Syncope, [place] [address] Social History Tobacco Use Types Packs/Day Years [...] Sign Reading Time Taken Comments Blood Pressure 83/41 03/16/20222014 EDT Pulse 58 03/16/2022 1818 EDT Temperature 37.1 ??C (98.7 ??F) 03/16/2022 1723 EDT Respiratory Rate 14 03/16/20222004 EDT Oxygen Saturation 100% 03/16/20222004 EDT Inhaled Oxygen Concentration - - Weight 70.3 kg (155 lb) 03/16/2022 1417 EDT Height - - Body Mass Index - - documented in this encounter Medications at Time [...] Take 2 Capsules by 60 capsule 0 /04/2022 mg capsule mouth at bedtime. TAMSulosin (FLOMAX) 0.4 Take 2 Capsules by 60 Each 2 06/0 07/2022 mg capsule mouth daily. traZODone (DESYREL) 50 mg 50 mg. 0 09/01/2021 tablet pantoprazole (PROTONIX) Take 1 Tablet by 14 Tablet 0 202104/15/2022 40 mg tablet mouth daily for 14 days. Prazosin (MINIPRESS) 1 mg Take 5 mg by mouth 0 04/01/2022 capsule at bedtime. documented as of this encounter Discharge Disposition Disposition Code Departure Means Destination Another Health Care Institution Not Defined documented in this encounter Progress Notes Julia Jarvis, RT - 03/16/2022 1850 EDT Respiratory Endotracheal Intubation or LMA placement This procedure occurred Date: 03/16/22 Time:1827 Indication for advanced airway placement Patient found down pulseless CPR initiated.Rosc achieved. The patient was pre-oxygenated via NRB . Intubation procedure performed by . Airway type and size 8.0. Airway placed with blade type and size #4 [place] under direct visualizationof the vocal cords in 1 attempts. Post procedure lung sounds were noted bilaterally and without air sounds in the abdomen. Either colormetric or EtCO2 monitor were used to confirm placement. Airway taped at 23 no complications noted. Comments: Patient placed on mechanical ventilator, settings documented in flow sheet. Airway patent and secure, will continue to monitor until transferred to ICU for further management. RT MARLY 03/16/22 documented in this encounter ED Notes Lacey Bermudez - 03/16/2022 1844 EDT 12 Lead EKG Performed by Lacey Bermudez and shown to Prakash Lockhart MD. Sean ferrer MD - 03/16/2022 1838 EDTAssociated Order(s): Insert Central Line; Intubation Procedures Intubation Date/Time: 03/16/2022 18:39 Performed by: Sean Carrillo MD Authorized by: Prakash Lockhart MD Consent: Consent obtained: Emergent situation Pre-procedure details: Patient status: Altered mental status Mallampati score: II Pretreatment meds: Ketamine. Paralytics: Succinylcholine Procedure details: Preoxygenation: Nonrebreather mask CPR in progress: no Intubation method: Oral Oral intubation technique: Video-assisted Laryngoscope blade: Mac 4 Tube size (mm): 8.0 Tube type: Cuffed Number of attempts: 1 Ventilation between attempts: no Cricoid pressure: no Tube visualized through cords: yes Placement assessment: ETT to teeth: 23 Tube secured with: ETT wooten Breath sounds: Equal Placement verification: chest rise, CXR verification, direct visualization, equal breath sounds andETCO2 detector CXR findings: ETT in proper place Post-procedure details: Patient tolerance of procedure: Tolerated well, no immediate complications Insert Central Line Date/Time: 03/16/2022 20:59 Performed by: Sean Carrillo MD Authorized by: Prakash Lockhart MD Consent: Consent obtained: Emergent situation Pre-procedure details: Hand hygiene: Hand hygiene performed prior to insertion Sterile barrier technique: All elements of maximal sterile technique followed Skin preparation: 2% chlorhexidine Skin preparation agent: Skin preparation agent completely dried prior to procedure Sedation: Sedation type: Moderate (conscious) sedation (Intubated and sedated) Anesthesia (see MAR for exact dosages): Anesthesia method: Local infiltration Local anesthetic: Lidocaine 1% w/o epi Procedure details: Location: R femoral Patient position: Flat Procedural supplies: Cordis Catheter size: 8.5 Fr Landmarks identified: yes Ultrasound guidance: yes Sterile ultrasound techniques: Sterile gel and sterile probe covers were used Number of attempts: 1 Successful placement: yes Post-procedure details: Post-procedure: Dressing applied and line sutured Assessment: Blood return through all ports and free fluid flow Patient tolerance of procedure: Tolerated well, no immediate complications Associated attestation - Prakash Lockhart MD - 03/16/2022 2241 EDT Please see the procedure note entered by the resident. I personally supervised the procedure performed, and was physically present at the bedside for the entire procedure. Norma Tolliver Amy, RN - 03/16/2022 1818 EDT ROSC. Laura Pizarro RN - 03/16/2022 1815 EDT MHT alerted this RN that a pt was lying in the hallway outside of . This RN & A Ponchoz with techwent to assess. Pt was lying face down on the floor. Facial trauma with bleeding noted. Significant amount of GI bleeding noted on Floyd. Pt was pale and minimally responsive. C-spine maintained, collar placed. MD immediately at bedside. Pt logrolled and placed on backboard. Pt placed on bed & removed from backboard. Pt started posturing and became apneic. Pulses were not obtained. CPR initiated immediately & ventilations supported via BVM. Pt was moved to A1. ROSC obtained after approx 2 minutes of CPR. See critical care flowsheet for additional assessment and interventions. Khushi Rodríguez RN - 03/16/2022 1815 EDT Pt was found unresponsive outside B4 facedown on the floor with large amt BRB per rectum and obviousfacial trauma. He was breathing and moaning. C- spine was stabilized, pt logrolled and lifted to bedwith spinal precautions. Pt then lost his pulse and stopped breathign. CPR was started for approx 2min. Pt then had return of ROSC and was placed in A1. Tier 1 blood ordered, respirations were assistedwith BVM as pt was prepared for intubation. He did become verbal prior to intubation, stating I want to go home and reaching out with his arms. Prakash Ferreira MD - 03/16/2022 1445 EDTAssociated Order(s): Critical Care; Intubation Emergency Department Visit Assessment and ED Course This patient was seen in conjunction with Ruby Irby. Briefly this is a 61-year-old male who presented for evaluation of bright red blood per rectum. He has a history of hypertension on aspirin only. He was seen and evaluated and noted to have a slight drop in his hemoglobin on repeat here in the emergency department. The case was discussed with gastroenterology who recommended admission for plan for colonoscopy tomorrow. Unfortunately, while awaiting placement in a bed here in the emergency department the patient was noted to have a syncopal episode and collapsed in his room. He was found down on the ground with an obvious fracture of his right upper central maxillary incisor, blood about his face and a large volume of blood per rectum. Patient was assessed and placed back in his stretcher but was noted to have agonal respirations and no palpable pulse was able to be felt. He received 2 rounds of chest compressions before his mental status noted to improve and he was moving somewhat purposefully. However, he remained somewhat altered. In anticipation of transfer and for airway protection the patient was intubated as detailed below. Tier 1 blood was ordered. He received a total of 4 units of PRBCs, [address] head, C-spine, facial bones as well as a CT angiogram of the abdomen was obtained. The patient was transferred to [facility] MICU for further evaluation and consideration of possible IR guided embolizationversus surgical intervention to manage his massive GI bleed. He did require norepinephrine in the setting of high-dose propofol and Versed in order to achieve adequate sedation after being intubated. A right femoral Cordis catheter was placed during resuscitation for more rapid infusion by Dr. Sean Carrillo, resident under my direct supervision without any apparent complication. The patient's tooth fracture fragment was identified and so suspicion for aspiration of tooth is very low. Patient's family updated as to his status. Final diagnoses: Urinary retention Rectal bleeding Hemorrhagic shock (HCC-CMS) (HCC) Syncope, unspecified syncope type Disposition: Transfered to Another Facility Chief complaint: Rectal bleeding HPI Antoine Saez is a 61 y.o. male with a history of htn, prior heavy tobacco use who presents to the ED for rectal bleeding. started in the past 3 hours. had his usual morning bowel movement and 3 cups of coffee then around noon felt the urge to have a bowel movement. there was a hard bowel movement followed by runny and bloody stool. noting stomach gurgling but no notable pain. he has noted some pain in his abdomen over this past winter, in the lower quadrants alternating between sides. he has no rectal pain and denies ever seeing blood in his stool before. never had colonoscopy but does stool screenings. he denies feeling dizzy or light headed. he has not eaten anything today yet which is typical for him. no hx of abd surgery. he takes a baby asa (although not today) but no other blood thinners. History was provided by: patient Patient's pertinent PMH, FH, SH were reviewed and edited as necessary. ROS A 10-point review of systems was performed. The patient answered negative to all questions with the exceptions of those explicitly detailed as positives in the HPI. Pertinent negatives are also explicitly stated. Physical Exam BP (!) 83/41 Pulse 58 Temp 37.1 ??C (98.7 ??F) (Oral) Resp 14 Wt 70.3 kg (155 lb) SpO2 100% A medical screening exam was performed. Physical Exam Constitutional: Well appearing in no acute distress HEENT: Normocephalic, atraumatic, pupils equal and reactive to light, no scleral icterus. Mouth: Moist oral mucosa without apparent lesions Neck: Full ROM, no cervical LAD Heart: RRR without MRG. Symmetric pulses Lungs: Clear to auscultation. No respiratory distress. Abdomen: Soft, mildly tender to the LLQ, slightly increased bowel sounds diffusely, nondistended Skin: No overt rashes on exposed skin Extremities: Moving spontaneously, warm and well perfused. no LE edema Neuro: Awake, alert, oriented. Speech is fluent. Movements show normal coordination Psych: mildly anxious affect, appropriate speech, appropriate eye contact. Laboratory data was reviewed and independently interpreted. Procedures Critical Care Performed by: Ruby Irby PA-C Authorized by: Ruby Irby PA-C Critical care provider statement: Critical care time (minutes): 120 Critical care time was exclusive of: Separately billable procedures and treating other patients andteaching time Critical care was necessary to treat or prevent imminent or life-threatening deterioration of the following conditions: Circulatory failure Critical care was time spent personally by me on the following activities: Ordering and performing treatments and interventions, development of treatment plan with patient or surrogate, ordering and review of laboratory studies, ordering and review of radiographic studies, discussions with consultants, pulse oximetry, re-evaluation of patient's condition, evaluation of patient's response to treatment, examination of patient and obtaining history from patient or surrogate I assumed direction of critical care for this patient from another provider in my specialty: no Intubation Date/Time: 03/16/2022 20:54 Performed by: Sean Carrillo MD Authorized by: Prakash Lockhart MD Consent: Consent obtained: Emergent situation Pre-procedure details: Patient status: Altered mental status Pretreatment meds: ketamine. Paralytics: Succinylcholine Procedure details: Preoxygenation: Nonrebreather mask CPR in progress: no Laryngoscope blade: Mac 4 Tube size (mm): 8.0 Tube type: Cuffed Number of attempts: 1 Placement assessment: ETT to teeth: 23 Breath sounds: Equal Placement verification: chest rise, condensation, CXR verification, direct visualization, equal breath sounds, ETCO2 detector and tube exhalation CXR findings: ETT in proper place Post-procedure details: Patient tolerance of procedure: Tolerated well, no immediate complications documented in this encounter Plan of Treatment Not on filedocumented as of this encounter Procedures Procedure Name Priority Date/Time Associated Comments Diagnosis ED INSERT CENTRAL Routine 03/16/2022 20:59 Result s for this LINE EDT procedure are i n the results section. ED INSERT CENTRAL Routine 03/16/2022 20:59 Result s for this LINE EDT procedure are i n the results section. ED INTUBATION Routine 03/16/2022 20:54 Results fo r this EDT procedure are i n the results section. CT ANGIO ABDOMEN STAT 03/16/2022 20:12 Results for this PELVIS EDT procedure are i n the results [...] n the results section. COMPLETE BLOOD COUNT STAT 03/16/2022 19:10 Res ults for this AND DIFFERENTIAL EDT procedure a re in the results section. TYPE AND SCREEN STAT 03/16/2022 19:10 Results for this EDT procedure are i n the results section. PREPARE RED BLOOD Routine 03/16/2022 19:05 Result s for this CELLS EDT procedure are i n the results section. PREPARE RED BLOOD Routine 03/16/2022 19:05 Result s for this CELLS EDT procedure are i n the results section. PREPARE RED BLOOD Routine 03/16/2022 19:05 Result s for this CELLS EDT procedure are i n the results section. PREPARE RED BLOOD Routine 03/16/2022 19:05 Result s for this CELLS EDT procedure are i n the results section. XR CHEST PORTABLE 1 STAT 03/16/2022 18:45 Resu lts for this VIEW EDT procedure are i n the results section. ED INTUBATION Routine 03/16/2022 18:39 Results fo r this EDT procedure are i n the results section. PREPARE RED BLOOD Routine 03/16/2022 18:28 Result s for this CELLS EDT procedure are i n the results section. PREPARE RED BLOOD Routine 03/16/2022 18:28 Result s for this CELLS EDT procedure are i n the results section. COVID-19 [facility] STAT 03/16/2022 18:04 (TESTING ONLY) EDT COVID-19 TESTING STAT 03/16/2022 18:04 Results for this EDT procedure are i n the results section. COMPLETE BLOOD COUNT Routine 03/16/2022 16:37 Res ults for this AND DIFFERENTIAL EDT procedure a re in the results section. CT ABDOMEN PELVIS W STAT 03/16/2022 15:50 Resu lts for this CONTRAST EDT procedure are i n the results section. POCT URINE DIPSTICK, STAT 03/16/2022 15:31 Res ults for this VISUAL READ EDT procedure are i n the results section. PATIENT RE-TYPE Routine 03/16/2022 14:53 Results for this EDT procedure are i n the results section. COMPLETE BLOOD COUNT STAT 03/16/2022 14:53 Res ults for this AND DIFFERENTIAL EDT procedure a re in the results section. BASIC METABOLIC PANEL STAT [...] results section. documented in this encounter Results PA INSERT NON-TUNNEL CV CATH, HC - INSJ NON-TUNNELED CENTRAL VENOUS CATH AGE 4 YR/> (03/16/2022 20:59 EDT) Narrative [facility] EKG - 03/16/2022 20:5 9 EDT Sean [...] well, no immediate complications Performing Organization Address [facility] Phon e Number [facility] EKG ED INTUBATION (03/16/2022 20:54 EDT) Narrative [facility] EKG - 03/16/2022 20:5 4 EDT Prakash [...] well, no immediate complications Performing Organization Address [facility] Phon e Number [facility] EKG CT ANGIO ABDOMEN PELVIS (03/16/2022 20:12 EDT) Anatomical Region Laterality Modality Body, Abdomen, Pelvis, Abdomen and Pelvis Computed Tomography Specimen Impressions [facility] - 03/16/2022 20:47 EDT [...] REGARDING THIS REPORT PLEASE CALL [facility] AT [phone] [facility] - 03/16/2022 20:47 EDT [...] REGARDING THIS REPORT PLEASE CALL [facility] AT [phone] Performing Organization Address City/State/ZIP Code Phon e Number [facility] CT CERVICAL SPINE WO CONTRAST (03/16/2022 20:09 EDT) Anatomical Region Laterality Modality Computed Tomography Specimen Impressions [facility] - 03/16/2022 20:33 EDT [...] REGARDING THIS REPORT PLEASE CALL [facility] AT [phone] [facility] - 03/16/2022 20:33 EDT [...] REGARDING THIS REPORT PLEASE CALL [facility] AT [phone] Performing Organization Address City/State/ZIP Code Phon e Number [facility] CT FACIAL BONES WO CONTRAST (03/16/2022 20:09 EDT) Anatomical Region Laterality Modality Head Computed Tomography Specimen Impressions [facility] - 03/16/2022 20:33 EDT [...] REGARDING THIS REPORT PLEASE CALL [facility] AT [phone] [facility] - 03/16/2022 20:33 EDT [...] cture. Soft tissues: Unremarkable. Procedure Note Gary Baker, - 03/16/2022 PROCEDURE INFORMATION: Exam: CT Head [...] REGARDING THIS REPORT PLEASE CALL [facility] AT [phone] Performing Organization Address City/State/ZIP Code Phon e Number [facility] RAD[facility] CT HEAD WO CONTRAST (03/16/2022 20:09 EDT) Anatomical Region Laterality Modality Head Computed Tomography Specimen Impressions [facility] - 03/16/2022 20:33 EDT [...] REGARDING THIS REPORT PLEASE CALL [facility] AT [phone] [facility] - 03/16/2022 20:33 EDT [...] REGARDING THIS REPORT PLEASE CALL [facility] AT [phone] Performing Organization Address City/State/ZIP Code Phon e Number [facility] PREPARE PLASMA (03/16/2022 19:12 EDT) Product Code [id number] [facility] Donor Number [id number] [facility] Unit ABO AB [facility] Unit Rh POS [facility] Unit Status PT^Presumed [facility] Transfuse BLOOD BANK Product Expiration [facility] BLOOD BANK Unit Blood Type 8400 [facility] BLOOD BANK Volume 221 [facility] Coding System [id number] [facility] Specimen Performing Organization Address City/[facility] Code Phon e Number [facility] [address] [place] [address] PREPARE PLASMA (03/16/2022 19:12 EDT) Product Code [id number] [facility] Donor Number [id number] [facility] Unit ABO AB [facility] Unit Rh POS [facility] Unit Status PT^Presumed [facility] Transfuse BLOOD BANK Product Expiration [facility] BLOOD BANK Unit Blood Type 8400 [facility] BLOOD BANK Volume 216 [facility] Coding System [id number] [facility] Specimen Performing Organization Address City/[facility]/ZIP [facility] Phon e Number [facility] [address] [place] [address] PREPARE PLASMA (03/16/2022 19:12 EDT) Product Code [id number] [facility] Donor Number [id number] [facility] Unit ABO AB [facility] Unit Rh POS [facility] Unit Status PT^Presumed [facility] Transfuse BLOOD BANK Product Expiration [facility] BLOOD BANK Unit Blood Type 8400 [facility] BLOOD BANK Volume 224 [facility] Coding System [id number] [facility] Specimen Performing Organization Address City/State/ZIP Code Phon e Number [facility] [address] [place] [address] PREPARE PLASMA (03/16/2022 19:12 EDT) Product Code [id number] [facility] Donor Number [id number] [facility] Unit ABO AB [facility] Unit Rh POS [facility] Unit Status PT^Presumed [facility] Transfuse BLOOD BANK Product Expiration [id number] [facility] Date BLOOD BANK Unit Blood Type 8400 [facility] Code BLOOD BANK Volume 222 [facility] Coding System [id number] [facility] Specimen Performing Organization Address City/State/ZIP Code Phon e Number [facility] [address] [place] [address] (ABNORMAL) COMPLETE BLOOD COUNT AND DIFFERENTIAL (03/16/2022 19:10 EDT) Pathologist Sig nature WBC 5.80 4.00 - 10.40 [facility] K/[facility] LAB RBC 3.68 (L) 4.36 - 5.78 [facility] M/[facility] LAB Hemoglobin 11.7 (L) 13.8 - 17.3 [facility] gm/dL [place] [facility] HCT 34.3 (L) 39.5 - 50.2 % [facility] MCV 93 81 - 95 fl [facility] MCH 31.8 27.6 - 33.0 pg [facility] MCHC 34.1 32.8 - 36.4 [facility] gm/dL [place] [facility] RDW-CV 13.2 <14.2 % [facility] RDW-SD 45.3 <46.0 fl [facility] PLT 258 141 - 377 K/cmm [facility] MPV 9.0 (L) 9.5 - 12.7 fl [facility] Neutrophils 56.8 % [facility] Lymphocytes 29.5 % [facility] Monocytes 8.6 % [facility] Eosinophils 3.4 % [facility] Basophils 1.2 % [facility] Immature Grans 0.5 % [facility] Absolute Neutrophils 3.29 2.20 - 8.85 [facility] Lymphocytes 1.71 1.09 - 3.30 [facility] Absolute Monocytes 0.50 0.10 - 0.80 [facility] LAB Absolute Eosinophils 0.20 0.03 - 0.61 [facility] Absolute Basophils 0.07 0.01 - 0.11 [facility] LAB Absolute Immature 0.03 0.00 - 0.06 [facility] K/cmm CENTER LAB Type of Differential: Auto [facility] LAB Specimen Blood - Venous blood (substance) Performing Organization Address [facility] Phon e Number [facility] [address] [place] [address] (ABNORMAL) PTT (03/16/2022 19:10 EDT) Pathologist Sig nature PTT 25 (L) 26 - 37 secs [facility] L AB Specimen Blood - Venous blood (substance) Performing Organization Address [facility] Phon e Number [facility] [address] [place] [address] (ABNORMAL) PROTIME (03/16/2022 19:10 EDT) Pathologist Sig nature I.N.R. 1.2 (H) 0.9 - 1.1 Ratio [facility] R LAB Pro Time 13.2 (H) 10.4 - 12.6 secs [facility] ER LAB Specimen Blood - Venous blood (substance) Narrative [facility] - 022 19:27 EDT Moderate Intensity Coumadin INR = 2.0-3.0 Adjustments in anticoagulant therapy dos e should be based on the INR and NOT on the [employer]. Performing Organization Address [facility] Phon e Number [facility] [address] [place] [address] TYPE AND SCREEN (03/16/2022 19:10 EDT) ABO O [facility] BLOOD B[facility] Rh Factor Positive [facility] Antibody Screen Negative [facility] Specimen Expires: 03/19/2022 @ 23:59 [facility] BLOOD [facility] Specimen Blood - Venous blood (substance) Performing Organization Address [facility] Phon e Number [facility] [address] [place] [address] PREPARE RED BLOOD CELLS (03/16/2022 19:05 EDT) Product Code [id number] [facility] Donor Number [id number] [facility] Unit ABO O [facility] Unit Rh POS [facility]OD [facility] Unit Status PT^Presumed [facility] Transfuse BLOOD BANK Product Expiration [id number] [facility] Date BLOOD BANK Unit Blood Type 5100 [facility] BLOOD BANK Volume 330 [facility] Coding System [id number] [facility] Specimen Performing Organization Address City/[facility] Code Phon e Number [facility] [address] [place] [address] PREPARE RED BLOOD CELLS (03/16/2022 19:05 EDT) Product Code [id number] [facility] Donor Number [id number] [facility]OD [facility] Unit ABO O [facility] BLOOD [facility] Unit Rh POS [facility] BLOOD [facility] Unit Status PT^Presumed [facility] Transfuse BLOOD BANK Product Expiration [facility] BLOOD BANK Unit Blood Type 5100 [facility] BLOOD BANK Volume 330 [facility] BLOOD [facility] Coding System [id number] [facility]LOOD [facility] Specimen Performing Organization Address City/[facility] Phon e Number [facility] [address] [place] [address] PREPARE RED BLOOD CELLS (03/16/2022 19:05 EDT) Product Code [id number] [facility] Donor Number [id number] [facility]OD [facility] Unit ABO O [facility]LOOD [facility] Unit Rh POS [facility] BLOOD [facility] Unit Status PT^Presumed [facility] Transfuse BLOOD BANK Product Expiration [facility] BLOOD BANK Unit Blood Type 5100 [facility] BLOOD BANK Volume 330 [facility]LOOD [facility] Coding System [id number] [facility] Specimen Performing Organization Address City/[facility]/ZIP Code Phon e Number [facility]OD [facility] [address] [place] [address] PREPARE RED BLOOD CELLS (03/16/2022 19:05 EDT) Product Code [id number] [facility] Donor Number [id number] [facility]OD [facility] Unit ABO O [facility]LOOD [facility] Unit Rh POS [facility] BLOOD [facility] Unit Status PT^Presumed [facility] Transfuse BLOOD BANK Product Expiration [id number] [facility] BLOOD BANK Unit Blood Type 5100 [facility] BLOOD BANK Volume 330 [facility]LOOD [facility] Coding System [id number] [facility] Specimen Performing Organization Address City/[facility]/ZIP Code Phon e Number [facility]OD [facility] [address] [place] [address] XR CHEST PORTABLE 1 VIEW (03/16/2022 18:45 EDT) Anatomical Region Laterality Modality Computed Radiography Specimen Impressions [facility] - 03/16/2022 18:56 EDT ET tube tip approximately 4.7 cm above the blake. NG tube tip below the diaphragm. THIS DOCUMENT HAS BEEN ELECTRONICALLY SI GNED BY AMAN DEVI MD FOR ANY QUESTIONS OR CONCERNS REGARDING THIS REPORT PLEASE CALL [facility] AT [phone] Narrative [facility] - 03/16/2022 18:56 EDT PROCEDURE INFORMATION: Exam: [...] REGARDING THIS REPORT PLEASE CALL [facility] AT [phone] Performing Organization Address [facility] Code Phon e Number [facility] RADIOLOGY MAIN CAMPUS ED INTUBATION (03/16/2022 18:39 EDT) Narrative [facility] EKG - 03/16/2022 18:3 9 EDT Sean [...] well, no immediate complications Performing Organization Address [facility]/ZIP Code Phon e Number [facility] EKG PREPARE RED BLOOD CELLS (03/16/2022 18:28 EDT) Product Code [id number] [facility]OD [facility] Donor Number [id number] [facility] BLOOD [facility] Unit ABO O [facility] BLOOD [facility] Unit Rh POS [facility] BLOOD [facility] Unit Status PT^Presumed [facility] Transfuse BLOOD BANK Product Expiration [facility] BLOOD BANK Unit Blood Type 5100 [facility] BLOOD BANK Volume 277 [facility] BLOOD [facility] Coding System [id number] [facility] BLOOD [facility] Specimen Performing Organization Address City/[facility] Phon e Number [facility]OD [facility] [address] [place] [address] PREPARE RED BLOOD CELLS (03/16/2022 18:28 EDT) Product Code [id number] [facility] Donor Number [id number] [facility]OD [facility] Unit ABO O [facility]OD [facility] Unit Rh POS [facility] BLOOD [facility] Unit Status PT^Presumed [facility] Transfuse BLOOD BANK Product Expiration [facility] BLOOD BANK Unit Blood Type 5100 [facility] BLOOD BANK Volume 330 [facility] BLOOD [facility] Coding System [id number] [facility] Specimen Performing Organization Address City/[facility] Phon e Number [facility]OD [facility] [address] [place] [address] COVID-19 [facility] (TESTING ONLY) (03/16/2022 18:04 EDT) Specimen Swab - Anterior nares Performing Organization Address City/[facility] Phon e Number [facility] [address] [place] [address] COVID-19 TESTING (03/16/2022 18:04 EDT) COVID-19 rt-PCR Negative Negative [facility] Result Comment: [facility] This test has not been FDA [...] terminated or revoked sooner. Performed on the [employer] GeneXpert Instrument The 2019 novel coronavirus (SARS-CoV-2) target nucleic acids are not detected. Performing Lab Cepheid GeneXpert [facility] Specimen Swab - Anterior nares Performing Organization Address City/State/ZIP Code Phon e Number [facility] [address] [place] [address] (ABNORMAL) COMPLETE BLOOD COUNT AND DIFFERENTIAL (03/16/2022 16:37 EDT) Pathologist Sig nature WBC 6.82 4.00 - 10.40 [facility] RBC 3.56 (L) 4.36 - 5.78 [facility] Hemoglobin 11.6 (L) 13.8 - 17.3 [facility] gm/dL [place] [facility] HCT 33.6 (L) 39.5 - 50.2 % [facility] MCV 94 81 - 95 fl [facility] MCH 32.6 27.6 - 33.0 pg [facility] MCHC 34.5 32.8 - 36.4 [facility] gm/dL [place] [facility] RDW-CV 12.2 <14.2 % [facility] RDW-SD 42.7 <46.0 fl [facility] PLT 319 141 - 377 K/cmm [facility] MPV 8.6 (L) 9.5 - 12.7 fl [facility] Neutrophils 59.3 % [facility] Lymphocytes 28.4 % [facility] Monocytes 8.5 % [facility] Eosinophils 2.8 % [facility] Basophils 0.9 % [facility] Immature Grans 0.1 % [facility] Absolute Neutrophils 4.04 2.20 - 8.85 [facility] Absolute Lymphocytes 1.94 1.09 - 3.30 [facility] Absolute Monocytes 0.58 0.10 - 0.80 [facility] Absolute Eosinophils 0.19 0.03 - 0.61 [facility] Absolute Basophils 0.06 0.01 - 0.11 [facility] Absolute Immature 0.01 0.00 - 0.06 [facility] Type of Differential: Auto [facility] Specimen Blood - Venous blood (substance) Performing Organization Address City/State/ZIP Code Phon e Number [facility] [address] [place] [address] CT ABDOMEN PELVIS W CONTRAST (03/16/2022 15:50 EDT) Anatomical Region Laterality Modality Body, Abdomen, Pelvis, Abdomen and Pelvis Computed Tomography Specimen Impressions [facility] RADIOLOGY MAIN CAMPUS - 03/16/2022 16:04 EDT 1. Marked [...] distention of the re ctum, nonspecific. Narrative [facility] RADIOLOGY MAIN CAMPUS - 03/16/2022 16:[address] ABDOMEN [...] Address City/State/ZIP Code Phon e Number [facility] RADIOLOGY MAIN CAMPUS POCT URINE DIPSTICK, VISUAL [...] - Urine specimen collection, clean catch (procedure) PATIENT RE-TYPE (03/16/2022 14:53 EDT) Pathologist Sig nature ABO O [facility] BLOOD [facility] Rh Factor Positive [facility] BLOOD [facility] Specimen Blood - Venous blood (substance) Performing Organization Address [facility] Phon e Number [facility] BLOOD [facility] [address] [place] [address] (ABNORMAL) BASIC METABOLIC PANEL (BMP) (03/16/2022 14:53 EDT) Pathologist Sig nature Sodium 134 (L) 136 - 145 mmol/L [facility] Potassium 4.4 3.5 - 5.0 mmol/L [facility] Chloride 101 96 - 110 mmol/L [facility] CO2 Total 23 22 - 32 mmol/L [facility] Anion Gap 10 5 - 14 [facility] Glucose 89 70 - 100 mg/dL [facility] Calcium 9.0 8.5 - 10.5 mg/dL [facility] BUN 20 10 - 26 mg/dL [facility] Creatinine 0.72 0.66 - 1.25 mg/dL [facility] eGFR 103 >60 mL/min/1.73m2 [facility] Specimen Blood - Venous blood (substance) Performing Organization Address City/[facility]/ZIP Code Phon e Number [facility] [address] [place] [address] (ABNORMAL) COMPLETE BLOOD COUNT AND DIFFERENTIAL (03/16/2022 14:53 EDT) Pathologist Sig nature WBC 6.38 4.00 - 10.40 [facility] K/cmm CENTER LAB RBC 3.80 (L) 4.36 - 5.78 [facility] M/[facility] LAB Hemoglobin 12.4 (L) 13.8 - 17.3 [facility] gm/dL [place] [facility] HCT 35.8 (L) 39.5 - 50.2 % [facility] MCV 94 81 - 95 fl [facility] MCH 32.6 27.6 - 33.0 pg [facility] MCHC 34.6 32.8 - 36.4 [facility] gm/dL [place] [facility] RDW-CV 12.3 <14.2 % [facility] RDW-SD 42.8 <46.0 fl [facility] PLT 349 141 - 377 K/cmm [facility] MPV 8.7 (L) 9.5 - 12.7 fl [facility] Neutrophils 60.4 % [facility] Lymphocytes 26.6 % [facility] Monocytes 8.9 % [facility] Eosinophils 2.7 % [facility] Basophils 1.1 % [facility] Immature Grans 0.3 % [facility] Absolute Neutrophils 3.85 2.20 - 8.85 [facility] Lymphocytes 1.70 1.09 - 3.30 [facility] Absolute Monocytes 0.57 0.10 - 0.80 [facility] Absolute Eosinophils 0.17 0.03 - 0.61 [facility] Absolute Basophils 0.07 0.01 - 0.11 [facility] Absolute Immature 0.02 0.00 - 0.06 [facility] Type of Differential: Auto [facility] Specimen Blood - Venous blood (substance) Performing Organization Address City/State/ZIP Code Phon e Number [facility] [address] [place] [address] PA CRITICAL CARE, E/M 30-74 MINUTES, PA CRITICAL CARE, ADDL 30 MIN, PA CRITICAL CARE, ADDL 30 MIN, HC - CRITICAL CARE ILL/INJURED PATIENT INIT 30-74 MIN, HC - CRITICAL CARE ILL/INJURED PATIENT ADDL 30 MIN, HC - CRITICAL CARE ILL/INJURED PATIENT ADDL 30 MIN (03/16/2022 14:45 EDT) Narrative [facility] EKG - 03/16/2022 14:4 5 EDT Prakash Lockhart MD ? 03/16/2022 20:55 Critical Care Performed by: Ruby Irby PA-C Authorized by: Ruby Irby PA- C Critical care provider statement: ??Critical care time (minutes): ??120 ??Critical care time was exclusive of: ??Separately billable procedures and treating other patients and teaching parker e ??Critical care was necessary to treat or [...] Address City/State/ZIP Code Phon e Number [facility] EKG documented in this encounter Visit Diagnoses Diagnosis Urinary retention Retention of urine, unspecified Rectal bleeding Hemorrhage of rectum and anus Hemorrhagic shock (HCC-CMS) (HCC) Other shock without mention of trauma Syncope, unspecified syncope type Lower GI bleed Hemorrhage of gastrointestinal tract, un specified documented in this encounter Admitting Diagnoses Diagnosis Lower GI bleed Hemorrhage of gastrointestinal tract, un specified documented in this encounter Administered Medications Inactive Administered Medications - up to 3 most recent administrations Medication Order MAR Action Action Date Dose Rate Site fentaNYL citrate (PF) injection 200 Given 03/16/2022 19:59 EDT 2 00 mcg mcg 200 mcg, intravenous, NOW X1, 1 dose, On Tue03/16/22 at 2114, STAT fentaNYL citrate (PF) injection 50 mcg Given 03/16/2022 18:48 EDT 50 mcg 50 mcg, intravenous, NOW X1, 1 dose, On Tue03/16/22 at 1915, STAT fentaNYL citrate (PF) injection 50 mcg Given 03/16/2022 18:45 EDT 50 mcg 50 mcg, intravenous, NOW X1, 1 dose, On Tue03/16/22 at 2115, STAT iohexoL (OMNIPAQUE 350) solution 100 mL Given 03/16/2022 15:51 EDT 100 mL 100 mL, intravenous, Once in imaging, 1 dose, Starting on Tue03/16/22 at 1540, Until Tue03/16/22 at 1551, Routine iohexoL (OMNIPAQUE 350) solution 100 mL Given 03/16/2022 20:12 EDT 100 mL 100 mL, intravenous, Once in imaging, 1 dose, Starting on Tue03/16/22 at 2011, Until Tue03/16/22 at 2011, Routine ketAMINE (KETALAR) IV injection vial 150 mg Given 03/16/2022 18:26 EDT 150 mg 150 mg, intravenous, NOW X1, 1 dose, On Tue03/16/22 at 2115, Routine midazolam (PF) (VERSED) injection 6 mg Given 03/16/2022 20:58 EDT 6 mg 6 mg, intravenous, NOW X1, 1 dose, On Tue03/16/22 at 2115, STAT midazolam (PF) in 0.9 % NaCl (VERSED) New Bag 03/16/2022 19:03 EDT 2 mg/hr 2 mL/hr 1 mg/mL infusion solution 1-20 mg/hr (1-20 mL/hr), intravenous, CONTINUOUS, Starting on Tue03/16/22 at 1915, Until Tue03/16/22 at 211, Routine norepinephrine (LEVOPHED) 4 Rate Change 03/16/2022 19:19 EDT 15 mc g/min 56.3 mL/hr mg in 0.9 % sodium chloride infusion 250 mL 2-30 mcg/min (7.5-112.5 mL/hr), intravenous, CONTINUOUS, Starting on Tue03/16/22 at 2115, Until Tue03/16/22 at 211, STAT Rate Change 03/16/2022 19:02 EDT 10 mcg/min 37.5 mL/hr New Bag 03/16/2022 18:56 EDT 5 mcg/min 18.8 mL/hr pantoprazole (PROTONIX) injection 80 mg Given 03/16/2022 19:11 EDT 80 mg 80 mg, intravenous, NOW X1, 1 dose, On Tue03/16/22 at 1845, STAT polyethylene glycol (GoLYTELY;NuLYTELY) suspension 1 L 1 L, oral, EVERY HOUR, 4 doses, First do se (after last reorder) on Tue03/16/22 at 1900, Last dose on Tue03/16/22 at 2200, Routine propOFol (DIPRIVAN) 1000 Rate Change 03/16/2022 18:45 EDT 40 mcg/k g/min 16.9 mL/hr mg in 100 mL infusion 5-83 mcg/kg/min ? 70.3 kg (2.109-35.0094 mL/hr, rounded to 2.1-35 mL/hr), intravenous, CONTINUOUS, Starting on Tue03/16/22 at 1900, Until Tue03/16/22 at 2111, Routine New Bag 03/16/2022 18:41 EDT 30 mcg/kg/min 12.7 mL/hr succinylcholine (ANECTINE) injection 150 mg Given 03/16/2022 18:27 EDT 150 mg 150 mg, intravenous, NOW X1, 1 dose, On Tue03/16/22 at 2115, STAT TAMSulosin (FLOMAX) capsule 0.4 mg Given 03/16/2022 17:35 EDT 0.4 mg 0.4 mg, oral, NOW X1, 1 dose, On Tue03/16/22 at 1745, Routine documented in this encounter Historical Medications This list may reflect changes made after this encounter. Medication Sig Dispensed Refills Start Date End Date lisinopriL (PRINIVIL) 5 5 mg. 0 03/01/2022 mg tablet sertraline (ZOLOFT) 100 100 mg. 0 09/01/2021 mg tablet traZODone (DESYREL) 50 mg 50 mg. 0 09/01/2021 tablet Prazosin (MINIPRESS) 1 mg Take 5 mg by mouth 0 04/01/2022 capsule at bedtime. added in this encounter Active and Recently Administered Medications Times are shown in EDT. Scheduled Medication Order 03/14/2022 03/15/2022 03/16/2022 fentaNYL citrate (PF) injection 200 mcg (COMPLETED) 1958 (Given - Provider: Tatum Carlson RN) 200 mcg, intravenous, NOW X1, 1 dose, On Tue03/16/22 at 2115, ST AT fentaNYL citrate (PF) injection 50 mcg (COMPLETED) 1847 (Given - Provider: Tatum Carlson RN) 50 mcg, intravenous, NOW X1, 1 dose, On Tue03/16/22 at 1915, STA T fentaNYL citrate (PF) injection 50 mcg (COMPLETED) 1844 (Given - Provider: Tatum Carlson RN) 50 mcg, intravenous, NOW X1, 1 dose, On Tue03/16/22 at 211, STA T iohexoL (OMNIPAQUE 350) solution 100 mL (COMPLETED) 1550 (Given - Provider: [place] Valdivia) 100 mL, intravenous, Once in imaging, 1 dose, Starting on Tue03/16/22 at 1540, Until Tue03/16/22 at 1551, Routine iohexoL (OMNIPAQUE 350) solution 100 mL (COMPLETED) 2011 (Given - Provider: Latricia Moise) 100 mL, intravenous, Once in imaging, 1 dose, Starting on Tue03/16/22 at 2010, Until Tue03/16/22 at 2011, Routine ketAMINE (KETALAR) IV injection vial 150 mg (COMPLETED) 1825 (Given - Provider: Tatum Carlson RN) 150 mg, intravenous, NOW X1, 1 dose, On Tue03/16/22 at 2114, Rou amol midazolam (PF) (VERSED) injection 6 mg (COMPLETED) 2057 (Given - Provider: Tatum Carlson RN) 6 mg, intravenous, NOW X1, 1 dose, On Tue03/16/22 at 211, STAT pantoprazole (PROTONIX) injection 80 mg (COMPLETED) 1910 (Given - Provider: Tatum Carlson RN) 80 mg, intravenous, NOW X1, 1 dose, On Tue03/16/22 at 1845, STAT polyethylene glycol (GoLYTELY;NuLYTELY) suspension 1 L 1899 (Due)1999 (Due) 1 L, oral, EVERY HOUR, 4 doses, First do se (after last reorder) on Tue03/16/22 at 1900, Last dose on Tue03/16/22 at 2200, Routine succinylcholine (ANECTINE) injection 150 mg (COMPLETED) 1826 (Given - Provider: Tatum Carlson RN) 150 mg, intravenous, NOW X1, 1 dose, On Tue03/16/22 at 211, STA T TAMSulosin (FLOMAX) capsule 0.4 mg (COMPLETED) 173 (Given - Provider: Candelaria Franklin RN) 0.4 mg, oral, NOW X1, 1 dose, On Tue03/16/22 at 1745, Routine Continuous Medication Order 03/14/2022 03/15/2022 03/16/2022 midazolam (PF) in 0.9 % NaCl (VERSED) 1 mg/mL infusion solution 1902 (New Bag - Provider: Tatum Carlson, HERNESTO) 1-20 mg/hr (1-20 mL/hr), intravenous, CO NTINUOUS, Starting on Tue03/16/22 at 1915, Until Tue03/16/22 at 2110, Routine norepinephrine (LEVOPHED) 4 mg in 0.9 % sodium chloride infusion 250 mL 1855 (New Bag - Provider: Tatum Carlson, HERNESTO)1901 (Rate Change - Provider: Tatum Carlson, HERNESTO)1918 (Rate Change - Provider: Tatum Carlson RN) 2-30 mcg/min (7.5-112.5 mL/hr), intraven ous, CONTINUOUS, Starting on Tue03/16/22 at 2114, Until Tue03/16/22 at 2110, STAT propOFol (DIPRIVAN) 1000 mg in 100 mL infusion 1840 (New Bag - Provider: Tatum Carlson RN)1844 (Rate Change - Provider: Tatum Carlson RN) 5-83 mcg/kg/min ? 70.3 kg (2.109-35.0094 mL/hr, rounded to 2.1-35 mL/hr), intravenous, CONTINUOUS, Starting on Tue03/16/22 at 1900, Until Tue03/16/22 at 2110, Routine documented in this encounter Orders Medications Ordered That Might Not Have Count Last Ord ered Date First Ordered Date Been Administered polyethylene glycol (GoLYTELY;NuLYTELY) 2 03/16/20 suspension 1 L Lab Orders Without Results Count Last Ordered Date Fir st Ordered Date PREPARE 2 UNITS UNCROSSMATCHED RBCS 2 03/16/2022 PREPARE 4 UNITS UNCROSSMATCHED RBCS AND 4 1 2021 UNITS PLASMA Nursing Count Last Ordered Date First Ordered Date CALL BLOOD BANK ([facility] 4120) TIER 1 ORDERS 3 2021 ARE PLACED CALL BLOOD BANK ([facility] 4120) TIER 2 ORDERS 1 2021 ARE PLACED CALL HOSPITALIST FOR ADM/REFLEX TO [facility] 1 2021 NURSE CALL PHYSICIAN SPECIALTY CONSULT 1 03/16/2022 CALL TRANSFER CENTER [facility] 1 03/16/2022 PAGE LAB MOBILE APPLICATION DEVELOPER ([facility] [phone]) TIER 1 2 03/16 ORDERS Transfer Count Last Ordered Date First Ordered Date ED BED REQUEST 1 03/16/2022 documented in this encounter Care Teams Fish Housekeeper Relationship Specialty Start Date End Date Tyrese Juares PA PCP - General 03/16/22 [address] [place] [address] documented as of this encounter
[2022-05-26 10:57] LABS: Source Nasal/Nares
[2022-05-26 14:28] LABS: COVID-19 PCR Negative (Negative)
== END 2022-05-26 01:10 | disposition home or self-care (01) ==
LOC: LBO 01:09
PROVIDERS: PCP Physician Assistant Medical; Visit Provider Surgery
DX: Z20.822 Contact with and (suspected) exposure to COVID-19 (principal); Z01.818 Encounter for other preprocedural examination
CPT/HCPCS: 87635

== ENCOUNTER 2022-05-28 06:07 | Day surgery (SDC) | payer OTHER, SELFPAY ==
--- NOTE | 2022-05-27 11:17 | NUR.NOTE ---
Called patient to do pre-op call, and to make sure he was all set with bowel prep instructions. Pt. stated he did some of the bowel prep yesterday 05/26/22, stating he took the 2 Ducolax at 1300 then again at 1700, as well as 3 capfuls of the Miralax DRY not mixed in any fluid, stated he was on the toilet all day yesterday. Pt. also stated he had eaten an tunisian muffin and peanut butter and had coffee with cream and sugar this morning 05/27/22. Called office to confirm that patient had not received alternative Bowel prep instructions and he in-fact received the standard prep instructions. Dr. Junior office was contacted, in which they stated he should continue the bowel prep, omitting the Ducolax tablets today 05/27/22 and just finish the Miralax drink mixture IN a clear FLUID, and to not eat anything else today, and to remain hydrated with CLEAR liquids and we will reassess DOS what his BM have been and possibly do a Fleets enema if necessary. This was communicated to the patient and his friend who was there by this RN, pt. stated clear understanding of these plans. This RN's phone extension was given and told to call if ANY questions at all, office aware of plan. Nursing Note:
--- NOTE | 2022-05-27 23:11 | W.PM.DSUDISC ---
Discharge Plan Disposition Patient Disposition: HOME Condition: Good Discharge Details Reason For Visit: Bright red blood per rectum Attending Provider: Kennedy Junior Primary Care Provider: Tyrese Juares Home Meds and New Rx's Prescriptions: No Action folic acid 1 mg tablet 1 mg PO DAILY prazosin 5 mg capsule 5 mg PO QHS tamsulosin 0.4 mg capsule 0.4 mg PO DAILY lisinopril 5 mg tablet 5 mg PO DAILY sertraline 100 mg tablet 100 mg PO DAILY trazodone 50 mg tablet 50 mg PO QHS PRN Discharge Instructions Instructions: Diverticulosis (GEN), Colorectal Polyps (DC), Colonoscopy (DC), Upper Endoscopy (DC) Referrals: Kennedy Junior MD [ [facility] STAFF PHYSICIAN] - Activity:: Activity as Tolerated Diet:: As Tolerated Discharge Orders Discharge Orders: Discharge Order (Routine); Ordered 05/28/22 Ordered By: Kennedy Junior
--- NOTE | 2022-05-27 23:12 | W.PM.ENDDOP ---
Date of service: 05/28/22 Time of Service: 08:20 Endoscopy Report DATE OF PROCEDURE: 05/28/22 PRE-OP DIAGNOSIS: Red blood per rectum POST-OP DIAGNOSIS: other (Sigmoid diverticulosis, ) PROCEDURE: Colonoscopy with biopsies SURGEON: Kennedy Junior ANESTHESIA TYPE: MAC ESTIMATED BLOOD LOSS: 10 PATHOLOGY: other (Rectal polyp, colorectal polyp) COMPLICATIONS: None DISPOSITION: same day INDICATIONS: History of bright red blood per rectum PREP: Miralax/Dulcolax PROCEDURE START TIME: 07:28 PROCEDURE END TIME: 08:21 COLONOSCOPY RETRACTION TIME: 25 FINDINGS: 2 polyps at 40 cm, one polyp at 20 cm PROCEDURE DESCRIPTION: After the induction of monitored anesthetic care, and with the patient in left lateral decubitus position, I began by performing an external anorectal exam.? Perineum and skin were normal, as was the anal verge.? There was no evidence of external hemorrhoids.? Next, I performed a digital rectal exam.? I did not appreciate any abnormal findings.? Next, I advanced a colonoscope into the rectal vault.? I performed retroflexion.? I did not see signs of pathologic internal hemorrhoids.? Using insufflation, I then advanced the colonoscope beyond the rectal folds and into the sigmoid colon before advancing towards the cecum.? The quality of the prep was good.? The scope was noted to be in the cecum by identification of the ileocecal valve and appendiceal orifice.? I then began withdrawing the colonoscope using repeated irrigation as necessary for full evaluation of the colonic mucosa. Around 40 cm from the anal verge I identified a medium polyp. ?It appeared sessile in character. ?I was able to remove this with a energized snare. ?I examined the site, and there was minimal bleeding. Immediately behind this, was a smaller and distinct polyp. I took this with cold forceps. Once this was completed, I continued to withdraw the scope and examine the remainder of the colonic mucosa.?Once the scope was withdrawn to the level of the rectum, great care was taken to examine portions of the rectal folds.?Around 20 cm from the anal verge I identified a small flat polyp. ?It appeared sessile in character. ?I was able to remove this with a cold forceps. ?I examined the site, and there was minimal bleeding. ?Once this was completed, I continued to withdraw the scope and examine the remainder of the colonic mucosa. Finally, the scope was withdrawn and the patient was brought to the same-day surgery recovery unit as the anesthetic wore off. ?The findings and instructions were shared with the patient prior to discharge.
[2022-05-28 06:15] VITALS: BP 134/93; PULSE 60; RESP 18; TEMP 36.6; O2SAT 96
[2022-05-28] MEDS: Lactated Ringers 1,000 ML 80 ML IV (06:45)
--- NOTE | 2022-05-28 07:03 | ANES.PREOP_ITS ---
General Info Date of Service Date Performed: 05/28/22 Height: 5 ft 9 in Weight: 64.4 kg Body Mass Index (BMI): 20.9 Surgical Procedure: Operation Date: 05/28/22 07:35 Proposed Procedure Side Surgeon p Colonoscopy/Gastroscopy Kennedy Junior MD Meds Allergies and Home Medications Allergies Allergy/AdvReac Type Severity Reaction Status Date / Time aspirin Allergy Unknown Verified 05/28/22 06:27 shrimp Allergy Unknown Verified 05/28/22 06:27 Black fly Allergy Severe Anaphylaxis Uncoded 05/28/22 06:27 Home Medication Medication Instructions Recorded folic acid 1 mg tablet 1 mg PO DAILY 05/14/22 lisinopril 5 mg tablet 5 mg PO DAILY 05/14/22 prazosin 5 mg capsule 5 mg PO QHS 05/14/22 sertraline 100 mg tablet 100 mg PO DAILY 05/14/22 tamsulosin 0.4 mg capsule 0.4 mg PO DAILY 05/14/22 trazodone 50 mg tablet 50 mg PO QHS PRN 05/14/22 Current Visit Medications: Current Medications Generic Name Dose Route Start Last Admin Trade Name Freq PRN Reason Stop Dose Admin Ringer's Solution 1,000 mls @ 80 mls/hr 05/28/22 06:00 05/28/22 06:45 IV 06/26/22 23:59 80 mls/hr INFUSION SMITHA Administration IV Miscellaneous Supplies 1 each 05/28/22 06:00 Iv Access IV 06/26/22 23:59 DIRECTED SMITHA Sodium Chloride 0 ml 05/28/22 06:00 Normal Saline Flush 10 Ml Syr IV 06/26/22 23:59 PRN PRN Sodium Chloride 0 ml 05/28/22 06:00 Normal Saline 10 Ml Vial IJ 06/26/22 23:59 DIRECTED PRN Sterile Water 0 ml 05/28/22 06:00 Water,Injection,Sterile 10 Ml Vial IJ 06/26/22 23:59 DIRECTED PRN PFSH Active Problems Active Problems: Problem Status Onset Code Hemorrhage of anus and rectum K62.5 Alcohol abuse F10.10 Hemorrhagic shock R57.8 Acute GI bleeding K92.2 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 Cardiac arrest s/p CPR x2 rounds w/ [facility] prior to admission at [facility] in regards to hemorrhagic shock Cervical root lesion Cervicalgia Essential hypertension Malaise and fatigue Panic disorder PTSD (post-traumatic stress disorder) Pt. states nothing is a potential trigger in regards to waking up from anesthesia. Sensory hearing loss, bilateral Tinnitus Tobacco Smoking/Tobacco Use Status: Former Tobacco Use Alcohol Alcohol Intake: former Year quit: 2021 Substance Use Substance use: Daily Substance use type: marijuana Vital Signs and Lab Results Vital Signs Most Recent Vital Signs in EMR: Most Recent Vital Signs Temp Pulse Resp BP Pulse Ox 36.6 C 60 18 134/93 H 96 05/28/22 06:15 05/28/22 06:15 05/28/22 06:15 05/28/22 06:15 05/28/22 06:15 Lab Results Blood Type / Crossmatch: No Data to Display Complete Blood Count: No Data to Display Complete Metabolic Panel: No Data to Display Liver Function Panel: No Data to Display Coagulation Panel: No Data to Display Cardiac Panel: No Data to Display Arterial Blood Gas: No Data to Display Venous Blood Gas: No Data to Display Pancreas Panel: No Data to Display Thyroid Panel: No Data to Display Infectious Disease: Coronavirus (COVID-19)(PCR) Negative (Negative) 05/26/22 09:50 Coronavirus 2019 Source Nasal/Nares 05/26/22 09:50 Blood Cultures: No Data to Display Toxicology Panel: No Data to Display Anesthesia Assessment and Plan Anesthesia History Personal History: No History of Anesthesia Complications Family History: No Family History of Anesthesia Complications Exercise Tolerance Exercise Tolerance: Metabolic Equivalents>4 Pertinent Negatives Pertinent Negatives: No Symptoms of GERD, No Major Cardiovascular Symptoms or Complaints, No Major Pulmonary Symptoms or Complaints and No History of CVA/TIA Cardiac & Pulmonary Exam Cardiac Exam: Normal S1/S2 Heart Sounds Pulmonary Exam: Clear Bilateral Breath Sounds Implantable Cardiac Device Does patient have a Pacemaker or an ICD?: No Airway Exam Known Difficult Airway: No Mallampati Class: 1 Mouth Opening: Normal (> 3cm) Thyromental Distance: Greater than 3 cm Facial Hair: Full Grimes Neck Range of Motion: Full ROM Neck Circumference: Normal Teeth Condition: Normal Dentition Airway Comments: Top front teeth chipped severely ASA Classification ASA Score: ASA 2 Emergency Case?: No NPO Status NPO Status: NPO Clears >2 hours, Solids >8 hours Anesthesia Plan Resuscitation Status: Full Code Anesthesia Technique: General Anesthesia Airway Planned: Natural Airway Monitors Used: Standard Monitors
[2022-05-28 07:07] VITALS: BMI 20.9
--- NOTE | 2022-05-28 08:12 | BOWEL_PTH ---
PATIENT: Antoine Saez LOC: [facility] U#:[id number] AGE/SX: 61/M ROOM: RE05/28/[address]: Kennedy Junior MD : 1960 BED: DIS: 05/28/2022 SPEC #: [id number] RECD: 05/28/22 12:49 STATUS: EDGARDO REQ #: [id number] EDVIN: 05/28/22 08:[address]: Kennedy Junior DEPT: Surgical Specimen RECD BY: Yoli Terry ENTERED: 05/28/22 12:50 SP TYPE: Bowel OTHR DR: Tyrese Juares Tissues: 1 - BIOPSY BOWEL 2 - BIOPSY BOWEL Procedures: GROSS AND MICRO LEVEL 4 Comments: [id number]
[2022-05-28 08:25] VITALS: BP 109/79; PULSE 62; RESP 16; TEMP 36.4; O2SAT 95
--- NOTE | 2022-05-28 08:31 | W.ANESPOSTOP ---
Postoperative Evaluation Date, Time and Location Date Performed: 05/28/22 Time Performed: 08:31 Patient Location: Day Surgery Unit Vital Signs Most Recent Imported Vital Signs: Most Recent Vital Signs Temp Pulse Resp BP Pulse Ox 36.6 C 60 18 134/93 H 96 05/28/22 06:15 05/28/22 06:15 05/28/22 06:15 05/28/22 06:15 05/28/22 06:15 Most Recent Manually Entered Vital Signs: Adult Blood Pressure: 109/79 Heart Rate: 56 Respirations: 12 Oxygen Saturation (%): 96 Temperature (C): 36.3 C Pain Score (0-10 Scale): 0 Assessment Mental Status: Awake (Alert & Oriented to Patient Baseline) Airway and Respiratory Function: Patent airway with normal (patient baseline) respiratory exam Cardiovascular Function: Hemodynamically Stable Hydration Status: Adequately Hydrated Nausea & Vomiting: No Nausea or Vomiting Pain: Pt. Denies Any Pain Peripheral Nerve Block: Patient did not receive a nerve block
[2022-05-28 08:32] VITALS: BP 109/79; PULSE 56; RESP 12; TEMPC 36.3; O2SAT 96
[2022-05-28 08:55] VITALS: BP 130/75; PULSE 53; RESP 16; TEMP 36.4; O2SAT 99
--- NOTE | 2022-05-28 12:52 | W.PM.ENDDOP ---
Date of service: 05/28/22 Time of Service: 12:52 Endoscopy Report DATE OF PROCEDURE: 05/28/22 PRE-OP DIAGNOSIS: blood per ectum POST-OP DIAGNOSIS: same PROCEDURE: EGD SURGEON: Kennedy Junior ESTIMATED BLOOD LOSS: 0 PATHOLOGY: none sent COMPLICATIONS: None DISPOSITION: same day INDICATIONS: Antoine is a 61-year-old male who presents after an episode of massive hematochezia requiring hospitalization and blood transfusion. Is here for upper and lower endoscopies to help identify the etiology of the bleeding. PREP: Miralax/Dulcolax PROCEDURE START TIME: :28 PROCEDURE END TIME: :40 FINDINGS: Small hiatal hernia PROCEDURE DESCRIPTION: After the initiation of monitored anesthetic care, and with the assistance of a bite block, I advanced a standard gastroscope through the mouth past the hypopharynx and into the esophagus.? Under the direct vision of the scope, I advanced down the esophagus into the stomach.? Once I entered the stomach, I performed a brief inspection, followed by retroflexion towards the gastric cardia.? This appeared normal.? After that, I gently advanced the scope around the incisura angularis and examined the pylorus.? This also appeared normal.? Next, I advanced the scope through the pylorus into the duodenum.? The mucosa was pink and healthy appearing.? There were no abnormalities.? I was able to visualize bile draining into the duodenum through the ampulla Vater. ?Next, I began retracting the endoscope.? Again, I returned to the stomach which was carefully examined 1 last time.? I then gently desufflated some of the stomach, and withdrew the endoscope into the distal esophagus. There was a small hiatal hernia without any evidence of inflammation. ?Finally, I withdrew the scope along the length of the esophagus taking great care to examine the entirety of the mucosa.? I did not appreciate any abnormalities.
== END 2022-05-28 09:15 | disposition home or self-care (01) ==
PROVIDERS: PCP Physician Assistant Medical; Visit Provider Surgery
PROC: (CPT 45380; principal; 2022-05-28 07:30)
DX: K62.5 Hemorrhage of anus and rectum (principal); K44.9 Diaphragmatic hernia without obstruction or gangrene; I10 Essential (primary) hypertension; F41.1 Generalized anxiety disorder; F10.10 Alcohol abuse, uncomplicated; K57.30 Diverticulosis of large intestine without perforation or abscess without bleeding; K62.1 Rectal polyp; K63.89 Other specified diseases of intestine
CPT/HCPCS: 45380; 43235; 88305